=== PATIENT | male | born 1975 | race Caucasian/White ===

== ENCOUNTER 2021-07-28 02:06 | Day surgery (SDC) | payer OTHER, SELFPAY ==
[2021-07-24 13:22] VITALS: BMI 31.1
--- NOTE | 2021-07-28 08:22 | WPDANESEPPF ---
Anes - Initial Pre Proc Eval Procedure: Operation Date: 07/28/21 13:00 Proposed Procedures p Esophagogastroduodenoscopy & Colonoscopy - Zenon Nicolas MD <Adolfo Nunes MD - Last Filed: 07/29/21 07:13> Date/Time: 07/28/21 08:22 <Adolfo Nunes MD - Last Filed: 07/29/21 07:13> Surgeon: Zenon Nicolas MD <Adolfo Nunes MD - Last Filed: 07/29/21 07:13> Pre Op Diagnosis: occult GI bleed, Anemia <Adolfo Nunes MD - Last Filed: 07/29/21 07:13> Patient Data Age: 46 Gender: M Height: 1.85 m Weight: 107 kg <Adolfo Nunes MD - Last Filed: 07/29/21 07:13> Allergies Allergy/AdvReac Type Severity Reaction Status Date / Time lactose AdvReac Gastrointestinal Verified 07/28/21 12:31 Upset <Adolfo Nunes MD - Last Filed: 07/29/21 07:13> Home Medications Medication Instructions Recorded Confirmed Type ferrous sulfate 325 mg (65 mg 325 mg PO DAILY 07/17/21 07/28/21 History iron) tablet,delayed release omeprazole 20 mg capsule,delayed 20 mg PO BID 07/17/21 07/28/21 History release <Adolfo Nunes MD - Last Filed: 07/29/21 07:13> Patient hx anesthesia problems: none <Rony Tripp MD - Last Filed: 07/28/21 12:42> Family hx anesthesia problems: none <Rony Tripp MD - Last Filed: 07/28/21 12:42> Results Review: All pre-operative results and documents have been reviewed as part of the pre-operative evaluation. <Adolfo Nunes MD - Last Filed: 07/29/21 07:13> PMFSH Past Medical History Medical History: Medical History (Updated 07/28/21 @ 13:26 by Zenon Nicolas MD) Iron deficiency anemia Mass of colon Obesity <Adolfo Nunes MD - Last Filed: 07/29/21 07:13> Family History Family History: Family History Father Carcinoma of colon Hypertension <Adolfo Nunes MD - Last Filed: 07/29/21 07:13> Social History Social History: Social History Smoking status: Never smoker Alcohol intake: former Substance use: never Substance use type: does not use Spiritual care concerns: No <Adolfo Nunes MD - Last Filed: 07/29/21 07:13> Anes - Eval Final PreProcedure Day of Procedure 07/28/21 08:22 <Adolfo Nunes MD - Last Filed: 07/29/21 07:13> Patient weight: overweight <Adolfo Nunes MD - Last Filed: 07/29/21 07:13> obese <Rony Tripp MD - Last Filed: 07/28/21 12:42> Heart: regular rate and rhythm <Adolfo Nunes MD - Last Filed: 07/29/21 07:13> regular rate and rhythm <Rony Tripp MD - Last Filed: 07/28/21 12:42> Lungs: clear to auscultation and normal air movement <Adolfo Nunes MD - Last Filed: 07/29/21 07:13> clear to auscultation <Rony Tripp MD - Last Filed: 07/28/21 12:42> Airway: Mallampati scale class II <Adolfo Nunes MD - Last Filed: 07/29/21 07:13> Mallampati scale class II <Rony Tripp MD - Last Filed: 07/28/21 12:42> Neurological: alert and oriented <Adolfo Nunes MD - Last Filed: 07/29/21 07:13> alert and oriented <Rony Tripp MD - Last Filed: 07/28/21 12:42> Last oral intake: >/= 8 hours <Adolfo Nunes MD - Last Filed: 07/29/21 07:13> >/= 8 hours <Rony Tripp MD - Last Filed: 07/28/21 12:42> ASA classification: II <Adolfo Nunes MD - Last Filed: 07/29/21 07:13> II <Rony Tripp MD - Last Filed: 07/28/21 12:42> Emergent: no <Adolfo Nunes MD - Last Filed: 07/29/21 07:13> no <Rony Tripp MD - Last Filed: 07/28/21 12:42> Anesthetic plan: proceed <Adolfo Nunes MD - Last Filed: 07/29/21 07:13> proceed <Rony Tripp MD - Last Filed: 07/28/21 12:42> Anesthesia type and monitoring: general GIVS <Adolfo Nunes MD - [place]
--- NOTE | 2021-07-28 12:32 | WPDHPUPDATE1 ---
History and Physical Update Update Date/Time: 07/28/21 12:32 History and Physical has been reviewed, including an updated exam of the patient. There are NO changes in the patient's condition. Risks, benefits, and alternatives have been discussed and questions answered. Patient agrees to proceed with procedure.
[2021-07-28 12:34] VITALS: BP 144/83; PULSE 84; RESP 16; TEMP 36; O2SAT 100; BMI 30.7
[2021-07-28] MEDS: LACTATED RINGERS 1,000 ML 150 ML IV CONT (12:39)
--- NOTE | 2021-07-28 13:03 | SUR.OPER ---
EGD completed at 1257. Colonoscopy started at 1303.
[2021-07-28 13:28] VITALS: BP 95/53; PULSE 64; RESP 22; O2SAT 97
[2021-07-28 13:38] VITALS: BP 113/69; PULSE 64; RESP 22; O2SAT 97
[2021-07-28 13:48] VITALS: BP 121/75; PULSE 68; RESP 17; O2SAT 96
== END 2021-07-28 13:58 | disposition home or self-care (01) ==
PROVIDERS: PCP Internal Medicine; Visit Provider Internal Medicine Gastroenterology
PROC: 0DJ08ZZ Inspection of Upper Intestinal Tract, Via Natural or Artificial Opening Endoscopic (ICD-10-PCS; CPT 43235; principal; 2021-07-28 13:00)
DX: K63.3 Ulcer of intestine (principal); K64.8 Other hemorrhoids; E66.9 Obesity, unspecified; Z68.30 Body mass index [BMI] 30.0-30.9, adult
CPT/HCPCS: 43239; 45381; 45380; 88305; J2704; J7120

== ENCOUNTER 2021-07-29 14:28 | Outpatient (CLI) | payer OTHER, SELFPAY ==
[2021-07-29 14:48] LABS: Hematocrit 33.6 % (42.0-52.0); Hemoglobin 9.4 g/dL (14.0-18.0); Mean Corpuscular Hemoglobin 20.3 pg (26-34); Mean Corpuscular Volume 72.6 fl (80-100); Mean Platelet Volume 10.6 fl (7.4-10.4); Platelet Count Result 310 k/mm3 (150-375); Red Blood Count 4.63 M/mm3 (4.6-6.20); Red Cell Distribution Width 22.6 % (11.5-14.5); White Blood Count 3.8 K/mm3 (4.5-10.0)
[2021-07-29 15:00] LABS: Alanine Aminotransferase 15 U/L (4-50); Albumin Level 4.7 g/dL (3.5-5.1); Alkaline Phosphatase 74 U/L (38-126); Anion Gap 10 mmol/L (8-16); Aspartate Amino Transferase 21 U/L (17-59); Bilirubin,Total 0.3 mg/dL (0.2-1.3); Blood Urea Nitrogen 19 mg/dL (9-20); Calcium 9.4 mg/dL (8.4-10.2); Carbon Dioxide 27 mmol/L (22-30); Chloride 104 mmol/L (98-107); Estimated Glomerular Filt Rate 59; Glucose 106 mg/dL (65-110); Sodium 141 mmol/L (137-145)
[2021-07-29 15:30] LABS: Carcinoembryonic Antigen 1.4 ng/mL (0.0-3.0)
== END 2021-07-29 14:29 | disposition home or self-care (01) ==
PROVIDERS: PCP Internal Medicine; Visit Provider Internal Medicine Gastroenterology
DX: D50.9 Iron deficiency anemia, unspecified (principal); K63.89 Other specified diseases of intestine
CPT/HCPCS: 36415; 80053; 82378; 85027; 85055

== ENCOUNTER 2021-08-14 12:07 | Outpatient (CLI) | payer OTHER, SELFPAY ==
--- NOTE | ~2021-08-14 | CT_ITS ---
EXAMINATION: CT abdomen pelvis w con EXAM DATE: 08/14/2021 13:27 INDICATION: K63.89 - Other specified diseases of intestine . Colon cancer. Follow-up recent obstructi on. TECHNIQUE: Spiral CT of the abdomen and pelvis was performed following intravenous injection of 100 m L Omnipaque 350. Axial, coronal and sagittal images of the abdomen and pelvis were reviewed. The do se-length product (DLP) for this examination was 707.32 mGy-cm. The exposure was tailored according to patient size (auto mA exposure control), and iterative reconstruction (ASIR) was used as additiona l dose reduction technique. There is no prior study for comparison. FINDINGS: The liver, spleen, adrenal glands and pancreas are unremarkable. Gallbladder is unremarkab le. No biliary obstruction. Portal and splenic veins are patent. Kidneys enhance symmetrically. T here is no hydronephrosis. The prostate is unremarkable. The bladder is unremarkable. There is n o retroperitoneal or pelvic lymphadenopathy. There is mild scattered arteriosclerotic disease. There is focal region of sigmoid wall thickening and also an exophytic component of soft tissue measu ring about 2.6 cm consistent with colon cancer. There is a round lymph node just anterior to the anaya c bifurcation, could be within the posterior aspect of the mesentery, or the retroperitoneum measurin g 8 mm, within normal size limits but round morphology is suspicious for metastatic disease (indicate d on axial image 116, coronal image 50, sagittal image 83). Otherwise, no suspicious pelvic or abdomi nal lymph nodes identified. The appendix is normal. The stomach and small bowel are unremarkable. No free intraperitoneal gas. The heart is normal in size. There are no pericardial or pleural effusions. The lung bases are u nremarkable. There is 1 cm mildly sclerotic focus in the left iliac bone, could be bone island but e arthur osteoblastic disease not excludable. IMPRESSION: 1. Sigmoid mass with an exophytic component. 2. Lymph node described above, possibly metastatic given round shape. 3. Left iliac vaguely sclerotic focus, could be bone island but can't exclude osteoblastic disease. Reviewed, dictated and finalized at location A. [facility]
== END 2021-08-14 12:08 | disposition home or self-care (01) ==
LOC: ANHIMG 12:10
PROVIDERS: PCP Internal Medicine; Visit Provider Internal Medicine Gastroenterology
DX: K63.89 Other specified diseases of intestine (principal)
CPT/HCPCS: 74177; Q9967

== ENCOUNTER 2021-08-26 13:37 | Outpatient (CLI) | payer OTHER, SELFPAY ==
--- NOTE | 2021-08-26 14:27 | ECG_ITS ---
Measurements Intervals [place] Rate: 59 P: 48 NM: 176 QRS: 14 QRSD: 101 T: 12 QT: 411 QTc: 410 Interpretive Statements SINUS BRADYCARDIA WITH SINUS ARRHYTHMIA LOW QRS VOLTAGE IN PRECORDIAL LEADS BORDERLINE ECG Electronically Signed On 08-26-2021 15:04:03 [facility] [employer] by Charanjit Cooper D.O.
[2021-08-26 15:00] LABS: Hematocrit 37.8 % (42.0-52.0); Hemoglobin 10.8 g/dL (14.0-18.0)
== END 2021-08-26 13:38 | disposition home or self-care (01) ==
LOC: ANHSURGERY 13:40
PROVIDERS: Anesthesiology; PCP Internal Medicine; Visit Provider Surgery
DX: K63.89 Other specified diseases of intestine (principal); D64.9 Anemia, unspecified; Z01.818 Encounter for other preprocedural examination; R94.31 Abnormal electrocardiogram [ECG] [EKG]
CPT/HCPCS: 36415; 85014; 85018; 86850; 86900; 86901; 93005

== ENCOUNTER 2021-09-03 16:02 | Inpatient (IN) | payer OTHER, SELFPAY ==
--- NOTE | 2021-08-26 13:44 | PC.NURSE ---
Report to the Outpatient Waiting Room, entrance under the green pavilion located off [facility], at time _1000_ on date _09/03/21. OR Time: _1200___. - You and your visitor will be asked a series of questions to screen for COVID 19 for your protection. - A mask is required within the hospital. - Only one visitor is allowed at this time. Patient visitors will be guided where to wait when not with patient. Preoperative COVID Testing Requirements: No COVID Test needed if: (proof is required; if not received patient will have Rapid Test prior to entry) - Patient has received COVID Vaccine at least 14 days prior to procedure date or - Patient has positive COVID test result within last 90 days of surgery date. COVID Test needed if above criteria is not met If not COVID vaccinated a COVID test must be conducted within 72 hours of surgery and patient is asked to isolate self from time of testing until procedure. You will go to the [facility] for your COVID testing. The [facility] site is located at the corner of [address] [facility]. You will only be called if COVID results are positive and your surgeon may reschedule your elective surgery date. Patients may have clear liquids (water, carbonated beverages, clear teas, apple juice) until 3 hours prior to surgery (0900 AM) with a maximum of 20 ounces. - No food from midnight until time of surgery - Infants may have breast milk until 4 hours before surgery, formula 6 hours prior to surgery. - Children will be allowed to drink immediately following surgery. If applicable, please bring a bottle or sippy cup to assist with drinking. Juice, water, soda, and popsicles are readily available. For infants on formula, please bring formula the day of surgery. Pacifiers are allowed. Take the following medications with a SIP of water the morning of surgery: N/A Medications to discontinue per physician N/A Date to take last dose Please no make-up, nail bahamian, hairspray, perfume, deodorant, or body powder the day of surgery. No jewelry (including any body piercings) or valuables the day of surgery, leave them at home. Please take a shower or bath the night before, or the morning of, surgery with an antibacterial soap. Wear comfortable, loose fitting clothing. Children are encouraged to wear pajamas. - Jewelry must be removed prior to entering the operating room. Rings and piercings that are not removed may be cut off. - The hospital will not accept responsibility for valuables. - Please leave all valuables, including medications, at home the day of surgery. If you are going home after surgery, a licensed drive away driver must drive you home. - NO public transportation without another adult. - We recommend that an adult stay with you for 24 hours following discharge. - We also recommend that you do not drive, make important decision, drink alcoholic beverages, or take any drugs that were not prescribed by your health care provider for at least 24 hours after your discharge time. For Pediatric surgeries, we recommend two adults accompany the child home (only one inside the building at this time). Follow any additional instructions given to you from your surgeon. DIET, ENSURE BUNDLE, PRE-OP ANTIBIOTICS, BOWEL PREP, HIBICLENS SHOWER DAY BEFORE AND THE MORNING OF SURGERY Telephone instructions given to ___PT and asked if any additional questions and then verbalized understanding. Patient advised to call surgeon office or pre surgery nurse liaison [phone] if any additional questions.
[2021-08-26 13:54] VITALS: BP 148/86; PULSE 66; RESP 20; TEMP 37.1; O2SAT 100; BMI 31.8
[2021-09-03] VITALS (10 sets, daily range): BP systolic 116–147; BP diastolic 60–89; PULSE 48–82; RESP 12–16; TEMP 36.2–37.9; O2SAT 98–100
[2021-09-03] MEDS: ACETAMINOPHEN 500 MG TABLET 1000 MG PO (10:07)
[2021-09-03] MEDS: KETOROLAC 15 MG/ML VIAL (*BKC) IV PUSH (10:18)
--- NOTE | 2021-09-03 11:25 | P.PNAN_ITS ---
Anes - Initial Pre Proc Eval Procedure: Operation Date: 09/03/21 12:00 Proposed Procedures p Hand Assisted Laparoscopic Left Colectomy - Amna Bowling MD Date/Time: 09/03/21 11:25 Surgeon: Amna Bowling MD Pre Op Diagnosis: left colon mass Patient Data Age: 46 Gender: M Height: 1.85 m Weight: 104.6 kg Last Vital Signs Temp 37.9 C H 09/03/21 10:42 Pulse 82 09/03/21 10:42 Resp 16 09/03/21 10:42 BP 133/69 09/03/21 10:42 Pulse Ox 99 09/03/21 10:42 Allergies Allergy/AdvReac Type Severity Reaction Status Date / Time lactose AdvReac Mild Gastrointestinal Verified 09/03/21 09:56 Upset Home Medications Medication Instructions Recorded Confirmed Type ferrous sulfate 325 mg (65 mg 325 mg PO HS 07/17/21 09/03/21 History iron) tablet,delayed release omeprazole 20 mg capsule,delayed 20 mg PO BID 07/17/21 09/03/21 History release Patient hx anesthesia problems: none Family hx anesthesia problems: none Results Review: All pre-operative results and documents have been reviewed as part of the pre-operative evaluation. [facility] Past Medical History Medical History Iron deficiency anemia Mass of colon Obesity Family History Family History Father Carcinoma of colon Hypertension Mother COPD (chronic obstructive pulmonary disease) Social History Social History Smoking status: Never smoker Second hand tobacco smoke exposure: No Alcohol intake: never Alcohol use details: [place] [employer]INKER - QUIT 2015 Substance use: never Substance use type: does not use Living arrangements: other Additional living arrangements comments: LIVES WITH SIGNIFICANT OTHER Spiritual care concerns: No Anes - Eval Final PreProcedure Day of Procedure 09/03/21 11:25 Patient weight: obese Heart: regular rate and rhythm Lungs: clear to auscultation and normal air movement Airway: Mallampati scale class II Neurological: alert and oriented Last oral intake: >/= 8 hours ASA classification: III Emergent: no Anesthetic plan: proceed Anesthesia type and monitoring: general ETT Results Review: All pre-operative results and documents have been reviewed as part of the pre-operative evaluation. Informed Consent: The patient's anesthetic plan and its attendant risks and benefits were discussed with the patient/family/POA. Questions were solicited and answers provided to the satisfaction of the patient/family/POA.
--- NOTE | 2021-09-03 11:27 | WPDANESPNB ---
Anes - Peripheral Nerve Block Date/Time: 09/03/21 11:27 I have discussed with the patient/family/POA the placement of a peripheral nerve block for post-operative pain management, including associated risks, benefits, complications, and side effects. Alternative methods of post-operative analgesia were detailed. Questions were solicited and answers provided to the satisfaction of the patient/family/POA. Time-Out: A pre-procedural Time-Out was completed immediately before starting the procedure and confirmed: Patient Identification, Site, Procedure, Patient Position and the Availability of Requisite Equipment. Clinical Indications: Acute post-operative pain management requested by the operative surgeon. Nerve Block Insertion Note Anes-nerve block: other (bilateral t7 rolo block) Patient position: other (sitting) Skin prep: chlorhexidine Needle: 22 gauge, stimulating, insulated echogenic needle. Needle length: 80 mm Technique: ultrasound (in plane) Injectate: bupivacaine 0.5% with epi 5 mcg/ml (40cc) Observations: tolerated well Complications: none Procedure start time:: 1145 Procedure end time:: 1150
--- NOTE | 2021-09-03 11:42 | WPDHPUPDATE1 ---
History and Physical Update Update Date/Time: 09/03/21 11:42 History and Physical has been reviewed, including an updated exam of the patient. There are NO changes in the patient's condition. Risks, benefits, and alternatives have been discussed and questions answered. Patient agrees to proceed with procedure.
[2021-09-03] MEDS: LACTATED RINGERS 1,000 ML 30 ML IV CONT ×2 (11:59→14:54)
[2021-09-03] MEDS: metroNIDAZOLE 500 MG/ISO 100ML 500 MG/100 ML BAG 100 MG IVPB (12:26)
[2021-09-03] MEDS: ceFAZolin 2 GM/D5W 50 ML 2 GM/50 ML BAG IVPB ×2 (12:26→20:31)
[2021-09-03] MEDS: BUPIVACAINE/EPINEPHRINE 0.25% 10 ML VIAL 30 ML INFILTRATE (13:20)
--- NOTE | 2021-09-03 14:46 | W.PM.PROC2 ---
Procedure Note - Detailed Date of Procedure 09/03/21 Pre-op Diagnosis obstructing left colon mass Post-op Diagnosis same Procedure Performed hand assisted laparoscopic sigmoid colectomy with mobilization of the splenic flexure Surgeon Amna Bowling MD Anesthesia general Indications 46 y/o M c obstructing colon mass in L colon. Biopsy c high grade dysplasia. Findings obstructing colon mass mid sigmoid colon Description of Procedure The patient was taken to the operating room and placed in the modified lithotomy position. After adequate induction of general anesthesia, the patient was prepped and draped in the normal sterile fashion. A time-out was then done to verify the patient's identity, as well as the procedure being performed. I began by making a hand port incision around the umbilicus. This incision was carried down into the peritoneal cavity and no adhesions were noted. At this point, the hand port was placed and the abdomen was insufflated. I then placed a trocar through this site and under direct visualization placed a 5 mm and 12 mm ports in the right lower abdomen. There were some adhesions of the small bowel to the pelvis and these were taken down with the LigaSure device. I was then able to sweep the small bowel out of the operative field. I then identified the tattooed lesion in the sigmoid colon. This was noted to be in the midl sigmoid approximately 35 cm from the anal verge. I then mobilized the proximal colon to gain adequate length for our anastomosis. I took down the white line of Toldt laterally along the sigmoid and descending colon. In order to insure adequate length I went ahead and mobilized the splenic flexure as well. I then began dissection of the sigmoid colon itself. I used a medial to lateral approach 1st identifying the left colic vessels. The left colic vessels were identified at the base the mesentery. I was able to visualize the left ureter at this point as well and this was noted to be posterior and out of the way. I then took down the left colic vessels using the LigaSure device. I then carried this dissection plane inferiorly to the level of the distal sigmoid upper rectum. I then dissected laterally by taking down the white line of Toldt in this area. I also dissected around the area of the distal sigmoid and upper rectum. I was then able to get around circumferentially in the distal sigmoid upper rectal area. I then transected the distal sigmoid with upper rectum using a echelon stapler. Of note this did take 2 staple loads. At this point I was able to extracorporealyze the specimen. I then again was able to identify the tattooed area and noted adequate distal colon to this area. I then found an area proximal to this area approximately 10 cm to the tattooed area to transect the proximal sigmoid colon. This was done with an echelon stapler. I then prepared the proximal colon for our colorectal anastomosis. Using the EEA sizers, it was noted a 28 EEA stapler would be used for the anastomosis. I then used a auto pursestring device after transecting the proximal colon and placing the 28 anvil in the proximal colon. We then reinsufflated the abdomen and noted adequate length of the proximal colon for our anastomosis. The rectum was then dilated 1st digitally then with the EEA sizers. Once adequately done, the 28 EEA stapler was placed through the rectum and brought out through the middle of the previous staple line. I then completed a 28 EEA colorectal anastomosis. We then did an air leak test using the proctoscope and no leak was noted. The anastomosis was noted to be widely patent and tension-free. I then examined the rest of the abdomen and no other pathology was noted. Then copiously irrigated the area of our anastomosis and hemostasis was noted. I then closed the 12 mm port site under direct visualization with a Bipin cone and 0 Vicryl suture. The abdomen was then desufflated and all ports we
[2021-09-03] MEDS: LACTATED RINGERS 1,000 ML 100 ML IV CONT (16:15)
--- NOTE | 2021-09-03 16:32 | ADMGEN ---
This patient, Musa Santamaria, was admitted to [facility] Surgery-1. Patient/family oriented to hospital policies and general routines including ID bracelet, bed and alarms, visiting hours, pain management, procedures, bathroom and other care routines, personal items, smoking policy, room service/diet, and visiting hours. Information on how to activate the Rapid Response Team has been discussed. Patient/Family are encouraged to report perceived risks to care and to ask questions if they do not understand what they are told or what they should do.
[2021-09-04] MEDS: HYDROcodone/acetaminophen (*CRX) 5-325 MG TABLET 1 TAB PO ×3 (00:25→16:31)
[2021-09-04 00:29] VITALS: BP 114/86; PULSE 62; RESP 18; TEMP 37.1; O2SAT 98
[2021-09-04] MEDS: LACTATED RINGERS 1,000 ML 100 ML IV CONT ×3 (02:43→23:42)
[2021-09-04 04:00] VITALS: BP 133/96; PULSE 65; RESP 18; TEMP 36.9; O2SAT 97
[2021-09-04] MEDS: ceFAZolin 2 GM/D5W 50 ML 2 GM/50 ML BAG IVPB (04:00)
[2021-09-04] MEDS: MORPHINE SULFATE (*CRX) 2 MG/ML INJ IV PUSH (05:19)
[2021-09-04 06:29] LABS: Basophils Percent Auto 0.1 % (0.2-1.2); Hematocrit 38.8 % (42.0-52.0); Hemoglobin 11.6 g/dL (14.0-18.0); Immature Granulocyte Absolute 0.05 K/mm3 (0.00-0.031); Immature Granulocyte Percent A 0.5 % (0-0.5); Lymphocytes Absolute Auto 0.68 K/mm3 (0.9-3.2); Lymphocytes Percent Auto 6.6 % (18.3-44.2); Mean Corpuscular HGB Conc 29.9 g/dl (32-36); Mean Corpuscular Hemoglobin 22.3 pg (26-34); Mean Corpuscular Volume 74.5 fl (80-100); Monocytes Absolute Auto 0.7 K/mm3 (0.1-0.6); Monocytes Percent Auto 6.8 % (2.6-8.5); Neutrophils Absolute Auto 8.8 K/mm3 (1.3-6.7); Platelet Count Result 275 k/mm3 (150-375); Red Blood Count 5.21 M/mm3 (4.6-6.20); Red Cell Distribution Width 22.3 % (11.5-14.5); White Blood Count 10.3 K/mm3 (4.5-10.0)
[2021-09-04 06:44] LABS: Anion Gap 10 mmol/L (8-16); Blood Urea Nitrogen 14 mg/dL (9-20); Calcium 9.6 mg/dL (8.4-10.2); Carbon Dioxide 25 mmol/L (22-30); Chloride 104 mmol/L (98-107); Estimated CRCL calculation 95 ml/min; Estimated Glomerular Filt Rate > 60; Glucose 124 mg/dL (65-110); Potassium 4.1 mmol/L (3.4-5.0); Sodium 139 mmol/L (137-145)
[2021-09-04 07:43] LABS: Platelet Estimate Adequate (Adequate)
[2021-09-04 07:44] LABS: Anisocytosis 1+ (NORMAL); Ovalocytes 2+ (NORMAL)
[2021-09-04 07:55] VITALS: BP 136/81; PULSE 60; RESP 16; TEMP 36.9; O2SAT 98
--- NOTE | 2021-09-04 08:13 | P.PNAN_ITS ---
Anes - Prog Note Post-Op Date/Time: 09/04/21 08:13 Cardiovascular status: normal Respiratory status: normal Airway patency: baseline Mental status: baseline Post-Op hydration status: normal Vital Signs: Last Vital Signs Temp 98.4 F 09/04/21 04:00 Pulse 65 09/04/21 04:00 Resp 18 09/04/21 04:00 BP 133/96 H 09/04/21 04:00 Pulse Ox 97 09/04/21 04:00 Pain Score (VAS): 09/15 I/O: Intake & Output 09/03/21 09/04/21 09/04/21 23:59 07:59 15:59 Intake Total 530 1062 Output Total 350 2800 Balance 180 -1738 Laboratory Tests 09/04/21 06:00 09/04/21 06:00 09/04/21 09/04/21 06:00 06:00 WBC 10.3 H RBC 5.21 Hgb 11.6 L Hct 38.8 L MCV 74.5 L MCH 22.3 L MCHC 29.9 L RDW 22.3 H Plt Count 275 MPV 10.0 Immature Gran % (Auto) 0.5 Neut % (Auto) 86.0 H Lymph % (Auto) 6.6 L [place] % (Auto) 6.8 Eos % (Auto) 0.0 Baso % (Auto) 0.1 L Lymph # (Auto) 0.68 L [place] # (Auto) 0.7 H Eos # (Auto) 0.0 Baso # (Auto) 0.0 Abs Immat Gran (auto) 0.05 H Absolute Neuts (auto) 8.8 H Absolute Nucleated RBC 0.0 Nucleated RBC % 0.0 Platelet Estimate Adequate Anisocytosis 1+ Ovalocytes 2+ Sodium 139 Potassium 4.1 Chloride 104 Carbon Dioxide 25 Anion Gap 10 BUN 14 D Creatinine 1.10 Estim Creat Clear Calc 95 Estimated GFR > 60 Glucose 124 H Calcium 9.6 Patient Feedback: Patient satisfied with anesthetic care.
[2021-09-04] MEDS: PANTOPRAZOLE 40 MG TABLET PO (09:21)
[2021-09-04] MEDS: ENOXAPARIN 40 MG/0.4 ML SYRINGE SUB-Q (09:21)
[2021-09-04 14:08] VITALS: BP 132/75; PULSE 67; RESP 14; TEMP 36.7; O2SAT 100
--- NOTE | 2021-09-04 15:07 | PM.PNGS ---
Progress Note: A&P Assessment and Plan (1) Mass of colon: Code(s): K63.89 - Other specified diseases of intestine Status: Acute Assessment and Plan: doing well, cont clears, await ROBF, crain out, ambulate, OOB/IS, await path Subjective Subjective Date/Time Seen: 09/04/21 15:07 feels good, minimal incisional pain, lul clears Review of Systems Review of Systems: All systems reviewed & are unremarkable except as noted in HPI and below Exam Const: General: cooperative, comfortable and no acute distress Resp: Effort & Inspection: normal respiratory effort Auscultation: clear to auscultation bilaterally Cardio: Rate: regular rate Rhythm: regular rhythm GI: Inspection: normal to inspection, distended and incision GI Palp: Yes Tenderness to palpation present (GI) Objective Data Vital Signs Vital Signs: Vital Signs - 24 hr 09/03/21 15:10 09/03/21 15:20 09/03/21 15:35 Temperature 36.2 C L Pulse Rate 63 71 66 Respiratory Rate 13 13 16 Blood Pressure 124/76 145/85 H 143/84 H Pulse Oximetry 100 100 100 09/03/21 15:50 09/03/21 16:00 09/03/21 16:15 Temperature 36.6 C Pulse Rate 58 L 57 L 56 L Respiratory Rate 16 16 14 Blood Pressure 147/89 H 141/78 H 140/79 Pulse Oximetry 99 99 99 09/03/21 20:09 09/04/21 00:29 09/04/21 04:00 Temperature 36.5 C 37.1 C 36.9 C Pulse Rate 75 62 65 Respiratory Rate 16 18 18 Blood Pressure 129/62 114/86 133/96 H Pulse Oximetry 98 98 97 09/04/21 07:55 09/04/21 14:08 Temperature 36.9 C 36.7 C Pulse Rate 60 67 Respiratory Rate 16 14 Blood Pressure 136/81 132/75 Pulse Oximetry 98 100 Intake/Output Intake/Output: Intake & Output 09/01/21 09/02/21 09/03/21 09/04/21 23:59 23:59 23:59 23:59 Intake Total 980 2062 Output Total 460 2800 Balance 520 -738 Meds/Results Medications: Active Medications Generic Name Dose Route Start Last Admin Trade Name Freq PRN Reason Stop Dose Admin Hydrocodone Bitart/Acetaminophen 1 tab 09/03/21 16:02 09/04/21 09:30 Hydrocodone/Acetaminophen (*Crx) 5-325 Mg Tablet PO 1 tab Q4H PRN Administration Pain Rated 4-6 Alvimopan 12 mg 09/04/21 21:00 Alvimopan 12 Mg Capsule PO 09/11/21 20:59 Q12HR BRENDAN Enoxaparin Sodium 40 mg 09/04/21 09:00 09/04/21 09:21 Enoxaparin 40 Mg/0.4 Ml Syringe SUB-Q 40 mg DAILY BRENDAN Administration Lactated Ringer's 1,000 mls @ 100 mls/hr 09/03/21 16:02 09/04/21 13:23 Lr - Lactated Ringers Iv IV CONT 100 mls/hr .Q10H BRENDAN Administration Morphine Sulfate 2 mg 09/03/21 16:02 09/04/21 05:19 Morphine Sulfate (*Crx) 2 Mg/Ml Inj IV PUSH 2 mg Q2H PRN Administration Pain Rated 4-6 Morphine Sulfate 4 mg 09/03/21 16:02 Morphine Sulfate (*Crx) 4 Mg/Ml Inj IV PUSH Q2H PRN Pain Rated 7-10 Naloxone HCl 0.1 mg 09/03/21 16:02 Naloxone Hcl 0.4 Mg/Ml Vial IV PUSH Q2M PRN Opiate Reversal Ondansetron HCl 4 mg 09/03/21 16:02 Ondansetron Inj 4 Mg/2 Ml Vial IV PUSH Q4H PRN Nausea And Vomiting Pantoprazole Sodium 40 mg 09/04/21 09:00 09/04/21 09:21 Pantoprazole 40 Mg Tablet PO 40 mg QAM BRENDAN Administration Labs Labs: Laboratory Results - last 24 hr 09/04/21 09/04/21 06:00 06:00 WBC 10.3 H RBC 5.21 Hgb 11.6 L Hct 38.8 L MCV 74.5 L MCH 22.3 L MCHC 29.9 L RDW 22.3 H Plt Count 275 MPV 10.0 Immature Gran % (Auto) 0.5 Neut % (Auto) 86.0 H Lymph % (Auto) 6.6 L [place] % (Auto) 6.8 Eos % (Auto) 0.0 Baso % (Auto) 0.1 L Lymph # (Auto) 0.68 L [place] # (Auto) 0.7 H Eos # (Auto) 0.0 Baso # (Auto) 0.0 Abs Immat Gran (auto) 0.05 H Absolute Neuts (auto) 8.8 H Absolute Nucleated RBC 0.0 Nucleated RBC % 0.0 Platelet Estimate Adequate Anisocytosis 1+ Ovalocytes 2+ Sodium 139 Potassium 4.1 Chloride 104 Carbon Dioxide 25 Anion Gap 10 BUN 14 D Creatinine 1.10 Estim Creat Clear Calc 95 Estimated GFR > 60
--- NOTE | 2021-09-04 16:53 | PC.NURSE ---
PT TRANSFERRED TO ROOM 244. PT STABLE AND IN GOOD SPIRITS.
[2021-09-04 17:42] VITALS: BP 135/69; PULSE 60; RESP 16; TEMP 36.6; O2SAT 99
--- NOTE | 2021-09-04 17:46 | PC.NURSE ---
This patient, Musa Santamaria, was received from PACU holding on 09/04/21 at 1643. Patient oriented to unit policies and routines. Report received from ODESSA Valero.
[2021-09-04 20:59] VITALS: BP 124/67; PULSE 60; RESP 14; TEMP 36.6; O2SAT 99
[2021-09-04] MEDS: ALVIMOPAN 12 MG CAPSULE PO (21:53)
[2021-09-05 00:19] VITALS: BP 150/88; PULSE 74; RESP 18; TEMP 36.7; O2SAT 98
--- NOTE | 2021-09-05 03:51 | PM.PNGS ---
Progress Note: A&P Assessment and Plan (1) Mass of colon: Code(s): K63.89 - Other specified diseases of intestine Status: Acute Assessment and Plan: doing well, soft diet, home if lul diet and pain controlled c po analgesia Subjective Subjective Date/Time Seen: 09/05/21 03:51 feels good, lul clears, sm BM overnight, +flatus Review of Systems Review of Systems: All systems reviewed & are unremarkable except as noted in HPI and below Exam Const: General: cooperative, comfortable and no acute distress Resp: Effort & Inspection: normal respiratory effort Auscultation: clear to auscultation bilaterally Cardio: Rate: regular rate Rhythm: regular rhythm GI: Inspection: normal to inspection and incision GI Palp: Yes abdominal tenderness, Yes Soft to palpation and Yes Tenderness to palpation present (GI) Other: incisions - C/D/I Objective Data Vital Signs Vital Signs: Vital Signs - 24 hr 09/04/21 04:00 09/04/21 07:55 09/04/21 14:08 Temperature 36.9 C 36.9 C 36.7 C Pulse Rate 65 60 67 Respiratory Rate 18 16 14 Blood Pressure 133/96 H 136/81 132/75 Pulse Oximetry 97 98 100 09/04/21 17:42 09/04/21 20:59 09/05/21 00:19 Temperature 36.6 C 36.6 C 36.7 C Pulse Rate 60 60 74 Respiratory Rate 16 14 18 Blood Pressure 135/69 124/67 150/88 H Pulse Oximetry 99 99 98 Intake/Output Intake/Output: Intake & Output 09/02/21 09/03/21 09/04/21 09/05/21 23:59 23:59 23:59 23:59 Intake Total 980 3062 Output Total 460 4600 Balance 520 -1538 Meds/Results Medications: Active Medications Generic Name Dose Route Start Last Admin Trade Name Freq PRN Reason Stop Dose Admin Hydrocodone Bitart/Acetaminophen 1 tab 09/03/21 16:02 09/04/21 16:31 Hydrocodone/Acetaminophen (*Crx) 5-325 Mg Tablet PO 1 tab Q4H PRN Administration Pain Rated 4-6 Alvimopan 12 mg 09/04/21 21:00 09/04/21 21:53 Alvimopan 12 Mg Capsule PO 09/11/21 20:59 12 mg Q12HR BRENDAN Administration Enoxaparin Sodium 40 mg 09/04/21 09:00 09/04/21 09:21 Enoxaparin 40 Mg/0.4 Ml Syringe SUB-Q 40 mg DAILY BRENDAN Administration Lactated Ringer's 1,000 mls @ 100 mls/hr 09/03/21 16:02 09/04/21 23:42 Lr - Lactated Ringers Iv IV CONT 100 mls/hr .Q10H BRENDAN Administration Morphine Sulfate 2 mg 09/03/21 16:02 09/04/21 05:19 Morphine Sulfate (*Crx) 2 Mg/Ml Inj IV PUSH 2 mg Q2H PRN Administration Pain Rated 4-6 Morphine Sulfate 4 mg 09/03/21 16:02 Morphine Sulfate (*Crx) 4 Mg/Ml Inj IV PUSH Q2H PRN Pain Rated 7-10 Naloxone HCl 0.1 mg 09/03/21 16:02 Naloxone Hcl 0.4 Mg/Ml Vial IV PUSH Q2M PRN Opiate Reversal Ondansetron HCl 4 mg 09/03/21 16:02 Ondansetron Inj 4 Mg/2 Ml Vial IV PUSH Q4H PRN Nausea And Vomiting Pantoprazole Sodium 40 mg 09/04/21 09:00 09/04/21 09:21 Pantoprazole 40 Mg Tablet PO 40 mg QAM BRENDAN Administration Labs Labs: Laboratory Results - last 24 hr 09/04/21 09/04/21 06:00 06:00 WBC 10.3 H RBC 5.21 Hgb 11.6 L Hct 38.8 L MCV 74.5 L MCH 22.3 L MCHC 29.9 L RDW 22.3 H Plt Count 275 MPV 10.0 Immature Gran % (Auto) 0.5 Neut % (Auto) 86.0 H Lymph % (Auto) 6.6 L [place] % (Auto) 6.8 Eos % (Auto) 0.0 Baso % (Auto) 0.1 L Lymph # (Auto) 0.68 L [place] # (Auto) 0.7 H Eos # (Auto) 0.0 Baso # (Auto) 0.0 Abs Immat Gran (auto) 0.05 H Absolute Neuts (auto) 8.8 H Absolute Nucleated RBC 0.0 Nucleated RBC % 0.0 Platelet Estimate Adequate Anisocytosis 1+ Ovalocytes 2+ Sodium 139 Potassium 4.1 Chloride 104 Carbon Dioxide 25 Anion Gap 10 BUN 14 D Creatinine 1.10 Estim Creat Clear Calc 95 Estimated GFR > 60 Glucose 124 H Calcium 9.6
[2021-09-05 06:00] VITALS: BP 128/74; PULSE 64; RESP 18; TEMP 36.5; O2SAT 98
[2021-09-05] MEDS: ALVIMOPAN 12 MG CAPSULE PO (08:00)
[2021-09-05] MEDS: PANTOPRAZOLE 40 MG TABLET PO (08:00)
[2021-09-05] MEDS: ENOXAPARIN 40 MG/0.4 ML SYRINGE SUB-Q (08:00)
[2021-09-05 10:00] VITALS: BP 139/65; PULSE 63; RESP 16; TEMP 36.5; O2SAT 98
[2021-09-05] MEDS: LACTATED RINGERS 1,000 ML 100 ML IV CONT (10:31)
[2021-09-05 14:00] VITALS: BP 154/92; PULSE 60; RESP 16; TEMP 36.3; O2SAT 100
--- NOTE | 2021-09-05 20:22 | PM.DS ---
DS: Admitting Diagnosis Discharge Date 09/05/21 Admitting Diagnosis Mass of the left colon with dysplasia biopsy. DS: Discharge Diagnosis Discharge Diagnosis (1) Mass of colon: Onset Date: ~08/2021 Code(s): K63.89 - Other specified diseases of intestine Status: Acute Assessment and Plan: This was the main reason for the patient's admission. Had a bowel as an outpatient and underwent hand assisted left colon resection with reanastomosis and splenic flexure takedown. (Please see the operative note). Patient had uneventful postoperative course. It appears that he had an erector spinae block at the time the surgery. This left him without much pain following the surgery and he has done well in the 2 postop days. This morning he had a bowel movement and he is up walking feeling well. He is having no trouble with his incisions. (2) BMI 31.0-31.9,adult: Onset Date: Unknown Code(s): Z68.31 - Body mass index [BMI] 31.0-31.9, adult Status: Acute Assessment and Plan: Patient will gradually increase his diet to low-fat low-fiber diet until he sees Dr. Bowling in the office. (3) Iron deficiency anemia: Onset Date: Unknown Code(s): D50.9 - Iron deficiency anemia, unspecified Status: Acute Assessment and Plan: Patient will be in taking iron tablets at home and continue with follow-up labs as an outpatient next month. DS: Summary Hospital Course Reason for hospitalization: mass of the colon with anemia Hospital Course: The patient was brought into hospital electively for a left colon resection. This was completed. He has had an uneventful postoperative course. he had good pain relief with the erector spinae block give pre-op. He had a bowel prep as an outpatient and underwent hand assisted left colon resection with reanastomosis and splenic flexure takedown on 09/03. (Please see the operative note). Patient had uneventful postoperative course. It appears that he had an erector spinae block at the time the surgery. This left him without much pain following the surgery and he has done well in the 2 postop days. This morning (09/05) he had a bowel movement and he is up walking feeling well. He is having no trouble with his incisions. Status at Discharge Cognitive/behavioral status at discharge: normal Functional status at discharge: independent ambulation Overall status at discharge: patient is not back to baseline Time Spent with Patient Time attestation: Total time spent providing and/or coordinating discharge services:25 min Exam Const: General: cooperative, comfortable, alert and awake Orientation/consciousness: patient oriented x3 HENMT: Head: normal to inspection Mouth: Yes moist mucous membranes Eyes: Sclera: sclerae normal Pupils: Equal, round and reactive pupils present Neck: Neck: normal visual inspection and no JVD Chest: Chest palpation & inspection: normal inspection of the chest Resp: Effort & Inspection: normal respiratory effort Auscultation: clear to auscultation bilaterally Cardio: Jugular venous distension: no JVD Rate: regular rate GI: Inspection: incision ( Clean and dry with surgical glue in place.) GI Palp: Yes Soft to palpation Auscultation: normal bowel sounds Neuro: General: patient oriented x3 Cranial nerves: Yes Equal, round and reactive pupils present DS: Data Data Completed and Pending Pending studies at discharge: Pending at discharge 09/03/21 14:28 Surgical [PTH] Routine Discharge Plan Discharge Attending physician on discharge: Amna Bowling Discharging Clinician: Jhon Brunosn Anticipated Discharge Date/Time: 09/05/21 15:57 Patient Disposition: Home, Self-Care Activity: may shower and no straining Diet: as tolerated Wound Care Instructions: incision open to air Discharge Instructions: DISCHARGE INSTRUCTION SHEET FOR LAPAROSCOPIC SURGERIES DR. BRUNSON/NAZ
== END 2021-09-05 16:02 | disposition home or self-care (01) | DRG 231 ==
LOC: ANHLDR 16:04 → ANHSUROVER 16:17 → ANH2MED 09-04 16:54
PROVIDERS: Admitting Provider Surgery; PCP Internal Medicine; Visit Provider Surgery
PROC: 0D1E4Z4 Bypass Large Intestine to Cutaneous, Percutaneous Endoscopic Approach (ICD-10-PCS; principal; 2021-09-03 12:00)
DX: K63.89 Other specified diseases of intestine (principal); D50.9 Iron deficiency anemia, unspecified; E66.9 Obesity, unspecified; Z68.31 Body mass index [BMI] 31.0-31.9, adult; Z80.0 Family history of malignant neoplasm of digestive organs
CPT/HCPCS: 36415; 80048; 85025; 88309; A9270; C1729; J0690; J1100; J1170; J1650; J1885; J2250; J2270; J2405; J2704; J2710; J3010; J7030; J7120

== ENCOUNTER 2021-10-07 07:34 | Outpatient (CLI) | payer OTHER, SELFPAY ==
--- NOTE | ~2021-10-07 | PE_ITS ---
EXAMINATION: PET skull to mid thigh DATE: 10/07/2021 09:31 INDICATION: Malignant neoplasm of the sigmoid colon TECHNIQUE: Blood glucose level was 89 mg/dL. 9.395 mCi of 18-fluorodeoxyglucose (18-FDG) was administ ered i.v. Low dose computed tomography (CT) images were acquired from the base of the brain to the pr oximal thighs for attenuation correction and anatomic localization. Positron emission tomography (PET ) images were acquired in the same distribution beginning 54 minutes after injection. Images includin g fused PET/CT images were reconstructed in axial, coronal, and sagittal planes. Automated exposure c ontrol technique was employed. The dose-length product was 943.44 mGy-cm. COMPARISON: CT abdomen and pelvis dated 08/14/2021 FINDINGS: Head/neck: There is symmetric increased activity in the oral cavity, palatine tonsils, sublingual glands and ocu lar muscles without CT correlate, likely physiologic. Mild FDG uptake with maximal SUV of 3.3 associa jeannine with an approximately 1 cm partially rim calcified right thyroid nodule. No pathologically enlarg ed cervical lymphadenopathy or other suspicious foci of increased FDG uptake in the visualized head o r neck. Chest: Lungs are clear with no suspicious pulmonary nodules, pneumonia, pulmonary edema or pleural effusion. Heart size is normal. No pericardial effusion. Thoracic aorta is normal in caliber. No suspicious FD G avid lesions in the thorax or pathologically enlarged thoracic lymphadenopathy. Abdomen/pelvis/proximal thighs: Physiologic renal accumulation and excretion of FDG activity in the kidneys, bladder and along portio ns of ureters. Approximately 1 cm exophytic left renal cyst. Normal degree and heterogenous pattern o f increased uptake throughout the liver without radiologic correlate or dominant FDG avid lesion. The gallbladder, pancreas, spleen and bilateral adrenal glands are normal. Normal appendix. Postoperativ e change of prior partial sigmoidectomy with anastomotic suture line in the central pelvis. There is a small focus of increased FDG uptake with maximal SUV of 5.1 along the anastomosis. Additional incre ased non masslike FDG uptake with maximal SUV of 7.8 extending along a relatively thin band of soft t issue density and stranding extending inferiorly from the site of the anastomosis along the superfici al margin of the deep left pelvic retroperitoneum which is without correlate on the prior imaging sug gesting this represents postoperative response to the recent surgery. Mild uptake scattered throughou t the remainder of the bowels without radiologic correlate, also likely physiologic. A previously farhan picious prominent lymph node along the inferior mesenteric chain is no longer identified. No other ab normal foci of increased FDG uptake or pathologically enlarged or FDG avid lymphadenopathy in the abd omen, pelvis or proximal thighs. Small fat-containing umbilical hernia. Musculoskeletal: 1.2 cm sclerotic lesion at the left posterior iliac spine without evident associated FDG uptake. No o ther suspicious lytic, blastic or FDG avid bone lesions. IMPRESSION: 1. Postoperative change of interval partial sigmoidectomy and reanastomosis for reported colon cancer . Small amount of increased FDG uptake in the immediately adjacent soft tissues most likely response to the prior surgery as the soft tissue density appears new since the prior surgery although could no t exclude residual malignancy. No other lesions suspicious for more distal metastatic disease. 2. No abnormal FDG uptake associated with 1.2 cm sclerotic lesion at the left posterior iliac spine w hich along with the absence of additional suspicious bone lesions favors a benign etiology but would recommend continued attention on follow-up imaging. 3. Mild FDG uptake associated with a likely benign 1 cm partially rim calcified right thyroid nodule. Consider thyroid ultrasou
[2021-10-07 08:06] LABS: Glucose Point of Care 89 mg/dl (65-105)
== END 2021-10-07 07:35 | disposition home or self-care (01) ==
LOC: ANHIMG 07:39
PROVIDERS: PCP Internal Medicine; Visit Provider Internal Medicine Hematology & Oncology
DX: C18.7 Malignant neoplasm of sigmoid colon (principal)
CPT/HCPCS: 78815; A9552

== ENCOUNTER 2021-10-14 12:23 | Outpatient (CLI) | payer OTHER, SELFPAY ==
[2021-10-14 13:11] LABS: Prothrombin Time 13.5 Seconds (11.1-14.7)
[2021-10-14 13:12] LABS: Partial Thromboplastin Time 26.9 SECONDS (22.3-36.8)
== END 2021-10-14 12:24 | disposition home or self-care (01) ==
LOC: ANHSURGERY 12:26
PROVIDERS: PCP Internal Medicine; Visit Provider Surgery
DX: C18.9 Malignant neoplasm of colon, unspecified (principal); Z01.818 Encounter for other preprocedural examination
CPT/HCPCS: 36415; 85610; 85730

== ENCOUNTER 2021-10-15 01:33 | Day surgery (SDC) | payer OTHER, SELFPAY ==
[2021-10-08 12:18] VITALS: BMI 30.4
--- NOTE | 2021-10-08 12:24 | PC.NURSE ---
Report to the Outpatient Waiting Room, entrance under the green pavilion located off [facility], at time 1230 on date 10/15/21. OR Time: 1430. - You will be asked a series of questions to screen for COVID 19 for your protection. - A mask is required within the hospital. - No visitors are allowed at this time. Preoperative COVID Testing Requirements: No COVID Test needed if: (proof is required; if not received patient will have Rapid Test prior to entry) - Patient has received COVID Vaccine at least 14 days prior to procedure date or - Patient has positive COVID test result within last 90 days of surgery date. COVID Test needed if above criteria is not met Patients may have clear liquids (water, carbonated beverages, clear teas, apple juice) until 3 hours prior to surgery with a maximum of 20 ounces. - No food from midnight until time of surgery Take the following medications with a SIP of water the morning of surgery: NONE Medications to discontinue per physician: VITAMINS/SUPPLEMENTS Date to take last dose: 10/11/21 Please no make-up, nail puerto rican, hairspray, perfume, deodorant, or body powder the day of surgery. No jewelry (including any body piercings) or valuables the day of surgery, leave them at home. Please take a shower or bath the night before, or the morning of, surgery with an antibacterial soap. Wear comfortable, loose fitting clothing. - Jewelry must be removed prior to entering the operating room. Rings and piercings that are not removed may be cut off. - The hospital will not accept responsibility for valuables. - Please leave all valuables, including medications, at home the day of surgery. If you are going home after surgery, a licensed package delivery driver must drive you home. - NO public transportation without another adult. - We recommend that an adult stay with you for 24 hours following discharge. - We also recommend that you do not drive, make important decision, drink alcoholic beverages, or take any drugs that were not prescribed by your health care provider for at least 24 hours after your discharge time. Follow any additional instructions given to you from your surgeon. Telephone instructions given to YU CORTES and asked if any additional questions and then verbalized understanding. Patient advised to call surgeon office or pre surgery nurse liaison [phone] if any additional questions.
--- NOTE | ~2021-10-15 | XR_ITS ---
EXAMINATION: XR fl guide central line place DATE: 10/15/2021 14:26 INDICATION: Port placement. TECHNIQUE: 2 intraoperative fluoroscopic views of the chest were obtained. I was not present. Fluoros copy exposure time was 34 seconds. COMPARISON: Chest single view 10/15/2021 FINDINGS: There is a left subclavian port with tip overlying right atrium. There is deviation of the catheter between the clavicle and first rib. IMPRESSION: 1. Port tip overlying right atrium. Reviewed, dictated and finalized at location E. ATTACHER
--- NOTE | ~2021-10-15 | XR_ITS ---
EXAMINATION: XR chest port-a-cath/central DATE: 10/15/2021 14:41 INDICATION: Port catheter insertion TECHNIQUE: frontal view of the chest was obtained. COMPARISON: None FINDINGS: Left subclavian central venous port catheter with distal tip at the midsuperior vena cava. The cathet er makes relatively abrupt changes in the course where it passes between the left clavicle and anteri or left first rib. There is however no evident flattening of the catheter or discontinuity of the cat heter will to suggest fracture. Lungs are clear with no focal airspace opacities, pulmonary edema, pleural effusion or pneumothorax. The cardiomediastinal silhouette is within normal limits for AP technique. IMPRESSION: 1. Left subclavian central venous port catheter with distal tip in the midsuperior vena cava. There i s undulation to the course of the catheter but no evident flattening of the catheter where it passes between the left clavicle and anterior first rib which could predispose toward pinch off syndrome wit h elevated risk for catheter fracture and embolization. 2. No acute cardiopulmonary disease. Reviewed, dictated and finalized at location A. DULE ANALYST IMPRESSION: 1. Left subclavian central venous port catheter with distal tip in the midsuper ior vena cava. There is undulation to the course of the catheter but no evident flattening of the catheter where it passes between the left clavicle and anter ior first rib which could predispose toward pinch off syndrome with elevated ri sk for catheter fracture and embolization. 2. No acute cardiopulmonary disease.
--- NOTE | 2021-10-15 07:29 | P.PNAN_ITS ---
Anes - Initial Pre Proc Eval Procedure: Operation Date: 10/15/21 14:30 Proposed Procedures p Insertion Pascual Cath - Amna Bowling MD Date/Time: 10/15/21 07:29 Surgeon: Amna Bowling MD Pre Op Diagnosis: Malignant neoplasm of sigmoid colon Patient Data Age: 46 Gender: M Height: 1.85 m Weight: 104.6 kg Allergies Allergy/AdvReac Type Severity Reaction Status Date / Time No Known Allergies Allergy Verified 10/15/21 12:35 Home Medications Medication Instructions Recorded Confirmed Type omeprazole 20 mg PO BID 10/15/21 10/15/21 History Patient hx anesthesia problems: none Family hx anesthesia problems: none Results Review: All pre-operative results and documents have been reviewed as part of the pre-operative evaluation. [facility] Past Medical History Medical History (Updated 10/15/21 @ 07:30 by César Herrera DO) Colon cancer Iron deficiency anemia (Unknown) Mass of colon (~08/2021) Obesity Surgical History Surgical History History of colon resection 09/03/2021 - hand assisted laparoscopic sigmoid colectomy with mobilization of the splenic flexure Family History Family History Father Carcinoma of colon Hypertension Mother COPD (chronic obstructive pulmonary disease) Social History Social History Smoking status: Never smoker Second hand tobacco smoke exposure: No Alcohol intake: former Drinks per week: 1 Alcohol use details: SOCIAL DRINKER - QUIT 2014 Substance use: never Substance use type: does not use Living arrangements: with family Additional living arrangements comments: LIVES WITH SIGNIFICANT OTHER Spiritual care concerns: No Anes - Eval Final PreProcedure Day of Procedure 10/15/21 07:29 Patient weight: obese Heart: regular rate and rhythm Lungs: clear to auscultation and normal air movement Airway: Mallampati scale class II Neurological: alert and oriented Last oral intake: >/= 8 hours ASA classification: III Emergent: no Anesthetic plan: proceed Anesthesia type and monitoring: general GIVS and standard monitoring Results Review: All pre-operative results and documents have been reviewed as part of the pre-operative evaluation. Informed Consent: The patient's anesthetic plan and its attendant risks and benefits were discussed with the patient/family/POA. Questions were solicited and answers provided to the satisfaction of the patient/family/POA.
--- NOTE | 2021-10-15 12:26 | WPDHPUPDATE1 ---
History and Physical Update Update Date/Time: 10/15/21 12:26 History and Physical has been reviewed, including an updated exam of the patient. There are NO changes in the patient's condition. Risks, benefits, and alternatives have been discussed and questions answered. Patient agrees to proceed with procedure.
[2021-10-15] MEDS: LACTATED RINGERS 1,000 ML 30 ML IV CONT (13:01)
[2021-10-15] MEDS: KETOROLAC 15 MG/ML VIAL (*BKC) IV PUSH (13:03)
[2021-10-15 13:14] VITALS: BP 129/66; PULSE 59; RESP 16; TEMP 37; O2SAT 100
[2021-10-15] MEDS: ceFAZolin 2 GM/D5W 50 ML 2 GM/50 ML BAG IVPB (13:50)
[2021-10-15] MEDS: HEPARIN SODIUM 5,000 UNITS/ML VIAL 5000 UNITS IRRIGATION (14:12)
[2021-10-15] MEDS: BUPIVACAINE/EPINEPHRINE 0.5% 10 ML VIAL 30 ML INFILTRATE (14:12)
[2021-10-15] MEDS: HEPARIN SODIUM, PORCINE 10,000 UNITS/10 ML VIAL 4000 UNITS IV PUSH (14:13)
--- NOTE | 2021-10-15 14:25 | W.PM.PROC2 ---
Procedure Note - Detailed Date of Procedure 10/15/21 Pre-op Diagnosis Malignant neoplasm of sigmoid colon Post-op Diagnosis same Procedure Performed placement of L subclavian venous access device under fluroscopic guidance Surgeon Amna Bowling MD Anesthesia MAC and local Indications 46 y/o M c metastatic sigmoid colon cancer Findings first stick L SCV Description of Procedure Patient was brought into the operating room and placed in the supine position. After adequate induction of mac anesthesia, the patient was prepped and draped in normal sterile fashion. Time-out was then done to verify the patient's identity, as well as the procedure being performed. I began by making a small incision in the left chest, I then gained access into the left subclavian vein with an 18 gauge needle. I then placed the guidewire into the vein and confirmed placement via fluoroscopic guidance. I then locally anesthetized the area in the left chest. I then enlarged the incision around the guidewire including making a subcutaneous pocket inferiorly to allow placement of the port itself. I then placed a dilating sheath over the guidewire into the left subclavian vein via sterile Seldinger technique. This was once again done and confirmed via fluoroscopic guidance. I then removed the dilator and the guidewire, now just leaving the sheath in the vein. I then fed the previously flushed catheter into the left subclavian vein under fluoroscopic guidance. At approximately 23 cm, the catheter was noted to be near the atrial caval junction. I then peeled away the sheath, now just leaving the catheter in the vein. I then was able to easily draw and flush from the catheter. The catheter was cut to fit and attached to the port itself. The port was placed into the previously made subcutaneous pocket and sutured in with 0 Ethibond suture. Final fluoroscopic view showed the termination of the catheter at the atrial caval junction with a nice smooth curvature back to the port itself. I was able to gain access to the port with a Guan needle and was able to easily draw and flush from the port. I then flushed 4 cc of a final heparin flush into the port. The incision was closed with 3 0 Vicryl suture in the subcutaneous tissue and the skin was closed with 4 O Monocryl subcuticular suture. Dermabond was then placed on wound. The patient tolerated the procedure well and will be sent to the recovery room in stable condition. Implants L SCV VAD Estimated Blood Loss 5 Drains No Packing No Pathology none sent Complications No immediate complications Condition stable Disposition PACU
[2021-10-15 14:31] VITALS: BP 109/69; PULSE 53; RESP 16
[2021-10-15 15:01] VITALS: BP 114/58; PULSE 52; RESP 16
[2021-10-15 15:10] VITALS: BP 114/58; PULSE 53; RESP 16
== END 2021-10-15 15:20 | disposition home or self-care (01) ==
PROVIDERS: PCP Internal Medicine; Visit Provider Surgery
PROC: (CPT 36561; principal; 2021-10-15 14:30)
DX: C18.7 Malignant neoplasm of sigmoid colon (principal); E66.9 Obesity, unspecified; Z68.30 Body mass index [BMI] 30.0-30.9, adult
CPT/HCPCS: 36561; 77001; C1788; J0690; J1644; J1885; J2250; J2704; J3010; J7030; J7120

== ENCOUNTER 2021-12-27 18:53 | Emergency (ER) | payer OTHER, SELFPAY ==
[2021-12-27] VITALS (24 sets, daily range): BP systolic 103–147; BP diastolic 73–90; PULSE 72–96; RESP 18; TEMP 36.3; O2SAT 93–100
--- NOTE | 2021-12-27 19:13 | ED.NAVMDI ---
HPI - Nausea/Vomiting/Diarrhea General Chief complaint: Nausea/Vomiting/Diarrhea Stated complaint: oncologist sent - diarrhea since wednesday Time Seen by Provider: 12/27/21 19:07 Source: patient Mode of arrival: ambulatory Limitations: no limitations History of Present Illness HPI Narrative: Patient is a 46-year-old male complaining of diarrhea, described as loose watery, nonbloody, started 1 week ago. Patient states that his oncologist sent him here due to the ongoing diarrhea. Patient states that he is currently on chemotherapy and every time he gets chemo he will he has diarrhea but this time persisted longer than usual and that is why he is here. Patient denies any abdominal pain, nausea, vomiting, fever or chills. Related Data Home Medications Medication Instructions Recorded Confirmed multivitamin 1 tablet PO DAILY 11/05/21 12/19/21 ondansetron 8 mg PO Q8H PRN 11/05/21 12/19/21 diphenoxylate-atropine tablet 12/27/21 lidocaine-prilocaine 12/27/21 megestrol 12/27/21 ondansetron 12/27/21 Allergies Allergy/AdvReac Type Severity Reaction Status Date / Time No Known Allergies Allergy Verified 12/27/21 18:55 Review of Systems Review of Systems: All systems reviewed & are unremarkable except as noted in HPI and below Constitutional: Constitutional: Denies body ache(s), Denies chills, Denies excessive sweating, Denies fatigue, Denies fever(s), Denies headache(s), Denies lethargy, Denies malaise, Denies weakness and Denies weight loss Eyes: Eyes: Denies blurry vision, Denies change in vision and Denies loss of vision ENT: Denies dizziness, Denies ear discharge, Denies headache(s), Denies lip swelling, Denies epistaxis, Denies nasal congestion, Denies neck pain, Denies throat swelling and Denies tongue swelling Cardiovascular: Cardiovascular: Denies chest pain, Denies chest pain at rest, Denies chest pain with activity, Denies diaphoresis, Denies rapid heart rate, Denies edema, Denies irregular heart rhythm, Denies lightheadedness, Denies palpitations, Denies dyspnea and Denies dyspnea on exertion Respiratory: Respiratory: Denies chest congestion, Denies cough, Denies hemoptysis, Denies dyspnea and Denies dyspnea on exertion Gastrointestinal: Gastrointestinal: Denies abdominal pain, Denies melena, Denies hematochezia, Denies nausea, Denies vomiting and Denies hematemesis Musculoskeletal: Musculoskeletal: Denies abnormal gait, Denies deformity, Denies joint swelling, Denies limited range of motion, Denies neck pain and Denies numbness Neurologic: Denies Abnormal speech present, Denies abnormal gait, Denies confusion, Denies dizziness, Denies headache(s), Denies focal weakness, Denies loss of vision, Denies numbness, Denies Other visual disturbances, Denies Sensory deficit (Neuro) and Denies weakness Psychiatric: Psychiatric: Denies confusion, Denies depression, Denies auditory hallucinations, Denies homicidal ideation and Denies suicidal ideation Endocrine: Endocrine: Denies cold intolerance, Denies excessive sweating, Denies fatigue, Denies heat intolerance and Denies palpitations Hematologic/Lymphatic: Hematologic/Lymphatic: Denies easy bleeding and Denies easy bruising Allergic/Immunologic: Allergic/Immunologic: Denies lip swelling, Denies throat swelling and Denies tongue swelling PMFSH Past Medical History Medical History Colon cancer Iron deficiency anemia (Unknown) Mass of colon (~08/2021) Obesity Surgical History Surgical History History of colon resection 09/03/2021 - hand assisted laparoscopic sigmoid colectomy with mobilization of the splenic flexure Family History Family History Father Carcinoma of colon Hypertension Mother COPD (chronic obstructive pulmonary disease) Social History Social History (Reviewed 12/27/21 @
[2021-12-27 19:25] LABS: Basophils Percent Auto 0.5 % (0.2-1.2); Eosinophils Absolute Auto 0.1 K/mm3 (0-0.3); Eosinophils Percent Auto 1.7 % (0-4.4); Hematocrit 42.7 % (42.0-52.0); Hemoglobin 14.9 g/dL (14.0-18.0); Immature Granulocyte Absolute 0.01 K/mm3 (0.00-0.031); Immature Granulocyte Percent A 0.2 % (0-0.5); Immature Platelet Fraction Pct 5.2 % (0.9-11.2); Mean Corpuscular HGB Conc 34.9 g/dl (32-36); Mean Corpuscular Hemoglobin 28.9 pg (26-34); Mean Corpuscular Volume 82.8 fl (80-100); Mean Platelet Volume 10.8 fl (7.4-10.4); Monocytes Absolute Auto 0.8 K/mm3 (0.1-0.6); Monocytes Percent Auto 19.5 % (2.6-8.5); Neutrophils Absolute Auto 1.9 K/mm3 (1.3-6.7); Neutrophils Percent Auto 46.1 % (45.5-73.1); Platelet Count Result 116 k/mm3 (150-375); Red Blood Count 5.16 M/mm3 (4.6-6.20); Red Cell Distribution Width 17.9 % (11.5-14.5); White Blood Count 4.1 K/mm3 (4.5-10.0)
[2021-12-27 19:32] LABS: Alanine Aminotransferase 55 U/L (4-50); Albumin Level 3.9 g/dL (3.5-5.1); Alkaline Phosphatase 101 U/L (38-126); Anion Gap 9 mmol/L (8-16); Aspartate Amino Transferase 39 U/L (17-59); Bilirubin,Total 0.8 mg/dL (0.2-1.3); Blood Urea Nitrogen 12 mg/dL (9-20); Calcium 8.5 mg/dL (8.4-10.2); Carbon Dioxide 20 mmol/L (22-30); Chloride 105 mmol/L (98-107); Estimated CRCL calculation 75 ml/min; Estimated Glomerular Filt Rate > 60; Glucose 121 mg/dL (65-110); Lipase 110 U/L (23-300); Potassium 2.9 mmol/L (3.4-5.0); Sodium 134 mmol/L (137-145)
[2021-12-27 19:41] LABS: Add Urine Microscopic? YES; Appearance Urine Cloudy (Clear); Bilirubin Urine Negative (Negative); Blood Urine Negative (Negative); Color Urine Amber (Yellow); Glucose Urine UA Negative (Negative); Ketones Urine Negative (Negative); Leukocyte Esterase Ur Negative LEU/UL (Negative); Mucus Urine Moderate /lpf; Nitrate Urine Negative (Negative); Protein Urine 1+ mg/dL (Negative); RBC Urine 0-2 /hpf (0-2); Specific Grav Ur 1.019 (1.001-1.035); Urobilinogen Urine Negative mg/dL (<2.0); WBC Urine 0-3 /hpf
[2021-12-27] MEDS: SODIUM CHLORIDE 0.9% IV 1,000 ML 999 ML IV CONT (19:47)
[2021-12-27] MEDS: POTASSIUM CHLORIDE 20 MEQ PACKET (FOR LIQUID) 40 MEQ PO (20:28)
[2021-12-27] MEDS: LACTATED RINGERS 1,000 ML 999 ML IV CONT (20:34)
== END 2021-12-27 19:42 | disposition home or self-care (01) ==
PROVIDERS: Emergency Medicine; Emergency Provider Emergency Medicine; PCP Internal Medicine Hematology & Oncology
DX: R19.7 Diarrhea, unspecified (principal); E87.6 Hypokalemia; Z85.038 Personal history of other malignant neoplasm of large intestine; E66.9 Obesity, unspecified; Z68.26 Body mass index [BMI] 26.0-26.9, adult; D50.9 Iron deficiency anemia, unspecified
CPT/HCPCS: 36415; 80053; 81001; 83690; 85025; 85055; 96360; 96361; 99283; A9270; J7030; J7120

== ENCOUNTER 2022-05-25 08:33 | Outpatient (CLI) | payer OTHER, SELFPAY ==
--- NOTE | ~2022-05-25 | CT_ITS ---
EXAMINATION: CT abdomen pelvis w con DATE: 05/25/2022 09:08 INDICATION: Malignant neoplasm of sigmoid colon; restaging TECHNIQUE: Computed tomography (CT) of the abdomen and pelvis was performed with 100 CC Omnipaque 350 intravenous contrast. Automated exposure control and iterative reconstruction technique were employe d. Exam dose: 785.33 mGy-cm total exam DLP. COMPARISON: October 07, 2021 PET/CT scan August 14, 2021 CT abdomen pelvis FINDINGS: The lung bases are clear of infiltrate or consolidation. Normal heart size. No pericardial or pleural effusion. The liver, gallbladder, bile ducts, spleen, pancreas, pancreatic duct, and adrenal glands and kidneys are unremarkable other than several small left renal cyst. Normal caliber of the abdominal aorta. No intraperitoneal or retroperitoneal or pelvic mass lesion or adenopathy or ascites is noted. There is a suture line of the sigmoid colon. No bowel obstruction, bowel wall thickening, pneumatosis or intraperitoneal free air. Stable sclerotic lesion of left iliac bone, most likely a bone island. No suspicious osteolytic or os teoblastic lesions. IMPRESSION: Status post sigmoid colon resection for history of sigmoid colon cancer; no recurrence o r metastasis is noted Reviewed, dictated and finalized at [facility]. Reviewed, dictated and finalized at [facility]. IMPRESSION: Status post sigmoid colon resection for history of sigmoid colon c ancer; no recurrence or metastasis is noted
== END 2022-05-25 08:34 | disposition home or self-care (01) ==
PROVIDERS: PCP Internal Medicine; Visit Provider Internal Medicine Hematology & Oncology
DX: C18.7 Malignant neoplasm of sigmoid colon (principal)
CPT/HCPCS: 74177; Q9967

== ENCOUNTER 2022-09-14 01:47 | Day surgery (SDC) | payer OTHER, SELFPAY ==
[2022-08-28 13:37] VITALS: BMI 28.5
[2022-09-14 06:56] VITALS: BP 134/73; PULSE 57; RESP 18; TEMP 36.6; O2SAT 100; BMI 29.1
[2022-09-14] MEDS: LACTATED RINGERS 1,000 ML 150 ML IV CONT (07:06)
--- NOTE | 2022-09-14 07:33 | WPDANESEPPF ---
Anes - Initial Pre Proc Eval Procedure: Operation Date: 09/14/22 08:00 Proposed Procedures p Screening Colonoscopy - Zenon Nicolas MD Date/Time: 09/14/22 07:33 Surgeon: Zenon Nicolas MD Pre Op Diagnosis: neoplasm screening, Hx of colon cancer Patient Data Age: 47 Gender: M Height: 1.83 m Weight: 97.4 kg Last Vital Signs Temp 97.8 F 09/14/22 06:56 Pulse 57 L 09/14/22 06:56 Resp 18 09/14/22 06:56 BP 134/73 09/14/22 06:56 Pulse Ox 100 09/14/22 06:56 O2 Del Method Room Air 09/14/22 06:56 Allergies Allergy/AdvReac Type Severity Reaction Status Date / Time No Known Allergies Allergy Verified 09/14/22 06:55 Home Medications Medication Instructions Recorded Confirmed Type No Home Medications 08/28/22 09/14/22 History Patient hx anesthesia problems: none Family hx anesthesia problems: none Results Review: All pre-operative results and documents have been reviewed as part of the pre-operative evaluation. [facility] Past Medical History Medical History Colon cancer Iron deficiency anemia (Unknown) Mass of colon (~08/2021) Obesity Surgical History Surgical History History of colon resection 09/03/2021 - hand assisted laparoscopic sigmoid colectomy with mobilization of the splenic flexure Family History Family History Father Carcinoma of colon Hypertension Mother COPD (chronic obstructive pulmonary disease) Social History Social History Smoking status: Never smoker Second hand tobacco smoke exposure: No Alcohol intake: never Drinks per week: 1 Alcohol use details: SOCIAL DRINKER - QUIT 2014 Substance use: never Substance use type: does not use Living arrangements: with family Additional living arrangements comments: LIVES WITH SIGNIFICANT OTHER Spiritual care concerns: No Anes - Eval Final PreProcedure Day of Procedure 09/14/22 07:33 Patient weight: normal Heart: regular rate and rhythm Lungs: clear to auscultation Airway: Mallampati scale class II Neurological: alert and oriented Last oral intake: >/= 8 hours ASA classification: III Emergent: no Anesthetic plan: proceed Anesthesia type and monitoring: general GIVS and standard monitoring Results Review: All pre-operative results and documents have been reviewed as part of the pre-operative evaluation. Informed Consent: The patient's anesthetic plan and its attendant risks and benefits were discussed with the patient/family/POA. Questions were solicited and answers provided to the satisfaction of the patient/family/POA.
--- NOTE | 2022-09-14 07:55 | PM.HPGS ---
History of Present Illness History of Present Illness Consent: Risks, benefits, and alternatives have been discussed and questions answered. Patient agrees to proceed with procedure. Chief complaint: neoplasm screening, Hx of colon cancer Narrative: Musa Santamaria is a 47 year old male with left sided colon cancer s/p Lt hemicolectomy 2020 and chemotherapy, here for follow-up colonoscopy Review of Systems Constitutional: Constitutional: Denies headache(s) and Denies weakness Eyes: Eyes: Denies blurry vision ENT: Reports Normal hearing present, Denies headache(s) and Denies neck pain Cardiovascular: Cardiovascular: Denies chest pain and Denies dyspnea Respiratory: Respiratory: Denies dyspnea Gastrointestinal: Gastrointestinal: Reports no additional gastrointestinal complaints Genitourinary: Genitourinary: Denies dysuria Musculoskeletal: Musculoskeletal: Denies neck pain Integumentary/Breasts: Skin/Breast: Denies dry skin Neurologic: Reports Normal hearing present, Denies headache(s) and Denies weakness Psychiatric: Psychiatric: Denies anxiety Endocrine: Endocrine: Denies change in body appearance Hematologic/Lymphatic: Hematologic/Lymphatic: Denies easy bleeding Allergic/Immunologic: Allergic/Immunologic: Denies urticaria PMFSH Past Medical History Medical History Colon cancer Iron deficiency anemia (Unknown) Mass of colon (~08/2021) Obesity Surgical History Surgical History History of colon resection 09/03/2021 - hand assisted laparoscopic sigmoid colectomy with mobilization of the splenic flexure Family History Family History Father Carcinoma of colon Hypertension Mother COPD (chronic obstructive pulmonary disease) Social History Social History Smoking status: Never smoker Second hand tobacco smoke exposure: No Alcohol intake: never Drinks per week: 1 Alcohol use details: SOCIAL DRINKER - QUIT 2014 Substance use: never Substance use type: does not use Living arrangements: with family Additional living arrangements comments: LIVES WITH SIGNIFICANT OTHER Spiritual care concerns: No Meds Home Medications and Allergies Home Medications Medication Instructions Recorded Confirmed Type No Home Medications 08/28/22 09/14/22 History Allergies Allergy/AdvReac Type Severity Reaction Status Date / Time No Known Allergies Allergy Verified 09/14/22 06:55 Vital Signs Vital Signs - 24 hr 09/14/22 06:56 Temperature 97.8 F Pulse Rate 57 L Respiratory Rate 18 Blood Pressure 134/73 Pulse Oximetry 100 Oxygen Delivery Room Air Exam Const: General: comfortable and no acute distress HENMT: Face/Nose/Sinus: Normal nares present Eyes: General: appearance normal, both eyes and all related structures Neck: Neck: no JVD Resp: Auscultation: clear to auscultation bilaterally Cardio: Rate: regular rate Rhythm: regular rhythm GI: Inspection: non-distended GI Palp: Yes Soft to palpation Skin: General skin exam: normal color Neuro: General: gait normal Speech: normal speech Extrem: General: normal to inspection Psych: Mental Status: mental status grossly normal Assessment and Plan Assessment and plan (1) Colon cancer metastasized to intra-abdominal lymph node: Code(s): C18.9 - Malignant neoplasm of colon, unspecified; C77.2 - Secondary and unspecified malignant neoplasm of intra-abdominal lymph nodes Status: Acute Assessment and Plan: colonoscopy
[2022-09-14 08:13] VITALS: BP 99/57; PULSE 50; RESP 18; O2SAT 100
[2022-09-14 08:23] VITALS: BP 107/62; PULSE 53; RESP 21; O2SAT 100
[2022-09-14 08:33] VITALS: BP 120/76; PULSE 51; RESP 22; O2SAT 100
== END 2022-09-14 08:42 | disposition home or self-care (01) ==
PROVIDERS: PCP Internal Medicine; Visit Provider Internal Medicine Gastroenterology
PROC: 0DJD8ZZ Inspection of Lower Intestinal Tract, Via Natural or Artificial Opening Endoscopic (ICD-10-PCS; CPT 45378; principal; 2022-09-14 08:00)
DX: Z08 Encounter for follow-up examination after completed treatment for malignant neoplasm (principal); Z85.038 Personal history of other malignant neoplasm of large intestine; Z85.89 Personal history of malignant neoplasm of other organs and systems; Z90.49 Acquired absence of other specified parts of digestive tract; Z98.0 Intestinal bypass and anastomosis status; Z92.21 Personal history of antineoplastic chemotherapy
CPT/HCPCS: 45378; J2704; J7120

== ENCOUNTER 2023-01-04 07:59 | Outpatient (CLI) | payer OTHER, SELFPAY ==
--- NOTE | ~2023-01-04 | CT_ITS ---
CT of the Abdomen and Pelvis: Indication: Colon cancer Technique: 2.5 mm axial scans were obtained through the abdomen and pelvis following intravenous adm inistration of 100 cc of Omnipaque 350. Dose reduction technique was used on this scan by utilizing a utomated exposure control and iterative reconstruction technique. The dose-length product (DLP) was 9 91.91 mGy-cm. Comparison: 05/25/2022 Findings: Scans through the lung bases are unremarkable. The liver, spleen, pancreas, gallbladder, adrenals and kidneys are within normal limits. No evidence of aortic aneurysm. No lymphadenopathy. No bowel obstruction or bowel wall thickening. Sigmoid colonic anastomosis noted. Images through the pelvis were performed. Urinary bladder unremarkable. No pelvic mass seen. No asci sherri. Impression: No evidence for active malignancy or metastatic disease. Evidence of prior sigmoid colonic resection. Reviewed, dictated and finalized at [facility]. Impression: No evidence for active malignancy or metastatic disease. Evidence of prior sigmoid colonic resection.
== END 2023-01-04 08:00 | disposition home or self-care (01) ==
LOC: ANHIMG 08:03
PROVIDERS: PCP Internal Medicine; Visit Provider Internal Medicine Hematology & Oncology
DX: C18.7 Malignant neoplasm of sigmoid colon (principal)
CPT/HCPCS: 74177; Q9967

== ENCOUNTER 2023-09-02 14:10 | Outpatient (CLI) | payer OTHER, SELFPAY ==
--- NOTE | ~2023-09-02 | CT_ITS ---
EXAMINATION: CT abdomen pelvis w con INDICATION: Malignant neoplasm of the sigmoid colon TECHNIQUE: Computed tomographic images of the abdomen and pelvis were obtained after the administrati on of 100 cc of Omnipaque 350 intravenous contrast. The dose-length product (DLP) was 613.04 mGy-cm. Automated exposure control and iterative reconstruction technique were employed. COMPARISON: 01/04/2023 FINDINGS: The lung bases are clear. The heart size is normal. The liver, spleen, pancreas, gallbladde r, and adrenal glands are normal. Cysts of the left kidney measure up to 6 mm. The right kidney is un remarkable. No pathologically enlarged abdominal or pelvic lymph nodes are identified. No free intrap eritoneal gas or evidence of bowel obstruction. A surgical staple line is noted in the sigmoid colon. The appendix is normal. There is a small umbilical hernia containing fat. Mild lumbar spondylosis is noted. IMPRESSION: 1. No evidence of metastatic disease. Reviewed, dictated and finalized at [facility]. [facility]
== END 2023-09-02 14:11 | disposition home or self-care (01) ==
PROVIDERS: PCP Internal Medicine; Visit Provider Internal Medicine Hematology & Oncology
DX: C18.7 Malignant neoplasm of sigmoid colon (principal)
CPT/HCPCS: 36415; 74177; 80053; 82378; 85025; Q9967

== ENCOUNTER 2023-09-22 02:58 | Day surgery (SDC) | payer OTHER, SELFPAY ==
[2023-09-17 14:19] VITALS: BMI 26.7
--- NOTE | 2023-09-17 14:25 | PC.NURSE ---
Report to the Outpatient Waiting Room, entrance under the green pavilion located off [facility], at time 0830_ on date 09/22/23_. Planned Procedure Time: _1030_. Time changes happen often and if your time is changed the preop area will call you the afternoon before. - You and your visitor will be asked to self-screen and do not enter if you have any COVID symptoms. - A mask is optional within the hospital at this time. Patients may have clear liquids (water, carbonated beverages, clear teas, apple juice) until 3 hours prior to surgery with a maximum of 20 ounces. - No food from midnight until time of surgery - Infants may have breast milk until 4 hours before surgery, formula 6 hours prior to surgery. - Children will be allowed to drink immediately following surgery. If applicable, please bring a bottle or sippy cup to assist with drinking. Juice, water, soda, and popsicles are readily available. For infants on formula, please bring formula the day of surgery. Pacifiers are allowed. Take the following medications with a SIP of water the morning of surgery: LEVOTHYROXINE DO NOT STOP ANY OF YOUR OTHER PRESCRIPTION MEDICATIONS PRIOR TO SURGERY ?EXCEPT THE FOLLOWING Medications to discontinue per physician VITAMINS/ SUPPLIMENTS Date to take last dose 09/18/23 Please no make-up, nail puerto rican, hairspray, perfume, deodorant, or body powder the day of surgery. No jewelry (including any body piercings) or valuables the day of surgery, leave them at home. Please take a shower or bath the night before, or the morning of, surgery with HIBICLENS antibacterial soap. Wear comfortable, loose fitting clothing. Children are encouraged to wear pajamas. - Jewelry must be removed prior to entering the operating room. Rings and piercings that are not removed may be cut off. - The hospital will not accept responsibility for valuables. - Please leave all valuables, including medications, at home the day of surgery. If you are going home after surgery, a licensed truck driver rubbish collector must drive you home. - NO public transportation without another adult if you receive anesthesia. - We recommend that an adult stay with you for 24 hours following discharge. - We also recommend that you do not drive, make important decision, drink alcoholic beverages, or take any drugs that were not prescribed by your health care provider for at least 24 hours after your discharge time. For Pediatric surgeries, we recommend two adults accompany the child home. Follow any additional instructions given to you from your surgeon. If you or anyone in your household have experienced Covid symptoms in the past week, please notify your surgeon or the nurse liaison at the phone number below for possible testing. Telephone instructions given to __PATIENT__and asked if any additional questions and then verbalized understanding. Patient advised to call surgeon office or pre surgery nurse liaison [phone] if any additional questions.
--- NOTE | 2023-09-21 12:39 | PM.SD2 ---
Same Day Admit/Disch: HPI History of Present Illness Chief complaint: Port-A-Cath no longer needed Narrative: Musa Santamaria is a 48 year old male who had hand access laparoscopic sigmoidectomy for colon cancer in late August of 2021. He was found to be stage IIIB. He had a Port-A-Cath placed and was given FOLFOX chemotherapy. He has been disease free for some time. He was referred from Oncology to have his Port-A-Cath removed. He is taken to surgery at this time for that purpose. [facility] Past Medical History Medical History (Updated 09/21/23 @ 12:46 by Dom Song MD) Colon cancer Iron deficiency anemia (Unknown) Mass of colon (~08/2021) Obesity Surgical History Surgical History (Updated 09/21/23 @ 14:55 by César Herrera DO) History of colon resection 09/03/2021 - hand assisted laparoscopic sigmoid colectomy with mobilization of the splenic flexure History of partial thyroidectomy Family History Family History Father Carcinoma of colon Hypertension Mother COPD (chronic obstructive pulmonary disease) Social History Social History Smoking status: Never smoker Second hand tobacco smoke exposure: No Alcohol intake: former Drinks per week: 1 Alcohol use details: LAST DRINK 2014 Substance use: never Substance use type: does not use Living arrangements: with family Additional living arrangements comments: LIVES WITH SIGNIFICANT OTHER Spiritual care concerns: No Same Day Admit/Disch: Med Pre-admit Medications Home Medications Medication Instructions Recorded Confirmed Type cholecalciferol (vitamin D3) 25 25 mcg PO DAILY 09/17/23 09/17/23 History mcg (1,000 unit) tablet (Vitamin D3) levothyroxine 100 mcg tablet 100 mcg PO DAILY 09/17/23 09/17/23 History multivitamin with minerals-folic 1 tablet PO DAILY 09/17/23 09/17/23 History acid 200 mcg chewable tablet (Adult Multivitamin Gummies) tramadol 50 mg tablet 50 mg PO Q6H PRN pain #7 tabs 09/22/23 Rx Review of Systems Review of Systems All systems reviewed & are unremarkable except as noted in HPI and below (HPI and those items noted below) Constitutional Constitutional: Denies chills and Denies fever(s) Cardiovascular Cardiovascular: Denies chest pain, Denies diaphoresis, Denies dyspnea and Denies paroxysmal nocturnal dyspnea Respiratory Respiratory: Denies chest congestion, Denies cough and Denies dyspnea Integumentary/Breasts Skin/Breast: Denies lesions and Denies rash Exam Const: General: comfortable, no acute distress, alert and awake HENMT: Head: normocephalic and atraumatic Mouth: Yes Normal oral and palatal mucosa present Eyes: Conjunctivae: conjunctivae normal Pupils: Equal, round and reactive pupils present EOM: EOMs intact bilaterally Neck: Neck: normal visual inspection, no lymphadenopathy and nontender Chest: Chest palpation & inspection: abnormal inspection of the chest (Left subclavian Port-A-Cath) Resp: Effort & Inspection: normal respiratory effort Auscultation: clear to auscultation bilaterally Cardio: Rate: regular rate Rhythm: regular rhythm Heart sounds: no gallops, no murmurs and no rubs GI: Inspection: non-distended GI Palp: Yes Soft to palpation, No Tenderness to palpation present (GI), No Hepatomegaly present and No Splenomegaly present Skin: Lesions: no lesions Rashes: no rashes Neuro: General: no focal motor deficits and CN's II-XI intact bilaterally Cranial nerves: Yes Equal, round and reactive pupils present, Yes Bilaterally intact EOM present, Yes facial symmetry and Yes Midline tongue present Speech: normal speech Motor exam (neuro): 5/5 motor strength present throughout and Motor abnormalities not present Extrem: General: no clubbing, cyanosis or edema and edema Psych: Affect: normal affect Thought process: Normal thought proc
--- NOTE | 2023-09-21 14:55 | WPDANESEPPF ---
Anes - Initial Pre Proc Eval Procedure: Operation Date: 09/22/23 12:30 Proposed Procedures p Removal Pascual Cath - Dom Song MD Date/Time: 09/21/23 14:55 Surgeon: Dom Song MD Pre Op Diagnosis: Port-A-Cath no longer needed Patient Data Age: 48 Gender: M Height: 1.85 m Weight: 92 kg Allergies Allergy/AdvReac Type Severity Reaction Status Date / Time No Known Allergies Allergy Verified 09/17/23 14:16 Home Medications Medication Instructions Recorded Confirmed Type cholecalciferol (vitamin D3) 25 25 mcg PO DAILY 09/17/23 09/17/23 History mcg (1,000 unit) tablet (Vitamin D3) levothyroxine 100 mcg tablet 100 mcg PO DAILY 09/17/23 09/17/23 History multivitamin with minerals-folic 1 tablet PO DAILY 09/17/23 09/17/23 History acid 200 mcg chewable tablet (Adult Multivitamin Gummies) Patient hx anesthesia problems: none Family hx anesthesia problems: none Results Review: All pre-operative results and documents have been reviewed as part of the pre-operative evaluation. [facility] Past Medical History Medical History (Updated 09/21/23 @ 12:46 by Dom Song MD) Colon cancer Iron deficiency anemia (Unknown) Mass of colon (~08/2021) Obesity Surgical History Surgical History (Updated 09/21/23 @ 14:55 by César Herrera DO) History of colon resection 09/03/2021 - hand assisted laparoscopic sigmoid colectomy with mobilization of the splenic flexure History of partial thyroidectomy Family History Family History Father Carcinoma of colon Hypertension Mother COPD (chronic obstructive pulmonary disease) Social History Social History Smoking status: Never smoker Second hand tobacco smoke exposure: No Alcohol intake: former Drinks per week: 1 Alcohol use details: LAST DRINK 2014 Substance use: never Substance use type: does not use Living arrangements: with family Additional living arrangements comments: LIVES WITH SIGNIFICANT OTHER Spiritual care concerns: No Anes - Eval Final PreProcedure Day of Procedure 09/21/23 14:55 Patient weight: overweight Heart: regular rate and rhythm Lungs: clear to auscultation Airway: Mallampati scale class II Neurological: alert and oriented Last oral intake: >/= 8 hours ASA classification: II Emergent: no Anesthetic plan: proceed Anesthesia type and monitoring: general GIVS and standard monitoring Results Review: All pre-operative results and documents have been reviewed as part of the pre-operative evaluation. Informed Consent: The patient's anesthetic plan and its attendant risks and benefits were discussed with the patient/family/POA. Questions were solicited and answers provided to the satisfaction of the patient/family/POA.
[2023-09-22 10:34] VITALS: BP 131/67; PULSE 62; RESP 16; TEMP 36.6; O2SAT 100
[2023-09-22] MEDS: LACTATED RINGERS 1,000 ML 30 ML IV CONT (10:55)
--- NOTE | 2023-09-22 11:56 | WPDHPUPDATE1 ---
History and Physical Update Update Date/Time: 09/22/23 11:56 History and Physical has been reviewed, including an updated exam of the patient. There are NO changes in the patient's condition. Risks, benefits, and alternatives have been discussed and questions answered. Patient agrees to proceed with procedure.
[2023-09-22] MEDS: ceFAZolin 2 GM/D5W 50 ML 2 GM/50 ML BAG IVPB (12:01)
[2023-09-22] MEDS: BUPIVACAINE/EPINEPHRINE 0.5% 30 ML VIAL INFILTRATE (12:12)
[2023-09-22 12:33] VITALS: BP 110/58; PULSE 54; RESP 16; O2SAT 99
--- NOTE | 2023-09-22 12:38 | W.PM.PROC2 ---
Procedure Note - Detailed Date of Procedure 09/22/23 Pre-op Diagnosis Port-A-Cath no longer needed Post-op Diagnosis Same Procedure Performed Removal left subclavian Port-A-Cath Surgeon Dom Song MD [employer] Cindy Ru[facility] Anesthesia MAC and Local (0.5% Marcaine with epinephrine) Indications Patient had a Port-A-Cath placed for chemotherapy over year ago. The Port-A-Cath is felt to no longer be needed by his oncologist. He is taken to surgery today for removal. Findings Intact Port-A-Cath Description of Procedure Patient was taken to surgery and placed in a supine position. Anesthesia was introduced and the left subclavian and left neck areas were prepped and draped. An ellipse was drawn around the previous scar just at the upper margin of the Port-A-Cath. Local was infiltrated into the area of the ellipse as well as the subcutaneous tissue around the Port-A-Cath itself. The previous scar was then excised and discarded. Cautery was used for hemostasis. We dissected down onto the reservoir of the Port-A-Cath and dissected the attachment of the intravenous limb. I then freed the Port-A-Cath from the pocket. The Port-A-Cath was extracted without difficulty. There was no back bleeding from the Port-A-Cath tract. We achieved good hemostasis. Additional local was infiltrated into the wound. The subcutaneous was closed with interrupted 4-0 Vicryl. Subcuticular interrupted 4-0 Vicryl skin stitches were placed. Finally the wound was closed with a running 4-0 Monocryl skin stitch. Wound was dressed with Exofin surgical adhesive. Patient was awakened and taken to outpatient surgery in good condition. Sponge needle counts were correct x2. Estimated Blood Loss -2 Drains No Packing No Pathology None sent Complications No immediate complications Condition Stable Disposition Same day [facility] Billing Surgery - Charge Forward: Surgery Billing (Removal left subclavian Port-A-Cath)
[2023-09-22 13:00] VITALS: BP 127/69; PULSE 59; RESP 16
[2023-09-22 13:15] VITALS: BP 116/57; PULSE 55; RESP 16
== END 2023-09-22 13:32 | disposition home or self-care (01) ==
PROVIDERS: PCP Internal Medicine; Visit Provider Surgery
PROC: (CPT 36589; principal; 2023-09-22 12:30)
DX: Z45.2 Encounter for adjustment and management of vascular access device (principal); C18.9 Malignant neoplasm of colon, unspecified; C77.2 Secondary and unspecified malignant neoplasm of intra-abdominal lymph nodes; E03.9 Hypothyroidism, unspecified
CPT/HCPCS: 36590; J0690; J2250; J2405; J2704; J3010; J7120

== ENCOUNTER 2024-01-11 19:59 | Inpatient (IN) | payer OTHER, SELFPAY ==
--- NOTE | ~2024-01-11 | XR_ITS ---
EXAMINATION: XR sm bowel follow through DATE: 01/12/2024 13:37 INDICATION: Small bowel obstruction. TECHNIQUE: Oral contrast was administered, and a time course of radiographs of the abdomen was obtain ed. Fluoroscopy of the small bowel was not performed. Fluoroscopy exposure time was 0 minutes. The to adam number of images was 5. COMPARISON: CT abdomen and pelvis 01/11/24 FINDINGS: The nasogastric tube tip is in the stomach. There are no dilated loops of bowel. Transit time from th e stomach to proximal colon was approximately 15 minutes. There is an anastomosis in the sigmoid colo n. IMPRESSION: 1. Normal small bowel series. Reviewed, dictated and finalized at location A.
--- NOTE | ~2024-01-11 | XR_ITS ---
Supine and upright views of the abdomen Clinical history: NG tube placement Findings: NG tube in satisfactory addition. Side-port is below the diaphragm. Bowel gas pattern is no nspecific. No evidence for obstruction or free air. No abnormal mass lesion or calcification is seen. Osseous structures are intact. Impression: NG tube in satisfactory position. Reviewed, dictated and finalized at location . Impression: NG tube in satisfactory position.
[2024-01-11 20:12] VITALS: BP 143/76; PULSE 72; PULSE 76; RESP 17; RESP 19; TEMP 37.1; O2SAT 100
--- NOTE | 2024-01-11 21:03 | ED.ABDPAIN ---
HPI - Abdominal Pain General Chief Complaint: Abdominal Pain Stated Complaint: bowel obstruction; CT scan earlier today Time Seen by Provider: 01/11/24 20:19 Source: patient and old records reviewed Mode of arrival: ambulatory Limitations: no limitations History of Present Illness HPI narrative: Patient is a 48-year-old male who presents the ED with report of bowel obstruction. Patient has history of partial colectomy in 2019 for colon cancer, performed by Dr. Bowling. He has since underwent chemotherapy under Dr. Johnson. He states a history of chronic constipation, but states over the last 1 month, he has had increased difficulty with constipation. He has required taking laxatives frequently to have a bowel movement. He does note his stools have been dark in color over the last few weeks. He had blood work done recently and was noted to be newly anemic. Following with Dr. Johnson for this. He is not on any blood thinners. Denies BRBPR. Has been having intermittent abdominal pain, mostly throughout his upper abdomen over the last 1 week, with intermittent nausea and vomiting. He underwent outpatient CT scan today at [facility] in [place] which showed a partial small-bowel obstruction. He was then sent to the ED for further evaluation. Patient denies fevers. Related Data Home Medications Medication Instructions Recorded Confirmed cholecalciferol (vitamin D3) 25 25 mcg PO DAILY 09/17/23 09/17/23 mcg (1,000 unit) tablet (Vitamin D3) levothyroxine 100 mcg tablet 100 mcg PO DAILY 09/17/23 09/17/23 multivitamin with minerals-folic 1 tablet PO DAILY 09/17/23 09/17/23 acid 200 mcg chewable tablet (Adult Multivitamin Gummies) Allergies Allergy/AdvReac Type Severity Reaction Status Date / Time No Known Allergies Allergy Verified 01/11/24 20:16 Review of Systems Review of Systems: CONSTITUTIONAL: Denies fever, chills, or sweats. GASTROINTESTINAL: See HPI. GENITOURINARY: Denies dysuria or hematuria. MUSCULOSKELETAL: Denies back pain, extremity pain, myalgia. NEUROLOGIC: Denies headache, dizziness, numbness, or weakness. All systems reviewed & are unremarkable except as noted in HPI and below PMFSH Past Medical History Medical History Colon cancer Iron deficiency anemia (Unknown) Mass of colon (~08/2021) Obesity Surgical History Surgical History History of colon resection 09/03/2021 - hand assisted laparoscopic sigmoid colectomy with mobilization of the splenic flexure History of partial thyroidectomy Family History Family History Father Carcinoma of colon Hypertension Mother COPD (chronic obstructive pulmonary disease) Social History Social History Smoking status: Never smoker Second hand tobacco smoke exposure: No Alcohol intake: former Drinks per week: 1 Alcohol use details: LAST DRINK 2014 Substance use: never Substance use type: does not use Living arrangements: with family Additional living arrangements comments: LIVES WITH SIGNIFICANT OTHER Spiritual care concerns: No Exam Narrative: GENERAL: Well appearing, well-nourished, non-toxic, in no acute distress. HEAD: Normocephalic, atraumatic. RESPIRATORY: Airway patent, respirations nonlabored. Clear to auscultation bilaterally, no rales, rhonchi, wheezing. CARDIOVASCULAR: Regular rate and rhythm without murmurs, rubs, or gallops. ABDOMINAL: Soft, diffuse tenderness throughout upper abdomen, worst throughout epigastric region, nondistended. Normoactive BS. MUSCULOSKELETAL: Moves all extremities. No gross deformities. SKIN: Warm, dry, normal color. NEURO: A&O X3. Speech clear. Cranial nerves II-XII grossly intact. Steady gait. No ataxic movements. PSYC
[2024-01-11 21:13] LABS: Basophils Percent Auto 0.4 % (0.2-1.2); Eosinophils Absolute Auto 0.1 K/mm3 (0-0.3); Eosinophils Percent Auto 2.2 % (0-4.4); Hematocrit 35.5 % (42.0-52.0); Hemoglobin 11.5 g/dL (14.0-18.0); Immature Granulocyte Absolute 0.02 K/mm3 (0.00-0.031); Immature Granulocyte Percent A 0.4 % (0-0.5); Lymphocytes Absolute Auto 1.08 K/mm3 (0.9-3.2); Mean Corpuscular HGB Conc 32.4 g/dl (32-36); Mean Corpuscular Hemoglobin 26.3 pg (26-34); Mean Corpuscular Volume 81.1 fl (80-100); Mean Platelet Volume 10.8 fl (7.4-10.4); Monocytes Absolute Auto 0.4 K/mm3 (0.1-0.6); Monocytes Percent Auto 8.4 % (2.6-8.5); Neutrophils Absolute Auto 3.3 K/mm3 (1.3-6.7); Neutrophils Percent Auto 66.6 % (45.5-73.1); Platelet Count Result 240 k/mm3 (150-375); Red Blood Count 4.38 M/mm3 (4.6-6.20); Red Cell Distribution Width 12.6 % (11.5-14.5); White Blood Count 4.9 K/mm3 (4.5-10.0)
[2024-01-11 21:15] LABS: Appearance Urine Clear (Clear); Bilirubin Urine Negative (Negative); Blood Urine Negative (Negative); Color Urine Yellow (Yellow); Glucose Urine UA Negative (Negative); Ketones Urine 1+ mg/dL (Negative); Leukocyte Esterase Ur Negative LEU/UL (Negative); Nitrate Urine Negative (Negative); Protein Urine Negative (Negative); Urobilinogen Urine 0.2 mg/dL (<2.0)
[2024-01-11 21:20] LABS: Specific Grav Ur 1.092 (1.001-1.035)
[2024-01-11 21:21] LABS: Add Urine Microscopic? NO
[2024-01-11 21:23] LABS: Alanine Aminotransferase 15 U/L (6-50); Albumin Level 4.7 g/dL (3.5-5.1); Alkaline Phosphatase 85 U/L (38-126); Anion Gap 12 mmol/L (4-12); Aspartate Amino Transferase 24 U/L (17-59); Bilirubin,Total 0.5 mg/dL (0.2-1.3); Blood Urea Nitrogen 25 mg/dL (9-20); Calcium 9.2 mg/dL (8.4-10.2); Carbon Dioxide 20 mmol/L (22-30); Chloride 107 mmol/L (98-107); Estimated CRCL calculation 70 ml/min; Estimated Glomerular Filt Rate 59; Glucose 93 mg/dL (65-110); Lipase 71 U/L (23-300); Potassium 3.6 mmol/L (3.4-5.0); Sodium 139 mmol/L (137-145)
[2024-01-11 21:24] LABS: Lactic Acid Reflex 0.7 mmol/L (0.7-2.0)
[2024-01-11] MEDS: SODIUM CHLORIDE 0.9% IV 1,000 ML 999 ML IV CONT (22:00)
[2024-01-11 22:58] VITALS: BP 123/68; PULSE 61; RESP 18; O2SAT 98
[2024-01-12 01:00] VITALS: BP 137/76; PULSE 66; RESP 18; O2SAT 100
--- NOTE | 2024-01-12 01:02 | PC.NURSE ---
This RN just notified of pt room assignment.
--- NOTE | 2024-01-12 01:27 | PC.NURSE ---
Called report to ODESSA Wade on med/surg. RN stated they need approval from ER dr to use NG tube. awaiting ER dr to finish procedure before pt is taken to floor.
[2024-01-12 02:26] VITALS: BP 149/80; PULSE 62; RESP 16; TEMP 36.4; O2SAT 98
--- NOTE | 2024-01-12 02:30 | ADMGEN ---
This patient, Musa Santamaria, was admitted to [facility] Surg Room 327-01. Patient/family oriented to hospital policies and general routines including ID bracelet, bed and alarms, visiting hours, pain management, procedures, bathroom and other care routines, personal items, smoking policy, room service/diet, and visiting hours. Information on how to activate the Rapid Response Team has been discussed. Patient/Family are encouraged to report perceived risks to care and to ask questions if they do not understand what they are told or what they should do.
[2024-01-12] MEDS: SODIUM CHLORIDE 0.9% IV 1,000 ML 100 ML IV CONT ×3 (02:45→23:33)
[2024-01-12 06:00] VITALS: BP 132/72; PULSE 70; RESP 16; TEMP 36.4; O2SAT 100
[2024-01-12] MEDS: ACETAMINOPHEN 650 MG SUPPOSITORY RECTAL (08:32)
--- NOTE | 2024-01-12 12:10 | PM.CNGS ---
History of Present Illness Consult details Consult date: 01/12/24 Reason for consult: abdominal pain PMFSH Past Medical History Medical History Colon cancer Iron deficiency anemia (Unknown) Mass of colon (~08/2021) Obesity Surgical History Surgical History History of colon resection 09/03/2021 - hand assisted laparoscopic sigmoid colectomy with mobilization of the splenic flexure History of partial thyroidectomy Family History Family History (Updated 01/12/24 @ 02:31 by Jigna Murillo RN) Father Hypertension Malignant neoplasm of prostate Mother COPD (chronic obstructive pulmonary disease) Social History Social History Smoking status: Never smoker Second hand tobacco smoke exposure: No Alcohol intake: never Drinks per week: 1 Alcohol use details: LAST DRINK 2014 Substance use: never Substance use type: does not use Do You Feel Safe in your Home?: Yes Lack of Transportation: No Lack of Food: Never True Current Housing: I Have Housing Concerned About Future Housing: No Difficulty Paying Gas/Electric Bills: No Difficulty Paying for Meds: No Currently Unemployed: No Education: Master's Degree or Higher Difficulty w/ Childcare or Family Care: No Living arrangements: with family Additional living arrangements comments: LIVES WITH SIGNIFICANT OTHER Spiritual care concerns: No Meds Home Medications and Allergies Home Medications Medication Instructions Recorded Confirmed Type cholecalciferol (vitamin D3) 25 25 mcg PO DAILY 09/17/23 01/12/24 History mcg (1,000 unit) tablet (Vitamin D3) levothyroxine 100 mcg tablet 100 mcg PO DAILY 09/17/23 01/12/24 History multivitamin with minerals-folic 1 tablet PO DAILY 09/17/23 01/12/24 History acid 200 mcg chewable tablet (Adult Multivitamin Gummies) Allergies Allergy/AdvReac Type Severity Reaction Status Date / Time No Known Allergies Allergy Verified 01/12/24 02:36 Vital Signs Vital Signs - 24 hr 01/11/24 20:12 01/11/24 20:12 01/11/24 22:58 Temperature 37.1 C 37.1 C Pulse Rate 72 76 61 Respiratory Rate 17 19 18 Blood Pressure 143/76 H 143/76 H 123/68 Pulse Oximetry 100 100 98 Oxygen Delivery Room Air 01/12/24 01:00 01/12/24 02:26 01/12/24 06:00 Temperature 36.4 C 36.4 C Pulse Rate 66 62 70 Respiratory Rate 18 16 16 Blood Pressure 137/76 149/80 H 132/72 Pulse Oximetry 100 98 100 Oxygen Delivery 01/12/24 08:25 Temperature Pulse Rate Respiratory Rate Blood Pressure Pulse Oximetry Oxygen Delivery Room Air Results Labs 01/11/24 21:05 01/11/24 21:05 Labs: Abnormal lab results 01/11/24 Range/Units 21:05 RBC 4.38 L (4.6-6.20) M/mm3 Hgb 11.5 L (14.0-18.0) g/dL Hct 35.5 L (42.0-52.0) % MPV 10.8 H (7.4-10.4) fl Carbon Dioxide 20 L (22-30) mmol/L BUN 25 H (9-20) mg/dL Ur Specific [place] 1.092 H (1.001-1.035) Urine Ketones 1+ H (Negative) mg/dL Diabetes panel 01/11/24 Range/Units 21:05 Sodium 139 (137-145) mmol/L Potassium 3.6 (3.4-5.0) mmol/L Chloride 107 (98-107) mmol/L Carbon Dioxide 20 L (22-30) mmol/L BUN 25 H (9-20) mg/dL Creatinine 1.30 (0.7-1.3) mg/dL Glucose 93 (65-110) mg/dL Calcium 9.2 (8.4-10.2) mg/dL AST 24 (17-59) U/L ALT 15 (6-50) U/L Alkaline Phosphatase 85 (38-126) U/L Total Protein 8.0 (6.3-8.2) g/dL Albumin 4.7 (3.5-5.1) g/dL Calcium panel 01/11/24 Range/Units 21:05 Calcium 9.2 (8.4-10.2) mg/dL Albumin 4.7 (3.5-5.1) g/dL Pituitary panel 01/11/24 Range/Units 21:05 Sodium 139 (137-145) mmol/L Potassium 3.6 (3.4-5.0) mmol/L Chloride 107 (98-107) mmol/L Carbon Dioxide 20 L (22-30) mmol/L BUN 25 H (9-20)
--- NOTE | 2024-01-12 12:12 | PM.IMHP ---
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 The patient presents complaining of crampy abdominal pain, nausea, constipation over the last month. The patient reports the symptoms have been progressively worsening. Workup, including imaging, is significant for small bowel obstruction. The patient has been admitted to my service and made NPO, NG tube decompression has been initiated. The patient reports he did have some diarrhea yesterday after taking some laxatives. Review of Systems Review of Systems: All systems reviewed & are unremarkable except as noted in HPI and below PMFSH Past Medical History Medical History Colon cancer Iron deficiency anemia (Unknown) Mass of colon (~08/2021) Obesity Surgical History Surgical History History of colon resection 09/03/2021 - hand assisted laparoscopic sigmoid colectomy with mobilization of the splenic flexure History of partial thyroidectomy Family History Family History Father Hypertension Malignant neoplasm of prostate Mother COPD (chronic obstructive pulmonary disease) Social History Social History Smoking status: Never smoker Second hand tobacco smoke exposure: No Alcohol intake: never Drinks per week: 1 Alcohol use details: LAST DRINK 2014 Substance use: never Substance use type: does not use Do You Feel Safe in your Home?: Yes Lack of Transportation: No Lack of Food: Never True Current Housing: I Have Housing Concerned About Future Housing: No Difficulty Paying Gas/Electric Bills: No Difficulty Paying for Meds: No Currently Unemployed: No Education: Master's Degree or Higher Difficulty w/ Childcare or Family Care: No Living arrangements: with family Additional living arrangements comments: LIVES WITH SIGNIFICANT OTHER Spiritual care concerns: No Meds Home Medications and Allergies Home Medications Medication Instructions Recorded Confirmed Type cholecalciferol (vitamin D3) 25 25 mcg PO DAILY 09/17/23 01/12/24 History mcg (1,000 unit) tablet (Vitamin D3) levothyroxine 100 mcg tablet 100 mcg PO DAILY 09/17/23 01/12/24 History multivitamin with minerals-folic 1 tablet PO DAILY 09/17/23 01/12/24 History acid 200 mcg chewable tablet (Adult Multivitamin Gummies) Allergies Allergy/AdvReac Type Severity Reaction Status Date / Time No Known Allergies Allergy Verified 01/12/24 02:36 Vital Signs Vital Signs - 24 hr 01/11/24 20:12 01/11/24 20:12 01/11/24 22:58 Temperature 37.1 C 37.1 C Pulse Rate 72 76 61 Respiratory Rate 17 19 18 Blood Pressure 143/76 H 143/76 H 123/68 Pulse Oximetry 100 100 98 Oxygen Delivery Room Air 01/12/24 01:00 01/12/24 02:26 01/12/24 06:00 Temperature 36.4 C 36.4 C Pulse Rate 66 62 70 Respiratory Rate 18 16 16 Blood Pressure 137/76 149/80 H 132/72 Pulse Oximetry 100 98 100 Oxygen Delivery 01/12/24 08:25 Temperature Pulse Rate Respiratory Rate Blood Pressure Pulse Oximetry Oxygen Delivery Room Air Exam Const: General: cooperative, comfortable and no acute distress HENMT: Head: normal to inspection, normocephalic and atraumatic Eyes: General: appearance normal, both eyes and all related structures Neck: Neck: normal visual inspection, full ROM and no lymphadenopathy Resp: Auscultation: clear to auscultation bilaterally Cardio: Rate: regular rate Rhythm: regular rhythm GI: Inspection: normal to inspection, distended and incision GI Palp: No abdominal tenderness, Yes Soft to palpation, No Tenderness
[2024-01-12 21:47] VITALS: BP 142/64; PULSE 69; RESP 16; TEMP 36.7; O2SAT 99
[2024-01-13] MEDS: SODIUM CHLORIDE 0.9% IV 1,000 ML 100 ML IV CONT (05:50)
[2024-01-13 06:00] VITALS: BP 137/60; PULSE 61; RESP 16; TEMP 36.3; O2SAT 100
--- NOTE | 2024-01-13 09:51 | PM.DS ---
DS: Admitting Diagnosis Discharge Date 01/13/2024 Admitting Diagnosis Small-bowel obstruction DS: Discharge Diagnosis Discharge Diagnosis (1) Small bowel obstruction: Code(s): K56.609 - Unspecified intestinal obstruction, unspecified as to partial versus complete obstruction Status: Acute Assessment and Plan: resolved, small-bowel series normal, tolerating diet, exam benign, follow-up 2 weeks post discharge (2) History of colon cancer: Code(s): Z85.038 - Personal history of other malignant neoplasm of large intestine Status: Acute Assessment and Plan: status post sigmoid colectomy and adjuvant chemotherapy, doing well, follow-up with Oncology DS: Summary Hospital Course Reason for hospitalization: small-bowel obstruction Hospital Course: The patient is a 48-year-old male presenting from an outside hospital with a small-bowel obstruction. CT from outside hospital was significant for small bowel obstruction with transition point in the right lower quadrant. The patient was transferred to [facility] and admitted to the surgical service. Upon evaluation, conservative management with bowel rest and NG decompression was initiated. On hospital day 1., a small bowel series was ordered with water-soluble contrast through the NG tube. The small bowel series was noted to be unremarkable with noted passage within 15 minutes to the colon. Given these findings, the NG tube was clamped and subsequently removed. The patient was started on a clear liquid diet. On hospital day 2. , the patient was tolerating a clear liquid diet and his abdominal exam was benign. The patient reported multiple bowel movements after the small-bowel series. His diet was then advanced to a regular diet. He was able to tolerate a regular diet without issue and will now be discharged home. He will follow up with me in 2 weeks. Status at Discharge Functional status at discharge: independent ambulation Overall status at discharge: patient is back to baseline Time Spent with Patient Time attestation: Total time spent providing and/or coordinating discharge services: Time spent: Less than 30 minutes Exam Const: General: cooperative, comfortable and no acute distress Resp: Auscultation: clear to auscultation bilaterally Cardio: Rate: regular rate Rhythm: regular rhythm GI: Inspection: normal to inspection and non-distended GI Palp: No abdominal tenderness, Yes Soft to palpation and No Tenderness to palpation present (GI) Discharge Plan Discharge Attending physician on discharge: Amna Bowling Consulting providers: Crys Moreira Discharging Clinician: Amna Bowling Anticipated Discharge Date/Time: 01/13/24 14:00 Patient Disposition: Home, Self-Care Activity: as tolerated Diet: as tolerated Patient Instructions: Antibiotic Form Stand Alone Forms: General Discharge Information Follow-up/Referrals: Amna Bowling MD [Physician] - 2 Weeks Discharge Medications: Continued levothyroxine 100 mcg tablet 100 mcg PO DAILY multivit with min-folic acid [Adult Multivitamin Gummies] 200 mcg Tablet,Chewable 1 tablet PO DAILY cholecalciferol (vitamin D3) [Vitamin D3] 25 mcg (1,000 unit) Tablet 25 mcg PO DAILY Date of admission: 01/12/24 09:11 Primary Care Provider: CindyJesus Admitting Provider: Amna Bowling Attending physician on admission: Amna Bowling Condition: Stable
[2024-01-13 09:55] VITALS: O2SAT 99
[2024-01-13 13:59] VITALS: BP 111/50; PULSE 60; RESP 17; TEMP 36.1; O2SAT 100
== END 2024-01-13 14:35 | disposition home or self-care (01) | DRG 247 ==
LOC: ANHED 23:30 → ANH3MEDSUR 01-12 00:47
PROVIDERS: Admitting Provider Surgery; Emergency Provider Physician Assistant; PCP Internal Medicine; Visit Provider Surgery
DX: K56.609 Unspecified intestinal obstruction, unspecified as to partial versus complete obstruction (principal); D50.9 Iron deficiency anemia, unspecified; Z85.038 Personal history of other malignant neoplasm of large intestine; Z90.49 Acquired absence of other specified parts of digestive tract; Z92.21 Personal history of antineoplastic chemotherapy; Z90.89 Acquired absence of other organs
CPT/HCPCS: 36415; 74250; 80053; 81003; 83605; 83690; 85025; 96360; 99285; A9270; G0378; G0379; J7030

== ENCOUNTER 2024-01-26 09:06 | Outpatient (CLI) | payer OTHER, SELFPAY ==
--- NOTE | ~2024-01-26 | NM_ITS ---
EXAMINATION: NM bone scan whole body DATE: 01/26/2024 12:29 INDICATION: Colon cancer TECHNIQUE: 23.6 mCi Tc-99m HDP was administered intravenously. Delayed whole-body scintigrams were o btained. COMPARISON: Outside institution CT of the abdomen and pelvis dated 01/11/2024 FINDINGS: Mild likely degenerative joint centered uptake at the bilateral mid feet. Otherwise physiologic distr ibution of bone and soft tissue uptake. No lesion suspicious for metastatic disease. IMPRESSION: 1. No evident osseous metastatic disease. Reviewed, dictated and finalized at location A.
== END 2024-01-26 09:07 | disposition home or self-care (01) ==
PROVIDERS: PCP Internal Medicine; Visit Provider Internal Medicine Hematology & Oncology
DX: C18.9 Malignant neoplasm of colon, unspecified (principal)
CPT/HCPCS: 78306; A9503

== ENCOUNTER 2024-02-02 01:24 | Day surgery (SDC) | payer OTHER, SELFPAY ==
[2024-01-28 10:51] VITALS: BMI 25.7
[2024-02-02 10:57] VITALS: BP 132/78; PULSE 61; RESP 16; TEMP 36.3; O2SAT 99
[2024-02-02] MEDS: LACTATED RINGERS 1,000 ML 150 ML IV CONT (11:03)
--- NOTE | 2024-02-02 11:23 | PM.HPGS ---
History of Present Illness History of Present Illness Consent: Risks, benefits, and alternatives have been discussed and questions answered. Patient agrees to proceed with procedure. Chief complaint: Abnormal Imaging of abdomen, Pers.Hx. Col CA Narrative: Musa Santamaria is a 48 year old male with sigmoid cancer s/p Lt hemicolectomy 2020 and chemotherapy, repeat colonoscopy 2022 ok. Recent hospitalization for SBO managed medically, CT scan no new findings but also noted mild anemia. Review of Systems Review of Systems: All systems reviewed & are unremarkable except as noted in HPI and below PMFSH Past Medical History Medical History Colon cancer Iron deficiency anemia (Unknown) Mass of colon (~08/2021) Obesity Surgical History Surgical History History of colon resection 09/03/2021 - hand assisted laparoscopic sigmoid colectomy with mobilization of the splenic flexure History of partial thyroidectomy Family History Family History Father Hypertension Malignant neoplasm of prostate Mother COPD (chronic obstructive pulmonary disease) Social History Social History Smoking status: Never smoker Second hand tobacco smoke exposure: No Alcohol intake: never Drinks per week: 1 Alcohol use details: LAST DRINK 2014 Substance use: never Substance use type: does not use Do You Feel Safe in your Home?: Yes Lack of Transportation: No Lack of Food: Never True Current Housing: I Have Housing Concerned About Future Housing: No Difficulty Paying Gas/Electric Bills: No Difficulty Paying for Meds: No Currently Unemployed: No Education: Master's Degree or Higher Difficulty w/ Childcare or Family Care: No Living arrangements: other Additional living arrangements comments: with sp Spiritual care concerns: No Meds Home Medications and Allergies Home Medications Medication Instructions Recorded Confirmed Type cholecalciferol (vitamin D3) 25 25 mcg PO DAILY 09/17/23 02/01/24 History mcg (1,000 unit) tablet (Vitamin D3) levothyroxine 100 mcg tablet 100 mcg PO DAILY 09/17/23 02/01/24 History multivitamin with minerals-folic 1 tablet PO DAILY 09/17/23 02/01/24 History acid 200 mcg chewable tablet (Adult Multivitamin Gummies) Allergies Allergy/AdvReac Type Severity Reaction Status Date / Time No Known Allergies Allergy Verified 02/02/24 10:55 Vital Signs Vital Signs - 24 hr 02/02/24 10:57 Temperature 97.4 F L Pulse Rate 61 Respiratory Rate 16 Blood Pressure 132/78 Pulse Oximetry 99 Oxygen Delivery Room Air Exam Const: General: comfortable and no acute distress HENMT: Face/Nose/Sinus: Normal nares present Eyes: General: appearance normal, both eyes and all related structures Neck: Neck: no JVD Resp: Auscultation: clear to auscultation bilaterally Cardio: Rate: regular rate Rhythm: regular rhythm GI: Inspection: non-distended GI Palp: Yes Soft to palpation Skin: General skin exam: normal color Neuro: General: gait normal Speech: normal speech Extrem: General: normal to inspection Psych: Mental Status: mental status grossly normal Assessment and Plan Assessment and plan (1) History of colon cancer: Code(s): Z85.038 - Personal history of other malignant neoplasm of large intestine Status: Acute Assessment and Plan: colonoscopy (2) Status post partial resection of colon: Code(s): Z90.49 - Acquired absence of other specified parts of digestive tract Status: Acute (3) Iron deficiency anemia: Onset Date: Unknown Code(s): D50.9 - Iron deficiency anemia, unspecified Status: Acute
--- NOTE | 2024-02-02 11:24 | WPDANESEPPF ---
Anes - Initial Pre Proc Eval Procedure: Operation Date: 02/02/24 15:00 Proposed Procedures p Colonoscopy - Zenon Nicolas MD Date/Time: 02/02/24 11:24 Surgeon: Zenon Nicolas MD Pre Op Diagnosis: Abnormal Imaging of abdomen, Pers.Hx. Col CA Patient Data Age: 48 Gender: M Height: 1.85 m Weight: 86.5 kg Last Vital Signs Temp 97.4 F L 02/02/24 10:57 Pulse 61 02/02/24 10:57 Resp 16 02/02/24 10:57 BP 132/78 02/02/24 10:57 Pulse Ox 99 02/02/24 10:57 O2 Del Method Room Air 02/02/24 10:57 Allergies Allergy/AdvReac Type Severity Reaction Status Date / Time No Known Allergies Allergy Verified 02/02/24 10:55 Home Medications Medication Instructions Recorded Confirmed Type cholecalciferol (vitamin D3) 25 25 mcg PO DAILY 09/17/23 02/01/24 History mcg (1,000 unit) tablet (Vitamin D3) levothyroxine 100 mcg tablet 100 mcg PO DAILY 09/17/23 02/01/24 History multivitamin with minerals-folic 1 tablet PO DAILY 09/17/23 02/01/24 History acid 200 mcg chewable tablet (Adult Multivitamin Gummies) Patient hx anesthesia problems: none Family hx anesthesia problems: none Results Review: All pre-operative results and documents have been reviewed as part of the pre-operative evaluation. [facility] Past Medical History Medical History Colon cancer Iron deficiency anemia (Unknown) Mass of colon (~08/2021) Obesity Surgical History Surgical History History of colon resection 09/03/2021 - hand assisted laparoscopic sigmoid colectomy with mobilization of the splenic flexure History of partial thyroidectomy Family History Family History Father Hypertension Malignant neoplasm of prostate Mother COPD (chronic obstructive pulmonary disease) Social History Social History Smoking status: Never smoker Second hand tobacco smoke exposure: No Alcohol intake: never Drinks per week: 1 Alcohol use details: LAST DRINK 2014 Substance use: never Substance use type: does not use Do You Feel Safe in your Home?: Yes Lack of Transportation: No Lack of Food: Never True Current Housing: I Have Housing Concerned About Future Housing: No Difficulty Paying Gas/Electric Bills: No Difficulty Paying for Meds: No Currently Unemployed: No Education: Master's Degree or Higher Difficulty w/ Childcare or Family Care: No Living arrangements: other Additional living arrangements comments: with sp Spiritual care concerns: No Anes - Eval Final PreProcedure Day of Procedure 02/02/24 11:24 Patient weight: normal Heart: regular rate and rhythm Lungs: clear to auscultation Airway: Mallampati scale class II Neurological: alert and oriented Last oral intake: >/= 8 hours ASA classification: III Emergent: no Anesthetic plan: proceed Anesthesia type and monitoring: general GIVS and standard monitoring Results Review: All pre-operative results and documents have been reviewed as part of the pre-operative evaluation. Informed Consent: The patient's anesthetic plan and its attendant risks and benefits were discussed with the patient/family/POA. Questions were solicited and answers provided to the satisfaction of the patient/family/POA.
[2024-02-02 11:51] VITALS: BP 110/70; PULSE 61; RESP 30; O2SAT 99
[2024-02-02 12:01] VITALS: BP 108/73; PULSE 60; RESP 19; O2SAT 100
[2024-02-02 12:11] VITALS: BP 115/72; PULSE 54; RESP 23; O2SAT 100
== END 2024-02-02 12:25 | disposition home or self-care (01) ==
PROVIDERS: PCP Internal Medicine; Visit Provider Internal Medicine Gastroenterology
PROC: 0DJD8ZZ Inspection of Lower Intestinal Tract, Via Natural or Artificial Opening Endoscopic (ICD-10-PCS; CPT 45378; principal; 2024-02-02 15:00)
DX: Z08 Encounter for follow-up examination after completed treatment for malignant neoplasm (principal); C17.2 Malignant neoplasm of ileum; K63.3 Ulcer of intestine; K64.8 Other hemorrhoids; Z90.49 Acquired absence of other specified parts of digestive tract; Z98.0 Intestinal bypass and anastomosis status; Z85.038 Personal history of other malignant neoplasm of large intestine; Z92.21 Personal history of antineoplastic chemotherapy; D50.9 Iron deficiency anemia, unspecified; E89.0 Postprocedural hypothyroidism
CPT/HCPCS: 45380; 88305; 88342; J2704; J7120

== ENCOUNTER 2024-03-01 09:45 | Outpatient (CLI) | payer OTHER, SELFPAY ==
--- NOTE | 2024-03-01 10:34 | ECG_ITS ---
Test Date: 2024-03-01 10:51:29 Measurements Intervals [place] Rate: 51 P: 51 VA: 200 QRS: 21 QRSD: 100 T: 21 QT: 459 QTc: 426 Interpretive Statements SINUS BRADYCARDIA INCOMPLETE RIGHT BUNDLE BRANCH BLOCK No previous ECG available for comparison Electronically Signed On 03-01-2024 11:56:29 CDT by Gurpreet Muhammad M.D.
== END 2024-03-01 09:46 | disposition home or self-care (01) ==
LOC: ANHSURGERY 09:50
PROVIDERS: PCP Internal Medicine; Visit Provider Surgery
DX: C17.9 Malignant neoplasm of small intestine, unspecified (principal)
CPT/HCPCS: 36415; 86850; 86900; 86901; 93005

== ENCOUNTER 2024-03-06 15:35 | Inpatient (IN) | payer OTHER, SELFPAY ==
--- NOTE | 2024-03-01 10:10 | PC.NURSE ---
Report to the Outpatient Waiting Room, entrance under the green pavilion located off [facility], at time __1000 AM on date _03/06/24 . Planned Procedure Time: __1200 NOON . Time changes happen often and if your time is changed the preop area will call you the afternoon before. - You and your visitor will be asked to self-screen and do not enter if you have any COVID symptoms. - A mask is optional within the hospital at this time. Patients may have clear liquids (water, carbonated beverages, clear teas, apple juice) until 3 hours prior to surgery ( 9:00 AM) with a maximum of 20 ounces. - No food from midnight until time of surgery - Infants may have breast milk until 4 hours before surgery, formula 6 hours prior to surgery. - Children will be allowed to drink immediately following surgery. If applicable, please bring a bottle or sippy cup to assist with drinking. Juice, water, soda, and popsicles are readily available. For infants on formula, please bring formula the day of surgery. Pacifiers are allowed. HIBICLENS SHOWER DAY BEFORE SURGERY AND MORNING OF SURGERY Take the following medications with a SIP of water the morning of surgery: ___LEVOTHYROXINE, DO NOT STOP ANY OF YOUR OTHER PRESCRIPTION MEDICATIONS PRIOR TO SURGERY ?EXCEPT THE FOLLOWING Medications to discontinue per physician _HOLD ALL VTIAMINS AND SUPPLEMENTS 3 DAYS PRE OP.LAST DOSE 03/02/[address]UNDLE PACK PER [address] CHILDS Please no make-up, nail nepalese, hairspray, perfume, deodorant, or body powder the day of surgery. No jewelry (including any body piercings) or valuables the day of surgery, leave them at home. Please take a shower or bath the night before, or the morning of, surgery with an antibacterial soap. Wear comfortable, loose fitting clothing. Children are encouraged to wear pajamas. - Jewelry must be removed prior to entering the operating room. Rings and piercings that are not removed may be cut off. - The hospital will not accept responsibility for valuables. - Please leave all valuables, including medications, at home the day of surgery. If you are going home after surgery, a licensed home delivery driver must drive you home. - NO public transportation without another adult if you receive anesthesia. - We recommend that an adult stay with you for 24 hours following discharge. - We also recommend that you do not drive, make important decision, drink alcoholic beverages, or take any drugs that were not prescribed by your health care provider for at least 24 hours after your discharge time. Follow any additional instructions given to you from your surgeon. If you or anyone in your household have experienced Covid symptoms in the past week, please notify your surgeon or the nurse liaison at the phone number below for possible testing. VERBAL AND WRITTEN instructions given to __PATIENT and asked if any additional questions and then verbalized understanding. Patient advised to call surgeon office or pre surgery nurse liaison [phone] if any additional questions.
[2024-03-01 10:25] VITALS: BP 132/81; PULSE 60; RESP 18; TEMP 36.7; O2SAT 100; BMI 26.6
[2024-03-06] VITALS (13 sets, daily range): BP systolic 113–150; BP diastolic 55–74; PULSE 55–77; RESP 14–20; TEMP 36–37.1; O2SAT 96–100
--- NOTE | ~2024-03-06 | XR_ITS ---
EXAM: XR fluoroscopy no charge DATE: 03/06/2024 15:28 HISTORY: Lost instrument. COMPARISON: None available. FINDINGS: The distal tip of a NG tube projects over the stomach. Suture material projects over the r ight lower quadrant. Borderline dilation of several small bowel loops, presumably secondary to ileus. Otherwise normal bowel gas pattern. Mild degenerative change in the lumbar spine. No unexpected radi opaque foreign body. IMPRESSION: No foreign body detected. Reviewed, dictated and finalized at location K. IMPRESSION: No foreign body detected.
--- NOTE | 2024-03-06 11:16 | WPDANESEPPF ---
Anes - Initial Pre Proc Eval Procedure: Operation Date: 03/06/24 12:00 Proposed Procedures p Hand Assisted Laparoscopic Right Colectomy - Amna Bowling MD Date/Time: 03/06/24 11:16 Surgeon: Amna Bowling MD Pre Op Diagnosis: small bowel ca Patient Data Age: 48 Gender: M Height: 1.85 m Weight: 91.4 kg Last Vital Signs Temp 36.7 C 03/01/24 10:25 Pulse 60 03/01/24 10:25 Resp 18 03/01/24 10:25 BP 132/81 03/01/24 10:25 Pulse Ox 100 03/01/24 10:25 O2 Del Method Room Air 03/01/24 10:25 Allergies Allergy/AdvReac Type Severity Reaction Status Date / Time No Known Allergies Allergy Verified 03/01/24 09:54 Home Medications Medication Instructions Recorded Confirmed Type cholecalciferol (vitamin D3) 25 25 mcg PO DAILY 09/17/23 03/06/24 History mcg (1,000 unit) tablet (Vitamin D3) levothyroxine 100 mcg tablet 100 mcg PO DAILY 09/17/23 03/06/24 History multivitamin with minerals-folic 1 tablet PO DAILY 09/17/23 03/06/24 History acid 200 mcg chewable tablet (Adult Multivitamin Gummies) ciprofloxacin HCl 500 mg tablet 500 mg PO .COMPLEX #1 tablet 02/16/24 03/06/24 Rx metronidazole 500 mg tablet 500 mg PO .COMPLEX #3 tabs 02/16/24 03/06/24 Rx ferrous sulfate 325 mg (65 mg 650 mg PO DAILY 03/01/24 03/06/24 History iron) tablet omega-3 fatty acids 1,000 mg PO DAILY 03/01/24 03/06/24 History Patient hx anesthesia problems: none Family hx anesthesia problems: none Results Review: All pre-operative results and documents have been reviewed as part of the pre-operative evaluation. [facility] Past Medical History Medical History (Updated 03/06/24 @ 11:16 by Rony Tripp MD) Colon cancer Iron deficiency anemia (Unknown) Mass of colon (~08/2021) Surgical History Surgical History History of colon resection 09/03/2021 - hand assisted laparoscopic sigmoid colectomy with mobilization of the splenic flexure History of partial thyroidectomy Family History Family History Father Hypertension Malignant neoplasm of prostate Mother COPD (chronic obstructive pulmonary disease) Social History Social History Smoking status: Never smoker Second hand tobacco smoke exposure: No Alcohol intake: never Drinks per week: 1 Alcohol use details: LAST DRINK 2014 Substance use: never Substance use type: does not use Do You Feel Safe in your Home?: Yes Lack of Transportation: No Lack of Food: Never True Current Housing: I Have Housing Concerned About Future Housing: No Difficulty Paying Gas/Electric Bills: No Difficulty Paying for Meds: No Currently Unemployed: No Education: Master's Degree or Higher Difficulty w/ Childcare or Family Care: No Living arrangements: with family Additional living arrangements comments: with sp Spiritual care concerns: No Anes - Eval Final PreProcedure Day of Procedure 03/06/24 11:16 Patient weight: overweight Heart: regular rate and rhythm Lungs: clear to auscultation Airway: Mallampati scale class II Neurological: alert and oriented Last oral intake: >/= 8 hours ASA classification: III Emergent: no Anesthetic plan: proceed Anesthesia type and monitoring: general ETT and standard monitoring Results Review: All pre-operative results and documents have been reviewed as part of the pre-operative evaluation. Informed Consent: The patient's anesthetic plan and its attendant risks and benefits were discussed with the patient/family/POA. Questions were solicited and answers provided to the satisfaction of the patient/family/POA.
--- NOTE | 2024-03-06 11:33 | WPDHPUPDATE1 ---
History and Physical Update Update Date/Time: 03/06/24 11:33 History and Physical has been reviewed, including an updated exam of the patient. There are NO changes in the patient's condition. Risks, benefits, and alternatives have been discussed and questions answered. Patient agrees to proceed with procedure.
[2024-03-06] MEDS: LACTATED RINGERS 1,000 ML 30 ML IV CONT ×2 (11:45→15:49)
[2024-03-06] MEDS: KETOROLAC 15 MG/ML VIAL (*BKC) IV PUSH (13:24)
[2024-03-06] MEDS: ACETAMINOPHEN 500 MG TABLET 1000 MG PO (13:25)
[2024-03-06] MEDS: metroNIDAZOLE 500 MG/ISO 100ML 500 MG/100 ML BAG 100 MG IVPB (13:35)
[2024-03-06] MEDS: ceFAZolin 2 GM/D5W 50 ML 2 GM/50 ML BAG IVPB ×2 (13:53→21:01)
[2024-03-06] MEDS: BUPIVACAINE/EPINEPHRINE 0.5% 50 ML VIAL 30 ML INFILTRATE (14:03)
--- NOTE | 2024-03-06 15:39 | W.PM.PROC2 ---
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 The patient has previous sigmoid colon cancer status post resection and adjuvant therapy. Findings palpable mass in terminal ileum with noted masses in the mesentery consistent with lymph node spread Description of Procedure The patient was taken to the operating room and placed in the supine position. After adequate induction of general anesthesia, the patient was prepped and draped normal sterile fashion. A time-out was then done to verify the patient's identity as well as the procedure being performed. I began by making a hand port incision around the umbilicus. Of note, this was done through his previous hand port incision. This was carried down into the peritoneal cavity and there was noted adhesions to the lower anterior abdominal wall. These adhesions were taken down under visualization with the bovie cautery. Once the abdominal wall was cleared, the hand port was then placed. I then insufflated the abdomen through the hand port. I then placed the camera through the hand port and under direct visualization, I placed 2 5 mm ports in right lower and right mid abdomen. Once this was done, I examined the right abdomen. It was noted that the patient had adhesions of the cecum and distal ileum to the pelvis. These adhesions were taken down both bluntly and with the ligasure under direct visualization. This adhesiolysis took approximately 30 minutes. There was a noted large mass in the terminal ileum approximately 5-10 cm from the ileocecal valve. There was also noted to be at least 2 large masses in the mesentery around this area consistent with lymph node spread. I then began my medial to lateral approach. I was able to identify the right colic vessels. I subsequently transected the right colic vessels with the LigaSure device. This was taken down near the base of the mesentery with the LigaSure. Once this was done, I carried this plane towards the hepatic flexure until I encountered the duodenum which was mobilized posteriorly. I then began taking down the lateral attachments of the terminal ileum and right colon including taking down the white line of Toldt and the hepatic flexure. Once this was done my medial and lateral dissection planes met. I was able to easily manipulate the right colon. at this point I extracorporealyzed the right colon and terminal ileum. I then transected the terminal ileum approximately 10 cm proximal to the mass with a 55 LANA stapler. I then transected the colon at the ascending colon making sure there was plenty of distal intestine to the mass. I then performed a [id number] functional end-to-end anastomosis between the ileum and ascending colon with a 55 LANA stapler followed by a TL 60 stapler. The anastomosis was noted to be tension-free and widely patent. I closed the messenteric defect with a 2.0 silk suture. I then copiously irrigated the abdomen, no other pathology was noted. I then closed the hand port incision with a 0 PDS suture at the fascial level. The skin was closed with 4 O Monocryl subcuticular sutures including the 5 mm ports sites. Dermabond was then placed on all wounds. The patient tolerated the procedure well. He was extubated in the operating room postoperatively and will be transferred to the recovery room in stable condition. Estimated Blood Loss 25 Drains No Packing No Pathology Yes Complications No immediate complications Condition Stable Disposition PACU [facility] Billing Surgery - Charge Forward: Surgery Billing
--- NOTE | 2024-03-06 17:24 | ADMGEN ---
This patient, Kimberly Santamaria, was admitted to [facility] Surg Room 303-01. Patient/family oriented to hospital policies and general routines including ID bracelet, bed and alarms, visiting hours, pain management, procedures, bathroom and other care routines, personal items, smoking policy, room service/diet, and visiting hours. Information on how to activate the Rapid Response Team has been discussed. Patient/Family are encouraged to report perceived risks to care and to ask questions if they do not understand what they are told or what they should do.
[2024-03-06] MEDS: HYDROcodone/acetaminophen (*CRX) 5-325 MG TABLET 1 TAB PO (20:57)
[2024-03-06] MEDS: FAMOTIDINE 20 MG/2 ML VIAL IV PUSH (21:01)
[2024-03-06] MEDS: LACTATED RINGERS 1,000 ML 100 ML IV CONT (21:01)
[2024-03-07 04:00] VITALS: BP 123/63; PULSE 72; RESP 16; TEMP 36.6; O2SAT 99
[2024-03-07] MEDS: LEVOTHYROXINE SODIUM 100 MCG TABLET PO (05:17)
[2024-03-07] MEDS: ceFAZolin 2 GM/D5W 50 ML 2 GM/50 ML BAG IVPB (05:17)
[2024-03-07] MEDS: HYDROcodone/acetaminophen (*CRX) 5-325 MG TABLET 1 TAB PO ×2 (06:21→16:59)
[2024-03-07 06:47] LABS: Hematocrit 38.7 % (42.0-52.0); Hemoglobin 12.3 g/dL (14.0-18.0); Mean Corpuscular HGB Conc 31.8 g/dl (32-36); Mean Corpuscular Hemoglobin 28.1 pg (26-34); Mean Corpuscular Volume 88.6 fl (80-100); Platelet Count Result 216 k/mm3 (150-375); Red Blood Count 4.37 M/mm3 (4.6-6.20); Red Cell Distribution Width 17.1 % (11.5-14.5); White Blood Count 10.5 K/mm3 (4.5-10.0)
[2024-03-07 07:01] LABS: Anion Gap 11 mmol/L (4-12); Blood Urea Nitrogen 11 mg/dL (9-20); Calcium 9.2 mg/dL (8.4-10.2); Carbon Dioxide 23 mmol/L (22-30); Chloride 105 mmol/L (98-107); Estimated CRCL calculation 90 ml/min; Estimated Glomerular Filt Rate > 60; Glucose 113 mg/dL (65-110); Potassium 3.9 mmol/L (3.4-5.0); Sodium 139 mmol/L (137-145)
--- NOTE | 2024-03-07 07:57 | WPDANESPN ---
Anes - Prog Note Post-Op Date/Time: 03/07/24 07:57 Cardiovascular status: normal Respiratory status: normal Airway patency: baseline Mental status: baseline Post-Op hydration status: normal Vital Signs: Last Vital Signs Temp 36.6 C 03/07/24 04:00 Pulse 72 03/07/24 04:00 Resp 16 03/07/24 04:00 BP 123/63 03/07/24 04:00 Pulse Ox 99 03/07/24 04:00 O2 Del Method Room Air 03/06/24 20:00 O2 Flow Rate 8 03/06/24 16:00 Pain Score (VAS): 12/14 I/O: Intake & Output 03/06/24 03/06/24 03/07/24 15:59 23:59 07:59 Intake Total 150 150 50 Output Total 550 Balance 150 150 -500 Laboratory Tests 03/07/24 06:04 03/07/24 06:04 03/06/24 03/07/24 11:46 06:04 WBC 10.5 H RBC 4.37 L Hgb 12.3 L Hct 38.7 L MCV 88.6 MCH 28.1 MCHC 31.8 L RDW 17.1 H Plt Count 216 MPV 11.0 H Sodium 139 Potassium 3.9 Chloride 105 Carbon Dioxide 23 Anion Gap 11 BUN 11 D Creatinine 1.00 Estim Creat Clear Calc 90 Estimated GFR > 60 Glucose 113 H Calcium 9.2 Carcinoembryonic Ag 3.0 Post-procedural complaints: none Patient Feedback: Patient satisfied with anesthetic care.
[2024-03-07 08:00] VITALS: BP 125/65; PULSE 50; RESP 16; TEMP 36; O2SAT 100
[2024-03-07] MEDS: ENOXAPARIN 40 MG/0.4 ML SYRINGE SUB-Q (08:05)
[2024-03-07] MEDS: FAMOTIDINE 20 MG/2 ML VIAL IV PUSH ×2 (08:05→20:14)
[2024-03-07] MEDS: LACTATED RINGERS 1,000 ML 100 ML IV CONT ×2 (10:18→20:13)
[2024-03-07 11:48] VITALS: BP 127/70; PULSE 58; RESP 16; TEMP 36.1; O2SAT 99
[2024-03-07 13:08] VITALS: BMI 26.2
--- NOTE | 2024-03-07 14:46 | PM.PNGS ---
Progress Note: A&P Assessment and Plan (1) Adenocarcinoma of small bowel: Code(s): C17.9 - Malignant neoplasm of small intestine, unspecified Status: Acute Assessment and Plan: doing well, await path, ADAT, cont encourage OOB/IS Subjective Subjective Date/Time Seen: 03/07/24 14:46 Interval history: feels pretty good, up and ambulating s issue, no bowel fxn, lul clears Review of Systems Review of Systems: All systems reviewed & are unremarkable except as noted in HPI and below Exam Const: General: cooperative, comfortable and no acute distress GI: Inspection: normal to inspection, non-distended and incision GI Palp: Yes abdominal tenderness, Yes Soft to palpation, Yes Tenderness to palpation present (GI), No Guarding due to palpation present (GI) and No Rigid due to palpation Objective Data Vital Signs Vital Signs: Vital Signs - 24 hr 03/06/24 15:49 03/06/24 16:00 03/06/24 16:15 Temperature 36.5 C Pulse Rate 55 L 61 56 L Respiratory Rate 14 18 16 Blood Pressure 117/62 113/58 L 126/66 Pulse Oximetry 100 100 98 Oxygen Delivery Simple Face Mask Simple Face Mask Room Air Oxygen Flow Rate 8 8 03/06/24 16:30 03/06/24 16:45 03/06/24 17:00 Temperature Pulse Rate 66 70 77 Respiratory Rate 18 16 18 Blood Pressure 119/60 123/74 123/70 Pulse Oximetry 96 100 100 Oxygen Delivery Room Air Room Air Room Air Oxygen Flow Rate 03/06/24 17:20 03/06/24 17:35 03/06/24 18:05 Temperature 36.0 C L 36.0 C L 36.0 C L Pulse Rate 71 74 60 Respiratory Rate 18 16 18 Blood Pressure 139/56 L 150/58 H 141/58 H Pulse Oximetry 97 99 98 Oxygen Delivery Oxygen Flow Rate 03/06/24 19:07 03/06/24 20:00 03/06/24 20:00 Temperature 36.3 C L 36.3 C L Pulse Rate 57 L 68 Respiratory Rate 18 17 Blood Pressure 132/55 L 122/64 Pulse Oximetry 98 100 100 Oxygen Delivery Room Air Oxygen Flow Rate 03/06/24 23:57 03/07/24 04:00 03/07/24 08:00 Temperature 36.9 C 36.6 C 36.0 C L Pulse Rate 63 72 50 L Respiratory Rate 18 16 16 Blood Pressure 113/62 123/63 125/65 Pulse Oximetry 99 99 100 Oxygen Delivery Oxygen Flow Rate 03/07/24 08:00 03/07/24 11:48 Temperature 36.1 C L Pulse Rate 58 L Respiratory Rate 16 Blood Pressure 127/70 Pulse Oximetry 99 Oxygen Delivery Room Air Oxygen Flow Rate Intake/Output Intake/Output: Intake & Output 03/04/24 03/05/24 03/06/24 03/07/24 23:59 23:59 23:59 23:59 Intake Total 300 1050 Output Total 550 Balance 300 500 Meds/Results Medications: Active Medications Generic Name Dose Route Start Last Admin Trade Name Freq PRN Reason Stop Dose Admin Hydrocodone Bitart/Acetaminophen 1 tab 03/06/24 15:35 03/07/24 06:21 Hydrocodone/Acetaminophen (*Crx) 5-325 Mg Tablet PO 1 tab Q4H PRN Administration Pain Rated 4-6 Enoxaparin Sodium 40 mg 03/07/24 09:00 03/07/24 08:05 Enoxaparin 40 Mg/0.4 Ml Syringe SUB-Q 40 mg DAILY BRENDAN Administration Famotidine 20 mg 03/06/24 21:00 03/07/24 08:05 Famotidine 20 Mg/2 Ml Vial IV PUSH 20 mg Q12HR BRENDAN Administration Fentanyl Citrate 25 mcg 03/06/24 16:00 Fentanyl Citrate Inj (*Crx) 100 Mcg/2 Ml Vial IV PUSH Q2M PRN Pain Hydromorphone HCl 1 mg 03/06/24 17:16 Hydromorphone Hcl Inj (*Crx) 1 Mg/Ml Syr IV PUSH Q2H PRN Breakthrough Pain Rated 7-10 or NPO Hydromorphone HCl 0.5 mg 03/06/24 15:35 Hydromorphone Hcl Inj (*Crx) 1 Mg/Ml Syr IV PUSH Q2H PRN Breakthrough Pain Rated 4-6 or NPO Lactated Ringer's 1,000 mls @ 100 mls/hr 03/06/24 15:35 03/07/24 10:18 Lr - Lactated Ringers Iv IV CONT 100 mls/hr .Q10H BRENDAN Administration Ibuprofen 800 mg in 200 mls @ 400 mls/hr 03/06/24 15:35 Caldolor 800 Mg/200 Ml IVPB Q6H PRN Breakthrough Pain Rated 1-3 or NPO Levothyroxine Sodium 100 mcg 03/07/24 06:30 03/07/24 05:17 Levothyroxine Sodium 100 Mcg Tablet PO 100 mcg DAILY@0630 [facility] Ad
[2024-03-07 16:00] VITALS: BP 134/67; PULSE 66; RESP 18; TEMP 36.7; O2SAT 97
[2024-03-07 20:00] VITALS: BP 127/70; PULSE 51; RESP 13; TEMP 36.6; O2SAT 100
[2024-03-08] VITALS: BP 131/76; PULSE 71; RESP 13; TEMP 37; O2SAT 100
[2024-03-08] MEDS: HYDROcodone/acetaminophen (*CRX) 5-325 MG TABLET 1 TAB PO ×3 (01:12→12:24)
[2024-03-08 04:00] VITALS: BP 125/62; PULSE 61; RESP 13; TEMP 36.7; O2SAT 98
[2024-03-08] MEDS: LEVOTHYROXINE SODIUM 100 MCG TABLET PO (05:45)
[2024-03-08] MEDS: FAMOTIDINE 20 MG/2 ML VIAL IV PUSH (08:47)
[2024-03-08] MEDS: ENOXAPARIN 40 MG/0.4 ML SYRINGE SUB-Q (08:47)
[2024-03-08 14:00] VITALS: BP 128/57; PULSE 68; RESP 18; TEMP 35.7; O2SAT 100
--- NOTE | 2024-03-08 16:19 | PM.DS ---
DS: Admitting Diagnosis Discharge Date 03/08/2024 Admitting Diagnosis Ileal mass, adenocarcinoma Status post partial colectomy Anemia History of colon cancer DS: Discharge Diagnosis Discharge Diagnosis (1) Colon cancer: Code(s): C18.9 - Malignant neoplasm of colon, unspecified Status: Acute (2) Status post partial resection of colon: Code(s): Z90.49 - Acquired absence of other specified parts of digestive tract Status: Acute (3) History of colon cancer: Code(s): Z85.038 - Personal history of other malignant neoplasm of large intestine Status: Acute (4) Anemia: Qualifiers: Anemia type: unspecified type Qualified Code(s): D64.9 - Anemia, unspecified Code(s): D64.9 - Anemia, unspecified Status: Acute DS: Summary Hospital Course Reason for hospitalization: This is a 48-year-old man who has a history of colon cancer status post hand assisted laparoscopic sigmoid colectomy in 2020. He underwent chemotherapy following surgery. Recently, in January of 2024, he was found to have a small-bowel obstruction on a CT scan. He then had a colonoscopy on 02/02/2024 with pathology coming back as moderately differentiated adenocarcinoma from a possible ileal mass. He was seen as an outpatient by Dr. Bowling and decision was made to proceed with a hand assisted laparoscopic right colectomy. He presented for surgery on 03/06/2024. Hospital Course: He underwent hand assisted laparoscopic right colectomy with mobilization of hepatic flexure by Dr. Bowling the on 03/06/2024. During surgery he was found to have a palpable mass in the terminal ileum with noted masses in the mesentery consistent with lymph node spread. He was admitted for monitoring and management postoperatively. His diet has slowly been advanced. He is tolerating a solid diet today. No nausea or vomiting. He is tolerating activity. Postoperative pain has been well controlled. Labs monitored postop day 1 and appeared stable. He was voiding independently without any issues. After discussing with Dr. Bowling, the patient is stable for discharge postop day 2. Status at Discharge Functional status at discharge: independent ambulation Overall status at discharge: patient is progressing back to baseline Time Spent with Patient Time attestation: Total time spent providing and/or coordinating discharge services: Time spent: Less than 30 minutes Exam Const: General: comfortable and no acute distress Resp: Effort & Inspection: normal respiratory effort Auscultation: clear to auscultation bilaterally Cardio: Rate: regular rate Rhythm: regular rhythm GI: Inspection: non-distended and incision (incisions dry and intact) GI Palp: Yes Soft to palpation, Yes Tenderness to palpation present (GI) (incisional) and No Guarding due to palpation present (GI) Auscultation: normal bowel sounds Neuro: General: moves all extremities and no focal motor deficits Extrem: General: no calf tenderness and no edema Psych: Mental Status: mental status grossly normal Insight: Good insight present (Psych) DS: Data Data Completed and Pending Completed studies during hospitalization: Pending at discharge 03/06/24 14:38 Surgical [PTH] Routine Procedures/Treatments: Procedures Operation Date: 03/06/24 12:00 Actual Procedure Side Surgeon p Hand Assisted Laparoscopic Right Colectomy Right Amna Bowling MD Imaging Radiologist's impression: ITS Impressions Abdomen X-Ray 03/06/24 15:32 IMPRESSION: No foreign body detected. Discharge Plan Discharge Attending physician on discharge: Amna Bowling Discharging Clinician: Abimbola Talley Anticipated Discharge Date/Time: 03/08/24 16:33 Patient Disposition: Home, Self-Care Activity: may shower and other - see discharge instructions Diet: as tolerated and regular Wound Care Instructions: incision open to air Discharge Instructions: DISCHARGE I
== END 2024-03-08 17:20 | disposition home or self-care (01) | DRG 231 ==
LOC: ANH3MEDSUR 17:12
PROVIDERS: Admitting Provider Surgery; PCP Internal Medicine; Visit Provider Nurse Practitioner Family
PROC: 0DTF4ZZ Resection of Right Large Intestine, Percutaneous Endoscopic Approach (ICD-10-PCS; CPT 44204; principal; 2024-03-06 12:00)
DX: C18.9 Malignant neoplasm of colon, unspecified (principal); D64.9 Anemia, unspecified; C77.2 Secondary and unspecified malignant neoplasm of intra-abdominal lymph nodes; Z85.038 Personal history of other malignant neoplasm of large intestine; Z90.49 Acquired absence of other specified parts of digestive tract
CPT/HCPCS: 36415; 74018; 80048; 82378; 85027; 88309; 99199; A9270; J0690; J1100; J1650; J1836; J1885; J2250; J2405; J2704; J3010; J7030; J7120

== ENCOUNTER 2024-03-23 13:02 | Outpatient (CLI) | payer OTHER, SELFPAY ==
[2024-03-23 15:20] LABS: Prothrombin Time 13.2 Seconds (11.1-14.7)
[2024-03-23 15:21] LABS: Partial Thromboplastin Time 26.4 Seconds (22.3-36.8)
== END 2024-03-23 13:03 | disposition home or self-care (01) ==
PROVIDERS: PCP Internal Medicine; Visit Provider Surgery
DX: C17.9 Malignant neoplasm of small intestine, unspecified (principal)
CPT/HCPCS: 36415; 85610; 85730

== ENCOUNTER 2024-03-27 01:48 | Day surgery (SDC) | payer OTHER, SELFPAY ==
[2024-03-23 12:30] VITALS: BMI 25.7
--- NOTE | 2024-03-23 12:36 | PC.NURSE ---
Report to the Outpatient Waiting Room, entrance under the green pavilion located off [facility], at time _1200_ on date _[id number]_. Planned Procedure Time: _2pm_. Time changes happen often and if your time is changed the preop area will call you the afternoon before. - You and your visitor will be asked to self-screen and do not enter if you have any COVID symptoms. - A mask is optional within the hospital at this time. Patients may have clear liquids (water, carbonated beverages, clear teas, apple juice) until 3 hours prior to surgery with a maximum of 20 ounces. - No food from midnight until time of surgery Take the following medications with a SIP of water the morning of surgery: ___Levothyroxine DO NOT STOP ANY OF YOUR OTHER PRESCRIPTION MEDICATIONS PRIOR TO SURGERY ?EXCEPT THE FOLLOWING Medications to discontinue per physician Vitamins and supplements. Date to take last rukt___[id number] Please no make-up, nail icelandic, hairspray, perfume, deodorant, or body powder the day of surgery. No jewelry (including any body piercings) or valuables the day of surgery, leave them at home. Please take a shower or bath the night before, or the morning of, surgery with an antibacterial soap. Wear comfortable, loose fitting clothing. - Jewelry must be removed prior to entering the operating room. Rings and piercings that are not removed may be cut off. - The hospital will not accept responsibility for valuables. - Please leave all valuables, including medications, at home the day of surgery. If you are going home after surgery, a licensed straight truck driver must drive you home. - NO public transportation without another adult if you receive anesthesia. - We recommend that an adult stay with you for 24 hours following discharge. - We also recommend that you do not drive, make important decision, drink alcoholic beverages, or take any drugs that were not prescribed by your health care provider for at least 24 hours after your discharge time. Follow any additional instructions given to you from your surgeon. If you or anyone in your household have experienced Covid symptoms in the past week, please notify your surgeon or the nurse liaison at the phone number below for possible testing. Telephone instructions given to _Alex__and asked if any additional questions and then verbalized understanding. Patient advised to call surgeon office or pre surgery nurse liaison [phone] if any additional questions.
--- NOTE | ~2024-03-27 | XR_ITS ---
EXAMINATION: XR fl guide central line place DATE: 03/27/2024 15:20 CDT INDICATION: INSERTION TRICIA CATH . TECHNIQUE: 2 fluoroscopic images of the chest were obtained during Port-A-Cath insertion, performed Paco Bowling MD. I was not present during the procedure. Fluoroscopy exposure time was 17.1 sec onds. Air Kerma 2.68 mGy. DAP 0.32568 mGym2. COMPARISON: 10/15/2021 FINDINGS/IMPRESSION: Fluoroscopic documentation of Port-A-Cath insertion. Please refer to the operative note for complete procedural details . Reviewed, dictated and finalized at location K.
--- NOTE | ~2024-03-27 | XR_ITS ---
EXAMINATION: XR chest port-a-cath/central Exam Date/Time: 03/27/2024 15:20 CDT HISTORY: POST INSERTION TRICIA CATH Comparison: None. RESULT: Lines, tubes, and devices: Left chest implanted port, tip terminating at the cavoatrial junction. Logan rgical clips over the lower neck. Lungs and pleura: Clear. Cardiomediastinal silhouette: Stable. Other: No acute osseous or upper abdominal finding. IMPRESSION: Left implanted port, in good position. No acute cardiopulmonary process. Reviewed, dictated and finalized at location K.
--- NOTE | 2024-03-27 12:19 | PM.IMHP ---
H&P: HPI History of Present Illness Date/Time: 03/27/24 12:19 Chief Complaint: Small-bowel adenocarcinoma Narrative: The patient is a 48-year-old male well known to my service from previous right hemicolectomy for ileo adenocarcinoma. The patient was found to have lymph node invasion and has been sent to Oncology. The patient will need adjuvant chemotherapy at this point. I have been asked to place a venous access device for chemo access. The patient has had previous venous access device for previous sigmoid colon cancer. He had a left subclavian port at that time. He reports no issues with the previous port. Review of Systems Review of Systems: All systems reviewed & are unremarkable except as noted in HPI and below PMFSH Past Medical History Medical History Colon cancer Iron deficiency anemia (Unknown) Mass of colon (~08/2021) Surgical History Surgical History History of colon resection 09/03/2021 - hand assisted laparoscopic sigmoid colectomy with mobilization of the splenic flexure History of partial thyroidectomy Family History Family History Father Hypertension Malignant neoplasm of prostate Mother COPD (chronic obstructive pulmonary disease) Social History Social History Smoking status: Never smoker Second hand tobacco smoke exposure: No Alcohol intake: never Drinks per week: 1 Alcohol use details: LAST DRINK 2014 Substance use: never Substance use type: does not use Do You Feel Safe in your Home?: Yes Lack of Transportation: No Lack of Food: Never True Current Housing: I Have Housing Concerned About Future Housing: No Difficulty Paying Gas/Electric Bills: No Difficulty Paying for Meds: No Currently Unemployed: No Education: Master's Degree or Higher Difficulty w/ Childcare or Family Care: No Living arrangements: with family Additional living arrangements comments: with sp Spiritual care concerns: No Meds Home Medications and Allergies Home Medications Medication Instructions Recorded Confirmed Type cholecalciferol (vitamin D3) 25 25 mcg PO DAILY 09/17/23 03/23/24 History mcg (1,000 unit) tablet (Vitamin D3) levothyroxine 100 mcg tablet 100 mcg PO DAILY 09/17/23 03/23/24 History multivitamin with minerals-folic 1 tablet PO DAILY 09/17/23 03/23/24 History acid 200 mcg chewable tablet (Adult Multivitamin Gummies) ferrous sulfate 325 mg (65 mg 650 mg PO DAILY 03/01/24 03/23/24 History iron) tablet omega-3 fatty acids 1,000 mg PO DAILY 03/01/24 03/23/24 History Allergies Allergy/AdvReac Type Severity Reaction Status Date / Time No Known Allergies Allergy Verified 03/23/24 12:29 Exam Const: General: cooperative, comfortable and no acute distress HENMT: Head: normal to inspection Neck: Neck: normal visual inspection, full ROM and no lymphadenopathy Chest: Chest palpation & inspection: normal inspection of the chest Resp: Auscultation: clear to auscultation bilaterally Cardio: Rate: regular rate Rhythm: regular rhythm GI: Inspection: normal to inspection Assessment and Plan Assessment and plan (1) Adenocarcinoma of small bowel: Code(s): C17.9 - Malignant neoplasm of small intestine, unspecified Status: Acute Assessment and Plan: will set up for venous access device placement in the operating room for chemotherapy
--- NOTE | 2024-03-27 12:21 | WPDHPUPDATE1 ---
History and Physical Update Update Date/Time: 03/27/24 12:21 History and Physical has been reviewed, including an updated exam of the patient. There are NO changes in the patient's condition. Risks, benefits, and alternatives have been discussed and questions answered. Patient agrees to proceed with procedure.
[2024-03-27] MEDS: LACTATED RINGERS 1,000 ML 30 ML IV CONT (12:40)
[2024-03-27 12:42] VITALS: BP 121/73; PULSE 57; RESP 16; TEMP 36.6; O2SAT 100
[2024-03-27] MEDS: KETOROLAC 15 MG/ML VIAL (*BKC) IV PUSH (12:45)
--- NOTE | 2024-03-27 13:23 | WPDANESEPPF ---
Anes - Initial Pre Proc Eval Procedure: Operation Date: 03/27/24 14:00 Proposed Procedures p Insertion Pascual Cath - Amna Bowling MD Date/Time: 03/27/24 13:23 Surgeon: Amna Bowling MD Pre Op Diagnosis: malig neoplasm of colon Patient Data Age: 48 Gender: M Height: 1.85 m Weight: 90.5 kg Last Vital Signs Temp 36.6 C 03/27/24 12:42 Pulse 57 L 03/27/24 12:42 Resp 16 03/27/24 12:42 BP 121/73 03/27/24 12:42 Pulse Ox 100 03/27/24 12:42 O2 Del Method Room Air 03/27/24 12:42 Allergies Allergy/AdvReac Type Severity Reaction Status Date / Time No Known Allergies Allergy Verified 03/27/24 12:21 Home Medications Medication Instructions Recorded Confirmed Type cholecalciferol (vitamin D3) 25 25 mcg PO DAILY 09/17/23 03/27/24 History mcg (1,000 unit) tablet (Vitamin D3) levothyroxine 100 mcg tablet 100 mcg PO DAILY 09/17/23 03/27/24 History multivitamin with minerals-folic 1 tablet PO DAILY 09/17/23 03/27/24 History acid 200 mcg chewable tablet (Adult Multivitamin Gummies) ferrous sulfate 325 mg (65 mg 650 mg PO DAILY 03/01/24 03/27/24 History iron) tablet omega-3 fatty acids 1,000 mg PO DAILY 03/01/24 03/27/24 History Patient hx anesthesia problems: none Family hx anesthesia problems: none Results Review: All pre-operative results and documents have been reviewed as part of the pre-operative evaluation. [facility] Past Medical History Medical History Colon cancer Iron deficiency anemia (Unknown) Mass of colon (~08/2021) Surgical History Surgical History History of colon resection 09/03/2021 - hand assisted laparoscopic sigmoid colectomy with mobilization of the splenic flexure History of partial thyroidectomy Family History Family History Father Hypertension Malignant neoplasm of prostate Mother COPD (chronic obstructive pulmonary disease) Social History Social History Smoking status: Never smoker Second hand tobacco smoke exposure: No Alcohol intake: never Drinks per week: 1 Alcohol use details: LAST DRINK 2014 Substance use: never Substance use type: does not use Do You Feel Safe in your Home?: Yes Lack of Transportation: No Lack of Food: Never True Current Housing: I Have Housing Concerned About Future Housing: No Difficulty Paying Gas/Electric Bills: No Difficulty Paying for Meds: No Currently Unemployed: No Education: Master's Degree or Higher Difficulty w/ Childcare or Family Care: No Living arrangements: with family Additional living arrangements comments: with sp Spiritual care concerns: No Anes - Eval Final PreProcedure Day of Procedure 03/27/24 13:23 Patient weight: overweight Heart: regular rate and rhythm Lungs: clear to auscultation Airway: Mallampati scale class II Neurological: alert and oriented Last oral intake: >/= 8 hours ASA classification: III Emergent: no Anesthetic plan: proceed Anesthesia type and monitoring: general GIVS and standard monitoring Results Review: All pre-operative results and documents have been reviewed as part of the pre-operative evaluation. Informed Consent: The patient's anesthetic plan and its attendant risks and benefits were discussed with the patient/family/POA. Questions were solicited and answers provided to the satisfaction of the patient/family/POA.
[2024-03-27] MEDS: ceFAZolin 2 GM/D5W 50 ML 2 GM/50 ML BAG IVPB (15:15)
[2024-03-27] MEDS: HEPARIN SODIUM, PORCINE 10,000 UNITS/10 ML VIAL 3000 UNITS IV PUSH (15:37)
[2024-03-27] MEDS: HEPARIN SODIUM 5,000 UNITS/ML VIAL 5000 UNITS IRRIGATION (15:38)
[2024-03-27] MEDS: BUPIVACAINE/EPINEPHRINE 0.5% 50 ML VIAL 10 ML INFILTRATE (15:39)
[2024-03-27 15:55] VITALS: BP 110/54; PULSE 68; RESP 12; O2SAT 99
--- NOTE | 2024-03-27 15:56 | W.PM.PROC2 ---
Procedure Note - Detailed Date of Procedure 03/27/24 Pre-op Diagnosis small-bowel adenocarcinoma Post-op Diagnosis Same Procedure Performed placement of left subclavian venous access device under fluoroscopic guidance Surgeon Amna Bowling MD Anesthesia MAC and Local Indications 48-year-old male with small bowel adenocarcinoma status post right hemicolectomy now needing adjuvant chemotherapy Findings 1st stick left subclavian Description of Procedure Patient was brought into the operating room and placed in the supine position. After adequate induction of mac anesthesia, the patient was prepped and draped in normal sterile fashion. Time-out was then done to verify the patient's identity, as well as the procedure being performed. I began by making a small incision in the left chest, I then gained access into the left subclavian vein with an 18 gauge needle. I then placed the guidewire into the vein and confirmed placement via fluoroscopic guidance. I then locally anesthetized the area in the left chest. I then enlarged the incision around the guidewire including making a subcutaneous pocket inferiorly to allow placement of the port itself. I then placed a dilating sheath over the guidewire into the left subclavian vein via sterile Seldinger technique. This was once again done and confirmed via fluoroscopic guidance. I then removed the dilator and the guidewire, now just leaving the sheath in the vein. I then fed the previously flushed catheter into the left subclavian vein under fluoroscopic guidance. At approximately 23 cm, the catheter was noted to be near the atrial caval junction. I then peeled away the sheath, now just leaving the catheter in the vein. I then was able to easily draw and flush from the catheter. The catheter was cut to fit and attached to the port itself. The port was placed into the previously made subcutaneous pocket and sutured in with 0 Ethibond suture. Final fluoroscopic view showed the termination of the catheter at the atrial caval junction with a nice smooth curvature back to the port itself. I was able to gain access to the port with a Guan needle and was able to easily draw and flush from the port. I then flushed 4 cc of a final heparin flush into the port. The incision was closed with 3 0 Vicryl suture in the subcutaneous tissue and the skin was closed with 4 O Monocryl subcuticular suture. Dermabond was then placed on wound. The patient tolerated the procedure well and will be sent to the recovery room in stable condition. Implants L SCV VAD Estimated Blood Loss 5 Drains No Packing No Pathology None sent Complications No immediate complications Condition Stable Disposition PACU [facility] Billing Surgery - Charge Forward: Surgery Billing
[2024-03-27 16:20] VITALS: BP 110/54; PULSE 68; RESP 16; O2SAT 99
[2024-03-27 16:50] VITALS: BP 110/65; PULSE 54; RESP 16; O2SAT 99
[2024-03-27 16:58] VITALS: BP 118/69; PULSE 50; RESP 16; O2SAT 99
== END 2024-03-27 17:04 | disposition home or self-care (01) ==
PROVIDERS: PCP Internal Medicine; Visit Provider Surgery
PROC: (CPT 36561; principal; 2024-03-27 14:00)
DX: C17.2 Malignant neoplasm of ileum (principal); C77.9 Secondary and unspecified malignant neoplasm of lymph node, unspecified; Z90.49 Acquired absence of other specified parts of digestive tract
CPT/HCPCS: 36561; 77001; C1788; J0690; J1644; J1885; J2250; J2405; J3010; J7030; J7120

== ENCOUNTER 2024-03-30 13:41 | Outpatient (CLI) | payer OTHER, SELFPAY ==
--- NOTE | ~2024-03-30 | PE_ITS ---
EXAMINATION: PET skull to mid thigh DATE: 03/30/2024 15:32 INDICATION: Malignant neoplasm of colon. TECHNIQUE: Blood glucose level was 75 mg/dL. 9.442 mCi of 18-fluorodeoxyglucose (18-FDG) was administ ered i.v. Low dose computed tomography (CT) images were acquired from the base of the brain to the pr oximal thighs for attenuation correction and anatomic localization. Automated exposure control was em ployed. Dose-length product (DLP) was 1132 mGy-cm. Positron emission tomography (PET) images were acq uired in the same distribution. COMPARISON: PET/CT 10/07/2021 FINDINGS: Head/neck: There are no pathologically enlarged lymph nodes. There are changes of right hemithyroidec catracho. Chest: There is no pneumonia or pleural effusion. The heart size is normal. No pericardial effusion. There is a left subclavian port with tip in right atrium. There is a normal-sized right hilar lymph n ode with maximum SUV of 6.3. Abdomen/pelvis/proximal thighs: There are 2 hypodense masses in the left hepatic lobe measuring up to 2.0 cm with maximum SUV of 9.5. There is a focus of increased activity in right hepatic lobe with ma ximum SUV of 5.[address] correlate. The gallbladder, spleen, pancreas, adrenal glands, an d kidneys are normal. There is no urolithiasis. The prostate is mildly enlarged. There is an anastomo sis in the sigmoid colon. There is an ileocolic anastomosis. There is a normal-sized right inguinal l ymph node with maximum SUV of 3.4. There is no free intraperitoneal fluid. There is no osseous malign lauro. There is a benign bone island in left ilium. IMPRESSION: 1. 3 liver masses with increased activity, consistent with metastatic disease. 2. Normal sized right hilar and right inguinal lymph nodes with increased activity, probably reactive . Reviewed, dictated and finalized at location A. IMPRESSION: 1. 3 liver masses with increased activity, consistent with metastatic disease. 2. Normal sized right hilar and right inguinal lymph nodes with increased activ ity, probably reactive.
[2024-03-30 14:07] LABS: Glucose Point of Care 75 mg/dl (65-105)
== END 2024-03-30 13:42 | disposition home or self-care (01) ==
PROVIDERS: PCP Internal Medicine; Visit Provider Internal Medicine Hematology & Oncology
DX: C18.9 Malignant neoplasm of colon, unspecified (principal)
CPT/HCPCS: 78815; A9552

== ENCOUNTER 2024-06-20 14:14 | Outpatient (CLI) | payer OTHER, SELFPAY ==
--- NOTE | ~2024-06-20 | CT_ITS ---
EXAMINATION: CT chest abdomen pelvis w con DATE: 06/20/2024 14:43 INDICATION: Malignant neoplasm of sigmoid colon. TECHNIQUE: Computed tomography (CT) of the chest, abdomen, and pelvis was performed with 100 mL Omnip aque 350 intravenous contrast. Automated exposure control and iterative reconstruction technique were employed. The dose-length product was 988.60 mGy-cm. COMPARISON: CT abdomen pelvis 09/02/23, PET/CT 10/07/21, 03/30/24 FINDINGS: CHEST CT: There is an 8 mm nodule in right lower lobe. No pleural effusion. The heart size is normal. No perica rdial effusion. There is a left subclavian port with tip in right atrium. There is moderate thoracic spondylosis. There is mild chronic height loss of multiple vertebral bodies. ABDOMEN/PELVIS CT: There are 11 mm and 6 mm hypodense masses in left hepatic lobe. The gallbladder, spleen, pancreas, ad renal glands, and right kidney are normal. There is an 8 mm cyst in left kidney. There are surgical c hanges of the bowel. There are no dilated loops of bowel. There are no pathologically enlarged lymph nodes. There is no free intraperitoneal fluid. There is moderate lower lumbar spondylosis. IMPRESSION: 1. Two liver masses with improvement from 03/30/2024, consistent with metastatic disease. 2. 8 mm pulmonary nodule, new from 10/07/21, which may be granulomatous disease or metastatic disease. Reviewed, dictated and finalized at location A. IMPRESSION: 1. Two liver masses with improvement from 03/30/2024, consistent with metastatic disease. 2. 8 mm pulmonary nodule, new from 10/07/21, which may be granulomatous disease o r metastatic disease.
== END 2024-06-20 14:15 | disposition home or self-care (01) ==
LOC: ANHIMG 14:18
PROVIDERS: PCP Internal Medicine; Visit Provider Internal Medicine Hematology & Oncology
DX: C18.7 Malignant neoplasm of sigmoid colon (principal); R91.1 Solitary pulmonary nodule; K76.9 Liver disease, unspecified
CPT/HCPCS: 71260; 74177; Q9967

== ENCOUNTER 2024-11-16 16:04 | Outpatient (CLI) | payer OTHER, SELFPAY ==
--- NOTE | ~2024-11-16 | CT_ITS ---
CT chest abdomen pelvis w con Ordering provider: Behzad Johnson MD History: 49 years Male with . Mal jose of signoid colon . Comparison: June 20, 2024 Technique: CT chest with IV contrast. CT abdomen and pelvis CT abdomen and pelvis with IV and with or al contrast. Radiation reduction technique utilized. The dose-length product was 851.24 mGy-cm. 100 mL Omnipaque 350 was given IV. FINDINGS: CHEST: Left central Port-A-Cath is noted with the tip overlying superior vena cava. --VISUALIZED THORACIC INLET: Normal. --MEDIASTINUM: Aorta/coronary arteries: The thoracic aorta is normal. Heart/other: The heart is not enlarged. Lymph nodes: No mediastinal adenopathy. Right hilar lymph node is seen measuring 1.3 cm. --LUNGS: Nodule is seen in the right lower lobe medially measuring 7.4 mm. No pulmonary masses. No in filtrates or effusions. No pneumothorax. --MUSCULOSKELETAL: Soft tissues: The superficial soft tissues are normal. Bones: Normal spine. No suspicious bony lytic or sclerotic lesions. ABDOMEN/PELVIS: --MUSCULOSKELETAL: Bones: Age appropriate degenerative changes of the spine. Small sclerotic area in the right pubic bon e. Follow-up advised. Superficial soft tissues: The superficial soft tissues are normal. --UPPER ABDOMINAL ORGANS: Liver: Previously seen masses are not well demonstrated on this study. Follow-up advised. Gallbladder: Normal. Spleen: Normal. Stomach/duodenum: Normal. Pancreas: Normal. Adrenals: 1 cm nodule is seen in the left adrenal gland. MRI is advised if clinically warranted. Kidneys: Tiny cysts in the left kidney upper and lower poles. Possible small hypodensity measuring 6 mm in the right kidney lower pole which may be a cyst. Follow-up advised. --PELVIC ORGANS: The bladder is normal. No bladder stones. --BOWEL AND MESENTERY: Colon: Postoperative changes in the sigmoid colon with no definite masses. The colon is loaded with f ecal material. Postoperative changes are also seen in the area of the cecum. Appendix is not demonstr ated. Small Bowel: Normal. No obstruction. Peritoneum/mesentery: No free air or free fluid. No mesenteric lymphadenopathy. --RETROPERITONEUM: Mild atheromatous disease of the abdominal aorta. No retroperitoneal lymphadenop athy. IMPRESSION: CHEST: 1. Nodule in the right lower lobe measuring 7.4 mm unchanged from previous examination. 2. Right hilar lymph node measuring 1.3 cm not seen in the previous study. 3. No acute cardiopulmonary pathology. ABDOMEN/PELVIS: 1. Previously seen masses in the left lobe of the liver are multiple demonstrated on this study. Fol low-up advised. 2. 1 cm left adrenal adenoma MRI is advised if clinically warranted. 3. Constipation. 4. Small hypodensity in the right kidney lower pole. Follow-up advised. Reviewed, dictated and finalized at location A. IMPRESSION: CHEST: 1. Nodule in the right lower lobe measuring 7.4 mm unchanged from previous exa mination. 2. Right hilar lymph node measuring 1.3 cm not seen in the previous study. 3. No acute cardiopulmonary pathology. ABDOMEN/PELVIS: 1. Previously seen masses in the left lobe of the liver are multiple demonstra jeannine on this study. Follow-up advised. 2. 1 cm left adrenal adenoma MRI is advised if clinically warranted. 3. Constipation. 4. Small hypodensity in the right kidney lower pole. Follow-up advised.
--- OUTSIDE RECORDS SUMMARY | 2024-11-16 17:31 | XMS_ITS | Data Portability ---
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 Plan of Treatment Reminders Order Date Submit Date Provider Last Modified By Organization Details Last Modified Time Details Appointments ANY 30 2024 10:00A Lennie RICKETTS, ASSEMBLER PRODUCT-BC Not available Not available Not available Lab influenza virus A + B + SARS-CoV- 2 (COVID19) Ag panel, rapid IA, upper respirato ry specimen 2024 025 FAROOQ In-Office Order, Internal Use Only DO Not Attach Compendium DO Not Attach Compendium, Do Not Delete/merge, [id number] 10/16/2024 16:13:43 albumin/c reatinine , mass ratio, urine 2022 023 [facility], [address] [facility], [facility] [address], [place], [address], 08/18/2023 07:15:15 CBC w/ auto diff 2022 023 [facility], [address] [facility], [place], [address], 08/18/2023 03:08:28 lipid panel, serum 2022 023 [facility], [address] [facility], [address], [place], [address], 08/18/2023 03:08:26 CMP, serum or plasma 2022 023 [facility], [address] [facility], [address], [place], [address], 08/18/2023 03:08:27 CMP, serum or plasma 2022 023 [facility], [address], [place], [address], 09/24/2022 03:14:14 CBC w/ auto diff 2022 023 [facility], [address], [address], [place], [address], 09/24/2022 03:14:15 lipid panel, serum 2022 023 [facility], [address], [place], [address], 09/24/2022 03:14:14 HbA1c (hemoglob in A1c), blood 2022 023 [facility], [address] [facility], [facility], [place], [address], 09/24/2022 04:08:05 Referral sleep medicine referral 2022 023 FAROOQ Segovia MD, [address], [place], [address], 05/17/2023 15:40:44 Procedures None recorded. Surgeries None recorded. Imaging CT, abdomen + pelvis, w/wo contrast 2023 024 [facility] ([facility]) Scheduling, [address] [place], [address], 01/11/2024 20:16:47 XR, wrist - tendernes s on ulnar side of carpal bones 2022 023 [facility] ([facility]) Scheduling, [address] [place], [address], 04/02/2023 12:11:54 Medication Orders None recorded. Patient TargetsNo targets recorded. Patient Instructions Encounter Date Encounter Id Patient Instructions Last Modified By Organization Details Last Modified Time 09/23/2022 [id number] ganglions: care instructions nsuthan Not available 09/23/2022 14:59:47 constipation: ca re instructions nsuthan Not available 09/23/2022 15:54:00 A healthy lifestyle: care instructions nsuthan Not available 09/23/2022 14:41:49 labs/f/u in 6 month nsuthan Not available 09/23/2022 15:00:10 03/30/2023 [id number] A healthy lifestyle: care instructions nsuthan Not available 03/30/2023 09:32:16 eating healthy foods: care instructions nsuthan Not available 03/30/2023 09:32:16 ear irrigation/tdap/di et /f/u in 4 month nsuthan Not available 03/30/2023 09:39:58 08/05/2023 [id number] eating healthy foods: care instructions nsuthan Not available 08/05/2023 09:42:49 f/u in 6month nsuthan Not available 09:41:54 01/06/2024 [id number] keep f/u nsuthan Not available 01/05 11:16:04 10/16/2024 [id number] upper respirator y infection (cold): care instructions [email or web address] Not available 10/16/2024 13:09:37 Plan of care has been discussed with patient including expected therapeutic benefits and potential side effects of prescribed medication and treatments. Patient verbalizes understanding and is in agreement with the plan of care. Patient was instructed to keep all scheduled appointments and contact the clinic for any additional problems. [email or web address] Not available 11/11/2024 23:57:22 Reason for Referral Sleep Medicine Referral for Sleep apnea Referring Physician: Jeremías White, Internal Medicine, Encounter Date: 03/30/2023 Results Created Date Observation Date Name Description Value Unit Range Abnormal Flag Note LastModifiedBy Organization Detail LastModifiedTime 09/23/19 23 09/23/2022 LIPID PANEL cholesterol, total 220.2 mg/dL 140.0- 200.0 above high normal Not Available [facility] Department [address] [place], [address], 09/24/2022 03:14:14 09/23/1909/23/2022 LIPID PANEL triglyceride s 71 mg/dL <=150 Not Available [facility] Department [address] [place], [address], 09/24/2022 03:14:14 09/23/19 23 09/23/2022 LIPID PANEL HDL cholesterol 60.4 mg/dL 40.0-1 00.0 Not Available [facility] Department [address] [place], [address], 09/24/2022 03:14:14 09/23/1909/23/2022 LIPID PANEL VLDL cholesterol carlos 14.20 mg/dL 5.00-4 0.00 Not Available [facility] Department [address] [place], [address], 09/24/2022 03:14:14 09/23/19 23 09/23/2022 LIPID PANEL LDL chol calc ([facility]) 147.4 Not Available [facility] Department [address] [place], [address], 09/24/2022 03:14:14 09/23/19 23 09/23/2022 COMP. METAB OLIC PANEL (14) glucose 88 mg/dL 65-99 ANION GP 18.0 mmol/ L N OSMOL 291.0 mOsM/ L N REFER ENCE RANGE : 275.0 -301. 0 Not Available [facility] Department [address] [place], [address], 09/24/2022 03:14:14 09/23/1909/23/2022 COMP. METAB OLIC PANEL (14) BUN 26 mg/dL 8-26 Not Available [facility] Department [address] [place], [address], 09/24/2022 03:14:14 09/23/19 23 09/23/2022 COMP. METAB OLIC PANEL (14) creatinine 1.54 mg/dL 0.50-1 .40 above high normal Not Available [facility] Department [address] [place], [address], 09/24/2022 03:14:14 09/23/19 23 09/23/2022 COMP. METAB OLIC PANEL (14) eGFR 56 mL/mi n/1.7 3 >=60 below low normal Not Available [facility] Department [address] [place], [address], 09/24/2022 03:14:14 09/23/19 23 09/23/2022 COMP. METAB OLIC PANEL (14) BUN/creatini ne ratio 16.7 Not Available [facility] Department [address] [place], [address], 09/24/2022 03:14:14 09/23/19 23 09/23/2022 COMP. METAB OLIC PANEL (14) sodium 144.0 mmol/ L 136.0- 144.0 Not Available [facility] Department [address] [place], [address], 09/24/2022 03:14:14 09/23/19 23 09/23/2022 COMP. METAB OLIC PANEL (14) potassium 5.2 mmol/ L 3.5-5. 3 Not Available [facility] Department [address] [place], [address], 09/24/2022 03:14:14 09/23/19 23 09/23/2022 COMP. METAB OLIC PANEL (14) chloride 106 mmol/ l 101-11 1 Not Available [facility] Department [address] [place] [address], [address], 09/24/2022 03:14:14 09/23/19 23 09/23/2022 COMP. METAB OLIC PANEL (14) carbon dioxide, total 25.7 mmol/ L 21.0-3 2.0 Not Available [facility] Department [address] [place], [address], 09/24/2022 03:14:14 09/23/19 23 09/23/2022 COMP. METAB OLIC PANEL (14) calcium 10.0 mg/dL 8.2-10 .0 Not Available [facility] Department [address] [place], [address], 09/24/2022 03:14:14 09/23/19 23 09/23/2022 COMP. METAB OLIC PANEL (14) protein, total 7.7 g/dL 6.7-8. 2 Not Available [facility] Department [address] [place], [address], 09/24/2022 03:14:14 09/23/19 23 09/23/2022 COMP. METAB OLIC PANEL (14) albumin 5.1 g/dL 3.5-5. 5 Not Available [facility] Department [address] [place], [address], 09/24/2022 03:14:14 09/23/19 23 09/23/2022 COMP. METAB OLIC PANEL (14) globulin, total 2.6 g/dL 1.5-4. 5 Not Available [facility] Department [address] [place], [address], 09/24/2022 03:14:14 09/23/19 23 09/23/2022 COMP. METAB OLIC PANEL (14) A/G ratio 2.0 Not Available [facility] Department [address] [place], [address], 09/24/2022 03:14:14 09/23/19 23 09/23/2022 COMP. METAB OLIC PANEL (14) bilirubin, total 1.1 mg/dL 0.0-1. 2 Not Available [facility] Department [address] [place] [address], [address], 09/24/2022 03:14:14 09/23/19 23 09/23/2022 COMP. METAB OLIC PANEL (14) alkaline phosphatase 156.7 IU/L 42.0-1 21.0 above high normal Not Available [facility] Department [address] [place], [address], 09/24/2022 03:14:14 09/23/19 23 09/23/2022 COMP. METAB OLIC PANEL (14) AST (SGOT) 48.3 U/L 10.0-4 2.0 above high normal Not Available [facility] Department [address] [place], [address], 09/24/2022 03:14:14 09/23/19 23 09/23/2022 COMP. METAB OLIC PANEL (14) ALT (SGPT) 41.3 U/L 10.0-6 0.0 Not Available [facility] Department [address] [place], [address], 09/24/2022 03:14:14 09/23/19 23 09/23/2022 CBC WITH DIFFE RENTI AL/PL ATELE T WBC 4.9 K/uL 3.4-10 .8 Not Available [facility] Department [address] [place], [address], 09/24/2022 03:14:15 09/23/19 23 09/23/2022 CBC WITH DIFFE RENTI AL/PL ATELE T RBC 5.2 M/uL 4.5-6. 3 Not Available [facility] Department [address] [place], [address], 09/24/2022 03:14:15 09/23/19 23 09/23/2022 CBC WITH DIFFE RENTI AL/PL ATELE T hemoglobin 15.8 g/dL 13.5-1 7.5 Not Available [facility] Department [address] [place], [address], 09/24/2022 03:14:15 09/23/19 23 09/23/2022 CBC WITH DIFFE RENTI AL/PL ATELE T hematocrit 46.6 % 40.0-5 2.0 Not Available [facility] Department [address] [place], [address], 09/24/2022 03:14:15 09/23/19 23 09/23/2022 CBC WITH DIFFE RENTI AL/PL ATELE T MCV 90 fL 80-95 Not Available [facility] Department [address] [place], [address], 09/24/2022 03:14:15 09/23/19 23 09/23/2022 CBC WITH DIFFE RENTI AL/PL ATELE T MCH 31 pg 27-32 Not Available [facility] Department [address] [place], [address], 09/24/2022 03:14:15 09/23/19 23 09/23/2022 CBC WITH DIFFE RENTI AL/PL ATELE T MCHC 34 g/dL 32-36 Not Available [facility] Department [address] [place], [address], 09/24/2022 03:14:15 09/23/1909/23/2022 CBC WITH DIFFE RENTI AL/PL ATELE T RDW 12.8 % 11.5-1 4.5 Not Available [facility] Department [address] [place], [address], 09/24/2022 03:14:15 09/23/1909/23/2022 CBC WITH DIFFE RENTI AL/PL ATELE T platelets 145 K/uL 155-37 9 below low normal MPV 10.4 FL 8.9-1 2.7 N Not Available [facility] Department [address] [place], [address], 09/24/2022 03:14:15 09/23/19 23 09/23/2022 CBC WITH DIFFE RENTI AL/PL ATELE T neutrophils 63.4 % 40.0-7 4.0 Not Available [facility] Department [address] [place], [address], 09/24/2022 03:14:15 09/23/19 23 09/23/2022 CBC WITH DIFFE RENTI AL/PL ATELE T lymphs 25.7 % 14.0-4 6.0 Not Available [facility] Department [address] [place], [address], 09/24/2022 03:14:15 09/23/19 23 09/23/2022 CBC WITH DIFFE RENTI AL/PL ATELE T monocytes 6.7 % 4.0-12 .0 Not Available [facility] Department [address] [place], [address], 09/24/2022 03:14:15 09/23/19 23 09/23/2022 CBC WITH DIFFE RENTI AL/PL ATELE T eos 2 % 0-5 Not Available [facility] Department [address] [place], [address], 09/24/2022 03:14:15 09/23/19 23 09/23/2022 CBC WITH DIFFE RENTI AL/PL ATELE T basos 0.6 % 0.0-1. 0 Not Available [facility] Department [address] [place], [address], 09/24/2022 03:14:15 09/23/19 23 09/23/2022 CBC WITH DIFFE RENTI AL/PL ATELE T neutrophils (absolute) 3.1 K/uL 1.4-7. 0 Not Available [facility] Department [address] [place], [address], 09/24/2022 03:14:15 09/23/1909/23/2022 CBC WITH DIFFE RENTI AL/PL ATELE T lymphs (absolute) 1.3 K/uL 0.7-3. 1 Not Available [facility] Department [address] [place], [address], 09/24/2022 03:14:15 09/23/19 23 09/23/2022 CBC WITH DIFFE RENTI AL/PL ATELE T monocytes(ab solute) 0.3 K/uL 0.1-0. 9 Not Available [facility] Department [address] [place], [address], 09/24/2022 03:14:15 09/23/19 23 09/23/2022 CBC WITH DIFFE RENTI AL/PL ATELE T eos (absolute) 0.1 K/uL 0.0-0. 4 Not Available [facility] Department [address] [place], [address], 09/24/2022 03:14:15 09/23/19 23 09/23/2022 CBC WITH DIFFE RENTI AL/PL ATELE T baso (absolute) 0.0 K/uL 0.0-0. 3 Not Available [facility] Department [address] [place], [address], 09/24/2022 03:14:15 09/23/19 23 09/23/2022 CBC WITH DIFFE RENTI AL/PL ATELE T immature granulocytes 1.8 % Not Available [facility] Department [address] [place], [address], 09/24/2022 03:14:15 09/23/19 23 09/23/2022 CBC WITH DIFFE RENTI AL/PL ATELE T immature grans (abs) 0.1 K/uL Not Available [facility] Department [address] [place], [address], 09/24/2022 03:14:15 09/23/19 23 09/23/2022 CBC WITH DIFFE RENTI AL/PL ATELE T NRBC 0 % Not Available [facility] Department [address] [place], [address], 09/24/2022 03:14:15 09/23/1909/24/2022 HEMOG LOBIN A1C hemoglobin A1C 5.4 % 4.8-5. 6 Predi abete s: 5.7 - 6.4 Diabe sherri: >6.4 Glyce krystian contr ol for adult s with diabe sherri: <7.0 Not Available [facility] [address] [facility], [place], [address], 09/24/2022 04:08:05 08/17/20 23 08/17/2023 LIPID PANEL cholesterol, total 205 mg/dL 100-19 9 above high normal Not Available [facility] Department [address] [place] [address], [address], 08/18/2023 03:08:26 08/17/20 23 08/17/2023 LIPID PANEL triglyceride s 82 mg/dL 0-149 Not Available [facility] Department [address] [place] [address], [address], 08/18/2023 03:08:26 08/17/20 23 08/17/2023 LIPID PANEL HDL cholesterol 55 mg/dL 40-999 Not Available [facility] Department [address] [place], [address], 08/18/2023 03:08:26 08/17/20 23 08/17/2023 LIPID PANEL VLDL cholesterol carlos 16 mg/dL 5-40 Not Available [facility] Department [address] [place], [address], 08/18/2023 03:08:26 08/17/20 23 08/17/2023 LIPID PANEL LDL chol calc ([facility]) 146 mg/dL 0-99 above high normal Not Available [facility] Department [address] [place], [address], 08/18/2023 03:08:26 08/17/20 23 08/17/2023 COMP. METAB OLIC PANEL (14) glucose 98 mg/dL 70-99 Not Available [facility] Department [address] [place], [address], 08/18/2023 03:08:27 08/17/20 23 08/17/2023 COMP. METAB OLIC PANEL (14) BUN 19 mg/dL 6-24 Not Available [facility] Department [address] [place], [address], 08/18/2023 03:08:27 08/17/20 23 08/17/2023 COMP. METAB OLIC PANEL (14) creatinine 1.21 mg/dL 0.76-1 .27 Not Available [facility] Department [address] [place] [address], [address], 08/18/2023 03:08:27 08/17/20 23 08/17/2023 COMP. METAB OLIC PANEL (14) eGFR 74 >=60 Units for eGFR value s are mL/mi n/1.7 3 The eGFR Calcu latio n has not been valid ated for patie nts under the age of 18. If test resul ts are displ ayed for a patie nt under the age of 18, disre flory that value . Not Available [facility] Department [address] [place] [address], [address], 08/18/2023 03:08:27 08/17/20 23 08/17/2023 COMP. METAB OLIC PANEL (14) BUN/creatini ne ratio 15 9-20 Not Available [facility] Department [address] [place], [address], 08/18/2023 03:08:27 08/17/20 23 08/17/2023 COMP. METAB OLIC PANEL (14) sodium 144 mmol/ L 134-14 4 Not Available [facility] Department [address] [place] [address], [address], 08/18/2023 03:08:27 08/17/20 23 08/17/2023 COMP. METAB OLIC PANEL (14) potassium 4.4 mmol/ L 3.5-5. 2 Not Available [facility] Department [address] [place] [address], [address], 08/18/2023 03:08:27 08/17/20 23 08/17/2023 COMP. METAB OLIC PANEL (14) chloride 106 mmol/ L 96-106 Not Available [facility] Department [address] [place], [address], 08/18/2023 03:08:27 08/17/20 23 08/17/2023 COMP. METAB OLIC PANEL (14) carbon dioxide, total 28 mmol/ L 20-29 Not Available [facility] Department [address] [place], [address], 08/18/2023 03:08:27 08/17/20 23 08/17/2023 COMP. METAB OLIC PANEL (14) calcium 9.4 mg/dL 8.7-10 .2 Not Available [facility] Department [address] [place], [address], 08/18/2023 03:08:27 08/17/20 23 08/17/2023 COMP. METAB OLIC PANEL (14) protein, total 6.9 g/dL 6.0-8. 5 Not Available [facility] Department [address] [place], [address], 08/18/2023 03:08:27 08/17/20 23 08/17/2023 COMP. METAB OLIC PANEL (14) albumin 4.7 g/dL 4.1-5. 1 Not Available [facility] Department [address] [place], [address], 08/18/2023 03:08:27 08/17/20 23 08/17/2023 COMP. METAB OLIC PANEL (14) globulin, total 2.2 g/dL 1.5-4. 5 Not Available [facility] Department [address] [place], [address], 08/18/2023 03:08:27 08/17/20 23 08/17/2023 COMP. METAB OLIC PANEL (14) A/G ratio 2.0 1.2-2. 2 Not Available [facility] Department [address] [place] [address], [address], 08/18/2023 03:08:27 08/17/20 23 08/17/2023 COMP. METAB OLIC PANEL (14) bilirubin, total 0.5 mg/dL 0.0-1. 2 Not Available [facility] Department [address] [place] [address], [address], 08/18/2023 03:08:27 08/17/20 23 08/17/2023 COMP. METAB OLIC PANEL (14) alkaline phosphatase 92 IU/L 44-121 Not Available [facility] Department [address] [place] [address], [address], 08/18/2023 03:08:27 08/17/20 23 08/17/2023 COMP. METAB OLIC PANEL (14) AST (SGOT) 24 IU/L 0-40 Not Available [facility] Department [address] [place] [address], [address], 08/18/2023 03:08:27 08/17/20 23 08/17/2023 COMP. METAB OLIC PANEL (14) ALT (SGPT) 24 IU/L 0-44 Not Available [facility] Department [address] [place] [address], [address], 08/18/2023 03:08:27 08/17/20 23 08/17/2023 CBC WITH DIFFE RENTI AL/PL ATELE T WBC 4.7 x10e3 /uL 3.4-10 .8 Not Available [facility] Department [address] [place] [address], [address], 08/18/2023 03:08:27 08/17/20 23 08/17/2023 CBC WITH DIFFE RENTI AL/PL ATELE T RBC 4.82 x10e6 /uL 4.14-5 .80 Not Available [facility] Department [address] [place] [address], [place], [address], 08/18/2023 03:08:27 08/17/20 23 08/17/2023 CBC WITH DIFFE RENTI AL/PL ATELE T hemoglobin 14.8 g/dL 13.0-1 7.7 Not Available [facility] Department [address] [place], [address], 08/18/2023 03:08:27 08/17/20 23 08/17/2023 CBC WITH DIFFE RENTI AL/PL ATELE T hematocrit 44.8 % 37.5-5 1.0 Not Available [facility] Department [address] [place], [address], 08/18/2023 03:08:27 08/17/20 23 08/17/2023 CBC WITH DIFFE RENTI AL/PL ATELE T MCV 93 fL 79-97 Not Available [facility] Department [address] [place], [address], 08/18/2023 03:08:27 08/17/20 23 08/17/2023 CBC WITH DIFFE RENTI AL/PL ATELE T MCH 30.7 pg 26.6-3 3.0 Not Available [facility] Department [address] [place], [address], 08/18/2023 03:08:27 08/17/20 23 08/17/2023 CBC WITH DIFFE RENTI AL/PL ATELE T MCHC 33.0 g/dL 31.5-3 5.7 Not Available [facility] Department [address] [place], [address], 08/18/2023 03:08:27 08/17/20 23 08/17/2023 CBC WITH DIFFE RENTI AL/PL ATELE T RDW 12.5 % 11.5-1 4.5 Not Available [facility] Department [address] [place], [address], 08/18/2023 03:08:27 12/12/20 23 08/17/2023 CBC WITH DIFFE RENTI AL/PL ATELE T platelets 171 x10e3 /uL 150-45 0 Not Available [facility] Department [address] [place], [address], 08/18/2023 03:08:27 08/17/20 23 08/17/2023 CBC WITH DIFFE RENTI AL/PL ATELE T neutrophils 60 % notest b. Not Available [facility] Department [address] [place], [address], 08/18/2023 03:08:27 08/17/20 23 08/17/2023 CBC WITH DIFFE RENTI AL/PL ATELE T lymphs 29 % notest b. Not Available [facility] Department [address] [place] [address], [address], 08/18/2023 03:08:27 08/17/20 23 08/17/2023 CBC WITH DIFFE RENTI AL/PL ATELE T monocytes 8 % notest b. Not Available [facility] Department [address] [place], [address], 08/18/2023 03:08:27 08/17/20 23 08/17/2023 CBC WITH DIFFE RENTI AL/PL ATELE T eos 3 % notest b. Not Available [facility] Department [address] [place], [address], 08/18/2023 03:08:27 08/17/20 23 08/17/2023 CBC WITH DIFFE RENTI AL/PL ATELE T basos 1 % notest b. Not Available [facility] Department [address] [place], [address], 08/18/2023 03:08:27 08/17/20 23 08/17/2023 CBC WITH DIFFE RENTI AL/PL ATELE T neutrophils (absolute) 2.8 x10e3 /uL 1.4-7. 0 Not Available [facility] Department [address] [place], [address], 08/18/2023 03:08:27 08/17/20 23 08/17/2023 CBC WITH DIFFE RENTI AL/PL ATELE T lymphs (absolute) 1.4 x10e3 /uL 0.7-3. 1 Not Available [facility] Department [address] [place], [address], 08/18/2023 03:08:27 08/17/20 23 08/17/2023 CBC WITH DIFFE RENTI AL/PL ATELE T monocytes(ab solute) 0.4 x10e3 /uL 0.1-0. 9 Not Available [facility] Department [address] [place], [address], 08/18/2023 03:08:27 08/17/20 23 08/17/2023 CBC WITH DIFFE RENTI AL/PL ATELE T eos (absolute) 0.1 x10e3 /uL 0.0-0. 4 Not Available [facility] Department [address] [place], [address], 08/18/2023 03:08:27 08/17/20 23 08/17/2023 CBC WITH DIFFE RENTI AL/PL ATELE T baso (absolute) 0.0 x10e3 /uL 0.0-0. 2 Not Available [facility] Department [address] [place] [address], [address], 08/18/2023 03:08:27 08/17/20 23 08/17/2023 CBC WITH DIFFE RENTI AL/PL ATELE T immature granulocytes 0.2 % notest b. Not Available [facility] Department [address] [place], [address], 08/18/2023 03:08:27 08/17/20 23 08/17/2023 CBC WITH DIFFE RENTI AL/PL ATELE T immature grans (abs) 0.0 x10e3 /uL 0.0-0. 1 Not Available [facility] Department [address] [place], [address], 08/18/2023 03:08:27 08/17/20 23 08/17/2023 CBC WITH DIFFE RENTI AL/PL ATELE T NRBC 0 % 0-0 Not Available [facility] Department [address] [facility], [place], [address], 08/18/2023 03:08:27 08/17/20 23 08/18/2023 ALBUM IN/CR EATIN INE RATIO ,URIN E creatinine, urine 204.6 mg/dL notest ab. Not Available [facility] [address] [facility], [place], [address], 08/18/2023 07:15:15 08/17/20 23 08/18/2023 ALBUM IN/CR EATIN INE RATIO ,URIN E albumin, urine 4.5 ug/mL notest ab. Not Available [facility] [address] [facility], [place], [address], 08/18/2023 07:15:15 08/17/20 23 08/18/2023 ALBUM IN/CR EATIN INE RATIO ,URIN E alb/creat ratio 2 mg/g_ creat 0-29 Lurdes l: 0 - 29 Moder ately incre ased: 30 - 300 Sever kamilla incre ased: >300 Not Available [facility] [address] [facility], [place], [address], 08/18/2023 07:15:15 10/16/19 25 10/16/2024 influ dewayne virus A + B + SARS- CoV-2 (COVI D19) Ag panel , rapid IA, upper respi rator y speci men Flu A negati ve Not Available In-Office Order Internal Use Only DO Not Attach Compendium DO Not Attach Compendium, Do Not Delete/merge, [id number] 10/16/2024 13:10:27 10/16/19 25 10/16/2024 influ dewayne virus A + B + SARS- CoV-2 (COVI D19) Ag panel , rapid IA, upper respi rator y speci men Flu B negati ve Not Available In-Office Order Internal Use Only DO Not Attach Compendium DO Not Attach Compendium, Do Not Delete/merge, [id number] 10/16/2024 13:10:27 10/16/19 25 10/16/2024 influ dewayne virus A + B + SARS- CoV-2 (COVI D19) Ag panel , rapid IA, upper respi rator y speci men Rapid SARS CoV 2 Ag, QL IA, respiratory specimen negati ve Not Available In-Office Order Internal Use Only DO Not Attach Compendium DO Not Attach Compendium, Do Not Delete/merge, [id number] 10/16/2024 13:10:27 01/05/20 23 01/04/2023 CT, abdom en + pelvi s, w/o contr ast No observ ation record ed. [address], [address], 01/05/2023 11:53:32 04/02/20 23 03/31/2023 XR, wrist No observ ation record ed. [address], [address], 04/14/2023 16:39:56 09/03/20 23 09/02/2023 CT, abdom en, w/ contr ast No observ ation record ed. [address] [place] [address], [id number], 09/09/2023 10:54:50 09/03/20 23 09/02/2023 CT, abdom en + pelvi s, w/ contr ast No observ ation record ed. [address], [id number], 09/09/2023 10:55:36 01/11/20 24 01/11/2024 CT, abdom en + pelvi s, w/wo contr ast No observ ation record ed. [address] [place], [address], 01/13/2024 13:52:40 01/12/20 24 01/11/2024 XR, abdom en + pelvi s No observ ation record ed. [address], [place], [address], 01/13/2024 14:21:04 01/13/20 24 01/12/2024 XR, abdom en + pelvi s No observ ation record ed. [address], [place], [address], 01/17/2024 08:59:20 01/27/20 24 01/26/2024 NM, bone scan, whole body No observ ation record ed. [address] [facility], [place], [address], 01/27/2024 15:49:40 03/06/20 24 03/06/2024 RF, stepan nce No observ ation record ed. [address] [facility], [place], [address], 03/07/2024 12:16:14 03/27/20 24 03/27/2024 XR, sergo catho gram No observ ation record ed. [address] [facility], [place], [address], 03/28/2024 10:07:53 04/03/20 24 03/30/2024 PET, limit ed No observ ation record ed. [address], [place], [address], 04/04/2024 10:42:09 06/21/20 24 06/20/2024 CT, abdom en + pelvi s, w/ contr ast No observ ation record ed. [address], [place], [address], 06/22/2024 10:15:20 11/17/19 11/16/2024 CT, abdom en + pelvi s, w/wo contr ast No observ ation record ed. [facility] [address], [place], [address], 11/16/2024 18:21:47 Result Notes None recorded. Problems Name Problem SNOMED Code Status Onset Date Resolution Date Notes Provider Name and Address Organization Details Recorded Time Sleep apnea 66426866 Active [address]Ahmad Jesus White MD Attn: Accountkasey g,[address] [facility], [place], [address], [place] - [facility] 3 09:42:53 Anemia 333526118 Active 2020 with positive fecal occult blood-re ferred to GI/weakl y positive celiac disease- EGD 07/2021- ok-refer red to hematolo gist for iron transfus ion Jesus White MD Attn: Karin rosanna,[address] [facility], [place], [address], [place] [facility] 1 13:19:53 Thyroid stimulat ing hormone level above referenc e range 291107732 Active 2020 -TPO antibody -positiv e Jesus White MD Attn: Karin g,[address] [facility], [place], [address], [place] [facility] 2 11:12:30 Occult blood detected in feces 52711297 Completed 202011/04/2021 seeing GI/malig nant looking, obstruct ing colonic mass on colonosc opy ( incomple te) -going for CT Jesus White MD Attn: Jonathonkasey g,[address] [facility], [place], [address], [place] [facility] 2 09:43:13 Renal impairme nt 260669861 Active 2020 Jesus White MD Attn: Jonathonkasey g,[address] [facility], [place], [address], [place] [facility] 1 11:31:31 Primary adenocar cinoma of descendi ng colon 85147551687 9102 Active 2020 lap hemicole ctomy 08/2021 and chemo-la st colonosc opy 09/2022- rpeat colonosc opy in 3 yrs Jesus White MD Attn: Karin marte,[address] [facility], [place], [address], [place] [facility] 3 14:38:28 Thyroid nodule 835237863 Active 2021 Us 11/2021-s ees endo -s/p FNA which is indeterm ine -s/p partial thyroide ctomy of R/lobe 05/28 Jesus White MD Attn: Karin marte,[address] [facility], [place], [address], [place] - [facility] 2 08:27:59 Lipoma of skin 421866731 Active 2021 on chest -us showed lipoma Jesus White MD Attn: Karin marte,[address] [facility], [place], [address], [place] [facility] 2 11:12:30 Hypothyr oidism 10208709 Active 2022 with h/o partial thyroide ctomy 05/28-see s endo Jesus White MD Attn: Karin marte,[address] [facility], [place], [address], [place] [facility] 3 09:14:46 Thromboc ytopenic disorder 698119053 Active 2022 due to chemo - pt sees heme Jesus White MD Attn: Karin marte,[address] [facility], [place], [address], [place] [facility] 3 08:55:39 Pain of right wrist 40827765282 9100 Active 2022 xray -positiv e ulnar variance -sees ortho Jesus White MD Attn: Karin marte,[address] [facility], [place], [address], [place] 3 09:50:32 Ileal ulcer 11993917 Active 2023 -s/p colonosc opy 01/2024 -bx results pending Jesus White MD Attn: Karin marte,[address] , [place], [address], [facility] - [facility] 4 09:14:55 Problem Notes None recorded. Procedures Surgical History Date Name Laterality Status Provider Name and Address Organization Details Recorded Time 4 colonoscopy completed La Nenanancy Fox [facility] - [facility] 02/02/2024 13:14:09 3 Cerumen Removal completed Jesus White MD Attn: Accounting,[address], [place], [address], [facility] - [facility] 03/30/2023 14:02:23 2 lobectomy of thyroid gland completed Haydee Benedict MA [facility] 09/23/2022 14:30:53 2 Other completed Haydee Benedict MA [facility] 11/04/2021 09:40:56 1 Other completed Haydee Benedict MA [facility] 11/04/2021 09:40:03 1 Colonoscopy with biopsy completed Haydee Benedict MA [facility] 11/04/2021 09:41:24 1 endoscopy completed Haydee Benedict [facility] 11/04/2021 09:41:39 Imaging Results Imaging Date Name Status LastModified by Organization Details LastModified Time 01/04/2023 CT, abdomen + pelvis, w/o contrast completed [facility] [address], [place], [address], 01/05/2023 11:53:32 03/31/2023 XR, wrist completed [facility] [address], [place], [address], 04/14/2023 16:39:56 09/02/2023 CT, abdomen, w/ contrast completed [address] [address], [place], [address], 09/09/2023 10:54:50 09/02/2023 CT, abdomen + pelvis, w/ contrast completed [address] [address], [place], [address], 09/09/2023 10:55:36 01/11/2024 CT, abdomen + pelvis, w/wo contrast completed [address], [address], 01/13/2024 13:52:40 01/11/2024 XR, abdomen + pelvis completed [address] [address], [place], [address], 01/13/2024 14:21:04 01/12/2024 XR, abdomen + pelvis completed [address] [address], [place], [address], 01/17/2024 08:59:20 01/26/2024 NM, bone scan, whole body completed [address] [address], [place], [address], 01/27/2024 15:49:40 03/06/2024 RF, guidance completed [address] [address], [place], [address], 03/07/2024 12:16:14 03/27/2024 XR, portacathogram completed [address], [address], 03/28/2024 10:07:53 03/30/2024 PET, limited completed [address], [address], 04/04/2024 10:42:09 06/20/2024 CT, abdomen + pelvis, w/ contrast completed [address], [address], 06/22/2024 10:15:20 11/16/2024 CT, abdomen + pelvis, w/wo contrast active [facility] [address] [facility] [address], [place], [address], 11/16/2024 18:21:47 Procedure Notes None recorded. Medical Equipment None Reported. Allergies No known drug allergies Medications Name Sig Start Date Stop Date Status Note LastModified by Organization Details LastModified Time first-celina thw blm farhan SWISH AND SWALLOW/ SPIT 1 TO 2 TEASPOON FULS EVERY 6 TO 8 HOURS NEEDED 09/23 completed Not Available Not Available Not Available megestrol 400 mg/10 mL (40 mg/mL) oral suspensio n TAKE 10 ML (400 MG) BY MOUTH DAILY. 09/23 completed PRN- not taking Not Available Not Available Not Available potassium chloride ER 10 mEq capsule,e xtended release TAKE 2 CAPSULES BY MOUTH ONCE DAILY 03/17 completed not taking Not Available Not Available Not Available erythromy manuelito 500 mg tablet TAKE 1 G (2 TABLETS) BY MOUTH AT 1:00 PM, 2:00 PM, AND 11:00 PM 11/04 completed not taking Not Available Not Available Not Available hydrocodo ne 5 mg-acetam inophen 325 mg tablet TAKE 1 TABLET BY MOUTH EVERY 4 TO 6 HOURS NEEDED FOR PAIN 10/16 completed Not Available Not Available Not Available sumatript an 50 mg tablet TAKE 1 TABLET BY MOUTH NEEDED FOR MIGRAINE S. IF NO RELIEF AFTER 2 HOURS MAY TAKE ADDITION AL TABLET. DO NOT EXCEED 200 MG IN 24 HOUR PERIOD active Not Available Not Available No t Available diphenoxy late-atro pine 2.5 mg-0.025 mg tablet TAKE 1 TABLET BY MOUTH 4 TIMES DAILY NEEDED FOR DIARRHEA /LOOSE STOOLS. 09/23 completed PRN - not using Not Available Not Available Not Available metronida zole 500 mg tablet TAKE 1 TABLET BY MOUTH AT 1PM, 2PM, AND 11PM THE DAY BEFORE SURGERY active Not Available Not Available No t Available ciproflox acin 500 mg tablet TAKE 1 TABLET BY MOUTH AT 2PM THE DAY BEFORE YOUR SURGERY 10/16 completed Not Available Not Available Not Available tramadol 50 mg tablet TAKE 1 TABLET BY MOUTH EVERY 6 HOURS NEEDED FOR PAIN 01/05 completed Not Available Not Available Not Available ondansetr on 8 mg disintegr ating tablet DISSOLVE 1 TABLET ON TOP OF THE TONGUE THEN SWALLOW WITH SALIVA EVERY 8 HOURS NEEDED FOR NAUSEA OR VOMITING active Not Available Not Available No t Available lidocaine -prilocai ne 2.5 %-2.5 % topical cream APPLY TO PORT SITE 30 MINUTES PRIOR TO ACCESS 09/23 completed Not Available Not Available Not Available levothyro xine 75 mcg tablet TAKE 1 TABLET BY MOUTH ONCE DAILY 03/30 completed Not Available Not Available Not Available levothyro xine 100 mcg tablet TAKE 1 TABLET BY MOUTH ONCE DAILY 10/16 completed Not Available Not Available Not Available levothyro xine 88 mcg tablet TAKE 1 TABLET BY MOUTH ONCE DAILY 03/30 completed Not Available Not Available Not Available alprazola m 0.5 mg tablet 08/05 completed not taking Not Available Not Available Not Available lorazepam 0.5 mg tablet TAKE 1 TABLET BY MOUTH EVERY 8 HOURS NEEDED. DO NOT EXCEED 3 PER 24 HOURS active Not Available Not Available No t Available levothyro xine 50 mcg tablet TAKE 1 TABLET BY MOUTH ONCE DAILY 03/30 completed Not Available Not Available Not Available ferrous sulfate 325 mg (65 mg iron) tablet Take 1 tablet every day by oral route 11/04 completed [facility] Refill Not Available Not Available Not Available docusate sodium 100 mg capsule TAKE 1 CAPSULE BY MOUTH TWICE DAILY 09/23 completed PRN Not Available Not Available Not Available lidocaine HCl 2 % mucosal solution active PRN Not Available Not Available Not Available omeprazol e 20 mg capsule,d elayed release TAKE 1 CAPSULE BY MOUTH ONCE DAILY BEFORE A MEAL 09/23 completed not taking Not Available Not Available Not Available zolpidem 5 mg tablet TAKE 1 TABLET BY MOUTH NIGHTLY NEEDED FOR INSOMNIA active Not Available Not Available No t Available neomycin 500 mg tablet TAKE 1 G (2 TABLETS) AT 1:00 PM, AT 2:00 PM, AND 11:00 PM. 11/04 completed not taking Not Available Not Available Not Available levothyro xine 112 mcg tablet TAKE 1 TABLET BY MOUTH ONCE DAILY active Not Available Not Available No t Available Neulasta 6 mg/0.6 mL subcutane ous syringe INJECT 0.6 ML SUBCUTAN EOUSLY 24 HOURS AFTER EVERY CHEMOTHE RAPY TREATMEN T active Not Available Not Available No t Available Vitals Date Recorded Body height Body mass index (BMI) Body weight Respiratory rate Body temperature Oxygen saturation Oxygen saturation in Arterial blood by Pulse oximetry Heart rate Systolic blood pressure Diastolic blood pressure Provider Name and Address Organization Details Last Updated DateTime 3 185.42 cm 28.6 kg/m2 18859.3 9 g 12 /min 97.5 [degF] 99 % 99 % 64 /min 122 mm[Hg] 72 mm[Hg] Haydee Benedict MA [facility] 3 14:32:55 Date Recorded Body height Body mass index (BMI) Body weight Heart rate Respiratory rate Body temperature Oxygen saturation Oxygen saturation in Arterial blood by Pulse oximetry Systolic blood pressure Diastolic blood pressure Provider Name and Address Organization Details Last Updated DateTime 3 185.42 cm 30.3 kg/m2 386521. 25 g 59 /min 12 /min 97.5 [degF] 96 % 96 % 126 mm[Hg] 76 mm[Hg] Haydee Benedict MA [facility] 3 09:10:32 Date Recorded Body height Body mass index (BMI) Body weight Heart rate Respiratory rate Body temperature Oxygen saturation Oxygen saturation in Arterial blood by Pulse oximetry Systolic blood pressure Diastolic blood pressure Provider Name and Address Organization Details Last Updated DateTime 3 185.42 cm 28.3 kg/m2 77206.5 6 g 50 /min 12 /min 97.2 [degF] 98 % 98 % 128 mm[Hg] 82 mm[Hg] Haydee Benedict MA [facility] 3 09:16:10 Date Recorded Body height Body mass index (BMI) Body weight Heart rate Respiratory rate Body temperature Oxygen saturation Oxygen saturation in Arterial blood by Pulse oximetry Systolic blood pressure Diastolic blood pressure Provider Name and Address Organization Details Last Updated DateTime 4 185.42 cm 28.1 kg/m2 87085.1 g 61 /min 12 /min 98.7 [degF] 97 % 97 % 125 mm[Hg] 77 mm[Hg] Haydee Benedict MA [facility] 4 10:49:33 Date Recorded Body height Body mass index (BMI) Body weight Oxygen saturation Oxygen saturation in Arterial blood by Pulse oximetry Heart rate Respiratory rate Body temperature Systolic blood pressure Diastolic blood pressure Provider Name and Address Organization Details Last Updated DateTime 5 185.42 cm 28.1 kg/m2 23215.8 2 g 98 % 98 % 85 /min 16 /min 97.3 [degF] 151 mm[Hg] 87 mm[Hg] Haydee Benedict MA [facility] 5 12:23:13 Social History Question Answer Notes LastModified by Organizat ion Details LastModified Time Tobacco Smoking Status Never Smoker Haydee Benedict MA null, [place] - [facility] 06/02/2021 10:15:39 What Is Your Level Of Alcohol Consumption? None Information not available 06/02/2021 Are You Blind Or Do You Have Difficulty Seeing? No Glasses Information not available 03/17/2022 What Is Your Level Of Caffeine Consumption? Heavy Coffee, Tea Information not available 06/02/2021 In The 14 Days Before Symptom Onset, Have You Had Close Contact With A Laboratory-confi rmed COVID-19 While That Case Was Ill? No Information not available 06/02/2021 In The 14 Days Before Symptom Onset, Have You Had Close Contact With A Person Who Is Under Investigation For COVID-19 While That Person Was Ill? No Information not available 06/02/2021 Have You Been To An Area Known To Be High Risk For COVID-19? No Information not available 06/02/2021 Are You Currently Employed? Yes Information not available 10/16/2024 Are You Deaf Or Do You Have Serious Difficulty Hearing? No Information not available 06/02/2021 What Type Of Diet Are You Following? REGULAR Avoiding Processed Foods Information not available 01/06/2024 What Is The Highest Grade Or Level Of School You Have Completed Or The Highest Degree You Have Received? [id number] Information not available 06/02/2021 What Is Your Occupation? [employer] Information not available 10/16/2024 Are There Any Guns Present In Your Home? No Information not available 06/02/2021 What Was The Date Of Your Most Recent Tobacco Screening? 10/16/2024 Information not available 10/16/2024 What Is Your Relationship Status? Domestic Partner Same Partner For 16 Years Information not available 09/23/2022 Do You Use Your Seat Belt Or Car Seat Routinely? Yes Information not available 06/02/2021 Do You Have Smoke And Carbon Monoxide Detectors In Your Home? Yes Information not available 06/02/2021 Do You Feel Stressed (tense, Restless, Nervous, Or Anxious, Or Unable To Sleep At Night)? [id number] Information not available 06/02/2021 Do You Use Any Illicit Or Recreational Drugs? No Information not available 06/02/2021 Do You Use Sunscreen Routinely? No If Needed Information not available 06/02/2021 Has Tobacco Cessation Counseling Been Provided? No Information not available 03/17/2022 Do You Or Have You Ever Used Any Other Forms Of Tobacco Or Nicotine? No Information not available 06/02/2021 Sex: Male Functional Status Question Answer Note LastModified by Organization D etails LastModified Time Are you able to care for yourself? Yes Information n ot available 06/02/2021 What is your exercise level? None Information not available 10/16/2024 Mental Status None recorded. Family History Relationship Description Onset Age of this Age Resolved Age Notes LastModified by Organization Details LastModified Time Father Hypertensive disorder Not available 2020 10:14:22 Mother Chronic obstructive pulmonary disease Not available 2020 10:14:33 Sister Depressive disorder Not available 2020 10:14:49 Medical History Condition Response Coronary Artery Disease N Other N Atrial Fibrillation N High Blood Pressure Y Depression N COPD N Blood Clots N Anxiety Disorder Y Muscle, Joint, or Bone Problems N Acid Reflux (GERD) Y Cancer N Stroke N High Cholesterol N Liver Disease N Headaches N Kidney or Bladder Problems N Thyroid Problems N GI Problems Y Skin Problems N Anemia N Heart Attack (MS) N Diabetes N Seizures/Epilepsy N Asthma Y Allergies N Hepatitis N Heart Failure N Osteoporosis N Immunizations Vaccine Type Date Status Note Provider Nam e and Address Organization Details Recorded Time COVID-19, mRNA, LNP-S, PF, 30 mcg/0.3 mL dose 1 completed Haydee Benedict [place], [place] [facility] 06/02/2021 10:12:32 COVID-19, mRNA, LNP-S, PF, 30 mcg/0.3 mL dose 1 completed Haydee Benedict [place] [facility] 06/02/2021 10:13:07 COVID-19, mRNA, LNP-S, PF, 30 mcg/0.3 mL dose 1 completed Haydee [place] [facility] 08/11/2021 11:11:32 COVID-19, mRNA, LNP-S, PF, 30 mcg/0.3 mL dose 2 completed Haydee [place] [facility] 02/10/2022 08:18:22 influenza, unspecified formulation 2 completed Haydee Benedict [place] [facility] 09/23/2022 14:28:43 influenza, unspecified formulation 3 completed Haydee [place] [facility] 05/18/2023 09:21:09 COVID-19, mRNA, LNP-S, PF, 100 mcg/0.5mL dose or 50 mcg/0.25mL dose 3 completed La Nena Fox [place], [place] [facility] 07/02/2023 08:25:34 Influenza, split virus, quadrivalent, preservative 1 completed Haydee Benedict [place] [facility] 06/02/2021 16:31:48 Tdap 3 completed Jeuss White MD Attn: Accounting,[address] [place], [address], [place] [facility] 03/30/2023 14:00:04 Past Encounters Encounter ID Performer Location Encounter Start Date Encounter Closed Date Diagnosis/Indication Diagnosis SNOMED-CT Code Diagnosis ICD10 Code Diagnosis Note [id number] Jesus White MD [facility] (Adult Med) [address] [place] [address] 06/02/2021 09:54:02 06/03/2021 09:16:42 Adult health examination 372106428 Z00.00 healthy diet and exercise discussed with pt Obesity 532696116 E66.9 Multiple lumps 312968786 R22.9 on R/lower chest -looks like lipoma-katherine ck us Lightheadedness 46766690 8 R42 on and off Sleep apnea 92401018 G47 .30 Administra tion of influenza vaccine 57476024 Z23 [id number] MD [facility] (Adult Med) [address] [place] [address] 06/17/2021 10:26:02 06/18/2021 08:54:55 Anemia 153455690 D50.9 severe anemia due to iron deficiency - pt to stop all nsaid -counselle d- pt to go to ER if chest pain or sob Thyroid st imulating hormone level above reference range 612731379 R79.89 -monitor TSH Gastric ulcer 840074668 K25.9 due to nsaid -pt to stop nsaid - will give ppi -refer to GI Occult blo od detected in feces 31562775 R19.5 with severe iron deficiency and f/h colon cancer- pt to see GI Renal impairment 8642449 03 N28.9 poaibly due to otc nsaid - pt is extensivel y counselled to stop nsaid Lipoma of skin 879807195 D17.30 on chest -us showed lipoma-pt is reassured -may consider biopsy in future if any change in size [id number] MD [facility] (Adult Med) [address] [place] [address] 07/18/2021 10:15:46 07/21/2021 04:04:26 Anemia 712139637 D50.9 severe anemia due to iron deficiency - pt to stop all nsaid -counselle d- pt to go to ER if chest pain or sobweakly positive celiac ab-may consider hematologi st in future if needed Occult blo od detected in feces 10037589 R19.5 with severe iron deficiency and f/h colon cancer- pt is seeing GI -endoscopy is pending Thyroid st imulating hormone level above reference range 556155286 R79.89 -monitor TSHwill wait to start thyroid pill due to his severe anemia [id number] MD Rosario Cathalto (Adult Med) [address] [place] [address] 11/04/2021 09:17:55 11/05/2021 09:28:45 Primary adenocarcinoma of descending colon 2075449680 19102 C18.6 -s/p colectomy 08/2021 - seeing onco -pt just started on chemo Anemia 486305920 D50.9 severe anemia due to iron deficiency secondary to colon ca - pt to avoid nsaid -counselle d- improvedwe akly positive celiac ab-pt to d/c iron tab for now Thyroid nodule 366191873 E04.1 -check us Thyroid st imulating hormone level above reference range 638989217 R79.89 -monitor TSHwill wait to start thyroid pill due to his severe anemia [id number] MD Angy Cat (Adult Med) [address] [place] [address] 03/17/2022 10:46:18 03/19/2022 10:19:51 Anemia 296798730 D50.9 severe anemia due to iron deficiency secondary to colon ca -- improvedwe akly positive celiac ab Primary adenocarcinoma of descending colon 2673071636 19102 C18.6 -s/p colectomy 08/2021 - seeing onco -pt started on chemo Thyroid st imulating hormone level above reference range 830539619 R79.89 -monitor TSH Thyroid nodule 829978195 E04.1 -seeing endo -s/p FNA -need repeat fna Overweight 704123100 E66 .3 [id number] MD [facility] Cat (Adult Med) [address] [place] [address] 09/23/2022 14:16:33 09/24/2022 16:39:59 Primary adenocarcinoma of descending colon [id number] 19102 C18.6 -s/p colectomy 08/2021 - seeing onco -pt started on chemo Hypothyroidism 15437932 E03.9 with h/o partial thyroidect rose mary for thyroid nodule - on thyroid pill as per endo Overweight 745895118 E66 .3 Ganglion c yst of right foot 0354242734 724471 M67.471 on R /lateral foot -reassured Adult heal th examination 803926138 Z00.00 healthy diet and exercise discussed with pt Constipation 89392679 K5 9.00 -more fruits and vegetables /good hydration [id number] MD Angy Cat (Adult Med) [address] [place] [address] 03/30/2023 08:55:45 03/31/2023 11:49:40 Hypothyroidism 86314898 E03.9 with h/o partial thyroidect rose mary for thyroid nodule - on thyroid pill as per endo Primary adenocarcinoma of descending colon 6767501964 19102 C18.6 -s/p colectomy 08/2021 - seeing onco -pt started on chemo Sleep apnea 51466924 G47 .30 -pt to go for sleep study Hyperlipidemia 50076992 E78.5 healthy diet and exercise discussed with pt Overweight 864578851 E66 .3 Administra tion of diphtheria, pertussis, and tetanus vaccine 248907715 Z23 Pain of right wrist 3169 201322 52904 M25.531 -check xray with history of injury or sprain Impacted c erumen of bilateral ears 5291043902 347725 H61.23 with hearing loss- s/p ear irrigation and tolerated the procedure well [id number] MD Rosario Cathalto (Adult Med) [address] [place] [address] 08/05/2023 08:59:50 08/06/2023 15:54:07 Hypothyroidism 47252818 E03.9 with h/o partial thyroidect rose mary for thyroid nodule - on thyroid pill as per endo Primary adenocarcinoma of descending colon 4527644531 19102 C18.6 -s/p colectomy 08/2021 - seeing onco -s/p chemo Renal impairment 8391610 03 N28.9 possibly due to otc nsaid - pt is extensivel y counselled to stop nsaid Hyperlipidemia 82097214 E78.5 healthy diet and exercise discussed with pt [id number] MD Angy Cat (Adult Med) [address] [place] [address] 01/06/2024 10:36:31 01/10/2024 08:33:30 Anemia 955710957 D50.9 severe anemia due to iron deficiency secondary to colon ca -- improvedwe akly positive celiac ab Primary adenocarcinoma of descending colon 1018283848 04131 C18.6 -s/p colectomy 08/2021 - seeing onco and has apt on 01/10/24 -s/p chemo Abdominal mass 995378952 R19.03 with dark color stool /anemia- pt had normal ct in 08/28 -check ct with recent change in bowel habit with h/o colon ca [id number] [employer]ANNA[employer], [employer]- [facility] (Adult Med) [address] [place] [address] 10/16/2024 11:57:39 11/14/2024 09:05:25 Upper respiratory infection 74188171 J06.9 -Patient presentati on consistent with viral URI-Negati ve for influenza and covid-Brigida ent to follow up with oncologist with current symptoms-P atient to contact clinic if symptoms worsen or do not improve-ER precaution s advised. Health Concerns Section Related Observation LastModified by Organization Detai ls LastModified Time None Recorded Concern Status LastModified by Organization Details LastModified Time None Recorded Advance Directives Directive None Recorded Payers Encounter Date Sequence Insurance Name Policy Number Policy [employer] Covered Member ID Serrato Member ID Guarantor Name 09/23/2022 1 [facility] (MEDICAID HMO) [id number] Musa SimulScribe [id number] Musa SimulScribe 03/30/2023 1 [facility] [place] [id number] 0003 Musa Cobiscorpell [id number] Musa Cobisc[employer]ell 08/05/2023 1 [facility] [place] [id number] 0003 Musa Cobiscorpell [id number] Musa Cobiscorpell 01/06/2024 1 [facility] [place] [id number] 0003 Musa Cobiscorpell [id number] Musa [employer]isc[employer]ell 10/16/2024 1 [facility] [place] [id number] Cubby [id number] Cubby Notes Date Note Type Note Provider Name and Address Organization Details Recorded Time 09/23/2022 text/html ThyroidReported bypatient.Duration:st arted: (partial thyroidectomy 05/2022) Onset/Timing:better Context:history of hypothyroidism Modifying Factors:medication (thyroid pill- taking med as prescribed.) Associated Symptoms:no weight loss; no palpitations; no depression; no fatigue;constipation pt is here for f/upt has noticed cyst on L/foot , 2 months ago , not painfulpt was recently diagnosed with colon cancer -s/p lap colectomy 08/2021 -seeing oncjuanito White MD Attn: [address]ing[address] [place], [address], [facility] 09/23/2022 15:54:30 03/30/2023 text/html ThyroidReported bypatient.Duration:st arted: (partial thyroidectomy 05/2022) Onset/Timing:better Context:history of hypothyroidism Modifying Factors:medication (thyroid pill- taking med as prescribed.) Associated Symptoms:no weight loss; no palpitations; no depression; no fatigue;constipationW rist/HandReported bypatient.Hand Dominance:right Location:right; ulnar Severity:mild Duration:6 months Associated Symptoms:no weakness; no swelling pt is here for f/u pt was diagnosed with colon cancer -s/p lap colectomy 08/2021 -seeing onco pt is complaining of less hearing for a while , denied ear pain Jesus White MD Attn: Accounting[address] [place], [address], [facility] 03/30/2023 14:03:55 08/05/2023 text/html ThyroidReported bypatient.Duration:st arted: (partial thyroidectomy 05/2022) Onset/Timing:better Context:history of hypothyroidism Modifying Factors:medication (thyroid pill- taking med as prescribed.) Associated Symptoms:no weight loss; no palpitations; no depression; no fatigue;constipation pt is here for f/u pt was diagnosed with colon cancer -s/p lap colectomy 08/2021 -seeing michelle White MD Attn: Accounting[address] [place], [address], [facility] 08/05/2023 09:50:11 01/06/2024 text/html pt is here for c hange in bowel habit with constipation /feeling tired and also recent lab showed anemia as well /denied abdominal pain -but has noticed dark color stool pt was diagnosed with colon cancer -s/p lap colectomy 08/2021 -seeing onco Jesus White MD Attn: Accounting[address] , [place], [address], [facility] 01/06/2024 11:35:13 10/16/2024 text/html Patient presents to the clinic with acute complaint of a cough. Patient was established with Dr. Biswas for primary care. Patient's past medical history includes: hypothyroidism, adenocarcinoma of descending colon, DILAN, thyroid nodule, ileal ulcer, anemia, GERD, asthma, and lobectomy of thyroid gland.Other providers:Oncologist: Dr. Johnson at [facility]-Patient reports he started feeling unwell last Wednesday-Patient reports experiencing symptoms of fever, headache, chills, diarrhea, body aches, sinus congestion, productive cough-green/bloody sputum, and increased fatigue-Denies experiencing symptoms of nausea/vomiting-Patie nt reports he was around his father and nephew who were also sick.-Patient reports taking sudafed, aspirin, tylenol and vitamins for symptom management. SHA SKINNER-TORRES Attn: Accounting[address] [facility], [place], [address], [facility] 11/11/2024 23:57:59
--- OUTSIDE RECORDS SUMMARY | 2024-11-16 17:31 | XMS_ITS | Encounter Summary ---
Author Organization [facility] Address [address] [place] [address] Phone Care Team Providers Care Lining Machine Tender Name Role Phone Jesus White MD Primary Care Provider [phone] Brien Dean MD Unavailable [phone] Nunu Mejía MD Unavailable Alcides Segovia MD Unavailable Reason for Visit * Reason Comments Medication Refill Encounter Details Date Type Department Care Team (Late st Contact Info) Description 02/14/2024 Refill [facility] - Endocr[facility]ology - [place] [address] [place] [address] Nunu Mejía MD [address] [address] Medication Refill Social History Tobacco Use Types Packs/Day Years Used Date Smoking Tobacco: Never Smokeless Tobacco: Never Alcohol Use Standard Drinks/Week Comments Never 0 (1 standard drink = 0.6 oz pur e alcohol) Sex and Gender Information Value Date Recorded Sex Assigned at Not on file Legal Sex Male 4:12 PM CDT Gender Identity Not on file Sexual Orientation Not on file documented as of this encounter Miscellaneous Notes * Telephone Encounter - Trina Phoenix RN - 02/15/2024 8:41 AM CDT Medication(s) refilled and signed per [facility] Chronic Medication Refill Standing Order for Pediatric and Adult Patients. documented in this encounter Plan of Treatment Upcoming Encounters Date Type Department Care Team (Late st Contact Info) Description 12/07/2024 10:00 AM CDT Office Visit [facility] - [facility]ocr[facility]ology - [place] [address] [place] [address] Nunu Mejía MD [address] [phone] documented as of this encounter Visit Diagnoses Not on filedocumented in this encounter Care Teams Lining Machine Tender Relationship Specialty Start Date End Date Jesus White MD [address] [place], [place] [id number] PCP - General Internal Medicine 06/04/21 Brien Dean MD [address] [phone] Consulting Physician General Surgery 05/15/22 Nunu Mejía MD [address] [address] Consulting Physician Endocrinology 06/26/22 Alcides Segovia MD [address] [place] [phone] Consulting Physician Pulmonary Disease 05/17/23 documented as of this encounter
--- OUTSIDE RECORDS SUMMARY | 2024-11-16 17:31 | XMS_ITS | Clinical Summary ---
Author Organization [facility] Address [address] [place] [address] Phone Care Team Providers Care Equipment Validation Engineer Name Role Phone Jesus White MD Primary Care Provider [phone] Brien Dean MD Unavailable Nunu Mejía MD Unavailable Alcides Segovia MD Unavailable Allergies No known active allergies Medications Horse Shoe-3 Fatty Acids (FISH OIL PO) Take by mouth. Active Pyridoxine HCl (VITAMIN B-6 PO) Take by mouth. Active Multiple Vitamin (MULTIVITAMIN PO) Take by mouth. Active Probiotic Product (PROBIOTIC DAILY PO) Take by mouth. Active docusate sodium (COLACE) 100 MG Capsule Take 100 mg by mouth daily. Active levothyroxine (SYNTHROID) 112 MCG Tablet Take 1 Tablet by mouth daily. 90 Tablet 1 06/09/2024 Active Active Problems Problem Noted Date Diagnosed Date DILAN (obstructive sleep apnea) 05/17/2023 Acquired hypothyroidism 05/17/2023 Malignant neoplasm of descending colon [place] deficiency anemia 08/26/2021 Immunizations Immunization Administration Dates Next Due Influenza Vaccine, Quadrivalent, PF 05/17/2023,1 09/27/2021 Influenza Vaccine,unspecified Formulation 2022,08/10/2022 Influenza, Injectable, Quadrivalent 06/02/2021 TDAP Vaccine 03/30/2023 Family History Medical History Relation Name Comments Cancer Father Hypertension Father Prostate Cancer Father No Known Problems Maternal Grandfather No Known Problems Maternal Grandmother Chronic Obstructive Pulmonary Disease Mother No Known Problems Paternal Grandfather No Known Problems Paternal Grandmother No Known Problems Sister 1 No Known Problems Sister 2 Relation Name Status Comments Father Alive Maternal Grandfather Maternal Grandmother Mother Paternal Grandfather Paternal Grandmother Sister 1 Alive Sister 2 Social History Tobacco Use Types Packs/Day Years Used Date Smoking Tobacco: Never Smokeless Tobacco: Never Tobacco Cessation:Counseling Given: Not Answered Alcohol Use Standard Drinks/Week Comments Never 0 (1 standard drink = 0.6 oz pur e alcohol) Sex and Gender Information Value Date Recorded Sex Assigned at Not on file Legal Sex Male 4:12 PM CDT Gender Identity Not on file Sexual Orientation Not on file Last Filed Vital Signs Vital Sign Reading Time Taken Comments Blood Pressure 110/67 06/08/2024 8:57 AM CDT Pulse 66 06/08/2024 8:57 AM CDT Temperature 36.6 C (97.8 F) 06/08/2024 8:57 AM CDT Respiratory Rate 22 06/08/2024 8:57 AM CDT Oxygen Saturation 99% 06/08/2024 8:57 AM CDT Inhaled Oxygen Concentration - - Weight 89.4 kg (197 lb) 06/08/2024 8:57 AM CDT Height 185.4 cm (6' 1 ) 08/17/2023 1:15 PM DANCE DIRECTOR Body Mass Index 25.99 08/17/2023 1:15 PM DANCE DIRECTOR Plan of Treatment Upcoming Encounters Date Type Department Care Team (Late st Contact Info) Description 12/07/2024 10:00 AM CDT Office Visit [facility] - Endocrinology - [place] [address] [place] [phone] Nunu Mejía MD [address] [address] Health Maintenance Due Date Last Done Comments Hepatitis C Virus (HCV) Screening 1975 Hepatitis B Immunization (1 of 3 - 19+ 3-dose series) 1994 Pneumococcal Immunization Combined (1 of 2 - PCV) 1994 Influenza Immunization (#1) 05/07/202405/07, 05/17/2023, 08/10/2022, Additional history exists SARS-COV-2 Immunization ( season) 2024 06/30/2023, 06/30/2023, 07/28/2022, Additional history exists Immunochemical Fecal Occult Blood 2025 07/11/2021 Td Immunization Every 10 Years (Adults With 1 Tdap) 03/30/2033 03/30/2023 Colonoscopy 02/01/2034 02/02/2024, 08/16/2021 Colorectal Cancer Screening 02/01/2034 Respiratory Syncytial Virus (RSV) Immunization (Adult) (1 - 1-dose 75+ series) 2050 02/02/2024, 08/16/2021 DTaP/Tdap/Td Immunization Discontinued 03/30/2023 Meningococcal Immunization (ACWY) Aged Out No longer eligible based on patient's age to complete this topic Rotavirus Immunization Aged Out No lo nger eligible based on patient's age to complete this topic Procedures Procedure Name Priority Date/Time Associated Diagnosis Comments STOOL, OCCULT BLOOD, SCREEN 07/11/2021 12:00 AM CDT from Last 3 Months or Most Recently Relevant to Health Maintenance Results * STOOL, OCCULT BLOOD, SCREEN FOR CA (07/11/2021 12:00 AM CDT) 07/11/2021 us Not On File Provider URINE ORDERABLES Final Resu lt SCAN from Last 3 Months or Most Recently Relevant to Health Maintenance Insurance MEDICAID [place] Care Teams Equipment Validation Engineer Relationship Specialty Start Date End Date Jesus White MD [address] [place] [address] PCP - General Internal Medicine 06/04/21 Brien Dean MD [address] [address] Consulting Physician General Surgery 05/15/22 Nunu Mejía MD [address] [address] Consulting Physician Endocrinology 06/26/22 Alcides Segovia MD [address] [place] [address] Consulting Physician Pulmonary Disease 05/17/23
--- OUTSIDE RECORDS SUMMARY | 2024-11-16 17:31 | XMS_ITS | Referral Summary ---
Author Organization [facility] Address [address] [place] [address] Care Team Providers Care Executive Secretary Name Role Phone Jesus White MD Primary Care Provider Behzad Johnson MD Unavailable [phone] Russell Goins MD Unavailable Russell Goins MD Unavailable Venkatesh Liu MD Unavailable [phone] Alexa Alaniz MD, William C. Unavailable Encounters Date Type Department Care Team Description 09/11/2024 Telephone [facility] Surgery [facility] Floor [address] [place] [phone] Cyndie Rock 09/04/2024 Telephone [facility] Surgery [address] [facility] 12th [place] [address] [place] [address] Candida Carmona NP 09/04/2024 Telephone [facility] Surgery [address] [facility] 12th [place] [address] [place] [address] Venkatesh Liu MD 09/04/2024 Orders Only [facility] Surgery [address] [facility] 12th [place] [address] [place] [address] Venkatesh Liu MD Adenocarcinoma of ileum (HCC); Malignant 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) from Last 3 Months Allergies No known active allergies Medications levothyroxine (SYNTHROID) 100 mcg tablet Take 112 mcg by mouth daily 11/26/2022 Active omega-3 fatty acids-fish oil 300-1,000 mg capsule Take 2 capsules (2 g total) by mouth daily Active cyanocobalamin (Vitamin B-12) 100 mcg tabletIndicatio ns:Prevention of Vitamin B12 Deficiency Take 1 tablet (100 mcg total) by mouth daily Active iron bisgly,ps-FA-B- C#12-succ 65 mg-65 mg -1,000 mcg (24) tablet Take by mouth 2 (two) times a day Active multivitamin with minerals tablet Take 1 tablet by mouth daily Active Active Problems Problem Noted Date Diagnosed Date 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 Malignant neoplasm metastatic to liver 4 Immunizations Immunization Administration Dates Next Due Influenza, Quadrivalent, Split, Intramuscular Influenza, Quadrivalent, Spl it, Preservative Free, Intramuscular 05/17/2023,07/28/2022 Influenza, Unspecified 05/17/2023,08/10/2022 Moderna SARS-CoV-2 Monovalent Vaccination (12+ Y RS) 06/30/2023 Pfizer SARS-CoV-2 Monovalent Vaccination (12+ Yrs) PURPLE 02/09/2022 Tdap 03/30/2023 Social History Tobacco Use Types Packs/Day Years Used Date Smoking Tobacco: Never Smokeless Tobacco: Never Tobacco Cessation:Counseling Given: Not Answered Sex and Gender Information Value Date Recorded Sex Assigned at Not on file Legal Sex Male 5:36 PM INSTRUMENT FITTER Gender Identity Not on file Sexual Orientation Not on file Last Filed Vital Signs Vital Sign Reading Time Taken Comments Blood Pressure 129/90 07/20/2024 1:11 PM INSTRUMENT FITTER Pulse 85 07/20/2024 1:11 PM INSTRUMENT FITTER Temperature 36.2 C (97.1 F) 07/20/2024 1:11 PM INSTRUMENT FITTER Respiratory Rate 16 07/20/2024 1:11 PM INSTRUMENT FITTER Oxygen Saturation 97% 07/20/2024 1:11 PM INSTRUMENT FITTER Inhaled Oxygen Concentration - - Weight 86.2 kg (190 lb) 08/04/2024 6:03 PM INSTRUMENT FITTER Height 185.4 cm (6' 1 ) 08/04/2024 6:03 PM INSTRUMENT FITTER Body Mass Index 25.07 08/04/2024 6:03 PM INSTRUMENT FITTER Plan of Treatment Not on file Insurance [facility] Care Teams Executive Secretary Relationship Specialty Start Date End Date Jesus White MD [address] [place] [address] PCP - General 11/13/21 Behzad Johnson MD [address] [place] [address] Referring Physician Hematology 04/06/24 Russell Goins MD [address] [facility] [address] [place] [address] Medical Oncologist/Marketing Operations Specialist Medical Oncology 05/23/24 Russell Goins MD [address] [facility] [address] [place] [address] Medical Oncologist/Marketing Operations Specialist Medical Oncology 07/20/24 Venkatesh Liu MD [address] [facility] [address] [place] [address] Consulting Physician Transplant Surgery 07/20/24 Venkatesh Liu Jr., MD [address] [place] [phone] [place] [address] Consulting Physician Colon and Rectal Surgery 07/23/24
--- OUTSIDE RECORDS SUMMARY | 2024-11-16 17:31 | XMS_ITS | Clinical Summary ---
Author Organization [facility] Building [facility] Address [address] [place] [address] Care Team Providers Care Cut Off Tender Glass Name Role Phone Jesus White MD Primary Care Provider [phone] Behzad Johnson MD Unavailable [phone] Russell Goins MD Unavailable [phone] Russell Goins MD Unavailable [phone] Venkatesh Liu MD Unavailable [phone] Alexa Alaniz MD, William C. Unavailable [phone] Allergies No known active allergies Medications levothyroxine [...] 04/28/2024 Malignant neoplasm metastatic to liver 4 Encounters Date Type Department Care Team Description 09/11/2024 Telephone [facility] Surgery [address] [facility] Floor [address] [place] [phone] Cyndie Rock clarification 09/04/2024 Telephone [facility] Surgery [address] [facility] 12th [place] [address] [place] [address] Candida Carmona NP 09/04/2024 Telephone [facility] Surgery [facility] 12th [place] [address] [place] [phone] Venkatesh Liu MD 09/04/2024 Orders Only [facility] Surgery [address] [facility] 12th [place] [address] [place] [phone] Venkatesh Liu MD Adenocarcinoma of ileum (HCC); Malignant 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) from Last 3 Months Immunizations Immunization Administration Dates Next Due Influenza, Quadrivalent, Split, Intramuscular Influenza, Quadrivalent, Spl it, Preservative Free, Intramuscular 05/17/2023,07/28/2022 Influenza, Unspecified 05/17/2023,08/10/2022 Moderna SARS-CoV-2 Monovalent Vaccination (12+ Y RS) 06/30/2023 Pfizer SARS-CoV-2 Monovalent Vaccination (12+ Yrs) PURPLE 02/09/2022 Tdap 03/30/2023 Surgical History Surgery Date Site/Laterality Comments COLON SURGERY 09/04/2021 SMALL BOWEL RESECTION 03/06/2024 Medical History Medical History Date Comments Cancer (HCC) Peripheral neuropathy Anemia Thyroid disease Family History Medical History Relation Name Comments Prostate cancer Father Relation Name Status Comments Father Social History Tobacco Use Types Packs/Day Years Used Date Smoking Tobacco: Never Smokeless Tobacco: Never Tobacco Cessation:Counseling Given: Not Answered Sex and Gender Information Value Date Recorded Sex Assigned at Not on file Legal Sex Male 5:36 PM GRAIN LOADER Gender Identity Not on file Sexual Orientation Not on file Obstetrics History Last Filed Vital Signs Vital Sign Reading Time Taken Comments Blood Pressure 129/90 07/20/2024 1:11 PM GRAIN LOADER Pulse 85 07/20/2024 1:11 PM GRAIN LOADER Temperature 36.2 C (97.1 F) 07/20/2024 1:11 PM GRAIN LOADER Respiratory Rate 16 07/20/2024 1:11 PM GRAIN LOADER Oxygen Saturation 97% 07/20/2024 1:11 PM GRAIN LOADER Inhaled Oxygen Concentration - - Weight 86.2 kg (190 lb) 08/04/2024 6:03 PM GRAIN LOADER Height 185.4 cm (6' 1 ) 08/04/2024 6:03 PM GRAIN LOADER Body Mass Index 25.07 08/04/2024 6:03 PM GRAIN LOADER Plan of Treatment Health Maintenance Due Date Last Done Comments Colon Cancer Screening-Colonoscopy 1975 Depression Screening 1975 Hepatitis C Screening 1975 Prostate Cancer Screening-PSA 1975 Hepatitis B Screening 1993 Regular Well Visit/Exam 18-64 1993 Pneumococcal vaccine <65 (1 of 2 - PCV) 1994 Zoster Vaccine (1 of 2) 1994 Covid-19 Vaccine (6 - 2023-2 5 season) 2024 06/30/2023, 02/09/2022, 08/05/2021, Additional history exists Influenza Vaccine (#1) 2024 , 05/17/2023, 08/10/2022, Additional history exists DTaP/Tdap/Td Vaccine (2 - Td or Tdap) 03/30/2033 03/30/2023 Insurance [facility] Care Teams Cut Off Tender Glass Relationship Specialty Start Date End Date Jesus White MD [address] [place] [address] PCP - General 11/13/21 Behzad Johnson MD [address] [place] [address] Referring Physician Hematology 04/06/24 Russell Goins MD [address] [facility] [address] [place] [address] Medical Oncologist/Mail Processing Associate Medical Oncology 05/23/24 Russell Goins MD [address] [facility] [address] [place] [address] Medical Oncologist/Mail Processing Associate Medical Oncology 07/20/24 Venkatesh Liu MD [address] [facility] [place] [address] Consulting Physician Transplant Surgery 07/20/24 Venkatesh Liu Jr., MD [address] [facility] [phone] [place] [address] Consulting Physician Colon and Rectal Surgery 07/23/24
--- OUTSIDE RECORDS SUMMARY | 2024-11-16 17:32 | XMS_ITS | Encounter Summary ---
Author Organization [facility] [employer] [facility] Address [address] [place] [address] Care Team Providers Care Marine Gear Keeper Name Role Phone Jesus White MD Primary Care Provider Encounter Details Date Type Department Care Team (Late Contact Info) Description 11/13/2024 Orders Only [facility] Oncology and Hematology - [place] [address] [place] [address] Behzad Johnson MD [address] [place] [address] [place] [address] [place] [address] Malignant neoplasm of sigmoid colon (CMS/HCC) Social History Tobacco Use Types Packs/Day Years Used Date Smoking Tobacco: Never Sex and Gender Information Value Date Recorded Sex Assigned at Not on file Legal Sex Male 2:24 PM CUSTOMER SUCCESS MANAGER Gender Identity Not on file Sexual Orientation Not on file documented as of this encounter Plan of Treatment Upcoming Encounters Date Type Department Care Team (Late st Contact Info) Description 11/23/2024 4:15 PM CDT Telephone Check Up [facility] Oncology and Hematology [facility] [address] [place] [address] Behzad Johnson MD [facility] [employer] [address] [place] [address] documented as of this encounter Visit Diagnoses Diagnosis Malignant neoplasm of sigmoid colon (CMS/HCC) Malignant neoplasm of sigmoid colon documented in this encounter Care Teams Marine Gear Keeper Relationship Specialty Start Date End Date Jesus White MD [address] [place] [address] PCP - General Internal Medicine 08/15/21 documented as of this encounter
--- OUTSIDE RECORDS SUMMARY | 2024-11-16 17:32 | XMS_ITS | Encounter Summary ---
Author Organization [facility] Address [address] [place] [address] Phone Care Team Providers Care Hands Hanger Name Role Phone Jesus White MD Primary Care Provider [phone] Behzad Johnson MD Unavailable [phone] Russell Goins MD Unavailable [phone] Russell Goins MD Unavailable [phone] Alexa Alaniz MD, William C. Unavailable Venkatesh Liu MD Unavailable [phone] Alexa Alaniz MD, William C. Unavailable Encounter Details Date Type Department Care Team (Latest Contact Info) Description 04/28/2024 Orders Only [facility] Scanning, Provider Social History Tobacco Use Types Packs/Day Years Used Date Smoking Tobacco: Never Sex and Gender Information Value Date Recorded Sex Assigned at Not on file Legal Sex Male 5:36 PM AUTO DESIGN DETAILER Gender Identity Not on file Sexual Orientation Not on file documented as of this encounter Plan of Treatment Not on file documented as of this encounter Procedures Procedure Name Priority Date/Time Associated Diagnosis Comments SCAN - PATHOLOGY 04/28/2024 12:00 PM CDT documented in this encounter Results * SCAN - PATHOLOGY (04/28/2024 12:00 PM CDT) us Provider Scanning Edited Result - Final documented in this encounter Visit Diagnoses Not on filedocumented in this encounter Care Teams Hands Hanger Relationship Specialty Start Date End Date Jesus White MD [address] [place] [address] PCP - General 11/13/21 Behzad Johnson MD [address] [place] [address] Referring Physician Hematology 04/06/24 Russell Goins MD [address] [place] [address] Medical Oncologist/Forming Acid Dumper Medical Oncology 05/23/24 Russell Goins MD [address] [facility] [address] [place] [address] Medical Oncologist/Forming Acid Dumper Medical Oncology 07/20/24 Venkatesh Liu Jr., MD [address] [facility] [phone] [place] [address] Consulting Physician Colon and Rectal Surgery 07/20/24 07/22/24 Venkatesh Liu MD 1 [facility] [address] [facility] [place] [address] Consulting Physician Transplant Surgery 07/20/24 Venkatesh Liu Jr., MD [address] [facility] [phone] [place] [address] Consulting Physician Colon and Rectal Surgery 07/23/24 documented as of this encounter
--- OUTSIDE RECORDS SUMMARY | 2024-11-16 17:32 | XMS_ITS | Encounter Summary ---
Author Organization [facility] [employer] Address [address] [place] [address] Care Team Providers Care Supervisor International Reservations Name Role Phone Jesus White MD Primary Care Provider [phone] Reason for Referral * CT Scan (Urgent) - Closed Specialty Diagnoses / Procedures Referred By Contac t Referred To Contact Diagnoses Malignant neoplasm of sigmoid colon (CMS/HCC) Procedures CT CHEST ABDOMEN PELVIS W CONT Behzad Johnson MD [address] [place] [address] Phone: tel: fax: [place] [address] Referral ID Status Reason Start Date Expiration Date V isits Requested Visits Authorized [id number] Closed [facility] CTS 11/15/2024 12/16/2025 1 1 Reason for Visit * Reason Comments Chemotherapy Follow Up Encounter Details Date Type Department Care Team (Late st Contact Info) Description 11/15/2024 8:30 AM CDT Office Visit [facility] Oncology and Hematology [address] [address] Behzad Johnson MD [address] [place] [address] Malignant neoplasm of sigmoid colon (CMS/HCC) (Primary Dx) Social History Tobacco Use Types Packs/Day Years Used Date Smoking Tobacco: Never Tobacco Cessation:Counseling Given: Not Answered Sex and Gender Information Value Date Recorded Sex Assigned at Not on file 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 Gender Identity Not on file Sexual Orientation Not on file documented as of this encounter Last Filed Vital Signs Vital Sign Reading Time Taken Comments Blood Pressure 133/86 11/15/2024 8:25 AM CDT Pulse 76 11/15/2024 8:25 AM CDT Temperature 36.4 C (97.6 F) 11/15/2024 8:25 AM CDT Respiratory Rate 15 11/15/2024 8:25 AM CDT Oxygen Saturation 96% 11/15/2024 8:25 AM CDT Inhaled Oxygen Concentration - - Weight 90.8 kg (200 lb 3.2 oz) 11/15/2024 8:25 A M CDT Height - - Body Mass Index 26.41 06/03/2022 10:41 AM CDT documented in this encounter Progress Notes * Behzad Johnson MD - 11/15/2024 8:56 AM CDT HEMATOLOGY / ONCOLOGY PROGRESS NOTE Patient Identification: Name: Musa Santamaria Age: 49 y.o. Sex: male : 1975 DIAGNOSIS Metastatic colon cancer with liver involvement status post right sided hemicolectomy done on March 06, 2024. Perineural invasion present. No lymphovascular invasion. 4 out of 14 lymph nodes were positive for malignancy. K-benjamin negative. Microsatellite stable tumor Previously he was diagnosed with T4 N1 M0 stage IIIB moderately differentiated adenocarcinoma sigmoid colon is status post laparoscopic sigmoid colectomy done on September 03, 2021. Negative for K-rasmutation. Microsatellite stable tumor. 1 out of 23 lymph node positive for malignancy. CURRENT TREATMENT Maintenance chemotherapy with 5-FU leucovorin and Avastin started on October 18, 2024. TREATMENT HISTORY FOLFOX cycle 1 on October 22, 2021. Completed cycle 08/17 on May 04, 2022 Colonoscopy done on February 02, 2024 showed large ulcerated lesion with bleeding in the terminal ileum and biopsies were taken. There was few small internal hemorrhoids. Patient received iron infusion on February 01, 2024. FOLFIRI Avastin cycle 1 started March 30, 2024. Patient received first cycle without Avastin. Patient received chemotherapy cycle #12 of FOLFIRI on September 05, 2024. SUBJECTIVE Patient came to the office for follow-up visit. He is complaining of some constipation and mild abdominal discomfort. He denies any bleeding including melena hematochezia. He had no bowel movement for last 3 days. No other new complaints. Review of system Constitutional: denies fevers, sweats, denies any tiredness and fatigue, 5 pound weight gain HEENT:denies sinus congestion, hearing or vision problems Respiratory: denies cough, dyspnea, wheeze Cardiovascular: denies chest pain, exertional chest pressure/discomfort, nausea, syncope, shortnessof breath GI: denies dsyphagia, reflux symptoms, vomiting, melena, complain of constipation : denies dysuria, frequency, incontinence, urgency Integumentary system: no lymphadenopathy, sweats, flushing Musculoskeletal: denies: myalgia, arthralgia Neurological: denies blurry or disturbed vision, stable peripheral neuropathy, headaches under control kin: No lumps, bumps or rashes. 12 point review of system was reviewed Objective: Vital signs in last 24 hours: As per nursing note Exam: General appearance: alert, cooperative, no distress, appears stated age Head: normocephalic, without obvious abnormality, atraumatic Eyes: conjunctivae/corneas clear, EOM's intact Ears: normal external ear canals AU Nose: Nares normal. Septum midline. Mucosa normal. No drainage or sinus tenderness Throat: Lips, mucosa, and tongue normal. Teeth and gums normal Neck: supple, symmetrical, trachea midline. Lungs: clear to auscultation bilaterally Heart: regular rate and rhythm, S1, S2 normal, no murmur, click, rub or gallop Abdomen: soft, non-tender. Diminished bowel sounds. No masses, No organomegaly Extremities: extremities normal, atraumatic, no cyanosis or edema Skin: Skin color, texture, turgor normal. Lymph nodes: No lymphadenopathy Exam as above PATH LABS Labs from October 22 showed WBC 4.9 hemoglobin 13.2 platelet 212,000 creatinine 1.2 Labs from November 05 showed WBC 4.7 hemoglobin 13.4 platelet 179,000 creatinine 1.8 Labs from November 19 showed WBC 4.1 hemoglobin 14.4 platelet 155,000 creatinine 1.3 Labs from December 31 showed WBC 3.4 hemoglobin 14.3 platelet 201,000 ANC 900 Labs from January 19 showed WBC 3.3 hemoglobin 12.8 platelet 98,000 ANC 1200 Labs from February 03 showed WBC 2.9 hemoglobin 13.4 platelet 86,000 creatinine 1.0 Labs from February 16 showed WBC 2.7 hemoglobin 12.9 platelet 83,000 creatinine 1.0 Labs from March 03 showed WBC 3.0 ANC 800 hemoglobin 13.4 platelet 161,000 Labs from March 10 showed WBC 3.1 hemoglobin 13.6 platelet 83,000 creatinine 1.1 Lab from OSH showed WBC 5.5 hemoglobin 14.6 platelet 131,000 Labs from May 04 showed WBC 9.1 hemoglobin 14.9 platelet 100,000 creatinine 1.2 Labs from June 03 showed WC 3.4 hemoglobin 14.6 platelet 121,000 creatinine 1.3 Labs from January 12 showed WBC 4.9 hemoglobin 15.6 platelet 147,000 creatinine 1.6 CEA is pending Labs from May 26 showed creatinine 1.2 CEA 2.2 WBC 5.3 hemoglobin 15.8 platelet 220,000 Labs from September 02 showed CEA 1.9 WBC 4.3 hemoglobin 14.9 platelet 173,000 Labs from December 30 showed creatinine 1.3 CEA 1.9 total bilirubin 0.4 hemoglobin 10.9 Labs from January 10 showed hemoglobin 11.5 CEA was 1.9 iron 35 saturation 8% and ferritin 5.0 Labs from March 13 showed WBC 4.8 hemoglobin 12.5 platelet 233,000 creatinine 1.1 total bilirubin 0.4iron 39 saturation 11 ferritin 27 Labs from April 03 showed WBC 4.2 hemoglobin 13.7 platelet 160,000 creatinine 1.1 Labs from April 17 showed WBC 3.0 hemoglobin 14 platelet 1 50,000 ANC 1100 creatinine 1.4 GFR 54 Labs from May 01 showed WBC 4.7 hemoglobin 13.8 platelet 1 25,000 creatinine 1.3 Labs from May 16 showed WBC 3.8 hemoglobin 14.3 platelet 144,000 creatinine 1.1 Labs from May 29 showed hemoglobin 13.3 platelet 126,000 WBC 5.1 potassium 3.4 Lab from June 12 showed WBC 3.0 hemoglobin 13.8 platelet 148,000 creatinine 1.0 Labs from June 27 showed WBC 9.6 hemoglobin 13.7 platelet 130,000 creatinine 1.2 Labs from July 24 showed WBC 6.6 hemoglobin 13.6 platelet 178,000 creatinine 1.1 Labs from August 07 showed creatinine 1.1 WBC 8.9 hemoglobin 14.1 platelet 1 77,000 Labs from August 21 showed creatinine 1.0 WBC 7.3 hemoglobin 13.2 platelet 179,000 Labs from September 19 showed WBC 7.3 hemoglobin 14.4 platelet 187,000 Labs from November 15 showed WBC 4.5 hemoglobin 15.5 platelet 174,000 creatinine 1.3 Assessment: Plan: Patient Active Problem List Diagnosis Date Noted Malignant neoplasm of sigmoid colon (CMS/HCC) 09/26/2021 Metastatic colon cancer with liver involvement status post right sided hemicolectomy done on March 06, 2024. Perineural invasion present. No lymphovascular invasion. 4 out of 14 lymph nodes were positive for malignancy. K-benjamin negative with microsatellite stable tumor. Previously he was diagnosed T4 N1 M0 stage IIIB moderately differentiated adenocarcinoma sigmoid colon is status post laparoscopic sigmoid colectomy done on September 03, 2021. Negative for K-benjamin mutation. Microsatellite stable tumor. 1 out of 23 lymph node positive for malignancy. Patient started adjuvant chemotherapy with FOLFOX regimen on October 22, 2021. Completed cycle 12/ with 20% dose reduction on May 04, 2022. Patient is now status post right-sided hemicolectomy done on March 06, 2024. Pathology report reviewed with the patient. Patient started second line chemotherapy with FOLFIRI Avastin regimen on March 30, 2024. Patient received cycle #12 of chemotherapy on September 05, 2024. Dr. Liu decided not to do any resection. Patient started maintenance chemotherapy with 5-FU leucovorin and Avastin on October 18, 2024. He has been complaining of abdominal discomfort and constipation for 3 days. I will order CT chest abdomen and pelvis and add CEA level today. Phone visit in 1 week. He will continue maintenance treatment in the meantime. Chemotherapy-induced diarrhea. Resolved. Chemotherapy-induced neuropathy. Stable. Phone visit in [address] scan today. 11/15/2024 Behzad Johnson MD documented in this encounter Plan of Treatment Upcoming Encounters Date Type Department Care Team (Late st Contact Info) Description 11/23/2024 4:15 PM CDT Telephone Check Up [facility] Oncology and Hematology [place] [id number] [place] [phone] Behzad Johnson MD [address] [facility] [address] [place] [address] Scheduled Orders Name Type Priority Associated Diagnoses Orde r Schedule CT CHEST ABDOMEN PELVIS W CONT Imaging Stat Malignant neoplasm of sigmoid colon (CMS/HCC) Expected: 11/15/2024, Expires: 11/15/2025 CEA Lab Routine Malignant neoplasm of sigmoid colon (CMS/HCC) Expected: 11/15/2024, Expires: 11/15/2025 documented as of this encounter Visit Diagnoses Diagnosis Malignant neoplasm of sigmoid colon (CMS/HCC)- Primary Malignant neoplasm of sigmoid colon documented in this encounter Care Teams Supervisor International Reservations Relationship Specialty Start Date End Date Jesus White MD [address] [facility] [address] [place] [address] PCP - General Internal Medicine 08/15/21 documented as of this encounter
--- OUTSIDE RECORDS SUMMARY | 2024-11-16 17:32 | XMS_ITS | Encounter Summary ---
Author Organization [facility] [employer] [facility] Address [address] [place] [address] Care Team Providers Care Gluer Machine Setup Operator Name Role Phone Jesus White MD Primary Care Provider Encounter Details Date Type Department Care Team (Late st Contact Info) Description 12/30/2021 E-Visit [facility] Oncology and Hematology [place] [address] [place] [address] Jesus White MD [address] [place] [address] Social History Tobacco Use Types Packs/Day Years Used Date Smoking Tobacco: Never Sex and Gender Information Value Date Recorded Sex Assigned at Not on file 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 No / Unsure 12/31/2021 8:30 AM CDT documented as of this encounter Plan of Treatment Upcoming Encounters Date Type Department Care Team (Late Contact Info) Description 11/23/2024 4:15 PM CDT Telephone Check Up [facility] Oncology and Hematology [place] [address] [place] [address] Behzad Johnson MD [address] [place] [address] documented as of this encounter Visit Diagnoses Not on filedocumented in this encounter Care Teams Gluer Machine Setup Operator Relationship Specialty Start Date End Date Jesus White MD [address] [facility] [address] [place] [address] PCP - General Internal Medicine 08/15/21 documented as of this encounter
--- OUTSIDE RECORDS SUMMARY | 2024-11-16 17:32 | XMS_ITS | Encounter Summary ---
Author Organization [facility] Address [address] [place] [address] Care Team Providers Care Livestock Yard Supervisor Name Role Phone Jesus White MD Primary Care Provider [phone] Reason for Visit * Reason Onset Date Comments insurance authorization for STAT procedure 11/16 Encounter Details Date Type Department Care Team (Late Contact Info) Description 11/16/2024 Telephone [facility] Oncology and Hematology 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 documented in this encounter Plan of Treatment Upcoming Encounters Date Type Department Care Team (Late Contact Info) Description 11/23/2024 4:15 PM CDT Telephone Check Up [facility] Oncology and Hematology - [place] [address] [facility] [address] [place] [address] Behzad Johnson MD [address] [facility] [address] [place] [address] documented as of this encounter Visit Diagnoses Not on filedocumented in this encounter Care Teams Livestock Yard Supervisor Relationship Specialty Start Date End Date Jesus White MD [address] [place] [phone] PCP - General Internal Medicine 08/15/21 documented as of this encounter
--- OUTSIDE RECORDS SUMMARY | 2024-11-16 17:32 | XMS_ITS | Encounter Summary ---
Author Organization [facility] Address [address] [place] [address] Care Team Providers Care Dowel Inserting Machine Operator Name Role Phone Jesus White MD Primary Care Provider [phone] Encounter Details Date Type Department Care Team (Late st Contact Info) Description 11/15/[address] 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 Oncology and Hematology - [place] [address] [place] [address] Behzad Johnson MD [facility] [address] [place] [address] documented as of this encounter Procedures Procedure Name Priority Date/Time Associated Diagnosis Comments BASIC METABOLIC PANEL Routine 11/15/2024 11:25 AM CDT documented in this encounter Results * BASIC METABOLIC PANEL (11/15/2024 11:25 AM CDT) Blood us Behzad Johnson MD CHEMISTRY ORDERABLES Final Resu lt documented in this encounter Visit Diagnoses Not on filedocumented in this encounter Care Teams Dowel Inserting Machine Operator Relationship Specialty Start Date End Date Jesus White MD [address] [facility] [address] [place] [phone] PCP - General Internal Medicine 08/15/21 documented as of this encounter
--- OUTSIDE RECORDS SUMMARY | 2024-11-16 17:32 | XMS_ITS | Encounter Summary ---
Author Organization [facility] [employer] [facility] Address [address] [place] [address] Care Team Providers Care Cupola Charger Name Role Phone Jesus White MD Primary Care Provider Encounter Details Date Type Department Care Team (Late Contact Info) Description 12/31/2021 [facility] Oncology and Hematology - [place] [address] [place] [address] Jesus White MD [address] [place] [address] Social History Tobacco Use Types Packs/Day Years Used Date Smoking Tobacco: Never Sex and Gender Information Value Date Recorded Sex Assigned at Not on file 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 Gender Identity Not on file Sexual [...] 11/23/2024 4:15 PM CDT Telephone Check Up [facility] Oncology and Hematology [facility] [address] [place] [address] Behzad Johnson MD [address] [facility] [address] [place] [address] documented as of this encounter Visit Diagnoses Not on filedocumented in this encounter Care Teams Cupola Charger Relationship Specialty Start Date End Date Jesus White MD [address] [address] PCP - General Internal Medicine 08/15/21 documented as of this encounter
--- OUTSIDE RECORDS SUMMARY | 2024-11-16 17:32 | XMS_ITS | Clinical Summary ---
Author Organization [facility] Henok efrem [facility] Address [address] [address] Care Team Providers Care Telecommunications Consultant Name Role Phone Jesus White MD Primary Care Provider [phone] Allergies No known active allergies Medications megestroL (MEGACE) 400 mg/10 mL (40 mg/mL) suspension Take 10 mL (400 mg) by mouth daily. 240 mL 1 12/26/19 22 Active lidocaine-diph enhydramin-Al- magnesium-almita thicone (FIRST-MOUTHWA SH) 28-197-233-40 mg/30mL Mouthwash SWISH AND SWALLOW/SPIT 1 TO 2 TEASPOONFULS EVERY 6 TO 8 HOURS NEEDED 12/09/19 22 Active loperamide (IMODIUM) 2 mg Tablet 12/26/19 22 Active potassium chloride (MICRO-K EXTENCAPS) 10 mEq Extended Release capsule TAKE 2 CAPSULES BY MOUTH ONCE DAILY 12/29/19 22 Active DIPHENOXYLATE- ATROPINE 2.5-0.025 mg tablet TAKE 1 TABLET BY MOUTH 4 TIMES DAILY NEEDED FOR DIARRHEA/LOOSE STOOLS. 30 Tablet 01/21/20 22 Active levothyroxine 88 mcg tablet Take 118 mcg by mouth daily. 11/27/19 23 Active lidocaine-pril ocaine (EMLA) 2.5-2.5 % CreamIndicatio ns:Malignant neoplasm of sigmoid colon (CMS/HCC),Stephanie gnant neoplasm of colon, unspecified part of colon (CMS/HCC) Apply quarter size amount to port site 30 minutes prior to access 30 Gram 1 03/28/20 24 Active Imitrex 50 mg tablet Take 1 tablet by mouth as needed for migraines. If no relief after 2 hours may take additional tablet. Do not exceed 200mg in 24 hour period. 05/11/20 24 Active ondansetron (ZOFRAN ODT) 8 mg Tablet, Rapid Dissolve DISSOLVE 1 TABLET ON TOP OF THE TONGUE THEN SWALLOW WITH SALIVA EVERY 8 HOURS NEEDED FOR NAUSEA OR VOMITING 30 Tablet 08/22/20 24 Active LORazepam (ATIVAN) 0.5 mg tabletIndicati ons:Malignant neoplasm of colon, unspecified part of colon (CMS/HCC) TAKE 1 TABLET BY MOUTH EVERY 8 HOURS NEEDED. DO NOT EXCEED 3 PER 24 HOURS 30 Tablet 10/19/19 25 Active zolpidem (AMBIEN) 5 mg tabletIndicati ons:Insomnia, unspecified type TAKE 1 TABLET BY MOUTH NIGHTLY NEEDED FOR INSOMNIA 30 Tablet 10/19/19 25 Active pegfilgrastim (Neulasta) 6 mg/0.6mL Syringe Inject 0.6 mL (6 mg) by subcutaneous injection 24 hours after every chemotherapy treatment. 0.6 mL 6 10/20/19 25 Active pegfilgrastim (Neulasta) 6 mg/0.6mL Syringe Inject 0.6 mL (6 mg) by subcutaneous injection 24 hours after every chemotherapy treatment. 0.6 mL 6 06/12/20 24 2024 Discontinued(R eorder) LORazepam (ATIVAN) 0.5 mg tabletIndicati ons:Malignant neoplasm of colon, unspecified part of colon (CMS/HCC) TAKE 1 TABLET BY MOUTH EVERY 8 HOURS NEEDED . DO NOT EXCEED 3 PER 24 HOURS 30 Tablet 09/05/20 24 2024 Discontinued zolpidem (AMBIEN) 5 mg tabletIndicati ons:Insomnia, unspecified type TAKE 1 TABLET BY MOUTH NIGHTLY NEEDED FOR INSOMNIA 30 Tablet 09/12/19 25 2024 Discontinued Active Problems Problem Noted Date Diagnosed Date Malignant neoplasm of sigmoid colon 09/26/2021 Resolved Problems Problem Noted Date Diagnosed Date Resolved Date Colonic mass 08/15/2021 09/26/2021 Encounters Date Type Department Care Team Description 11/16/2024 Telephone [facility] Oncology and Hematology - [place] [address] [place] [phone] Behzad Johnson MD insurance authorization for STAT procedure 11/15/2024 8:30 AM CDT Office Visit [facility] Oncology and Hematology [facility] [address] [place] [address] Behzad Johnson MD Malignant neoplasm of sigmoid colon (CMS/HCC) (Primary Dx) 11/15/2024 Orders Only [facility] Oncology and Hematology [facility] [address] [place] [address] Behzad Johnson MD 11/13/2024 Orders Only [facility] Oncology and Hematology [facility] [address] [place] [address] Behzad Johnson MD Malignant neoplasm of sigmoid colon (CMS/HCC) 11/11/2024 External Device Data STL ABSTRACTION Provider, Abstract 11/10/2024 External Device Data STL ABSTRACTION Provider, Abstract 11/10/2024 Telephone [facility] Oncology and Hematology [facility] [address] [place] [address] Behzad Johnosn MD Neupogen Injection 11/07/2024 External Device Data STL ABSTRACTION Provider, Abstract 11/07/2024 Orders Only [facility] Oncology and Hematology [place] [address] [place] [address] Behzad Johnson MD 11/06/2024 Orders Only [facility] Oncology and Hematology [place] [address] [place] [address] Behzad Johnson MD Malignant neoplasm of sigmoid colon (CMS/HCC) 10/30/2024 Orders Only [facility] Oncology and Hematology [facility] [address] [place] [address] Behzad Johnson MD Malignant neoplasm of sigmoid colon (CMS/HCC) 10/25/2024 External Device Data STL ABSTRACTION Provider, Abstract 10/24/2024 External Device Data STL ABSTRACTION Provider, Abstract 10/23/2024 Orders Only [facility] Oncology and Hematology - [place] [address] Behzad Johnson MD Malignant neoplasm of sigmoid colon (CMS/HCC) 10/20/2024 Refill [facility] Oncology and Hematology - [place] [address] [place] [address] Behzad Johnson MD 10/20/2024 Abstract [facility] Oncology and Hematology - [place] [address] [place] [phone] Behzad Johnson MD 10/18/2024 Refill [facility] Oncology and Hematology - [place] [address] [place] [phone] Jaymie Ibarra MD Malignant neoplasm of colon, unspecified part of colon (CMS/HCC); Insomnia, unspecified type 10/16/2024 Telephone [facility] Oncology and Hematology - [place] [address] [place] [address] Behzad Johnson MD Urgent Care Visit follow up 10/16/2024 Orders Only [facility] Oncology and Hematology - [place] [address] [place] [address] Behzad Johnson MD Malignant neoplasm of sigmoid colon (CMS/HCC) 10/13/2024 Telephone [facility] Oncology and Hematology - [place] [address] [place] [address] Behzad Johnson MD Advice Only 10/09/2024 Orders Only [facility] Oncology and Hematology - [place] [address] [place] [address] Behzad Johnson MD Malignant neoplasm of sigmoid colon (CMS/HCC) 10/02/2024 Orders Only [facility] Oncology and Hematology - [place] [address] [place] [address] Behzad Johnson MD Malignant neoplasm of sigmoid colon (CMS/HCC) 09/27/2024 External Device Data STL ABSTRACTION Provider, Abstract 09/26/2024 External Device Data STL ABSTRACTION Provider, Abstract 09/25/2024 Orders Only [facility] Oncology and Hematology - [place] [address] [place] [phone] Behzad Johnson MD Malignant neoplasm of sigmoid colon (CMS/HCC) 09/20/2024 Orders Only [facility] Oncology and Hematology - [place] [address] Behzad Johnson MD 09/19/2024 4:45 PM CLEARANCE DIVER Telephone Check Up [facility] Oncology and Hematology - [place] [address] [place] [address] Behzad Johnson MD 09/19/2024 Orders Only [facility] Oncology and Hematology - [place] [address] [place] [address] Behzad Johnson MD 09/18/2024 Orders Only [facility] Oncology and Hematology - [place] [address] [place] [address] Behzad Johnson MD Malignant neoplasm of sigmoid colon (CMS/HCC) 09/13/2024 Orders Only [facility] Oncology and Hematology - [place] [address] [place] [address] Behzad Johnson MD 09/11/2024 Orders Only [facility] Oncology and Hematology - [place] [address] [place] [address] Behzad Johnson MD Malignant neoplasm of sigmoid colon (CMS/HCC) 09/09/2024 Refill [facility] Oncology and Hematology - [place] [address] [place] [address] Behzad Johnson MD Insomnia, unspecified type 09/05/2024 Refill [facility] Oncology and Hematology - [place] [address] [place] [phone] Behzad Johnson MD Malignant neoplasm of colon, unspecified part of colon (CMS/HCC) 09/05/2024 Refill [facility] Oncology and Hematology - [place] [address] [place] [address] Behzad Johnson MD Malignant neoplasm of colon, unspecified part of colon (CMS/HCC) 09/04/2024 Orders Only [facility] Oncology and Hematology - [place] [address] [place] [address] Behzad Johnson MD Malignant neoplasm of sigmoid colon (CMS/HCC) 08/30/2024 Refill [facility] Oncology and Hematology [facility] [address] [place] [address] Behzad Johnson MD Malignant neoplasm of colon, unspecified part of colon (CMS/HCC) 08/28/2024 Orders Only [facility] Oncology and Hematology [facility] [address] [place] [address] Behzad Johnson MD Malignant neoplasm of sigmoid colon (CMS/HCC) 08/22/2024 Orders Only [facility] Oncology and Hematology [facility] [address] [place] [address] Behzad Johnson MD 08/22/2024 Refill [facility] Oncology and Hematology [facility] [address] [place] [address] Behzad Johnson MD 08/21/2024 10:15 AM CLEARANCE DIVER Office Visit [facility] Oncology and Hematology [facility] [address] [place] [address] Behzad Johnson MD Malignant neoplasm of sigmoid colon (CMS/HCC) from Last 3 Months Social History Tobacco Use Types Packs/Day Years Used Date Smoking Tobacco: Never Tobacco Cessation:Counseling Given: Not Answered Sex and Gender Information Value Date Recorded Sex Assigned at Not on file Legal Sex Male 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 Gender Identity Not on file Sexual Orientation [...] oz) 11/15/2024 8:25 A M CDT Height 185.4 cm (6' 1 ) 06/03/2022 10:41 AM CDT Body Mass Index 26.41 06/03/2022 10:41 AM CDT Plan of Treatment Upcoming Encounters Date Type Department Care Team (Late st Contact Info) Description 11/23/2024 4:15 PM CDT Telephone Check Up [facility] Oncology and Hematology - [place] [address] [facility] [address] [place] [address] Behzad Johnson MD [address] [facility] [address] [place] [address] Health Maintenance Due Date Last Done Comments Pre-Diabetes and Diabetes Screening 1975 HEPATITIS B VACCINES (1 of 3 - 19+ 3-dose series) 1994 Preventative Visit-Managed Medicaid 06/03/2022 06/02/2021 INFLUENZA VACCINE (#1) 2024 , 07/28/2022, 06/02/2021, Additional history exists COVID-19 Vaccine (2023-2 5 season) 2024 06/30/2023, 02/09/2022, 08/05/2021, Additional history exists DTAP/TDAP/TD VACCINES (2 - T d or Tdap) 03/30/2033 03/30/2023 Procedures Procedure Name Priority Date/Time Associated Diagnosis Comments BASIC METABOLIC PANEL Routine 11/15/2024 11:25 AM CDT COMPREHENSIVE METABOLIC PANEL Routine 11/07/2024 4:14 PM CLEARANCE DIVER CBC WITH DIFFERENTIAL Routine 09/19/2024 3:04 PM CLEARANCE DIVER BASIC METABOLIC PANEL Routine 09/19/2024 2:38 PM CLEARANCE DIVER CEA Routine 09/19/2024 11:09 AM CLEARANCE DIVER COMPREHENSIVE METABOLIC PANEL Routine 09/04/2024 2:33 PM CLEARANCE DIVER COMPREHENSIVE METABOLIC PANEL Routine 08/21/2024 11:57 AM CLEARANCE DIVER CBC WITH DIFFERENTIAL Routine 08/21/2024 11:31 AM CLEARANCE DIVER BASIC METABOLIC PANEL Routine 08/21/2024 11:28 AM CLEARANCE DIVER from Last 3 Months Results * BASIC METABOLIC PANEL (11/15/2024 11:25 AM CDT) Only the most recent of3 resultswithin the time period is included. Blood us Behzad Johnson MD CHEMISTRY ORDERABLES Final Resu lt * COMPREHENSIVE METABOLIC PANEL (11/07/2024 4:14 PM CLEARANCE DIVER) Only the most recent of3 resultswithin the time period is included. Blood us Behzad Johnson MD CHEMISTRY ORDERABLES Final Resu lt * CBC WITH DIFFERENTIAL (09/19/2024 3:04 PM CLEARANCE DIVER) Only the most recent of2 resultswithin the time period is included. Blood us Behzad Johnson MD HEMATOLOGY ORDERABLES Final Res ult * CEA (09/19/2024 11:09 AM CLEARANCE DIVER) Blood us Behzad Johnson MD CHEMISTRY ORDERABLES Final Resu lt from Last 3 Months Insurance [employer] [place] Care Teams Telecommunications Consultant Relationship Specialty Start Date End Date Jesus White MD [address] [facility] [address] [place] [phone] PCP - General Internal Medicine 08/15/21
== END 2024-11-16 16:05 | disposition home or self-care (01) ==
PROVIDERS: PCP Internal Medicine; Visit Provider Internal Medicine Hematology & Oncology
DX: C18.7 Malignant neoplasm of sigmoid colon (principal); K59.00 Constipation, unspecified
CPT/HCPCS: 71260; 74177; Q9967

== ENCOUNTER 2025-01-30 09:53 | Outpatient (CLI) | payer OTHER, SELFPAY ==
--- NOTE | ~2025-01-30 | MR_ITS ---
MRI of the brain Clinical History: Chronic migraine Technique: Axial and sagittal T1-weighted images were acquired. These were followed by axial T2-weigh jeannine, diffusion weighted, gradient, and FLAIR images. Following intravenous administration of 19 cc Pr oHance gadolinium, T1-weighted fat-sat imaging was performed in the axial and coronal planes. Findings: No significant signal abnormality seen in the brain parenchyma. No acute infarct, intracran ial hemorrhage, or mass lesion. Ventricles and subarachnoid spaces are unremarkable. Orbits are unremarkable. Paranasal sinuses and m astoid air cells are clear. Major intracranial flow voids are intact. Sagittal midline structures are intact. No abnormal postcontrast enhancement identified. IMPRESSION: Unremarkable exam. Reviewed, dictated and finalized at location M. IMPRESSION: Unremarkable exam.
--- OUTSIDE RECORDS SUMMARY | 2025-01-30 09:58 | XMS_ITS | Encounter Summary ---
Author Organization [facility] Address [address] [place] [address] Phone Care Team Providers Care Garment Worker Name Role Phone Jesus White MD Primary Care Provider [phone] Brien Dean MD Unavailable [phone] Nunu Mejía MD Unavailable Alcides Segovia MD Unavailable Reason for Visit * Reason Comments Medication Refill Encounter Details Date Type Department Care Team (Late st Contact Info) Description 02/14/2024 Refill [facility] - Endocrinology - [place] [address] [place] [address] Nunu Mejía MD [address] [address] Medication Refill Social History Tobacco [...] AM CDT Medication(s) refilled and signed per [facility] Chronic Medication Refill Standing Order for Pediatric and Adult Patients. documented in this encounter Plan of Treatment Upcoming Encounters Date Type Department Care Team (Late st Contact Info) Description 06/08/2025 1:15 PM CDT Office Visit [facility] - Endocrinology - [place] [address] [place] [address] Nunu Mejía MD [address] [phone] documented as of this encounter Visit Diagnoses Not on filedocumented in this encounter Care Teams Garment Worker Relationship Specialty Start Date End Date Jesus White MD [address] [place], [place] [phone] PCP - General Internal Medicine 06/04/21 Brien Dean MD [address] [phone] Consulting Physician General Surgery 05/15/22 Nunu Mejía MD [address] [address] Consulting Physician Endocrinology 06/26/22 Alcides Segovia MD [address] [place] [address] Consulting Physician Pulmonary Disease 05/17/23 documented as of this encounter
--- OUTSIDE RECORDS SUMMARY | 2025-01-30 09:59 | XMS_ITS | Encounter Summary ---
Author Organization [facility] Address [address] [place] [address] Phone Care Team Providers Care Peoplesoft Business Analyst Name Role Phone Jesus White MD Primary Care Provider [phone] Behzad Johnson MD Unavailable [phone] Russell Goins MD Unavailable [phone] Russell Goins MD Unavailable [phone] Alexa Alaniz MD, William C. Unavailable Venkatesh Liu MD Unavailable [phone] Alexa Alaniz MD, William C. 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 Gender Identity Not on file Sexual [...] on filedocumented in this encounter Care Teams Peoplesoft Business Analyst Relationship Specialty Start Date End Date Jesus White MD [address] [place], [place] [phone] PCP - General 11/13/21 01/17/25 Charo Reaves, АЛЕКСАНДР [address] [facility] [address] [facility] [address] [place] [address] PCP - General Nurse Practitioner 01/18/25 Behzad Johnson MD [address] [facility] [address] [place] [address] Referring Physician Hematology 04/06/24 Russell Goins MD [address] [facility] [address] [place] [address] Medical Oncologist/Hematologis t Medical Oncology 05/23/24 Russell Goins MD [address] [facility] [address] [place] [address] Medical Oncologist/Hematologis t Medical Oncology 07/20/24 Venkatesh Liu Jr., MD [address] [phone] [place] [address] Consulting Physician Colon and Rectal Surgery 07/20/24 07/22/24 Venkatesh Liu MD [address] [facility] [address] [place] [address] Consulting Physician Transplant Surgery 07/20/24 Venkatesh Liu Jr., MD [address] [phone] [place] [address] Consulting Physician Colon and Rectal Surgery 07/23/24 documented as of this encounter
--- OUTSIDE RECORDS SUMMARY | 2025-01-30 09:59 | XMS_ITS | Data Portability ---
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 Plan of Treatment Reminders Order Date Submit Date Provider Last Modified By Organization Details Last Modified Time Details Appointments ANY 15 2024 01:30P M KARI SKINNERP-BC Not available Not available Not available Lab CBC w/ auto diff 2024 025 [facility], [address], [address], 01/05/2025 09:14:39 CMP, serum or plasma 2024 025 [facility], [address], [address], 01/05/2025 09:14:36 lipid panel, serum 2024 025 [facility], [address] [place] [address], [facility], [place], [address], 01/05/2025 09:14:34 HbA1c (hemoglob in A1c), blood 2024 025 [facility], [address] [facility], [facility], [place], [address], 01/05/2025 09:14:37 TSH + free T4, serum 2024 025 [email or web address] [facility], [address] [facility], [facility], [place], [address], 12/26/2024 17:07:37 influenza virus A + B + SARS-CoV- 2 (COVID19) Ag panel, rapid IA, upper respirato ry specimen 2024 025 FAROOQ In-Office Order, Internal Use Only DO Not Attach Compendium DO Not Attach Compendium, Do Not Delete/merge, [id number] 10/16/2024 16:13:43 albumin/c reatinine , mass ratio, urine 2022 023 [facility], 102 [facility], [facility], [place], [address], 08/18/2023 07:15:15 CBC w/ auto diff 2022 023 [facility], [address] [facility], [facility], [place], [address], 08/18/2023 03:08:28 lipid panel, serum 2022 023 [facility], [address] [facility], [facility], [place], [address], 08/18/2023 03:08:26 CMP, serum or plasma 2022 023 [facility], [address] [facility], [facility], [place], [address], 08/18/2023 03:08:27 Referral sleep medicine referral 2022 023 FAROOQ Segovia MD, [address] [facility], [place], [address], 05/17/2023 15:40:44 Procedures None recorded. Surgeries None recorded. Imaging CT, abdomen + pelvis, w/wo contrast 2023 024 [facility] ([facility]) Scheduling, 2 [facility], [place], [address], 01/11/2024 20:16:47 XR, wrist - tendernes s on ulnar side of carpal bones 2022 023 [facility] ([facility]) Scheduling, [address] [place], [address], 04/02/2023 12:11:54 Medication Orders None recorded. Patient TargetsNo targets recorded. Patient Instructions Encounter Date Encounter Id Patient Instructions Last Modified By Organization Details Last Modified Time 03/30/2023 [id number] A healthy lifestyle: care instructions nsuthan Not available 03/30/2023 09:32:16 eating healthy foods: care instructions nsuthan Not available 03/30/2023 09:32:16 ear irrigation/tdap/di et /f/u in 4 month nsuthan Not available 03/30/2023 09:39:58 08/05/2023 [id number] eating healthy foods: care instructions nsuthan Not available 08/05/2023 09:42:49 f/u in 6month nsuthan Not available 09:41:54 01/06/2024 [id number] keep f/u nsuthan Not available 01/05 11:16:04 10/16/2024 [id number] upper respirator y infection (cold): care instructions [email or web address] Not available 10/16/2024 13:09:37 Plan of care has been discussed with patient including expected therapeutic benefits and potential side effects of prescribed medication and treatments. Patient verbalizes understanding and is in agreement with the plan of care. Patient was instructed to keep all scheduled appointments and contact the clinic for any additional problems. [email or web address] Not available 11/11/2024 23:57:22 12/05/2024 [id number] A healthy lifestyle: care instructions Not available 12/05/2024 11:24:31 Plan of care has been discussed with patient including expected therapeutic benefits and potential side effects of prescribed medication and treatments. Patient verbalizes understanding and is in agreement with the plan of care. Patient was instructed to keep all scheduled appointments and contact the clinic for any additional problems. Health Maintenance: - CRC screening (45-75): colonoscopy 2023 - Osteoporosis screening: Due at 65. - Lipid screening (>45 unless additional risk factors): ordered - HIV : declined - HepC: declined -Eye exam: 2023 -Dental Exam: unknown, scheduled - Immunizations: - Influenza: Due. Patient obtained - Prevnar 20: Due at 65. - Tdap/Td ([id number]): 03/30/23 - Zoster (>60):Due at 60. - COVID-19: 06/30/23, 02/09/22, 08/05/21, 01/18/21, 12/25/20 - AAA screening (65-75): Due at 65. - Prostate ca screening (>50 or >45 if AA, +FH; d/w patient): Due at 50. -Labs ordered this visit: annual labs ordered Not available 12/24/2024 12:58:54 Reason for Referral Sleep Medicine Referral for Sleep apnea Referring Physician: Jeremías White, Internal Medicine, Encounter Date: 03/30/2023 Results Created Date Observation Date Name Description Value Unit Range Abnormal Flag Note LastModifiedBy Organization Detail LastModifiedTime 08/17/2008/17/2023 LIPID PANEL cholesterol, total 205 mg/dL 100-19 9 above high normal Not Available [facility] [address] [place], [address], 08/18/2023 03:08:26 08/17/20 23 08/17/2023 LIPID PANEL triglyceride s 82 mg/dL 0-149 Not Available [facility] Department [address] [place], [address], 08/18/2023 03:08:26 08/17/2008/17/2023 LIPID PANEL HDL cholesterol 55 mg/dL 40-999 Not Available [facility] Department [address] [place], [address], 08/18/2023 03:08:26 08/17/20 23 08/17/2023 LIPID PANEL VLDL cholesterol carlos 16 mg/dL 5-40 Not Available [facility] Department [address] [place], [address], 08/18/2023 03:08:26 08/17/20 23 08/17/2023 LIPID PANEL LDL chol calc (nih) 146 mg/dL 0-99 above high normal Not Available [facility] [address] [place], [address], 08/18/2023 03:08:26 08/17/20 23 08/17/2023 COMP. METAB OLIC PANEL (14) glucose 98 mg/dL 70-[address] [facility] [address] [place], [address], 08/18/2023 03:08:27 08/17/20 23 08/17/2023 COMP. METAB OLIC PANEL (14) BUN 19 mg/dL 6-[address] [facility] Department [address] [place] [address], [address], 08/18/2023 03:08:27 08/17/20 23 08/17/2023 COMP. METAB OLIC PANEL (14) creatinine 1.21 mg/dL 0.76-[address] [facility] [address] [place], [address], 08/18/2023 03:08:27 08/17/20 23 08/17/2023 COMP. METAB OLIC PANEL (14) eGFR 74 >=60 Units for eGFR value s are mL/mi n/1.7 3 The eGFR Calcu latio n has not been valid ated for patie nts under the age of 18. If test resul ts are displ ayed for a patie nt under the age of 18, disre flory that value . Not Available [facility] [address] [place], [address], 08/18/2023 03:08:27 08/17/20 23 08/17/2023 COMP. METAB OLIC PANEL (14) BUN/creatini ne ratio 15 9-20 Not Available [facility] Department [address] [place], [address], 08/18/2023 03:08:27 08/17/20 23 08/17/2023 COMP. METAB OLIC PANEL (14) sodium 144 mmol/ L 134-[address] [facility] [address] [place] [address], [address], 08/18/2023 03:08:27 08/17/20 23 08/17/2023 COMP. METAB OLIC PANEL (14) potassium 4.4 mmol/ L 3.5-5. [address] [facility] [address] [place] [address], [address], 08/18/2023 03:08:27 08/17/20 23 08/17/2023 COMP. METAB OLIC PANEL (14) chloride 106 mmol/ L 96-[address] [facility] [address] [place] [address], [address], 08/18/2023 03:08:27 08/17/20 23 08/17/2023 COMP. METAB OLIC PANEL (14) carbon dioxide, total 28 mmol/ L 20-[address] [facility] [address] [place] [address], [address], 08/18/2023 03:08:27 08/17/20 23 08/17/2023 COMP. METAB OLIC PANEL (14) calcium 9.4 mg/dL 8.7-[address] [facility] [address] [place] [address], [address], 08/18/2023 03:08:27 08/17/20 23 08/17/2023 COMP. METAB OLIC PANEL (14) protein, total 6.9 g/dL 6.0-8. [address] [facility] Department [address] [place] [address], [address], 08/18/2023 03:08:27 08/17/20 23 08/17/2023 COMP. METAB OLIC PANEL (14) albumin 4.7 g/dL 4.1-5. [address] [facility] [address] [place] [address], [address], 08/18/2023 03:08:27 08/17/20 23 08/17/2023 COMP. METAB OLIC PANEL (14) globulin, total 2.2 g/dL 1.5-4. [address] [facility] [address] [place], [address], 08/18/2023 03:08:27 08/17/20 23 08/17/2023 COMP. METAB OLIC PANEL (14) A/G ratio 2.0 1.2-2. [address] [facility] [address] [place], [address], 08/18/2023 03:08:27 08/17/20 23 08/17/2023 COMP. METAB OLIC PANEL (14) bilirubin, total 0.5 mg/dL 0.0-1. [address] [facility] [address] [place], [address], 08/18/2023 03:08:27 08/17/20 23 08/17/2023 COMP. METAB OLIC PANEL (14) alkaline phosphatase 92 IU/L 44-121 Not Available [facility] Department [address] [place], [address], 08/18/2023 03:08:27 08/17/20 23 08/17/2023 COMP. METAB OLIC PANEL (14) AST (SGOT) 24 IU/L 0-[address] [facility] Department [address] [place], [address], 08/18/2023 03:08:27 08/17/20 23 08/17/2023 COMP. METAB OLIC PANEL (14) ALT (SGPT) 24 IU/L 0-[address] [facility] [address] [place], [address], 08/18/2023 03:08:27 08/17/20 23 08/17/2023 CBC WITH DIFFE RENTI AL/PL ATELE T WBC 4.7 x10e3 /uL 3.4-[address] [facility] [address] [place], [address], 08/18/2023 03:08:27 08/17/20 23 08/17/2023 CBC WITH DIFFE RENTI AL/PL ATELE T RBC 4.82 x10e6 /uL 4.14-[address] [facility] [address] [place], [address], 08/18/2023 03:08:27 08/17/2008/17/2023 CBC WITH DIFFE RENTI AL/PL ATELE T hemoglobin 14.8 g/dL 13.0-[address] [facility] [address] [place], [address], 08/18/2023 03:08:27 08/17/20 23 08/17/2023 CBC WITH DIFFE RENTI AL/PL ATELE T hematocrit 44.8 % 37.5-[address] [facility] [address] [place], [address], 08/18/2023 03:08:27 08/17/20 23 08/17/2023 CBC WITH DIFFE RENTI AL/PL ATELE T MCV 93 fL 79-[address] [facility] [address] [place], [address], 08/18/2023 03:08:27 08/17/20 23 08/17/2023 CBC WITH DIFFE RENTI AL/PL ATELE T MCH 30.7 pg 26.6-[address] [facility] [address] [place], [address], 08/18/2023 03:08:27 08/17/20 23 08/17/2023 CBC WITH DIFFE RENTI AL/PL ATELE T MCHC 33.0 g/dL 31.5-[address] [facility] [address] [place], [address], 08/18/2023 03:08:27 08/17/20 23 08/17/2023 CBC WITH DIFFE RENTI AL/PL ATELE T RDW 12.5 % 11.5-[address] [facility] [address] [place], [address], 08/18/2023 03:08:27 08/17/20 23 08/17/2023 CBC WITH DIFFE RENTI AL/PL ATELE T platelets 171 x10e3 /uL 150-[address] [facility] [address] [place], [address], 08/18/2023 03:08:27 08/17/20 23 08/17/2023 CBC WITH DIFFE RENTI AL/PL ATELE T neutrophils 60 % notest b. Not Available [facility] [address] [place], [address], 08/18/2023 03:08:27 08/17/20 23 08/17/2023 CBC WITH DIFFE RENTI AL/PL ATELE T lymphs 29 % notest b. Not Available [facility] [address] [place], [address], 08/18/2023 03:08:27 08/17/20 23 08/17/2023 CBC WITH DIFFE RENTI AL/PL ATELE T monocytes 8 % notest b. Not Available [facility] [address] [place], [address], 08/18/2023 03:08:27 08/17/20 23 08/17/2023 CBC WITH DIFFE RENTI AL/PL ATELE T eos 3 % notest b. Not Available [facility] [address] [place], [address], 08/18/2023 03:08:27 08/17/20 23 08/17/2023 CBC WITH DIFFE RENTI AL/PL ATELE T basos 1 % notest b. Not Available [facility] [address] [place], [address], 08/18/2023 03:08:27 08/17/20 23 08/17/2023 CBC WITH DIFFE RENTI AL/PL ATELE T neutrophils (absolute) 2.8 x10e3 /uL 1.4-7. [address] [facility] [address] [place], [address], 08/18/2023 03:08:27 08/17/20 23 08/17/2023 CBC WITH DIFFE RENTI AL/PL ATELE T lymphs (absolute) 1.4 x10e3 /uL 0.7-3. [address] [facility] [address] [place] [address], [address], 08/18/2023 03:08:27 08/17/20 23 08/17/2023 CBC WITH DIFFE RENTI AL/PL ATELE T monocytes(ab solute) 0.4 x10e3 /uL 0.1-0. [address] [facility] [address] [place], [address], 08/18/2023 03:08:27 08/17/20 23 08/17/2023 CBC WITH DIFFE RENTI AL/PL ATELE T eos (absolute) 0.1 x10e3 /uL 0.0-0. [address] [facility] [address] [place], [address], 08/18/2023 03:08:27 08/17/20 23 08/17/2023 CBC WITH DIFFE RENTI AL/PL ATELE T baso (absolute) 0.0 x10e3 /uL 0.0-0. [address] [facility] [address] [place], [address], 08/18/2023 03:08:27 08/17/20 23 08/17/2023 CBC WITH DIFFE RENTI AL/PL ATELE T immature granulocytes 0.2 % notest b. Not Available [facility] [address] [place], [address], 08/18/2023 03:08:27 08/17/20 23 08/17/2023 CBC WITH DIFFE RENTI AL/PL ATELE T immature grans (abs) 0.0 x10e3 /uL 0.0-0. [address] [facility] [address] [place], [address], 08/18/2023 03:08:27 08/17/20 23 08/17/2023 CBC WITH DIFFE RENTI AL/PL ATELE T NRBC 0 % 0-[address] [facility] [address] [place], [address], 08/18/2023 03:08:27 08/17/20 23 08/18/2023 ALBUM IN/CR EATIN INE RATIO ,URIN E creatinine, urine 204.6 mg/dL notest ab. Not Available [facility] [place] [facility] [address] [place], [address], 08/18/2023 07:15:15 08/17/20 23 08/18/2023 ALBUM IN/CR EATIN INE RATIO ,URIN E albumin, urine 4.5 ug/mL notest ab. Not Available [facility] ([facility] [place] [facility] [address] [place], [address], 08/18/2023 07:15:15 08/17/20 23 08/18/2023 ALBUM IN/CR EATIN INE RATIO ,URIN E alb/creat ratio 2 mg/g_ creat 0-29 Lurdes l: 0 - 29 Moder ately incre ased: 30 - 300 Sever kamilla incre ased: >300 Not Available [facility] ([facility] [place] [facility] [address] [facility], [place], [address], 08/18/2023 07:15:15 10/16/19 25 10/16/2024 influ dewayne virus A + B + SARS- CoV-2 (COVI D19) Ag panel , rapid IA, upper respi rator y speci men Flu A negati ve Not Available In-Office Order Internal Use Only DO Not Attach Compendium DO Not Attach Compendium, Do Not Delete/merge, 10/16/2024 13:10:27 10/16/19 25 10/16/2024 influ dewayne virus A + B + SARS- CoV-2 (COVI D19) Ag panel , rapid IA, upper respi rator y speci men Flu B negati ve Not Available In-Office Order Internal Use Only DO Not Attach Compendium DO Not Attach Compendium, Do Not Delete/merge, [id number] 10/16/2024 13:10:27 10/16/19 25 10/16/2024 influ dewayne virus A + B + SARS- CoV-2 (COVI D19) Ag panel , rapid IA, upper respi rator y speci men Rapid SARS CoV 2 Ag, QL IA, respiratory specimen negati ve Not Available In-Office Order Internal Use Only DO Not Attach Compendium DO Not Attach Compendium, Do Not Delete/merge, 10/16/2024 13:10:27 12/06/19 25 01/05/2025 TSH+F REE T4 TSH 6.650 uIU/m L 0.450- 4.500 above high normal Not Available [facility] ([facility] [place] [facility] [address] [place], [address], 01/05/2025 09:14:33 12/06/19 25 01/05/2025 TSH+F REE T4 T4,free(dire ct) 1.62 NG/dL 0.82-1 .77 Not Available [facility] ([facility] [place] [facility] [address] [facility], [place], [address], 01/05/2025 09:14:33 12/06/19 25 01/05/2025 LIPID PANEL cholesterol, total 198 mg/dL 100-19 9 Not Available [facility] ([facility] [place] [facility] [address] [place], [address], 01/05/2025 09:14:34 12/06/19 25 01/05/2025 LIPID PANEL triglyceride s 168 mg/dL 0-149 above high normal Not Available [facility] ([facility] [place] [facility] [address] [place], [address], 01/05/2025 09:14:34 12/06/19 25 01/05/2025 LIPID PANEL HDL cholesterol 50 mg/dL >39 Not Available [facility] [place] [facility] [address] [place], [address], 01/05/2025 09:14:34 12/06/19 25 01/05/2025 LIPID PANEL VLDL cholesterol carlos 30 mg/dL 5-40 Not Available [facility] ([facility] [place] [facility] [address] [place], [address], 01/05/2025 09:14:34 12/06/19 25 01/05/2025 LIPID PANEL LDL chol calc ([facility]) 118 mg/dL 0-99 above high normal Not Available [facility] ([facility] [place] [facility] [address] [place], [address], 01/05/2025 09:14:34 12/06/19 25 01/05/2025 COMP. METAB OLIC PANEL (14) glucose 88 mg/dL 70-99 Not Available [facility] ([facility] [place] [facility] [address] [place], [address], 01/05/2025 09:14:36 12/06/19 25 01/05/2025 COMP. METAB OLIC PANEL (14) BUN 19 mg/dL 6-24 Not Available [facility] ([facility] [place] [facility] [address] [place], [address], 01/05/2025 09:14:36 12/06/19 25 01/05/2025 COMP. METAB OLIC PANEL (14) creatinine 1.04 mg/dL 0.76-1 .27 Not Available [facility] ([facility] [place] [facility] [address] [facility] [place], [address], 01/05/2025 09:14:36 12/06/19 25 01/05/2025 COMP. METAB OLIC PANEL (14) eGFR 88 mL/mi n/1.7 3 >59 Not Available [facility] ([facility] [place] [facility] [address] [facility] [place], [address], 01/05/2025 09:14:36 12/06/19 25 01/05/2025 COMP. METAB OLIC PANEL (14) BUN/creatini ne ratio 18 9-20 Not Available [facility] ([facility] [place] [facility] [address] [facility] [place], [address], 01/05/2025 09:14:36 12/06/19 25 01/05/2025 COMP. METAB OLIC PANEL (14) sodium 141 mmol/ L 134-14 4 Not Available [facility] ([facility] [place] [facility] [address] [facility] [place], [address], 01/05/2025 09:14:36 12/06/19 25 01/05/2025 COMP. METAB OLIC PANEL (14) potassium 4.5 mmol/ L 3.5-5. 2 Not Available [facility] ([facility] [place] [facility] [address] [facility] [place], [address], 01/05/2025 09:14:36 12/06/19 25 01/05/2025 COMP. METAB OLIC PANEL (14) chloride 101 mmol/ L 96-106 Not Available [facility] ([facility] [place] [facility] [address] [facility] [place], [address], 01/05/2025 09:14:36 12/06/19 25 01/05/2025 COMP. METAB OLIC PANEL (14) carbon dioxide, total 24 mmol/ L 20-29 Not Available [facility] ([facility] [place] [facility] [address] [facility], [place], [address], 01/05/2025 09:14:36 12/06/19 25 01/05/2025 COMP. METAB OLIC PANEL (14) calcium 9.7 mg/dL 8.7-10 .2 Not Available [facility] ([facility] [place] [facility] [address] [place], [address], 01/05/2025 09:14:36 12/06/19 25 01/05/2025 COMP. METAB OLIC PANEL (14) protein, total 6.9 g/dL 6.0-8. 5 Not Available [facility] ([facility] [place] [facility] [address] [place], [address], 01/05/2025 09:14:36 12/06/19 25 01/05/2025 COMP. METAB OLIC PANEL (14) albumin 4.5 g/dL 4.1-5. 1 Not Available [facility] ([facility] [place] [facility] [address] [place], [address], 01/05/2025 09:14:36 12/06/19 25 01/05/2025 COMP. METAB OLIC PANEL (14) globulin, total 2.4 g/dL 1.5-4. 5 Not Available [facility] ([facility] [place] [facility] [address] [facility] [place], [address], 01/05/2025 09:14:36 12/06/19 25 01/05/2025 COMP. METAB OLIC PANEL (14) bilirubin, total 0.5 mg/dL 0.0-1. 2 Not Available [facility] ([facility] [place] [facility] [address] [facility] [place], [address], 01/05/2025 09:14:36 12/06/19 25 01/05/2025 COMP. METAB OLIC PANEL (14) alkaline phosphatase 63 IU/L 44-121 Not Available [facility] [place] [place] [facility] [address] [facility] [place], [address], 01/05/2025 09:14:36 12/06/19 25 01/05/2025 COMP. METAB OLIC PANEL (14) AST (SGOT) 24 IU/L 0-40 Not Available [facility] ([facility] [place] [facility] [address] [facility], [place], [address], 01/05/2025 09:14:36 12/06/19 25 01/05/2025 COMP. METAB OLIC PANEL (14) ALT (SGPT) 29 IU/L 0-44 Not Available [facility] ([facility] [place] [place] [facility] [address] [facility], [place], [address], 01/05/2025 09:14:36 12/06/1901/05/2025 HEMOG LOBIN A1C hemoglobin A1C 5.2 % 4.8-5. 6 Predi abete s: 5.7 - 6.4 Diabe sherri: >6.4 Glyce krystian contr ol for adult s with diabe sherri: <7.0 Not Available [facility] ([facility] [place] [place] [facility] [address] [facility], [place], [address], 01/05/2025 09:14:37 12/06/1901/05/2025 CBC WITH DIFFE RENTI AL/PL ATELE T WBC 3.9 x10e3 /uL 3.4-10 .8 Not Available [facility] ([facility] [place] [place] [facility] [address] [place], [address], 01/05/2025 09:14:39 12/06/1901/05/2025 CBC WITH DIFFE RENTI AL/PL ATELE T RBC 4.85 x10e6 /uL 4.14-5 .80 Not Available [facility] ([facility] [place] [place] [facility] [address] [place], [address], 01/05/2025 09:14:39 12/06/19 25 01/05/2025 CBC WITH DIFFE RENTI AL/PL ATELE T hemoglobin 15.2 g/dL 13.0-1 7.7 Not Available [facility] ([facility] [place] [place] [facility] [address] [facility], [place], [address], 01/05/2025 09:14:39 12/06/1901/05/2025 CBC WITH DIFFE RENTI AL/PL ATELE T hematocrit 46.2 % 37.5-5 1.0 Not Available [facility] ([facility] [place] [place] [facility] [address] [facility], [place], [address], 01/05/2025 09:14:39 12/06/1901/05/2025 CBC WITH DIFFE RENTI AL/PL ATELE T MCV 95 fL 79-97 Not Available [facility] ([facility] [place] [place] [facility] [address] [facility], [place], [address], 01/05/2025 09:14:39 12/06/19 25 01/05/2025 CBC WITH DIFFE RENTI AL/PL ATELE T MCH 31.3 pg 26.6-3 3.0 Not Available [facility] ([facility] [place] [place] [facility] [address] [facility], [place], [address], 01/05/2025 09:14:39 12/06/1901/05/2025 CBC WITH DIFFE RENTI AL/PL ATELE T MCHC 32.9 g/dL 31.5-3 5.7 Not Available [facility] ([facility] [place] [facility] [address] [facility], [place], [address], 01/05/2025 09:14:39 12/06/1901/05/2025 CBC WITH DIFFE RENTI AL/PL ATELE T RDW 14.3 % 11.6-1 5.4 Not Available [facility] ([facility] [place] [facility] [address] [place], [address], 01/05/2025 09:14:39 12/06/19 25 01/05/2025 CBC WITH DIFFE RENTI AL/PL ATELE T platelets 149 x10e3 /uL 150-45 0 below low normal Not Available [facility] ([facility] [place] [place] [facility] [address] [facility], [place], [address], 01/05/2025 09:14:39 12/06/1901/05/2025 CBC WITH DIFFE RENTI AL/PL ATELE T neutrophils 41 % notest ab. Not Available [facility] [place] [facility] [address] [facility], [place], [address], 01/05/2025 09:14:39 12/06/19 25 01/05/2025 CBC WITH DIFFE RENTI AL/PL ATELE T lymphs 44 % notest ab. Not Available [facility] [place] [facility] [address] [facility], [place], [address], 01/05/2025 09:14:39 12/06/19 25 01/05/2025 CBC WITH DIFFE RENTI AL/PL ATELE T monocytes 10 % notest ab. Not Available [facility] [place] [place] [place] [facility] [address] [facility], [place], [address], 01/05/2025 09:14:39 12/06/19 25 01/05/2025 CBC WITH DIFFE RENTI AL/PL ATELE T eos 4 % notest ab. Not Available [facility] ([facility] [place] [place] [facility] [address] [facility], [place], [address], 01/05/2025 09:14:39 12/06/1901/05/2025 CBC WITH DIFFE RENTI AL/PL ATELE T basos 1 % notest ab. Not Available [facility] ([facility] [place] [place] [facility] [address] [facility], [place], [address], 01/05/2025 09:14:39 12/06/19 25 01/05/2025 CBC WITH DIFFE RENTI AL/PL ATELE T neutrophils (absolute) 1.6 x10e3 /uL 1.4-7. 0 Not Available [facility] [place] [place] [place] [facility] [address] [facility], [place], [address], 01/05/2025 09:14:39 12/06/19 25 01/05/2025 CBC WITH DIFFE RENTI AL/PL ATELE T lymphs (absolute) 1.7 x10e3 /uL 0.7-3. 1 Not Available [facility] [place] [place] [place] [facility] [address] [facility], [place], [address], 01/05/2025 09:14:39 12/06/1901/05/2025 CBC WITH DIFFE RENTI AL/PL ATELE T monocytes(ab solute) 0.4 x10e3 /uL 0.1-0. 9 Not Available [facility] ([facility] [place] [place] [facility] [address] [facility], [place], [address], 01/05/2025 09:14:39 12/06/1901/05/2025 CBC WITH DIFFE RENTI AL/PL ATELE T eos (absolute) 0.1 x10e3 /uL 0.0-0. 4 Not Available [facility] ([facility] [place] [place] [facility] [address] [facility], [place], [address], 01/05/2025 09:14:39 12/06/1901/05/2025 CBC WITH DIFFE RENTI AL/PL ATELE T baso (absolute) 0.0 x10e3 /uL 0.0-0. 2 Not Available [facility] ([facility] [place] [place] [facility] [address] [facility], [place], [address], 01/05/2025 09:14:39 12/06/1901/05/2025 CBC WITH DIFFE RENTI AL/PL ATELE T immature granulocytes 0 % notest ab. Not Available [facility] ([facility] [place] [place] [facility] [address] [facility], [place], [address], 01/05/2025 09:14:39 12/06/19 25 01/05/2025 CBC WITH DIFFE RENTI AL/PL ATELE T immature grans (abs) 0.0 x10e3 /uL 0.0-0. 1 Not Available [facility] ([facility] [place] [place] [facility] [address], [place], [address], 01/05/2025 09:14:39 12/08/19 25 12/07/2024 Thyro xine (T4) free [Mass /volu me] in Serum or Plasm a thyroxine (T4) free [mass/volume ] in serum or plasma 1.2 NG/dL low: 0.7NG/ dLhigh : 1.9NG/ dL T4 FREE 1.2 0.7 - 1.9 ng/dL 12/07 11:48 AM CDT [facility] Not Available Not Available 01/04/2025 10:34:02 12/08/19 25 12/07/2024 Thyro xine (T4) free [Mass /volu me] in Serum or Plasm a interpretati on and review of laboratory results Normal Not Available Not Available 09/2024 10:34:02 12/08/19 25 12/07/2024 Thyro tropi n [Unit s/vol ume] in Serum or Plasm a thyrotropin [units/volum e] in serum or plasma 3.376 text: 0.300 - 5.000 mIU/L TSH 3.376 0.300 - 5.000 mIU/L 12/07 11:48 AM CDT [facility] Not Available Not Available 01/04/2025 10:34:02 12/08/19 25 12/07/2024 Thyro tropi n [Unit s/vol ume] in Serum or Plasm a interpretati on and review of laboratory results Normal Not Available Not Available 09/2024 10:34:02 04/02/20 23 03/31/2023 XR, wrist No observ ation record ed. [facility] [address] [place], [address], 04/14/2023 16:39:56 09/03/20 23 09/02/2023 CT, abdom en, w/ contr ast No observ ation record ed. [facility] [address], [place], [address], 09/09/2023 10:54:50 09/03/20 23 09/02/2023 CT, abdom en + pelvi s, w/ contr ast No observ ation record ed. [address], [place], [address], 09/09/2023 10:55:36 01/11/20 24 01/11/2024 CT, abdom en + pelvi s, w/wo contr ast No observ ation record ed. [address], [address], 01/13/2024 13:52:40 01/12/20 24 01/11/2024 XR, abdom en + pelvi s No observ ation record ed. [address], [place], [address], 01/13/2024 14:21:04 01/13/20 24 01/12/2024 XR, abdom en + pelvi s No observ ation record ed. [address], [place], [address], 01/17/2024 08:59:20 01/27/20 24 01/26/2024 NM, bone scan, whole body No observ ation record ed. [address], [place], [address], 01/27/2024 15:49:40 03/06/20 24 03/06/2024 RF, stepan nce No observ ation record ed. [address], [place], [address], 03/07/2024 12:16:14 03/27/20 24 03/27/2024 XR, sergo catho gram No observ ation record ed. [address], [place], [address], 03/28/2024 10:07:53 04/03/20 24 03/30/2024 PET, limit ed No observ ation record ed. [place] [id number] [facility] [address], [place], [address], 04/04/2024 10:42:09 06/21/20 24 06/20/2024 CT, abdom en + pelvi s, w/ contr ast No observ ation record ed. [place] [id number] [facility] [address], [place], [address], 06/22/2024 10:15:20 11/17/19 25 11/16/2024 CT, abdom en + pelvi s, w/wo contr ast No observ ation record ed. [place] [id number] [facility] [address], [place], [address], 11/17/2024 09:08:48 Result Notes None recorded. Problems Name Problem SNOMED Code Status Onset Date Resolution Date Notes Provider Name and Address Organization Details Recorded Time Sleep apnea 71746389 Active [address]Ahmad Jesus White MD Attn: Karin marte,[address] [facility], [place], [address], [place] - [facility] 3 09:42:53 Anemia 913374408 Active 2020 with positive fecal occult blood-re ferred to GI/weakl y positive celiac disease- EGD 07/2021- ok-refer red to hematolo gist for iron transfus ion Jesus White MD Attn: Karin marte,[address] [facility], [place], [address], [place] [facility] 1 13:19:53 Thyroid stimulat ing hormone level above referenc e range 745361509 Active 2020 -TPO antibody -positiv e Jesus White MD Attn: Karin marte,[address] [facility], [place], [address], [place] [facility] 2 11:12:30 Occult blood detected in feces 23407796 Completed 202011/04/2021 seeing GI/malig nant looking, obstruct ing colonic mass on colonosc opy ( incomple te) -going for CT Jesus White MD Attn: Karin marte,[address] [facility], [place], [address], [place] [facility] 2 09:43:13 Renal impairme nt 137359183 Active 2020 Jesus White MD Attn: Karin g,[address], [place], [address], [place] [facility] 1 11:31:31 Primary adenocar cinoma of descendi ng colon 60439851801 9102 Active 2020 lap hemicole ctomy 08/2021 and chemo-la [address] colonosc opy 09/2022- rpeat colonosc opy in 3 yrs Jesus White MD Attn: Karin marte,[address] [facility], [place], [address], [place] [facility] 3 14:38:28 Thyroid nodule 251758793 Active 2021 Us 11/2021-s ees endo -s/p FNA which is indeterm ine -s/p partial thyroide ctomy of R/lobe 05/28 Jesus White MD Attn: Karin marte,[address] [facility], [place], [address], [place] [facility] 2 08:27:59 Lipoma of skin 735758210 Active 2021 on chest -us showed lipoma Jesus White MD Attn: Karin g,[address] [facility], [place], [address], [place] [facility] 2 11:12:30 Hypothyr oidism 85643387 Active 2022 with h/o partial thyroide ctomy 05/28-see s endo Jesus White MD Attn: Karin marte,[address] [facility], [place], [address], [place] [facility] 3 09:14:46 Thromboc ytopenic disorder 411003192 Active 2022 due to chemo - pt sees heme Jesus White MD Attn: Karin marte,[address] [facility], [place], [address], [place] [facility] 3 08:55:39 Pain of right wrist 68729489452 9100 Active 2022 xray -positiv e ulnar variance -sees ortho Jesus White MD Attn: Karin marte,[address] [facility], [place], [address] [facility] 3 09:50:32 Ileal ulcer 60672590 Active 2023 -s/p colonosc opy 01/2024 -bx results pending Jesus White MD Attn: Karin marte,[address] [facility], [place], [address], [place] [facility] 4 09:14:55 Problem Notes None recorded. Procedures Surgical History Date Name Laterality Status Provider Name and Address Organization Details Recorded Time 4 colonoscopy completed ROCKY Godoy [place] - [place] 02/02/2024 13:14:09 3 Cerumen Removal completed Jesus White MD Attn: Accounting,[address] [facility], [place], [address], [place] [facility] 03/30/2023 14:02:23 2 lobectomy of thyroid gland completed Haydee Benedict [place] - [facility] 09/23/2022 14:30:53 2 Other completed WAYLON Snyder [facility] 11/04/2021 09:40:56 1 Other completed WAYLON Snyder [facility] 11/04/2021 09:40:03 1 Colonoscopy with biopsy completed WAYLON Snyder [facility] 11/04/2021 09:41:24 1 endoscopy completed WAYLON Snyder [facility] 11/04/2021 09:41:39 Imaging Results None recorded. Procedure Notes None recorded. Medical Equipment None [...] 2PM, AND 11PM THE DAY BEFORE SURGERY 12/05 completed Not Available Not Available Not Available ciproflox acin 500 mg tablet TAKE [...] Heart rate Respiratory rate Body temperature Systolic And Diastolic Provider Name and Address Organization Details Last Updated DateTime 5 185.42 cm 28.1 kg/m2 66727.8 2 g 98 % 98 % 85 /min 16 /min 97.3 [degF] 151/87 mm[Hg] Haydee Benedict MA [facility] 5 12:23:13 Date Recorded Body height Body mass index (BMI) Body weight Oxygen saturation Oxygen saturation in Arterial blood by Pulse oximetry Heart rate Respiratory rate Body temperature Systolic And Diastolic Provider Name and Address Organization Details Last Updated DateTime 5 185.42 cm 27.8 kg/m2 33941.5 5 g 98 % 98 % 82 /min 16 /min 97.3 [degF] 126/85 mm[Hg] Haydee Benedict MA [facility] 5 11:13:08 Date Recorded Body height Body mass index (BMI) Body weight Heart rate Respiratory rate Body temperature Oxygen saturation Oxygen saturation in Arterial blood by Pulse oximetry Systolic And Diastolic Provider Name and Address Organization Details Last Updated DateTime 4 185.42 cm 28.1 kg/m2 23616.1 g 61 /min 12 /min 98.7 [degF] 97 % 97 % 125/77 mm[Hg] Haydee Benedict MA [facility] 4 10:49:33 Date Recorded Body height Body mass index (BMI) Body weight Heart rate Respiratory rate Body temperature Oxygen saturation Oxygen saturation in Arterial blood by Pulse oximetry Systolic And Diastolic Provider Name and Address Organization Details Last Updated DateTime 3 185.42 cm 30.3 kg/m2 577678. 25 g 59 /min 12 /min 97.5 [degF] 96 % 96 % 126/76 mm[Hg] Haydee Benedict [place] - [facility] 3 09:10:32 Date Recorded Body height Body mass index (BMI) Body weight Heart rate Respiratory rate Body temperature Oxygen saturation Oxygen saturation in Arterial blood by Pulse oximetry Systolic And Diastolic Provider Name and Address Organization Details Last Updated DateTime 3 185.42 cm 28.3 kg/m2 36767.5 6 g 50 /min 12 /min 97.2 [degF] 98 % 98 % 128/82 mm[Hg] Haydee Benedict MA [facility] 09:16:10 Social History Question Answer Notes LastModified by [employer] ion Details LastModified Time Tobacco Smoking Status Never Smoker Haydee WAYLON Benedict, [place] - [facility] 06/02/2021 10:15:39 Are You Blind Or Do You Have Difficulty Seeing? No Glasses Information not available 03/17/2022 What Is Your Level Of Caffeine Consumption? Heavy Coffee, Tea Information not available 06/02/2021 In The 14 Days Before Symptom Onset, Have You Had Close Contact With A Laboratory-confir med COVID-19 While That Case Was Ill? No Information not available 06/02/2021 In The 14 Days Before Symptom Onset, Have You Had Close Contact With A Person Who Is Under Investigation For COVID-19 While That Person Was Ill? No Information not available 06/02/2021 Have You Been To An Area Known To Be High Risk For COVID-19? No Information not available 06/02/2021 Are You Deaf Or Do You Have Serious Difficulty Hearing? No Information not available 06/02/2021 What Type Of Diet Are You Following? REGULAR Information not available 12/05/2024 What Is The Highest Grade Or Level Of School You Have Completed Or The Highest Degree You Have Received? [id number] Information not available 06/02/2021 Are There Any Guns Present In Your Home? No Information not available 06/02/2021 What Was The Date Of Your Most Recent Tobacco Screening? 12/19/2024 Information not available 12/05/2024 What Is Your Relationship Status? Domestic Partner Same Partner For 16 Years Information not available 09/23/2022 Do You Use Your Seat Belt Or Car Seat Routinely? Yes Information not available 06/02/2021 Do You Have Smoke And Carbon Monoxide Detectors In Your Home? Yes Information not available 06/02/2021 Do You Use Sunscreen Routinely? No If Needed Information not available 06/02/2021 Has Tobacco Cessation Counseling Been Provided? No Information not available 03/17/2022 Sex: Male Functional Status Question Answer Note LastModified by Organizat ion Details LastModified Time Do you use any illicit or recreational drugs? No Information not available 06/02/2021 Do you or have you ever used any other forms of tobacco or nicotine? No Information not available 06/02/2021 What is your level of alcohol consumption? None Information not available 06/02/2021 Are you currently employed? Yes Information not available 10/16/2024 Are you able to care for yourself? 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 None Information not available 10/16/2024 Mental Status Question Answer Note LastModified by Organization D etails LastModified Time Do you feel stressed (tense, restless, nervous, or anxious, or unable to sleep at night)? [id number] Information not available 06/02/2021 Family History Relationship Description Onset Age of this Age Resolved Age Notes LastModified by Organization Details LastModified Time Father Hypertensive disorder Not available 2020 10:14:22 Mother Chronic obstructive pulmonary disease Not available 2020 10:14:33 Sister Depressive disorder Not available 2020 10:14:49 Medical History Condition Response Coronary Artery Disease N Other N High Blood Pressure Y Atrial Fibrillation N Kidney or Bladder Problems N Thyroid Problems N GI Problems Y Depression N COPD N Blood Clots N Skin Problems N Anemia N Heart Attack (IA) N Anxiety Disorder Y Diabetes N Muscle, Joint, or Bone Problems N Seizures/Epilepsy N Acid Reflux (GERD) Y Cancer N Stroke N Asthma Y Allergies N High Cholesterol N Hepatitis N Liver Disease N Headaches N Heart Failure N Osteoporosis N Immunizations Vaccine Type Date Status Note Provider Nam e and Address Organization Details Recorded Time COVID-19, mRNA, LNP-S, PF, 30 mcg/0.3 mL dose 1 completed WAYLON [place], [place] [facility] 06/02/2021 10:12:32 COVID-19, mRNA, LNP-S, PF, 30 mcg/0.3 mL dose 1 completed Haydee WAYLON Benedict [place], [place] [facility] 06/02/2021 10:13:07 COVID-19, mRNA, LNP-S, PF, 30 mcg/0.3 mL dose 1 completed Haydee Benedict [place], [place] [facility] 08/11/2021 11:11:32 COVID-19, mRNA, LNP-S, PF, 30 mcg/0.3 mL dose 2 completed Haydee Benedict [place] [facility] 02/10/2022 08:18:22 influenza, unspecified formulation 2 completed Haydee Marichuy WAYLON [place] [facility] 09/23/2022 14:28:43 influenza, unspecified formulation 3 completed Haydeemissy Benedict WAYLON [place] [facility] 05/18/2023 09:21:09 COVID-19, mRNA, LNP-S, PF, 100 mcg/0.5mL dose or 50 mcg/0.25mL dose 3 completed La Nena Fox [place] [facility] 07/02/2023 08:25:34 Influenza, split virus, quadrivalent, preservative 1 completed Haydee Benedict [place] [facility] 06/02/2021 16:31:48 Tdap 3 completed Jesus White MD Attn: Accounting,[address] [place], [address], [place] [facility] 03/30/2023 14:00:04 Past Encounters Encounter ID Performer Location Encounter Start Date Encounter Closed Date Diagnosis/Indication Diagnosis SNOMED-CT Code Diagnosis ICD10 Code Diagnosis Note [id number] Jesus White MD [facility] (Adult Med) [address] [place] [address] 06/02/2021 09:54:02 06/03/2021 09:16:42 Adult health examination 147895386 Z00.00 healthy diet and exercise discussed with pt Obesity 249563318 E66.9 Multiple lumps 764048556 R22.9 on R/lower chest -looks like lipoma-katherine ck us Lightheadedness 10945607 8 R42 on and off Sleep apnea 97494748 G47 .30 Administra tion of influenza vaccine 71987143 Z23 [id number] [facility] [address] [place] [address] 06/17/2021 10:26:02 06/18/2021 08:54:55 Anemia 242809463 D50.9 severe anemia due to iron deficiency - pt to stop all nsaid -counselle d- pt to go to ER if chest pain or sob Thyroid st imulating hormone level above reference range 137343792 R79.89 -monitor TSH Gastric ulcer 336809174 K25.9 due to nsaid -pt to stop nsaid - will give ppi -refer to GI Occult blo od detected in feces 65113922 R19.5 with severe iron deficiency and f/h colon cancer- pt to see GI Renal impairment 5606895 03 N28.9 poaibly due to otc nsaid - pt is extensivel y counselled to stop nsaid Lipoma of skin 833243192 D17.30 on chest -us showed lipoma-pt is reassured -may consider biopsy in future if any change in size [id number] [facility] [address] [place] [address] 07/18/2021 10:15:46 07/21/2021 04:04:26 Anemia 574222715 D50.9 severe anemia due to iron deficiency - pt to stop all nsaid -counselle d- pt to go to ER if chest pain or sobweakly positive celiac ab-may consider hematologi st in future if needed Occult blo od detected in feces 11791062 R19.5 with severe iron deficiency and f/h colon cancer- pt is seeing GI -endoscopy is pending Thyroid st imulating hormone level above reference range 040754292 R79.89 -monitor TSHwill wait to start thyroid pill due to his severe anemia [id number] [facility] [address] [place] [address] 11/04/2021 09:17:55 11/05/2021 09:28:45 Primary adenocarcinoma of descending colon 8075562964 C18.6 -s/p colectomy 08/2021 - seeing onco -pt just started on chemo Anemia 289500312 D50.9 severe anemia due to iron deficiency secondary to colon ca - pt to avoid nsaid -counselle d- improvedwe akly positive celiac ab-pt to d/c iron tab for now Thyroid nodule 101000212 E04.1 -check us Thyroid st imulating hormone level above reference range 841307366 R79.89 -monitor TSHwill wait to start thyroid pill due to his severe anemia [id number] MD Rosario Cathalto (Adult Med) [address] [place] [address] 03/17/2022 10:46:18 03/19/2022 10:19:51 Anemia 900374770 D50.9 severe anemia due to iron deficiency secondary to colon ca -- improvedwe akly positive celiac ab Primary adenocarcinoma of descending colon 3628511212 C18.6 -s/p colectomy 08/2021 - seeing onco -pt started on chemo Thyroid st imulating hormone level above reference range 518590468 R79.89 -monitor TSH Thyroid nodule 159184092 E04.1 -seeing endo -s/p FNA -need repeat fna Overweight 084945284 E66 .3 [id number] MD Rosario Cathalto (Adult Med) [address] [place] [address] 09/23/2022 14:16:33 09/24/2022 16:39:59 Primary adenocarcinoma of descending colon 1636392011 C18.6 -s/p colectomy 08/2021 - seeing onco -pt started on chemo Hypothyroidism 43490043 E03.9 with h/o partial thyroidect rose mary for thyroid nodule - on thyroid pill as per endo Overweight 981443803 E66 .3 Ganglion c yst of right foot 7337176481 998208 M67.471 on R /lateral foot -reassured Adult heal th examination 680525395 Z00.00 healthy diet and exercise discussed with pt Constipation 12658884 K5 9.00 -more fruits and vegetables /good hydration [id number] MD Angy Cat (Adult Med) [address] [place] [address] 03/30/2023 08:55:45 03/31/2023 11:49:40 Hypothyroidism 03628518 E03.9 with h/o partial thyroidect rose mary for thyroid nodule - on thyroid pill as per endo Primary adenocarcinoma of descending colon 6675199271 19102 C18.6 -s/p colectomy 08/2021 - seeing onco -pt started on chemo Sleep apnea 86201272 G47 .30 -pt to go for sleep study Hyperlipidemia 93065925 E78.5 healthy diet and exercise discussed with pt Overweight 266246020 E66 .3 Administra tion of diphtheria, pertussis, and tetanus vaccine 680927346 Z23 Pain of right wrist 3169 853233 43014 M25.531 -check xray with history of injury or sprain Impacted c erumen of bilateral ears 9230321141 623324 H61.23 with hearing loss- s/p ear irrigation and tolerated the procedure well [id number] MD Angy Cat (Adult Med) [address] [place] [address] 08/05/2023 08:59:50 08/06/2023 15:54:07 Hypothyroidism 91426294 E03.9 with h/o partial thyroidect rose mary for thyroid nodule - on thyroid pill as per endo Primary adenocarcinoma of descending colon 4972732916 19102 C18.6 -s/p colectomy 08/2021 - seeing onco -s/p chemo Renal impairment 0518808 03 N28.9 possibly due to otc nsaid - pt is extensivel y counselled to stop nsaid Hyperlipidemia 74385322 E78.5 healthy diet and exercise discussed with pt [id number] MD Angy Cat (Adult Med) [address] [place] [address] 01/06/2024 10:36:31 01/10/2024 08:33:30 Anemia 760656984 D50.9 severe anemia due to iron deficiency secondary to colon ca -- improvedwe akly positive celiac ab Primary adenocarcinoma of descending colon 4702878945 19102 C18.6 -s/p colectomy 08/2021 - seeing onco and has apt on 01/10/24 -s/p chemo Abdominal mass 335398530 R19.03 with dark color stool /anemia- pt had normal ct in 08/28 -check ct with recent change in bowel habit with h/o colon ca [id number] MD Angy Snider (Adult Med) [address] [place] [address] 10/16/2024 11:57:39 11/14/2024 09:05:25 Upper respiratory infection 13294839 J06.9 -Patient presentati on consistent with viral URI-Negati ve for influenza and covid-Brigida ent to follow up with oncologist with current symptoms-P atient to contact clinic if symptoms worsen or do not improve-ER precaution s advised. [id number] MD Angy Snider (Adult Med) [address] [place] [address] 12/05/2024 10:46:28 12/26/2024 14:59:53 Positive screening for depression on PHQ-9 (Patient Health Questionnaire 9) 8907231037 08779 Z13.31 -Managemen t per oncology-P atient reports he has stage 4 cancer and this brings him down.-Brigida ent reports his mood is stable and declined any assistance at this time. Overweight 146250012 E66 .3 TRAVEL RN advised patient to follow a well balanced diet and obtain regular exercise. Informatio nal handout provided. HIV screen ing declined 9753815212 78853 Z53.20 Hypothyroidism 69434903 E03.9 -Managemen t per Endocrinol ogy-Last TSH: 7.023 (06/08/24)- Continue current therapy: levothyrox ine 112mcg daily-Madelyn tor thyroid panel Long-term drug therapy 374435981 Z79.891 Malignant tumor of colon 711492514 C18.9 -Managemen t per oncology-P atient is stable undergoing treatment. Diabetes m ellitus screening 711959327 Z13.1 Hyperlipidemia 91470096 E78.5 -Elevated- No medication therapy-Re check lipid panel-Yasemin bhardwaj LFTs-Kaley nt educated on the importance of diet, exercise and medication in the management of this condition. Recurrent bleeding of nose 6099494428 102 R04.0 -Patient reports he is on Avastin therapy with chemo-Repo rts having intermitte nt nosebleeds as side effect-Rec ommending nasal saline rinse, using humidifier , steam showers-De clined ENT referral Nail changes 766988627 L 60.9 -Patient reports his nail changes are a side effect of chemo-decl ined cardiologi st or dermatolog y referral Health Concerns Section Related Observation LastModified by Organization Detai ls LastModified Time None Recorded Concern Status LastModified by Organization Details LastModified Time None Recorded Advance Directives Directive None Recorded Payers Encounter Date Sequence Insurance Name Policy Number Policy Serrato Covered Member ID Serrato Member ID Guarantor Name 03/30/2023 1 [facility] (MEDICAID HMO) [id number] Musa Towell [id number] Musa Towell 08/05/2023 1 [facility] (MEDICAID HMO) [id number] Musa Towell [id number] Musa Towell 01/06/2024 1 [facility] (MEDICAID HMO) [id number] Musa Towell [id number] Musa Towell 10/16/2024 1 [facility] (MEDICAID HMO) [id number] Musa Towell [id number] Musa Towell 12/05/2024 1 [facility] (MEDICAID HMO) [id number] Musa Towell [id number] Musa Towell Notes Date Note Type Note Provider Name and Address Organization Details Recorded Time 03/30/2023 text/html ThyroidReported bypatient.Duration:sta rted: (partial thyroidectomy 05/2022) Onset/Timing:better Context:history of hypothyroidism Modifying Factors:medication (thyroid pill- taking med as prescribed.) Associated Symptoms:no weight loss; no palpitations; no depression; no fatigue;constipationWr ist/HandReported bypatient.Hand Dominance:right Location:right; ulnar Severity:mild Duration:6 months Associated Symptoms:no weakness; no swelling pt is here for f/u pt was diagnosed with colon cancer -s/p lap colectomy 08/2021 -seeing onco pt is complaining of less hearing for a while , denied ear pain Jesus White MD Attn: Accounting,[address] [place], [address], [facility] 03/30/2023 14:03:55 08/05/2023 text/html ThyroidReported bypatient.Duration:sta rted: (partial thyroidectomy 05/2022) Onset/Timing:better Context:history of hypothyroidism Modifying Factors:medication (thyroid pill- taking med as prescribed.) Associated Symptoms:no weight loss; no palpitations; no depression; no fatigue;constipation pt is here for f/u pt was diagnosed with colon cancer -s/p lap colectomy 08/2021 -seeing oncjuanito White MD Attn: Accounting,[address] [facility], [place], [address], [facility] 08/05/2023 09:50:11 01/06/2024 text/html pt is here for c hange in bowel habit with constipation /feeling tired and also recent lab showed anemia as well /denied abdominal pain -but has noticed dark color stool pt was diagnosed with colon cancer -s/p lap colectomy 08/2021 -seeing oncjuanito White MD Attn: Accounting,[address] [facility], [place], [address], [facility] 01/06/2024 11:35:13 10/16/2024 text/html Patient presents to the clinic with acute complaint of a cough. Patient was established with Dr. Biswas for primary care. Patient's past medical history includes: hypothyroidism, adenocarcinoma of descending colon, DILAN, thyroid nodule, ileal ulcer, anemia, GERD, asthma, and lobectomy of thyroid gland.Other providers:Oncologist: Dr. Johnson at [facility] Cough-Patient reports he started feeling unwell last Wednesday-Patient reports experiencing symptoms of fever, headache, chills, diarrhea, body aches, sinus congestion, productive cough-green/bloody sputum, and increased fatigue-Denies experiencing symptoms of nausea/vomiting-Patien t reports he was around his father and nephew who were also sick.-Patient reports taking sudafed, aspirin, tylenol and vitamins for symptom management. URMILA SKINNER Attn: Accounting,[address] [facility], [place], [address], [facility] 11/11/2024 23:57:59 12/05/2024 text/html Patient presents to the clinic to establish care. Patient was previously established with Dr. Biswas for primary care.Other providers:Dr. Elizabeth-oncologyDr. Tae-endocrinology -Medical Hx/Surgical Hx: Hypothyroidism, adenocarcinoma of descending colon, sleep apnea, thyroid nodule, LDL ulcer, anemia, CKD, thrombocytopenic disorder, anxiety, GERD, asthma, lobectomy of thyroid gland, and small bowel resection. -Family hx:Mother:-chr onic obstructive pulmonary diseaseFather: living-hypertensive disorderMaternal Grandmother: -old age, DMIIMaternal Grandfather: -unknownPatern al Grandmother: -unknownPatern al Grandfather: -unknown -Tobacco/Drug/Alcohol Use:Patient denies history of tobacco or drug use.Reports history of alcohol use socially, but quit using alcohol in 2015. Chicken pox: unsure Marital status: in a correction relationship 16+ yrs Sexually active: yes Occupation: [employer] Highest level of education: Masters Other habits:Exercise- occasionallyDiet- Reg Allergies: SHA ESTEVES-BC Attn: Accounting,[address] [place], [address], [facility] 12/24/2024 13:00:49
--- OUTSIDE RECORDS SUMMARY | 2025-01-30 09:59 | XMS_ITS | Referral Summary ---
Author Organization [facility] Building [address] Address [address] [place] [address] Care Team Providers Care Senior Teradata Developer Name Role Phone Behzad Johnson MD Unavailable [phone] Russell Goins MD Unavailable [phone] Russell Goins MD Unavailable [phone] Venkatesh Liu MD Unavailable [phone] Alexa Alaniz MD, William C. Unavailable Charo Reaves NP Primary Care Provider Encounters Date Type Department Care Team Description 01/17/2025 9:47 AM CDT - 01/18/2025 9:18 AM CDT Hospital Encounter [facility] [address] [place] [address] Venkatesh Liu MD Metastatic colon cancer to liver (HCC) Discharge Disposition: Discharge to home or self care 01/17/2025 12:25 PM CDT - 01/17/2025 4:45 PM CDT Surgery [facility] Operating Room [address] [place] [address] Venkatesh Liu MD XI LIVER RESECTION - LAPAROSCOPIC ROBOTIC ASSISTED, TAP Block 01/17/2025 12:21 PM CDT Anesthesia Event [facility] Operating Room [address] [place] [address] Ivan Castro MD Lewis, Bradley Mitchell, DO 01/04/2025 7:30 AM CDT Pre-Admission Testing [facility] [address] [place] [address] Preoperative testing (Primary Dx) 01/03/2025 9:30 AM CDT Office Visit [facility] Surgery [address] [place] [address] Advanced Medicine 12th [place] [address] [place] [address] Venkatesh Liu MD Malignant 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) (Primary Dx) 01/03/2025 8:04 AM CDT - 01/03/2025 11:59 PM CDT Hospital Encounter [facility] Radiology [facility] ([facility]) [address] [place] [address] Venkatesh Liu MD Adenocarcinoma of ileum (HCC); Malignant 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) Discharge Disposition: Discharge to home or self care from Last 3 Months Allergies No known active allergies Medications omega-3 fatty acids-fish oil 300-1,000 mg capsuleIndica tions:supplem ent Take 2 capsules (2 g total) by mouth daily with dinner Active cyanocobalami n (Vitamin B-12) 100 mcg tabletIndicat ions:Preventi on of Vitamin B12 Deficiency Take 1 tablet (100 mcg total) by mouth certified anesthesiologist assistant before breakfast Active iron suha,feliciano-FA- B-C#12-succ 65 mg-65 mg -1,000 mcg (24) tabletIndicat ions:Iron Deficiency Anemia Take 1 tablet by mouth 3 (three) times a week Active multivitamin with minerals tabletIndicat ions:Mineral Deficiency Prevention,Vi tamin Deficiency Prevention Take 1 tablet by mouth daily with dinner Active LORazepam (ATIVAN) 0.5 mg tabletIndicat ions:anxiety Take 1 tablet (0.5 mg total) by mouth every 8 (eight) hours as needed for anxiety 025 Active SUMAtriptan (IMITREX) 50 mg tabletIndicat ions:Migraine Take 1 tablet (50 mg total) by mouth once as needed for migraine 024 Active zolpidem (AMBIEN) 5 mg tabletIndicat ions:Sleep-On set Insomnia Take 1 tablet (5 mg total) by mouth nightly as needed for sleep 025 Active levothyroxine (SYNTHROID) 112 mcg tabletIndicat ions:hypothyr oidism Take 1 tablet (112 mcg total) by mouth certified anesthesiologist assistant before breakfast 025 Active fluticasone propionate (FLONASE) 50 mcg/actuation nasal sprayIndicati ons:Allergic Rhinitis Administer 1 spray into each nostril daily as needed for rhinitis Active loperamide (IMODIUM A-D) 2 mg tabletIndicat ions:Chemothe rapy-Induced Diarrhea Take 1 tablet (2 mg total) by mouth 4 (four) times a day as needed for diarrhea Active docusate sodium (COLACE) 100 mg capsuleIndica tions:constip ation Take 1 capsule (100 mg total) by mouth 2 (two) times a day as needed for constipation Active aspirin 325 mgIndications :Pain Take 1 tablet (325 mg total) by mouth every 6 (six) hours as needed for pain or headaches Active acetaminophen 500 mg capsuleIndica tions:Pain Take 2 capsules (1,000 mg total) by mouth every 6 (six) hours as needed for pain 025 Active methocarbamoL (ROBAXIN) 500 mg tablet Take 1 tablet (500 mg total) by mouth 3 (three) times a day as needed for muscle spasms 21 tablet 025 Active oxyCODONE (ROXICODONE) 5 mg immediate release tabletIndicat ions:Pain Take 1 tablet (5 mg total) by mouth every 4 (four) hours as needed for pain (breakthrough pain) 20 tablet 025 Active levothyroxine (SYNTHROID) 100 mcg tablet Take 112 mcg by mouth daily 023 2024 Discontinued(A lternate therapy) Neulasta 6 mg/0.6 mL injection Inject 0.6 mL (6 mg total) under the skin as directed INJECT 0.6 ML SUBCUTANEOUSLY 24 HOURS AFTER EVERY CHEMOTHERAPY TREATMENT 025 2024 Discontinued(T herapy completed) oxyCODONE (ROXICODONE) 5 mg immediate release tabletIndicat ions:Pain Take 1 tablet (5 mg total) by mouth every 4 (four) hours as needed for pain (breakthrough pain) 20 tablet 025 2024 Discontinued Active Problems Problem Noted Date Diagnosed Date Metastasis to liver 01/17/2025 Metastatic colon cancer to liver 01/03/2025 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 Malignant neoplasm metastatic [...] Tobacco: Never Tobacco Cessation:Counseling Given: Not Answered AUDIT-C Answer Date Recorded Q1: How often do you have a drink containing alcohol? Never 01/17/2025 Q2: How many drinks containi ng alcohol do you have on a typical day when you are drinking? Patient does not drink Q3: How often do you have si x or more drinks on one occasion? Never 01/17/2025 Personal Safety Answer Date Recorded Have you ever been in or are you currently in a harmful physical or emotional relationship or is someone making you feel afraid or unsafe? 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 Gender Identity Not on file Sexual Orientation Not on file Last Filed Vital Signs Vital Sign Reading Time Taken Comments Blood Pressure 121/80 01/18/2025 8:15 AM CDT Pulse 60 01/18/2025 8:15 AM CDT Temperature 36.5 C (97.7 F) 01/18/2025 8:15 AM CDT Respiratory Rate 17 01/18/2025 8:15 AM CDT Oxygen Saturation 100% 01/18/2025 8:15 AM CDT Inhaled Oxygen Concentration - - Weight 97.9 kg (215 lb 14.4 oz) 01/18/2025 3:28 AM CDT Height 185.4 cm (6' 1 ) 01/17/2025 3:30 PM CDT Body Mass Index 28.48 01/17/2025 3:30 PM CDT Plan of Treatment Not on file Medical Devices Implanted Type Area Multimedia Specialist Device Identifier Shelf Expiration Date Model / Serial / Lot Port Implanted:Qty: 1 Left: Chest Wall Procedures Procedure Name Priority Date/Time Associated Diagnosis Comments EGFR Routine 01/18/2025 5:38 AM CDT PHOSPHORUS Routine 01/18/2025 5:38 AM CDT MAGNESIUM Routine 01/18/2025 5:38 AM CDT PROTIME-INR Routine 01/18/2025 5:38 AM CDT COMPREHENSIVE METABOLIC PANEL Routine 01/18/2025 5:38 AM CDT CBC WITHOUT DIFFERENTIAL Routine 01/18/2025 5:38 AM CDT EGFR STAT 01/17/2025 2:38 PM CDT PROTIME-INR STAT 01/17/2025 2:38 PM CDT PHOSPHORUS STAT 01/17/2025 2:38 PM CDT MAGNESIUM STAT 01/17/2025 2:38 PM CDT COMPREHENSIVE METABOLIC PANEL STAT 01/17/2025 2:38 PM CDT CBC WITHOUT DIFFERENTIAL STAT 01/17/2025 2:38 PM CDT SURGICAL PATHOLOGY Routine 01/17/2025 2: 01 PM CDT Metastatic colon cancer to liver (HCC) PERIPHERAL LINE Routine 01/17/2025 12:54 PM CDT ANESTHESIA ARTERIAL LINE PLACEMENT Routine 01/17/2025 12:54 PM CDT ANESTHESIA INTUBATION Routine 01/17/2025 12:48 PM CDT XI LIVER RESECTION - LAPAROSCOPIC ROBOTIC ASSISTED 01/17/2025 12:20 PM CDT Metastatic colon cancer to liver (HCC) Case Notes 01/16@0947- Per Dr. Lindquist via email approved to start late- DMF 01/16@0943- Email sent to Dr. Lindquist requesting permission for a late start Dr. Liu in clinic in am- DMF 01/09@1434- Per Kayleigh via phone call shorten [address] Liu- DMF 01/09@1403- Per Kayleigh via phone call shorten to 150 mins ctc - DMF 01/05@1335- Case msg sent to Jackie re: case already scheduled for dos and time requested- [facility] B CHECK SAMPLE STAT 01/17/2025 10:20 AM CDT EGFR Routine 01/04/2025 8:41 AM CDT Preoperative testing DIFFERENTIAL AUTO Routine 01/04/2025 8:4 1 AM CDT Preoperative testing COMPREHENSIVE METABOLIC PANEL Routine 01/04/2025 8:41 AM CDT Preoperative testing CBC WITH AUTO DIFFERENTIAL Routine 01/04/2025 8:41 AM CDT Preoperative testing TYPE AND SCREEN 14 DAY Routine 01/04/2025 8:41 AM CDT Preoperative testing PROTIME-INR Routine 01/04/2025 8:41 AM CDT Preoperative testing CPAP APTT ALGORITHM Routine 01/04/2025 8 :41 AM CDT Preoperative testing MRI ABDOMEN LIVER W WO CONTRAST Schedule Routine, Read Routine (OP Routine) 01/03/2025 9:21 AM CDT Adenocarcinoma of ileum (HCC) Malignant 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) from Last 3 Months Results * eGFR (01/18/2025 5:38 AM CDT) eGFR 89 >=60 mL/min/1. 73 m2 Comment: Interpretive Data Reference Interval Normal >/= 90 mL/min/1.73m2 Mildly decreased* 60 - 89 mL/min/1.73m2 Mildly to moderately decreased 45 - 59 mL/min/1.73m2 Moderately to severely decreased 30 - 44 mL/min/1.73m2 Severely decreased 15 - 29 mL/min/1.73m2 Kidney Failure < 15 mL/min/1.73m2 *Relative to young adult level Estimated glomerular filtration rate is determined by the 2020 CKD-EPI equation recommended by the National Kidney Foundation (A Unifying Approach to GFR Estimation: Recommendations of the NKF-ASK Task Force on Reassessing the Inclusion of Race in Diagnosing Kidney Disease, JASN 2020). The CKD-EPI equation should not be used for patients with unstable renal function and has not been validated in children and those over 70. Current interpretive data was last reviewed 2021. Blood 01/18/2025 5:38 AM CDT 01/18/2025 5:54 AM CDT us Venkatesh Liu MD LAB BLOOD ORDERABLE S Final Result [facility] [place] [address] * Protime-INR (01/18/2025 5:38 AM CDT) PT 11.6 9.7 - 13.0 sec INR 1.07 0.90 - 1.20 [facility] Comment: Interpretive data Oral anticoagulant therapeutic ranges: Venous thromboembolism prophylaxis or treatment: 2.0-3.0 CARDIOLOGY Standard range: 2.0-3.0 High-intensity range: 2.5-3.5 Refer to indication-specific guidelines for appropriate target ranges for prosthetic heart valve replacement. Current interpretive data was last revised on 2019. Blood 01/18/2025 5:38 AM CDT 01/18/2025 5:57 AM CDT Venkatesh Liu MD LAB BLOOD ORDERABLE S Final Result Performing Organization Address [facility] de Phone Number [facility] [place] [address] * CBC without differential (01/18/2025 5:38 AM CDT) Pathologist [facility] WBC 7.76 3.80 - 9.90 K/cumm Hgb 14.6 13.0 - 17.5 g/dL [facility] Hct 42.4 38.9 - 50.3 % [facility] Plt 150 150 - 400 K/cumm [facility] MPV 10.4 9.1 - 12.3 fL [facility] RBC 4.58 4.30 - 5.80 M/cumm [facility] MCV 92.6 81.3 - 96.4 fL [facility] MCH 31.9 27.1 - 33.3 pg [facility] MCHC 34.4 32.3 - 35.7 g/dL [facility] RDW CV 14.4 11.1 - 14.9 % [facility] RDW SD 47.8 35.7 - 48.1 fL [facility] NRBC abs 0.00 0.00 - 0.01 K/cumm [facility] Blood 01/18/2025 5:38 AM CDT 01/18/2025 5:59 AM CDT Venkatesh Liu MD LAB BLOOD ORDERABLE S Final Result Performing Organization Address City/[facility] Co de Phone Number [facility] [place] [address] * (ABNORMAL) Phosphorus (01/18/2025 5:38 AM CDT) Pathologist [facility] Phosphorus, pl 4.7(H) 2.3 - 4.5 mg/dL Blood 01/18/2025 5:38 AM CDT 01/18/2025 5:54 AM CDT Venkatesh Liu MD LAB BLOOD ORDERABLE S Final Result [facility] [place] [address] * Magnesium (01/18/2025 5:38 AM CDT) Pathologist [facility] Magnesium 2.3 1.4 - 2.5 mg/dL Blood 01/18/2025 5:38 AM CDT 01/18/2025 5:54 AM CDT Venkatesh Liu MD LAB BLOOD ORDERABLE S Final Result Performing Organization Address [facility] Co de Phone Number [facility] [place] [address] * (ABNORMAL) Comprehensive metabolic panel (01/18/2025 5:38 AM CDT) [facility] Sodium 141 135 - 145 mmol/L Potassium, pl 4.3 3.3 - 4.9 mmol/L [facility] Chloride 105 97 - 110 mmol/L [facility] CO2 25 22 - 32 mmol/L [facility] Anion gap 11 2 - 15 mmol/L [facility] BUN 12 6 - 25 mg/dL [facility] Creatinine 1.03 0.80 - 1.30 mg/dL [facility] Glucose 132 70 - 199 mg/dL [facility] Comment: Interpretive Data Fasting glucose >/= 126 mg/dl is diagnostic for diabetes. Fasting is defined as no caloric intake for at least 8 hours. Fasting glucose between 100 mg/dl to 125 mg/dl is diagnostic of prediabetes. In a patient with classic symptoms of hyperglycemia or hyperglycemic crisis, a random glucose >/= 200 mg/dl is diagnostic for diabetes. In the absence of unequivocal hyperglycemia, results should be confirmed by repeat testing. The classification and Diagnosis of Diabetes Diabetes Care 202; 46: S19-S40. Current interpretive data was last revised 2022. Calcium 9.4 8.5 - 10.3 mg/dL [facility] Bilirubin, total 0.7 0.1 - 1.2 mg/dL [facility] Protein, pl 6.8 6.5 - 8.5 g/dL [facility] Albumin 4.1 3.5 - 5.0 g/dL [facility] Alk phos 61 40 - 130 Units/L [facility] ALT 78(H) 7 - 55 Units/L [facility] AST 67(H) 10 - 50 Units/L [facility] Blood 01/18/2025 5:38 AM CDT 01/18/2025 5:54 AM CDT us Venkatesh Liu MD LAB BLOOD ORDERABLE S Final Result [facility] [place] [address] * eGFR (01/17/2025 2:38 PM CDT) eGFR 77 >=60 mL/min/1. 73 m2 Comment: Interpretive Data Reference Interval Normal >/= 90 mL/min/1.73m2 Mildly decreased* 60 - 89 mL/min/1.73m2 Mildly to moderately decreased 45 - 59 mL/min/1.73m2 Moderately to severely decreased 30 - 44 mL/min/1.73m2 Severely decreased 15 - 29 mL/min/1.73m2 Kidney Failure < 15 mL/min/1.73m2 *Relative to young adult level Estimated glomerular filtration rate is determined by the 2020 CKD-EPI equation recommended by the National Kidney Foundation (A Unifying Approach to GFR Estimation: Recommendations of the NKF-ASK Task Force on Reassessing the Inclusion of Race in Diagnosing Kidney Disease, JASN 2020). The CKD-EPI equation should not be used for patients with unstable renal function and has not been validated in children and those over 70. Current interpretive data was last reviewed 2021. Blood 01/17/2025 2:38 PM CDT 01/17/2025 3:00 PM CDT Venkatesh Liu MD LAB BLOOD ORDERABLE S Final Result Performing Organization Address [facility] de Phone Number [facility] [place] [address] * Protime-INR (01/17/2025 2:38 PM CDT) [facility] PT 11.7 9.7 - 13.0 sec INR 1.08 0.90 - 1.20 [facility] Comment: Interpretive data Oral anticoagulant therapeutic ranges: Venous thromboembolism prophylaxis or treatment: 2.0-3.0 CARDIOLOGY Standard range: 2.0-3.0 High-intensity range: 2.5-3.5 Refer to indication-specific guidelines for appropriate target ranges for prosthetic heart valve replacement. Current interpretive data was last revised on 2019. Blood 01/17/2025 2:38 PM CDT 01/17/2025 2:47 PM CDT Venkatesh Liu MD LAB BLOOD ORDERABLE S Final Result Performing Organization Address [facility] de Phone Number [facility] Department [place] [address] * (ABNORMAL) CBC without differential (01/17/2025 2:38 PM CDT) [facility] WBC 3.71(L) 3.80 - 9.90 K/cumm Hgb 14.4 13.0 - 17.5 g/dL [facility] Hct 41.2 38.9 - 50.3 % [facility] Plt 148(L) 150 - 400 K/cumm [facility] MPV 9.7 9.1 - 12.3 fL [facility] RBC 4.53 4.30 - 5.80 M/cumm [facility] MCV 90.9 81.3 - 96.4 fL [facility] MCH 31.8 27.1 - 33.3 pg [facility] MCHC 35.0 32.3 - 35.7 g/dL [facility] RDW CV 14.4 11.1 - 14.9 % [facility] RDW SD 47.8 35.7 - 48.1 fL [facility] NRBC abs 0.00 0.00 - 0.01 K/cumm [facility] Blood 01/17/2025 2:38 PM CDT 01/17/2025 3:00 PM CDT Venkatesh Liu MD LAB BLOOD ORDERABLE S Final Result Performing Organization Address City/[facility]/ZIP Co de Phone Number [facility] [place] [address] * Phosphorus (01/17/2025 2:38 PM CDT) Pathologist [facility] Phosphorus, pl 4.5 2.3 - 4.5 mg/dL Blood 01/17/2025 2:38 PM CDT 01/17/2025 3:00 PM CDT Venkatesh Liu MD LAB BLOOD ORDERABLE S Final Result Performing Organization Address City/[facility] Co de Phone Number [facility] [place] [address] * (ABNORMAL) Magnesium (01/17/2025 2:38 PM CDT) [facility] Magnesium 2.7(H) 1.4 - 2.5 mg/dL Blood 01/17/2025 2:38 PM CDT 01/17/2025 3:00 PM CDT Venkatesh Liu MD LAB BLOOD ORDERABLE S Final Result Performing Organization Address City/[facility] Co de Phone Number [facility] [place] [address] * (ABNORMAL) Comprehensive metabolic panel (01/17/2025 2:38 PM CDT) Pathologist [facility] Sodium 142 135 - 145 mmol/L Potassium, pl 4.1 3.3 - 4.9 mmol/L [facility] Chloride 105 97 - 110 mmol/L [facility] CO2 25 22 - 32 mmol/L [facility] Anion gap 12 2 - 15 mmol/L [facility] BUN 20 6 - 25 mg/dL [facility] Creatinine 1.16 0.80 - 1.30 mg/dL [facility] Glucose 118 70 - 199 mg/dL [facility] Comment: Interpretive Data Fasting glucose >/= 126 mg/dl is diagnostic for diabetes. Fasting is defined as no caloric intake for at least 8 hours. Fasting glucose between 100 mg/dl to 125 mg/dl is diagnostic of prediabetes. In a patient with classic symptoms of hyperglycemia or hyperglycemic crisis, a random glucose >/= 200 mg/dl is diagnostic for diabetes. In the absence of unequivocal hyperglycemia, results should be confirmed by repeat testing. The classification and Diagnosis of Diabetes Diabetes Care 2021; 46: S19-S40. Current interpretive data was last revised 2022. Calcium 8.9 8.5 - 10.3 mg/dL [facility] Bilirubin, total 0.8 0.1 - 1.2 mg/dL [facility] Protein, pl 6.6 6.5 - 8.5 g/dL [facility] Albumin 3.9 3.5 - 5.0 g/dL [facility] Alk phos 65 40 - 130 Units/L [facility] ALT 63(H) 7 - 55 Units/L [facility] AST 60(H) 10 - 50 Units/L [facility] Blood 01/17/2025 2:38 PM CDT 01/17/2025 3:00 PM CDT us Venkatesh Liu MD LAB BLOOD ORDERABLE S Final Result [facility] [place] [address] * Surgical pathology (01/17/2025 2:01 PM CDT) Tissue (Liver, Partial Resection) 01/17/2025 2:01 PM CDT Narrative PATHOLOGY [facility] - 01/22/2025 11:46 AM CDT EPIC results best viewed via link to PDF [facility] [place] [address] Note to Patients: This report may contain a detailed description of human tissue sent by a health care provider to the laboratory for pathologic evaluation. The content of this report is essential for diagnosis and may provide important critical findings. This information may be unfamiliar to patients to review without a medical professional present. It is advised that the patient review this report in the presence of a health care provider who can answer questions and explain the details. SURGICAL PATHOLOGY REPORT FINAL Patient Name: MUSA CORTES Gender: M : 1975 (Age: 49) Address: [address] [place] [address] Hospital #: [id number] Taken:01/17/2025 Received:01/17/2025 Reported: 01/22/2025 Patient Type: [facility] Inpatient Service: Surgery Location: [place] [address] Physician(s): Miriam Keller MD Diagnosis: A. Liver, segment 2, resection - Metastatic adenocarcinoma morphologically compatible with the patient's colorectal primary. - Adenocarcinoma present at cauterized resection margin. - Perineural invasion identified. [facility]/01/22/2025 07:49 By this signature, I attest that the above diagnosis is based upon my personal examination of the slides(and/or other material indicated in the diagnosis). Feliz Pelletier M.D. Report Electronically Reviewed and Signed Out By Feliz Pelletier M.D. 01/22/2025 11:46:56 Diagnosis Comment Previous case ([id number]) was reviewed and is morphologically identical to current specimen. Michael [place]immer M.D. History: Patient is a 49-year-old man with a metastatic colon cancer to the liver. Operative Procedure: Liver resection, laparoscopic robotic assisted Specimen(s) Received: A: Segment 2 excision Gross Description: Received in formalin labeled with patient identifiers and segment 2 excision is a wedge shaped piece of liver parenchyma (1.5 x 1.4 x 1.2 cm). The resection margin is shaggy purple-black with extensive thermal artifact. There is an area of white pallor on the capsular surface measuring 0.7 cm in greatest dimension. The resection margin is inked black and the capsular surface is inked blue. Serial sections show a firm white nodule below the previously described area on the capsular surface measuring up to 1.0 x 1.0 x 0.8 cm. The lesion abuts the capsular surface and comes to within 0.1 cm of the closest resection margin. The specimen is submitted entirely in cassettes A1 and A 2. Jar 1 bao2/01/18/2025 10:44 PA(s): WILLIAMS Melendrez (ASCP)CM By this signature, I attest that the above diagnosis is based upon my personal examination of the slides(and/or other material). Addenda/Procedures The performance characteristics of some immunohistochemical stains, fluorescence in-situ hybridization tests and immunophenotyping by flow cytometry cited in this report (if any) were determined by the Surgical Pathology and Flow Cytometry Departments at [facility] as part of an ongoing quality compliance coordinator program and in compliance with federally mandated regulations drawn from the Clinical Laboratory Improvement Act of 1988 (CLIA '88). Some of these tests rely on the use of analyte specific reagents and are subject to specific labeling requirements by the US Food and Drug Administration. Such diagnostic tests may only be performed in a facility that is certified by the Department of Health and Human Services as a high complexity laboratory under CLIA '88. The FDA has determined that such clearance or approval is not necessary. This test is used for clinical purposes. It should not be regarded as investigational or for research. Nevertheless, federal rules concerning the medical use of analyte specific reagents require that the following disclaimer be attached to the report: This test was developed and its performance characteristics determined by the Surgical Pathology and Flow Cytometry Departments of [facility]. It has not been cleared or approved by the U. S. Food and Drug Administration. IMAGES AND SCANNED DOCUMENTS, IF INCLUDED, ONLY VIEWABLE IN PDF VERSION OF REPORT us Venkatesh Liu MD LAB PATHOLOGY ORDER ERENSTO Final Result PATHOLOGY [facility] 3rd Floor [place], [place] [phone] * Peripheral IV Catheter (01/17/2025 12:54 PM CDT) Narrative Justen Monahan DO - 01/17/2025 12:54 PM CDT Justen Monahan DO 01/17/2025 12:54 PM Peripheral IV Catheter Patient location: OR Staff: Placed by: Resident: Justen Monahan DO Preprocedure prep: Prep solution: chlorhexadine PPE: gloves and provider hat/mask PIV line: Laterality: left Site: wrist Catheter size: 18 g Technique: direct visualization Procedure details: good blood return Number of attempts: 1 Assessment: Events: patient tolerated procedure well with no complications Ivan Castro MD ANESTHESIA ORDERABLES Final Result * Arterial Line (01/17/2025 12:54 PM CDT) Justen Mccurdy DO - 01/17/2025 12:54 PM CDT Justen Monahan DO 01/17/2025 12:54 PM Arterial Line Patient location: OR Indication: continuous blood pressure monitoring and blood sampling needed Ultrasound assisted: yes Staff: Supervising provider: Ivan Castro MD Placed by: Resident: Justen Monahan DO Procedure prep: Prep solution: chlorhexadine/alcohol Prep: provider hat/mask and sterile gloves Arterial line: Catheter size: 20 gauge Catheter type: wire-guided catheter Laterality: left Site: radial artery Line secured: tape Results: good waveform and good blood return Number of attempts: 1 Assessment: Events: patient tolerated procedure well with no complications Ivan Castro MD ANESTHESIA ORDERABLES Final Result * Airway (01/17/2025 12:48 PM CDT) Justen Mccurdy DO - 01/17/2025 12:48 PM CDT Justen Monahan DO 01/17/2025 12:49 PM Airway Patient location: OR Indications for airway management: anesthesia and airway protection Difficult airway: no Staff: Placed by: Anesthesiologist: Ivan Castro MD Resident: Justen Monahan DO Emergent airway documentation: Risks and benefits discussed: yes Consent obtained: yes Consent given by: patient Airway prep: Preoxygenated: yes Patient position: sniffing Mask difficulty assessment: 1 - vent by mask Spontaneous ventilation during airway: absent Sedation level during airway: GA Final airway details: Final airway type: endotracheal airway Tube type: ETT ETT size: 8.0 mm Cuffed: yes Technique used for successful ETT placement: direct laryngoscopy Blade type: Aquilino Blade size: 4 Cormack-Lehane (direct): grade I - full view of glottis ETT to lips: 24 cm Placement verified by: auscultation and CO2 detection Airway secured with: silk tape Number of attempts: 1 us Ivan Castro MD ANESTHESIA ORDERABLES Final Result * Check Sample (01/17/2025 10:20 AM CDT) ABO Rh A Positive [facility] OTHER 01/17/2025 10:2 0 AM CDT 01/17/2025 10:31 AM CDT Venkatesh Liu MD LAB BLOOD ORDERABLE S Final Result Performing Organization Address [facility] Co de Phone Number [facility] [address] [place] [address] BJ * TYPE AND SCREEN 14 DAY (01/04/2025 8:41 AM CDT) Pathologist [facility] [place], indirect Negative ABO Rh A Positive [facility] Blood 01/04/2025 8:41 AM CDT 01/04/2025 9:31 AM CDT Narrative [facility] - 01/04/2025 10:36 AM CDT Is this test being ordered in advance for a procedure?->Yes Expected date of procedure:->01/18/25 Has the patient been transfused in the past 3 months?->No us Cindi Cardoso NP LAB BLOOD BANK TEST ORDER ERNESTO Final Result Performing Organization Address City/[facility] Co de Phone Number [facility] [place] [address] * eGFR (01/04/2025 8:41 AM CDT) Pathologist [facility] eGFR >90 >=60 mL/min/1. 73 m2 Comment: Interpretive Data Reference Interval Normal >/= 90 mL/min/1.73m2 Mildly decreased* 60 - 89 mL/min/1.73m2 Mildly to moderately decreased 45 - 59 mL/min/1.73m2 Moderately to severely decreased 30 - 44 mL/min/1.73m2 Severely decreased 15 - 29 mL/min/1.73m2 Kidney Failure < 15 mL/min/1.73m2 *Relative to young adult level Estimated glomerular filtration rate is determined by the 2020 CKD-EPI equation recommended by the National Kidney Foundation (A Unifying Approach to GFR Estimation: Recommendations of the NKF-ASK Task Force on Reassessing the Inclusion of Race in Diagnosing Kidney Disease, JASN 2020). The CKD-EPI equation should not be used for patients with unstable renal function and has not been validated in children and those over 70. Current interpretive data was last reviewed 2021. Blood 01/04/2025 8:41 AM CDT 01/04/2025 9:20 AM CDT us Cindi Cardoso NP LAB BLOOD ORDERABLES Adrianne galloway Result [facility] [place] [address] * Differential, auto (01/04/2025 8:41 AM CDT) Pathologist [facility] Neutrophil abs 1.55 1.50 - 6.50 K/cumm Imm gran abs 0.01 0.00 - 0.10 K/cumm [facility] Lymphocyte abs 1.56 0.80 - 3.30 K/cumm [facility] Monocyte abs 0.41 0.20 - 0.80 K/cumm [facility] Eosinophil abs 0.17 0.00 - 0.50 K/cumm [facility] Basophil abs 0.03 0.00 - 0.10 K/cumm [facility] Neutrophil pct 41.5 % [facility] Comment: Interpretive Data Percent cell count reference ranges are not reported, since discordance with absolute values may lead to misinterpretation of CBC data. Current Interpretive Data was last revised on 2017. Imm gran pct 0.3 % [facility] Comment: Interpretive Data Percent cell count reference ranges are not reported, since discordance with absolute values may lead to misinterpretation of CBC data. Current Interpretive Data was last revised on 2017. Lymphocyte pct 41.8 % [facility] Comment: Interpretive Data Percent cell count reference ranges are not reported, since discordance with absolute values may lead to misinterpretation of CBC data. Current Interpretive Data was last revised on 2017. Monocyte pct 11.0 % [facility] Comment: Interpretive Data Percent cell count reference ranges are not reported, since discordance with absolute values may lead to misinterpretation of CBC data. Current Interpretive Data was last revised on 2017. Eosinophil pct 4.6 % [facility] Comment: Interpretive Data Percent cell count reference ranges are not reported, since discordance with absolute values may lead to misinterpretation of CBC data. Current Interpretive Data was last revised on 2017. Basophil pct 0.8 % [facility] Comment: Interpretive Data Percent cell count reference ranges are not reported, since discordance with absolute values may lead to misinterpretation of CBC data. Current Interpretive Data was last revised on 2017. Blood 01/04/2025 8:41 AM CDT 01/04/2025 9:20 AM CDT Cindi Cardoso NP LAB BLOOD ORDERABLES Adrianne galloway Result [facility] [place] [address] * CPAP aPTT algorithm (01/04/2025 8:41 AM CDT) aPTT 29 28 - 38 sec Comment: Interpretive Data Heparin therapeutic range: 66.0 - 100.0 seconds. Range based on correlation with therapeutic heparin activity range of 0.3 - 0.7 Units/mL. Current interpretive data was last revised on 2023. Blood 01/04/2025 8:41 AM CDT 01/04/2025 9:19 AM CDT Cindi Cardoso SASH REPAIRER LAB BLOOD ORDERABLES Adrianne l Result Performing Organization Address [facility]/ZIP Co de Phone Number [facility] [place] [address] * (ABNORMAL) CBC with auto differential (01/04/2025 8:41 AM CDT) [facility] WBC 3.73(L) 3.80 - 9.90 K/cumm Hgb 15.6 13.0 - 17.5 g/dL [facility] Hct 44.3 38.9 - 50.3 % [facility] Plt 138(L) 150 - 400 K/cumm [facility] MPV 10.1 9.1 - 12.3 fL [facility] RBC 4.92 4.30 - 5.80 M/cumm [facility] MCV 90.0 81.3 - 96.4 fL [facility] MCH 31.7 27.1 - 33.3 pg [facility] MCHC 35.2 32.3 - 35.7 g/dL [facility] RDW CV 14.5 11.1 - 14.9 % [facility] RDW SD 46.6 35.7 - 48.1 fL [facility] NRBC abs 0.00 0.00 - 0.01 K/cumm [facility] Blood 01/04/2025 8:41 AM CDT 01/04/2025 9:20 AM CDT Cindi Cardoso SASH REPAIRER LAB BLOOD ORDERABLES Adrianne l Result [facility] [address] [place] [address] * Protime-INR (01/04/2025 8:41 AM CDT) Pathologist [facility] PT 10.7 9.7 - 13.0 sec INR 0.99 0.90 - 1.20 [facility] Comment: Interpretive data Oral anticoagulant therapeutic ranges: Venous thromboembolism prophylaxis or treatment: 2.0-3.0 CARDIOLOGY Standard range: 2.0-3.0 High-intensity range: 2.5-3.5 Refer to indication-specific guidelines for appropriate target ranges for prosthetic heart valve replacement. Current interpretive data was last revised on 2019. Blood 01/04/2025 8:41 AM CDT 01/04/2025 9:19 AM CDT Cindi Cardoso NP LAB BLOOD ORDERABLES Adrianne l Result [facility] [place] [address] * Comprehensive metabolic panel (01/04/2025 8:41 AM CDT) Sodium 140 135 - 145 mmol/L Potassium, pl 4.2 3.3 - 4.9 mmol/L [facility] Chloride 101 97 - 110 mmol/L [facility] CO2 25 22 - 32 mmol/L [facility] Anion gap 14 2 - 15 mmol/L [facility] BUN 19 6 - 25 mg/dL [facility] Creatinine 1.00 0.80 - 1.30 mg/dL [facility] Glucose 99 70 - 199 mg/dL [facility] Comment: Interpretive Data Fasting glucose >/= 126 mg/dl is diagnostic for diabetes. Fasting is defined as no caloric intake for at least 8 hours. Fasting glucose between 100 mg/dl to 125 mg/dl is diagnostic of prediabetes. In a patient with classic symptoms of hyperglycemia or hyperglycemic crisis, a random glucose >/= 200 mg/dl is diagnostic for diabetes. In the absence of unequivocal hyperglycemia, results should be confirmed by repeat testing. The classification and Diagnosis of Diabetes Diabetes Care 202; 46: S19-S40. Current interpretive data was last revised 2022. Calcium 9.8 8.5 - 10.3 mg/dL [facility] Bilirubin, total 0.5 0.1 - 1.2 mg/dL [facility] Protein, pl 7.5 6.5 - 8.5 g/dL [facility] Albumin 4.6 3.5 - 5.0 g/dL [facility] Alk phos 63 40 - 130 Units/L [facility] ALT 35 7 - 55 Units/L [facility] AST 34 10 - 50 Units/L [facility] Blood 01/04/2025 8:41 AM CDT 01/04/2025 9:20 AM CDT us Cindi Cardoso NP LAB BLOOD ORDERABLES Adrianne l Result [facility] [place] [address] * MRI Abdomen Liver W WO Contrast (01/03/2025 9:21 AM CDT) Anatomical Region Laterality Modality Body N/A Magnetic Resonan ce 01/03/2025 11:1 3 AM CDT Impressions 01/04/2025 11:08 AM CDT 1. Unchanged hepatic segment 2 lesion consistent with continued treatment response. No evidence of progressive or new metastatic disease in the abdomen. 2. Near complete resolution of the wedge shaped lesion in hepatic segment 8, which was previously thought to represent focal hepatic toxicity related to oxaliplatin. Dictated by: Jaspal Barraza M.D. The radiology attending physician has personally reviewed this study, and had reviewed and/or edited this written report and agrees with it. Electronically signed by: Dillon Ambriz M.D. 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 Follow-up imaging. TECHNIQUE: Magnetic resonance imaging of the abdomen was performed prior to and following the uneventful administration of intravenous Gadolinium contrast. Protocol: Liver Contrast: Eovist 20 mL COMPARISON: 08/04/2024 FINDINGS: Liver: Normal liver morphology. No significant hepatic steatosis or iron deposition. - Bile ducts: No biliary ductal dilatation. - Focal liver lesions: Unchanged hepatic segment 2 lesion measuring up to 7 mm, likely representing treated metastatic disease (series 26 image 22), previously 2.3 cm on 04/25/2024. The reported cortical irregularity within hepatic segment 7 seen on prior study is not seen on today's exam. Interval near complete resolution of the ill-defined wedge-shaped hypoenhancement hepatic segment 8. - Vasculature: Patent hepatic and portal veins. Conventional hepatic arterial anatomy. Gallbladder: Normal Pancreas: Normal Spleen: Normal Adrenals: Normal Kidneys: Normal Other Findings: The imaged lung bases are clear. No abdominal lymphadenopathy. No suspicious osseous lesion. 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 Follow-up imaging. TECHNIQUE: Magnetic resonance imaging of the abdomen was performed prior to and following the uneventful administration of intravenous Gadolinium contrast. Protocol: Liver Contrast: Eovist 20 mL COMPARISON: 08/04/2024 FINDINGS: Liver: Normal liver morphology. No significant hepatic steatosis or iron deposition. - Bile ducts: No biliary ductal dilatation. - Focal liver lesions: Unchanged hepatic segment 2 lesion measuring up to 7 mm, likely representing treated metastatic disease (series 26 image 22), previously 2.3 cm on 04/25/2024. The reported cortical irregularity within hepatic segment 7 seen on prior study is not seen on today's exam. Interval near complete resolution of the ill-defined wedge-shaped hypoenhancement hepatic segment 8. - Vasculature: Patent hepatic and portal veins. Conventional hepatic arterial anatomy. Gallbladder: Normal Pancreas: Normal Spleen: Normal Adrenals: Normal Kidneys: Normal Other Findings: The imaged lung bases are clear. No abdominal lymphadenopathy. No suspicious osseous lesion. IMPRESSION: 1. Unchanged hepatic segment 2 lesion consistent with continued treatment response. No evidence of progressive or new metastatic disease in the abdomen. 2. Near complete resolution of the wedge shaped lesion in hepatic segment 8, which was previously thought to represent focal hepatic toxicity related to oxaliplatin. Dictated by: Jaspal Barraza M.D. The radiology attending physician has personally reviewed this study, and had reviewed and/or edited this written report and agrees with it. Electronically signed by: Dillon Ambriz M.D. us Venkatesh Liu MD IMG MRI PROCEDURES Final Result from Last 3 Months Insurance Advance Directives For more information, please contact: [phone] * Full Code (Latest Code Status on File) Date Activated Date Inactivated Comments 01/17/2025 3:32 PM 01/18/2025 1:19 PM Care Teams Senior Teradata Developer Relationship Specialty Start Date End Date Charo Reaves NP [address] [facility] B [facility] [address] [place] [address] PCP - General Nurse Practitioner 01/18/25 Behzad Johnson MD [address] [facility] [address] [place] [phone] Referring Physician Hematology 04/06/24 Russell Goins MD [address] [facility] [address] [place] [address] Medical Oncologist/Hematologis t Medical Oncology 05/23/24 Russell Goins MD [address] [facility] [address] [place] [address] Medical Oncologist/Hematologis t Medical Oncology 07/20/24 Venkatesh Liu MD 1 [facility] [address] [place] [address] Consulting Physician Transplant Surgery 07/20/24 Venkatesh Liu Jr., MD [address] [facility] [phone] [place] [address] Consulting Physician Colon and Rectal Surgery 07/23/24
--- OUTSIDE RECORDS SUMMARY | 2025-01-30 09:59 | XMS_ITS | Encounter Summary ---
Author Organization [facility] [employer] [facility] Address [address] [place] [address] Care Team Providers Care Nurse Practitioner Home Assessments Name Role Phone Jesus White MD Primary Care Provider [phone] Encounter Details Date Type Department Care Team (Late st Contact Info) Description 12/30/2021 E-Visit [facility] Oncology and Hematology [place] [address] [place] [address] Jesus White MD [address] [place] [address] Social History Tobacco Use Types Packs/Day Years Used Date Smoking Tobacco: Never Sex and Gender Information Value Date Recorded Sex Assigned at Not on file Legal Sex Male 2:24 PM [employer] WORK[employer] Gender Identity Not on file Sexual Orientation Not on file COVID-19 Exposure Response Date Recorded In the last 10 days, have yo u been in contact with someone who was confirmed or suspected to have Coronavirus/COVID-19? No / Unsure 12/31/2021 8:30 AM CDT documented as of this encounter Plan of Treatment Upcoming Encounters Date Type Department Care Team (Late st Contact Info) Description 02/05/2025 9:30 AM CDT Office Visit [facility] Oncology and Hematology - [place] [address] [place] [address] Behzad Johnson MD [address] [facility] [address] [place] [address] documented as of this encounter Visit Diagnoses Not on filedocumented in this encounter Care Teams Nurse Practitioner Home Assessments Relationship Specialty Start Date End Date Jesus White MD [address] [address] PCP - General Internal Medicine 08/15/21 documented as of this encounter
--- OUTSIDE RECORDS SUMMARY | 2025-01-30 09:59 | XMS_ITS | Clinical Summary ---
Author Organization [facility] Henok efrem [facility] Address [address] [place] [address] Care Team Providers Care Director Of Collections And Archives Name Role Phone Jesus White MD Primary Care Provider [phone] Allergies No known active allergies Medications loperamide (IMODIUM) 2 mg Tablet 12/26/19 22 Active levothyroxine 88 mcg tablet Take [...] OR VOMITING 30 Tablet 08/22/20 24 Active pegfilgrastim (Neulasta) 6 mg/0.6mL Syringe Inject 0.6 mL (6 mg) by subcutaneous injection 24 hours after every chemotherapy treatment. 0.6 mL 6 10/20/19 25 Active LORazepam (ATIVAN) 0.5 mg tabletIndicati ons:Malignant neoplasm of colon, unspecified part of colon (CMS/HCC) TAKE 1 TABLET BY MOUTH EVERY 8 HOURS NEEDED . DO NOT EXCEED 3 PER 24 HOURS 30 Tablet 01/02/20 25 Active zolpidem (AMBIEN) 5 mg tabletIndicati ons:Insomnia, unspecified type TAKE 1 TABLET BY MOUTH NIGHTLY NEEDED FOR INSOMNIA 30 Tablet 01/16/20 25 Active LORazepam (ATIVAN) 0.5 mg tabletIndicati ons:Malignant neoplasm of colon, unspecified part of colon (CMS/HCC) TAKE 1 TABLET BY MOUTH EVERY 8 HOURS NEEDED . DO NOT EXCEED 3 PER 24 HOURS 30 Tablet 11/28/19 25 025 Discontinued zolpidem (AMBIEN) 5 mg tabletIndicati ons:Insomnia, unspecified type TAKE 1 TABLET BY MOUTH NIGHTLY NEEDED FOR INSOMNIA 30 Tablet 11/28/19 25 025 Discontinued Active Problems Problem Noted Date Diagnosed Date Malignant neoplasm of sigmoid colon 09/26/2021 Resolved Problems Problem Noted Date Diagnosed Date Resolved Date Colonic mass 08/15/2021 09/26/2021 Encounters Date Type Department Care Team Description 01/29/2025 Orders Only [facility] Oncology and Hematology [facility] [address] [place] [address] Behzad Johnson MD Malignant neoplasm of sigmoid colon ([facility]) 01/25/2025 External Device Data STL ABSTRACTION Provider, Abstract 01/25/2025 External Device Data [facility] ABSTRACTION Provider, Abstract 01/25/2025 External Device Data [facility] ABSTRACTION Provider, Abstract 01/24/2025 External Device Data [facility] ABSTRACTION Provider, Abstract 01/24/2025 External Device Data [facility] ABSTRACTION Provider, Abstract 01/23/2025 External Device Data [facility] ABSTRACTION Provider, Abstract 01/22/2025 Orders Only [facility] Oncology and Hematology - [place] [address] [place] [address] Behzad Johnson MD Malignant neoplasm of sigmoid colon ([facility]/HCC) 01/15/2025 Refill [facility] Oncology and Hematology - [place] [address] [place] [phone] Behzad Johnson MD Insomnia, unspecified type 01/15/2025 Orders Only [facility] Oncology and Hematology - [place] [address] [place] [address] Behzad Johnson MD Malignant neoplasm of sigmoid colon (CMS/HCC) 01/09/2025 Orders Only [facility] Oncology and Hematology - [place] [address] [place] [address] Behzad Johnson MD Chronic migraine without aura without status migrainosus, not intractable (Primary Dx) 01/08/2025 Orders Only [facility] Oncology and Hematology - [place] [address] [place] [address] Behzad Johnson MD Malignant neoplasm of sigmoid colon (CMS/HCC) 01/01/2025 Orders Only [facility] Oncology and Hematology - [place] [address] [place] [address] Behzad Johnson MD Malignant neoplasm of sigmoid colon (CMS/HCC) 12/29/2024 Refill [facility] Oncology and Hematology - [place] [address] [place] [address] Behzad Johnson MD Malignant neoplasm of colon, unspecified part of colon (CMS/HCC) 12/25/2024 Orders Only [facility] Oncology and Hematology - [place] [address] [place] [address] Behzad Johnson MD Malignant neoplasm of sigmoid colon (CMS/HCC) 12/20/2024 9:00 AM CDT Office Visit [facility] Oncology and Hematology - [place] [address] [place] [address] Behzad Johnson MD Malignant neoplasm of sigmoid colon (CMS/HCC) (Primary Dx) 12/20/2024 Orders Only [facility] Oncology and Hematology - [place] [address] [place] [address] Behzad Johnson MD 12/18/2024 Orders Only [facility] Oncology and Hematology - [place] [address] [place] [id number] Behzad Johnson MD Malignant neoplasm of sigmoid colon (CMS/HCC) 12/11/2024 Orders Only [facility] Oncology and Hematology - [place] [address] [place] [id number] Behzad Johnson MD Malignant neoplasm of sigmoid colon (CMS/HCC) 12/04/2024 Orders Only [facility] Oncology and Hematology [facility] [address] [place] [phone] Behzad Johnson MD Malignant neoplasm of sigmoid colon (CMS/HCC) 11/29/2024 Orders Only [facility] Oncology and Hematology [facility] [address] [place] [id number] Behzad Johnson MD 11/27/2024 Orders Only [facility] Oncology and Hematology [facility] [address] [place] [id number] Behzad Johnson MD Malignant neoplasm of sigmoid colon (CMS/HCC) 11/24/2024 Refill [facility] Oncology and Hematology [facility] [address] [place] [address] Behzad Johnson MD Malignant neoplasm of colon, unspecified part of colon (CMS/HCC); Insomnia, unspecified type 11/23/2024 4:15 PM CDT Telephone Check Up [facility] Oncology and Hematology [facility] [address] [place] [phone] Behzad Johnson MD 11/22/2024 External Device Data STL ABSTRACTION Provider, Abstract 11/20/2024 Orders Only [facility] Oncology and Hematology [facility] [address] [place] [address] Behzad Johnson MD Malignant neoplasm of sigmoid colon (CMS/HCC) 11/17/2024 Orders Only [facility] Oncology and Hematology [facility] [address] Behzad Johnson MD 11/16/2024 Telephone [facility] Oncology [facility] Hematology [facility] [address] Behzad Johnson MD insurance authorization for STAT procedure 11/15/2024 8:30 AM CDT Office Visit [facility] Oncology and Hematology [facility] [address] Behzad Johnson MD Malignant neoplasm of sigmoid colon (CMS/HCC) (Primary Dx) 11/15/2024 Orders Only [facility] Oncology and Hematology [facility] [address] [place] [address] Behzad Johnson MD 11/13/2024 Orders Only [facility] Oncology and Hematology [facility] [address] Behzad Johnson MD Malignant neoplasm of sigmoid colon (CMS/HCC) 11/11/2024 External Device Data STL ABSTRACTION Provider, Abstract 11/10/2024 External Device Data STL ABSTRACTION Provider, Abstract 11/10/2024 Telephone [facility] Oncology [facility] Hematology [facility] [address] Behzad Johnson MD Neupogen Injection 11/07/2024 External Device Data STL ABSTRACTION Provider, Abstract 11/07/2024 Orders Only [facility] Oncology and Hematology [facility] [address] [place] [phone] Behzad Johnson MD 11/06/2024 Orders Only [facility] Oncology and Hematology [facility] [address] [place] [phone] Behzad Johnson MD Malignant neoplasm of sigmoid colon (CMS/HCC) from Last 3 Months Social History Tobacco Use Types Packs/Day Years Used Date Smoking Tobacco: Never Tobacco Cessation:Counseling Given: Not Answered Sex and Gender Information Value Date Recorded Sex Assigned at Not on file 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 Gender Identity Not on file Sexual Orientation Not on file Last Filed Vital Signs Vital Sign Reading Time Taken Comments Blood Pressure 113/79 12/20/2024 9:05 AM CDT Pulse 76 12/20/2024 9:05 AM CDT Temperature 36.3 C (97.3 F) 12/20/2024 9:05 AM CDT Respiratory Rate 14 12/20/2024 9:05 AM CDT Oxygen Saturation 98% 12/20/2024 9:05 AM CDT Inhaled Oxygen Concentration - - Weight 96.8 kg (213 lb 6.4 oz) 12/20/2024 9:05 A M CDT Height 185.4 cm (6' 1 ) 06/03/2022 10:41 AM CDT Body Mass Index 28.15 06/03/2022 10:41 AM CDT Plan of Treatment Upcoming Encounters Date Type Department Care Team (Late st Contact Info) Description 02/05/2025 9:30 AM CDT Office Visit [facility] Oncology and Hematology - [place] [address] [facility] [address] [place] [address] Behzad Johnson MD [address] [facility] [address] [place] [address] Health Maintenance Due Date Last Done Comments Pre-Diabetes and Diabetes Screening 1975 HEPATITIS B VACCINES (1 of 3 - 19+ 3-dose series) 1994 INFLUENZA VACCINE (#1) 2024 , 07/28/2022, 06/02/2021, Additional history exists DTAP/TDAP/TD VACCINES (2 - T d or Tdap) 03/30/2033 03/30/2023 Procedures Procedure Name Priority Date/Time Associated Diagnosis Comments BASIC METABOLIC PANEL Routine 12/20/2024 11:40 AM CDT COMPREHENSIVE METABOLIC PANEL Routine 11/29/2024 2:31 PM CDT BASIC METABOLIC PANEL Routine 11/29/2024 2:[address] CHEST ABDOMEN PELVIS W CONT Routine 11/16/2024 1:02 PM CDT BASIC METABOLIC PANEL Routine 11/15/2024 11:25 AM CDT COMPREHENSIVE METABOLIC PANEL Routine 11/07/2024 4:14 PM AUDIT DIRECTOR from Last 3 Months Results * BASIC METABOLIC PANEL (12/20/2024 11:40 AM CDT) Only the most recent of3 resultswithin the time period is included. Blood us Behzad Johnson MD CHEMISTRY ORDERABLES Final Resu lt * COMPREHENSIVE METABOLIC PANEL (11/29/2024 2:31 PM CDT) Only the most recent of2 resultswithin the time period is included. Blood us Behzad Johnson MD CHEMISTRY ORDERABLES Final Resu lt * CT CHEST ABDOMEN PELVIS W CONT (11/16/2024 1:02 PM CDT) Anatomical Region Laterality Modality Chest Computed Tomogra phy us Behzad Johnson MD CT ORDERABLES Final Result from Last 3 Months Insurance [employer] [place] Care Teams Director Of Collections And Archives Relationship Specialty Start Date End Date Jesus White MD [address] [place] [address] PCP - General Internal Medicine 08/15/21
--- OUTSIDE RECORDS SUMMARY | 2025-01-30 09:59 | XMS_ITS | Encounter Summary ---
Author Organization [facility] Address [address] [place] [address] Care Team Providers Care Labor Gang Supervisor Name Role Phone Jesus White MD Primary Care Provider [phone] Encounter Details Date Type Department Care Team (Late Contact Info) Description 01/29/2025 Orders Only [facility] Oncology and Hematology - [place] [address] [place] [address] Behzad Johnson MD [address] [place] [address] [employer] [address] [place] [address] Malignant neoplasm of sigmoid colon (CMS/HCC) Social History Tobacco Use Types Packs/Day Years Used Date Smoking Tobacco: Never Sex and Gender Information Value Date Recorded Sex Assigned at Not on file 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 Gender Identity Not on file Sexual Orientation Not on file documented as of this encounter Plan of Treatment Upcoming Encounters Date Type Department Care Team (Late Contact Info) Description 02/05/2025 9:30 AM CDT Office Visit [facility] Oncology and Hematology [place] [address] [place] [address] Behzad Johnson MD [facility] [employer] [address] [place] [address] documented as of this encounter Visit Diagnoses Diagnosis Malignant neoplasm of sigmoid colon (CMS/HCC) Malignant neoplasm of sigmoid colon documented in this encounter Care Teams Labor Gang Supervisor Relationship Specialty Start Date End Date Jesus White MD [address] [place] [address] PCP - General Internal Medicine 08/15/21 documented as of this encounter
--- OUTSIDE RECORDS SUMMARY | 2025-01-30 09:59 | XMS_ITS | Clinical Summary ---
Author Organization [facility] Building B Address [address] [place] [address] Care Team Providers Care Sales Assistants And Salespersons Name Role Phone Behzad Johnson MD Unavailable [phone] Russell Goins MD Unavailable [phone] Russell Goins MD Unavailable [phone] Venkatesh Liu MD Unavailable [phone] Alexa Alaniz MD, William C. Unavailable Charo Reaves NP Primary Care Provider Allergies No known active allergies Medications omega-3 fatty acids-fish oil 300-1,000 mg capsuleIndica tions:supplem ent Take 2 capsules (2 g total) by mouth daily with dinner Active cyanocobalami n (Vitamin B-12) 100 mcg tabletIndicat ions:Preventi on of Vitamin B12 Deficiency Take 1 tablet (100 mcg total) by mouth glass maker before breakfast Active iron bisgly,ps-FA- B-C#12-succ 65 mg-65 mg -1,000 mcg (24) [...] 1 tablet (112 mcg total) by mouth glass maker before breakfast 025 Active fluticasone propionate (FLONASE) [...] ileum 04/28/2024 Malignant neoplasm metastatic to liver Encounters Date Type Department Care Team Description 01/17/2025 12:25 PM CDT - 01/17/2025 4:45 PM CDT Surgery Operating Room 1 [place] [address] Venkatesh Liu MD XI LIVER RESECTION - LAPAROSCOPIC ROBOTIC ASSISTED, TAP Block 01/17/2025 12:21 PM CDT Anesthesia Event Operating Room 1 [place] [address] Ivan Castro MD Lewis, Bradley Mitchell, DO 01/17/2025 9:47 AM CDT - 01/18/2025 9:18 AM CDT Hospital Encounter [address] [address] Venkatesh Liu MD Metastatic colon cancer to liver (HCC) Discharge Disposition: Discharge to home or self care 01/04/2025 7:30 AM CDT Pre-Admission Testing [facility] [address] [place] [id number] Preoperative testing (Primary Dx) 01/03/2025 9:30 AM CDT Office Visit [facility] Surgery [address] [place] [address] Advanced Medicine 12th [place] [address] [place] [address] Venkatesh Liu MD Malignant 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) (Primary Dx) 01/03/2025 8:04 AM CDT - 01/03/2025 11:59 PM CDT Hospital Encounter [facility] ([facility]) [address] [place] [address] Venkatesh Liu MD Adenocarcinoma of ileum (HCC); Malignant 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) Discharge Disposition: Discharge to home or self care from Last 3 Months Immunizations Immunization Administration Dates Next Due Influenza, Quadrivalent, Split, Intramuscular Influenza, Quadrivalent, Spl it, Preservative Free, Intramuscular 05/17/2023,07/28/2022 Influenza, Unspecified 05/17/2023,08/10/2022 Moderna SARS-CoV-2 Monovalent Vaccination (12+ Y RS) 06/30/2023 Pfizer SARS-CoV-2 Monovalent Vaccination (12+ Yrs) PURPLE 02/09/2022 Tdap 03/30/2023 Surgical History Surgery Date Site/Laterality Comments COLON SURGERY 09/04/2021 SMALL BOWEL RESECTION 03/06/2024 THYROIDECTOMY, PARTIAL 09/06/2021 - 09/05/2022 Right Medical History Medical History Date Comments Cancer (HCC) Peripheral neuropathy Anemia Thyroid disease Sleep apnea Family History Medical History Relation Name Comments [...] on file Legal Sex Male 5:36 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 Gender Identity Not on file Sexual Orientation [...] 01/17/2025 3:30 PM CDT Plan of Treatment Health Maintenance Due Date Last Done Comments Colon Cancer Screening-Colonoscopy 1975 Depression Screening 1975 Hepatitis C Screening 1975 Prostate Cancer Screening-PSA 1975 Hepatitis B Screening 1993 Regular Well Visit/Exam 18-64 1993 Pneumococcal vaccine <65 (1 of 2 - PCV) 1994 Zoster Vaccine (1 of 2) 1994 Covid-19 Vaccine ( - 2023-2 5 season) 2024 06/30/2023, 02/09/2022, 08/05/2021, Additional history exists Influenza Vaccine (Season Ended) 2025 05/17/2023, 05/17/2023, 08/10/2022, Additional history exists DTaP/Tdap/Td Vaccine (2 - Td or Tdap) 03/30/2033 03/30/2023 Medical Devices Implanted Type Area Potato Peeling Machine Operator Device Identifier Shelf Expiration Date Model / [...] already scheduled for dos and time requested- DMF B CHECK SAMPLE STAT 01/17/2025 10:20 AM [...] ORDERABLE S Final Result Performing Organization Address [facility] de Phone Number [facility] [place] [address] * Protime-INR (01/18/2025 5:38 AM CDT) Pathologist [facility] PT 11.6 9.7 - 13.0 sec INR 1.07 0.90 - 1.20 [facility] Comment: Interpretive data Oral anticoagulant therapeutic ranges: Venous thromboembolism prophylaxis or treatment: 2.0-3.0 CARDIOLOGY Standard range: 2.0-3.0 High-intensity range: 2.5-3.5 Refer to indication-specific guidelines for appropriate target ranges for prosthetic heart valve replacement. Current interpretive data was last revised on 2019. Blood 01/18/2025 5:38 AM CDT 01/18/2025 5:57 AM CDT Venkatesh Liu MD LAB BLOOD ORDERABLE S Final Result Performing Organization Address [facility] de Phone Number [facility] [place] [address] * CBC without differential (01/18/2025 5:38 AM CDT) Pathologist [facility] WBC 7.76 3.80 - 9.90 K/cumm Hgb 14.6 13.0 - 17.5 g/dL [facility] Hct 42.4 38.9 - 50.3 % [facility] Plt 150 150 - 400 K/cumm [facility] MPV 10.4 9.1 - 12.3 fL [facility] RBC 4.58 4.30 - 5.80 M/cumm [facility] MCV 92.6 81.3 - 96.4 fL [facility] MCH 31.9 27.1 - 33.3 pg [facility] MCHC 34.4 32.3 - 35.7 g/dL [facility] RDW CV 14.4 11.1 - 14.9 % [facility] RDW SD 47.8 35.7 - 48.1 fL [facility] NRBC abs 0.00 0.00 - 0.01 K/cumm [facility] Blood 01/18/2025 5:38 AM CDT 01/18/2025 5:59 AM CDT Venkatesh Liu MD LAB BLOOD ORDERABLE S Final Result [facility] [place] [address] * (ABNORMAL) Phosphorus (01/18/2025 5:38 AM CDT) Phosphorus, pl 4.7(H) 2.3 - 4.5 mg/dL Blood 01/18/2025 5:38 AM CDT 01/18/2025 5:54 AM CDT Venkatesh Liu MD LAB BLOOD ORDERABLE S Final Result Performing Organization Address City/[facility] Co de Phone Number [facility] [place] [address] * Magnesium (01/18/2025 5:38 AM CDT) Magnesium 2.3 1.4 - 2.5 mg/dL Blood 01/18/2025 5:38 AM CDT 01/18/2025 5:54 AM CDT Venkatesh Liu MD LAB BLOOD ORDERABLE S Final Result [facility] [place] [address] * (ABNORMAL) Comprehensive metabolic panel (01/18/2025 5:38 AM CDT) Pathologist [facility] Sodium 141 135 - 145 mmol/L Potassium, pl 4.3 3.3 - 4.9 mmol/L [facility] Chloride 105 97 - 110 mmol/L [facility] CO2 25 22 - 32 mmol/L [facility] Anion gap 11 2 - 15 mmol/L [facility] BUN 12 6 - 25 mg/dL [facility] Creatinine 1.03 0.80 - 1.30 mg/dL [facility] Glucose 132 70 - 199 mg/dL [facility] Comment: Interpretive Data Fasting glucose >/= 126 [...] 2022. Calcium 9.4 8.5 - 10.3 mg/dL [facility] Bilirubin, total 0.7 0.1 - 1.2 mg/dL [facility] Protein, pl 6.8 6.5 - 8.5 g/dL [facility] Albumin 4.1 3.5 - 5.0 g/dL [facility] Alk phos 61 40 - 130 Units/L [facility] ALT 78(H) 7 - 55 Units/L [facility] AST 67(H) 10 - 50 Units/L [facility] Blood 01/18/2025 5:38 AM CDT 01/18/2025 5:54 AM CDT us Venkatesh Liu MD LAB BLOOD ORDERABLE S Final Result [facility] Department [place] [address] * eGFR (01/17/2025 2:38 PM CDT) eGFR [...] MD LAB BLOOD ORDERABLE S Final Result [facility] Department [place] [address] * Protime-INR (01/17/2025 2:38 PM CDT) PT 11.7 9.7 - 13.0 sec INR 1.08 0.90 - 1.20 [facility] Comment: Interpretive data Oral anticoagulant therapeutic ranges: Venous thromboembolism prophylaxis or treatment: 2.0-3.0 CARDIOLOGY Standard range: 2.0-3.0 High-intensity range: 2.5-3.5 Refer to indication-specific guidelines for appropriate target ranges for prosthetic heart valve replacement. Current interpretive data was last revised on 2019. Blood 01/17/2025 2:38 PM CDT 01/17/2025 2:47 PM CDT Venkatesh Liu MD LAB BLOOD ORDERABLE S Final Result Performing Organization Address [facility] Co de Phone Number [facility] [place] [address] * (ABNORMAL) CBC without differential (01/17/2025 2:38 PM CDT) Pathologist [facility] WBC 3.71(L) 3.80 - 9.90 K/cumm Hgb 14.4 13.0 - 17.5 g/dL [facility] Hct 41.2 38.9 - 50.3 % [facility] Plt 148(L) 150 - 400 K/cumm [facility] MPV 9.7 9.1 - 12.3 fL [facility] RBC 4.53 4.30 - 5.80 M/cumm [facility] MCV 90.9 81.3 - 96.4 fL [facility] MCH 31.8 27.1 - 33.3 pg [facility] MCHC 35.0 32.3 - 35.7 g/dL [facility] RDW CV 14.4 11.1 - 14.9 % [facility] RDW SD 47.8 35.7 - 48.1 fL [facility] NRBC abs 0.00 0.00 - 0.01 K/cumm [facility] Blood 01/17/2025 2:38 PM CDT 01/17/2025 3:00 PM CDT Venkatesh Liu MD LAB BLOOD ORDERABLE S Final Result [facility] Department [place] [address] * Phosphorus (01/17/2025 2:38 PM CDT) Pathologist [facility] Phosphorus, pl 4.5 2.3 - 4.5 mg/dL Blood 01/17/2025 2:38 PM CDT 01/17/2025 3:00 PM CDT Venkatesh Liu MD LAB BLOOD ORDERABLE S Final Result Performing Organization Address City/[facility]/ZIP Co de Phone Number [facility] [place] [address] * (ABNORMAL) Magnesium (01/17/2025 2:38 PM CDT) [facility] Magnesium 2.7(H) 1.4 - 2.5 mg/dL Blood 01/17/2025 2:38 PM CDT 01/17/2025 3:00 PM CDT Venkatesh Liu MD LAB BLOOD ORDERABLE S Final Result Performing Organization Address [facility] Co de Phone Number [facility] [place] [address] * (ABNORMAL) Comprehensive metabolic panel (01/17/2025 2:38 PM CDT) [facility] Sodium 142 135 - 145 mmol/L Potassium, pl 4.1 3.3 - 4.9 mmol/L [facility] Chloride 105 97 - 110 mmol/L [facility] CO2 25 22 - 32 mmol/L [facility] Anion gap 12 2 - 15 mmol/L [facility] BUN 20 6 - 25 mg/dL [facility] Creatinine 1.16 0.80 - 1.30 mg/dL [facility] Glucose 118 70 - 199 mg/dL [facility] Comment: Interpretive Data Fasting glucose >/= 126 [...] 2022. Calcium 8.9 8.5 - 10.3 mg/dL [facility] Bilirubin, total 0.8 0.1 - 1.2 mg/dL [facility] Protein, pl 6.6 6.5 - 8.5 g/dL [facility] Albumin 3.9 3.5 - 5.0 g/dL [facility] Alk phos 65 40 - 130 Units/L [facility] ALT 63(H) 7 - 55 Units/L [facility] AST 60(H) 10 - 50 Units/L [facility] Blood 01/17/2025 2:38 PM CDT 01/17/2025 3:00 PM CDT us Venkatesh Liu MD LAB BLOOD ORDERABLE S Final Result [facility] Department [place] [address] * Surgical pathology (01/17/2025 2:01 PM CDT) Tissue (Liver, Partial Resection) 01/17/2025 2:01 PM CDT Narrative PATHOLOGY [facility] - 01/22/2025 11:46 AM CDT EPIC results best viewed via link to PDF [facility] Lizzy De Oliveira Laboratory [place] [address] Note to Patients: This report may contain [...] Gender: M : 1975 (Age: 49) Address: [address] [place], [place] [id number] Hospital #: [id number] Taken:01/17/2025 Received:01/17/2025 Reported: 01/22/2025 Patient Type: [facility] Inpatient Service: Surgery Location: [facility] 0164 Physician(s): Venkatesh Liu M.D. Jesus White MD Diagnosis: A. Liver, segment 2, resection - Metastatic adenocarcinoma morphologically compatible with the patient's colorectal primary. - Adenocarcinoma present at cauterized resection margin. - Perineural invasion identified. [facility]/01/22/2025 07:49 By this signature, I attest that the above diagnosis is based upon my personal examination of the slides(and/or other material indicated in the diagnosis). Feliz Pelletier M.D. Report Electronically Reviewed and Signed Out By Feliz Pelletier M.D. 01/22/2025 11:46:56 Diagnosis Comment Previous case ([id number]) was reviewed and is morphologically identical to [...] Jar 1 bao2/01/18/2025 10:44 PA(s): WILLIAMS Melendrez ([facility])CM By this signature, I attest that the above diagnosis is based upon my personal examination of the slides(and/or other material). Addenda/Procedures The performance characteristics of some immunohistochemical stains, fluorescence in-situ hybridization tests and immunophenotyping by flow cytometry cited in this report (if any) were determined by the Surgical Pathology and Flow Cytometry Departments at as part of an ongoing training and quality manager program and in compliance with federally mandated [...] Surgical Pathology and Flow Cytometry Departments of . It has not been cleared or approved by the U. S. Food and Drug Administration. IMAGES AND SCANNED DOCUMENTS, IF INCLUDED, ONLY VIEWABLE IN PDF VERSION OF REPORT Venkatesh Liu MD LAB PATHOLOGY ORDER ERNESTO Final Result PATHOLOGY [facility] 3rd Floor [place], [place] [phone] * Peripheral IV Catheter (01/17/2025 12:54 PM CDT) Justen Mccurdy DO [...] Result * Airway (01/17/2025 12:48 PM CDT) Narrative Justen Monahan DO - 01/17/2025 12:48 PM CDT Justen [...] 10:20 AM CDT) ABO Rh A Positive [facility] OTHER 01/17/2025 10:2 0 AM CDT 01/17/2025 10:31 AM CDT Venkatesh Liu MD LAB BLOOD ORDERABLE S Final Result [facility] Department [place] [address] [facility] * TYPE AND SCREEN 14 DAY (01/04/2025 8:41 AM CDT) Dunia, indirect Negative ABO Rh A Positive [facility] Blood 01/04/2025 8:41 AM CDT 01/04/2025 9:31 AM CDT Narrative [facility] - 01/04/2025 10:36 AM CDT Is this test being ordered in advance for a procedure?->Yes Expected date of procedure:->01/18/25 Has the patient been transfused in the past 3 months?->No Cindi Cardoso NP LAB BLOOD BANK TEST ORDER ERNESTO Final Result [facility] [place] [address] * eGFR (01/04/2025 8:41 AM CDT) eGFR >90 >=60 mL/min/1. 73 m2 Comment: [...] NP LAB BLOOD ORDERABLES Adrianne galloway Result [facility] Department [place] [address] * Differential, auto (01/04/2025 8:41 AM CDT) Neutrophil abs 1.55 1.50 - 6.50 K/cumm Imm gran abs 0.01 0.00 - 0.10 K/cumm [facility] Lymphocyte abs 1.56 0.80 - 3.30 K/cumm [facility] Monocyte abs 0.41 0.20 - 0.80 K/cumm [facility] Eosinophil abs 0.17 0.00 - 0.50 K/cumm [facility] Basophil abs 0.03 0.00 - 0.10 K/cumm [facility] Neutrophil pct 41.5 % [facility] Comment: Interpretive Data Percent cell count reference ranges are not reported, since discordance with absolute values may lead to misinterpretation of CBC data. Current Interpretive Data was last revised on 2017. Imm gran pct 0.3 % [facility] Comment: Interpretive Data Percent cell count reference ranges are not reported, since discordance with absolute values may lead to misinterpretation of CBC data. Current Interpretive Data was last revised on 2017. Lymphocyte pct 41.8 % [facility] Comment: Interpretive Data Percent cell count reference ranges are not reported, since discordance with absolute values may lead to misinterpretation of CBC data. Current Interpretive Data was last revised on 2017. Monocyte pct 11.0 % [facility] Comment: Interpretive Data Percent cell count reference ranges are not reported, since discordance with absolute values may lead to misinterpretation of CBC data. Current Interpretive Data was last revised on 2017. Eosinophil pct 4.6 % [facility] Comment: Interpretive Data Percent cell count reference ranges are not reported, since discordance with absolute values may lead to misinterpretation of CBC data. Current Interpretive Data was last revised on 2017. Basophil pct 0.8 % [facility] Comment: Interpretive Data Percent cell count reference ranges are not reported, since discordance with absolute values may lead to misinterpretation of CBC data. Current Interpretive Data was last revised on 2017. Blood 01/04/2025 8:41 AM CDT 01/04/2025 9:20 AM CDT Cindi Cardoso AQUATICS DIRECTOR LAB BLOOD ORDERABLES Adrianne l Result Performing Organization Address [facility] de Phone Number [facility] [place] [address] * CPAP aPTT algorithm (01/04/2025 8:41 AM CDT) Pathologist [facility] aPTT 29 28 - 38 sec Comment: Interpretive Data Heparin therapeutic range: 66.0 - 100.0 seconds. Range based on correlation with therapeutic heparin activity range of 0.3 - 0.7 Units/mL. Current interpretive data was last revised on 2023. Blood 01/04/2025 8:41 AM CDT 01/04/2025 9:19 AM CDT Cindi Cardoso AQUATICS DIRECTOR LAB BLOOD ORDERABLES Adrianne l Result Performing Organization Address [facility] de Phone Number [facility] [place] [address] * (ABNORMAL) CBC with auto differential (01/04/2025 8:41 AM CDT) [facility] WBC 3.73(L) 3.80 - 9.90 K/cumm Hgb 15.6 13.0 - 17.5 g/dL [facility] Hct 44.3 38.9 - 50.3 % [facility] Plt 138(L) 150 - 400 K/cumm [facility] MPV 10.1 9.1 - 12.3 fL [facility] RBC 4.92 4.30 - 5.80 M/cumm [facility] MCV 90.0 81.3 - 96.4 fL [facility] MCH 31.7 27.1 - 33.3 pg [facility] MCHC 35.2 32.3 - 35.7 g/dL [facility] RDW CV 14.5 11.1 - 14.9 % [facility] RDW SD 46.6 35.7 - 48.1 fL [facility] NRBC abs 0.00 0.00 - 0.01 K/cumm [facility] Blood 01/04/2025 8:41 AM CDT 01/04/2025 9:20 AM CDT Cindi Cardoso NP LAB BLOOD ORDERABLES Adrianne l Result Performing Organization Address [facility] de Phone Number [facility] [employer] [place] [address] * Protime-INR (01/04/2025 8:41 AM CDT) PT 10.7 9.7 - 13.0 sec INR 0.99 0.90 - 1.20 [facility] Comment: Interpretive data Oral anticoagulant therapeutic ranges: Venous thromboembolism prophylaxis or treatment: 2.0-3.0 CARDIOLOGY Standard range: 2.0-3.0 High-intensity range: 2.5-3.5 Refer to indication-specific guidelines for appropriate target ranges for prosthetic heart valve replacement. Current interpretive data was last revised on 2019. Blood 01/04/2025 8:41 AM CDT 01/04/2025 9:19 AM CDT Cindi Cardoso NP LAB BLOOD ORDERABLES Adrianne l Result Performing Organization Address [facility] Co de Phone Number [facility] Department [place] [address] * Comprehensive metabolic panel (01/04/2025 8:41 AM CDT) Sodium 140 135 - 145 mmol/L Potassium, pl 4.2 3.3 - 4.9 mmol/L [facility] Chloride 101 97 - 110 mmol/L [facility] CO2 25 22 - 32 mmol/L [facility] Anion gap 14 2 - 15 mmol/L [facility] BUN 19 6 - 25 mg/dL [facility] Creatinine 1.00 0.80 - 1.30 mg/dL [facility] Glucose 99 70 - 199 mg/dL [facility] Comment: Interpretive Data Fasting glucose >/= 126 [...] 2022. Calcium 9.8 8.5 - 10.3 mg/dL [facility] Bilirubin, total 0.5 0.1 - 1.2 mg/dL [facility] Protein, pl 7.5 6.5 - 8.5 g/dL [facility] Albumin 4.6 3.5 - 5.0 g/dL [facility] Alk phos 63 40 - 130 Units/L [facility] ALT 35 7 - 55 Units/L [facility] AST 34 10 - 50 Units/L [facility] Blood 01/04/2025 8:41 AM CDT 01/04/2025 9:20 AM CDT us Cindi Cardoso NP LAB BLOOD ORDERABLES Adrianne l Result [facility] [place] [address] * MRI Abdomen Liver W WO Contrast [...] it. Electronically signed by: Dillon Ambriz M.D. Venkatesh Liu MD IM MRI PROCEDURES Final Result from Last 3 Months Insurance [facility] Advance Directives For more information, please contact: [phone] * Full Code (Latest Code Status on File) Date Activated Date Inactivated Comments 01/17/2025 3:32 PM 01/18/2025 1:19 PM Care Teams Sales Assistants And Salespersons Relationship Specialty Start Date End Date Charo Reaves NP [address] [place] [address] [address] Esteban [facility] [address] [place] [address] PCP - General Nurse Practitioner 01/18/25 Behzad Johnson MD [address] [place] [address] Referring Physician Hematology 04/06/24 Russell Goins MD [address] [facility] [address] [place] [address] Medical Oncologist/Hematologis t Medical Oncology 05/23/24 Russell Goins MD [address] [facility] [address] [place] [address] Medical Oncologist/Hematologis t Medical Oncology 07/20/24 Venkatesh Liu MD [facility] [address] [facility] [place] [address] Consulting Physician Transplant Surgery 07/20/24 Venkatesh Liu Jr., MD [address] [phone] [place] [address] Consulting Physician Colon and Rectal Surgery 07/23/24
--- OUTSIDE RECORDS SUMMARY | 2025-01-30 09:59 | XMS_ITS | Encounter Summary ---
Author Organization [facility] [employer] [facility] Address [address] [place] [address] Care Team Providers Care Fermentation Scientist Name Role Phone Jesus White MD Primary Care Provider [phone] Encounter Details Date Type Department Care Team (Late Contact Info) Description 12/31/2021 [facility] - [place] [address] [place] [address] Jesus White MD [address] [place] [address] Social History Tobacco Use Types Packs/Day Years Used Date Smoking Tobacco: Never Sex and Gender Information Value Date Recorded Sex Assigned at Not on file 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 - [place] [address] [place] [address] Behzad Johnson MD [address] [place] [address] documented as of this encounter Visit Diagnoses Not on filedocumented in this encounter Care Teams Fermentation Scientist Relationship Specialty Start Date End Date Jesus White MD [address] [address] PCP - General Internal Medicine 08/15/21 documented as of this encounter
--- OUTSIDE RECORDS SUMMARY | 2025-01-30 09:59 | XMS_ITS | Clinical Summary ---
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 Active Pyridoxine HCl (VITAMIN B-6 PO) Take by mouth. Active Multiple Vitamin (MULTIVITAMIN PO) Take by mouth. Active Probiotic Product (PROBIOTIC DAILY PO) Take by mouth. Active docusate sodium (COLACE) 100 MG Capsule Take 100 mg by mouth daily. Active levothyroxine (SYNTHROID) 112 MCG Tablet Take 1 tablet by mouth once daily 90 Tablet 11/29/2024 Active Active Problems Problem Noted Date Diagnosed Date DILAN (obstructive sleep apnea) 05/17/2023 Acquired hypothyroidism 05/17/2023 Malignant neoplasm of descending colon 2 Iron deficiency anemia 08/26/2021 Encounters Date Type Department Care Team Description 01/12/2025 Telephone [facility] - [place] [address] [place] [address] Nunu Mejía MD Results 12/07/2024 10:00 AM CDT Office Visit [facility] [address] [place] [address] Nunu Mejía MD Postoperative hypothyroidism (Primary Dx) Discharge Disposition: Discharged to home or Selfcare 12/07/2024 Results Follow-Up [facility] [address] [place] [address] Nunu Mejía MD THYROID STIMULATING HORMONE (TSH), THYROXINE (T4) FREE 12/07/2024 Travel 11/28/2024 Refill [facility] [address] [place] [address] Nunu Mejía MD Medication Refill from Last 3 Months Immunizations Immunization Administration Dates Next Due Influenza [...] Sign Reading Time Taken Comments Blood Pressure 114/68 12/07/2024 9:54 AM CDT Pulse 72 12/07/2024 9:54 AM CDT Temperature 36.6 C (97.9 F) 12/07/2024 9:54 AM CDT Respiratory Rate 22 12/07/2024 9:54 AM CDT Oxygen Saturation 97% 12/07/2024 9:54 AM CDT Inhaled Oxygen Concentration - - Weight 95.4 kg (210 lb 6.4 oz) 12/07/2024 9:54 A M CDT Height 185.4 cm (6' 1 ) 08/17/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 Body Mass Index 27.76 08/17/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 Plan of Treatment Upcoming Encounters Date Type Department Care Team (Late st Contact Info) Description 06/08/2025 1:15 PM CDT Office Visit [facility] - [place] [address] [place] [phone] Nunu Mejía MD [address] [place] [address] [phone] Health Maintenance Due Date Last Done Comments Hepatitis C Virus (HCV) Screening 1975 Hepatitis B Immunization (1 of 3 - 19+ 3-dose series) 1994 Pneumococcal Immunization Combined (1 of 2 - PCV) 1994 SARS-COV-2 Immunization ( season) 2024 06/30/2023, 06/30/2023, 07/28/2022, Additional history exists Cologuard 2025 Immunochemical Fecal Occult Blood 2025 07/11/2021 Influenza Immunization (Season Ended) 2025 05/18/2023, 05/17/2023, 08/10/2022, Additional history exists Td Immunization Every 10 Years (Adults With 1 Tdap) 03/30/2033 03/30/2023 Colonoscopy 02/01/2034 02/02/2024, 08/06, 08/16/2021 Colorectal Cancer Screening 02/01/2034 Respiratory Syncytial Virus (RSV) Immunization (Adult) (1 - 1-dose 75+ series) 2050 02/02/2024, 08/06, 08/16/2021 DTaP/Tdap/Td Immunization Discontinued 03/30/2023 Human Papillomavirus (HPV) Immunization Aged Out No longer eligible based on patient's age to complete this topic Meningococcal Immunization (ACWY) Aged Out No longer eligible based on patient's age to complete this topic Rotavirus Immunization Aged Out No lo nger eligible based on patient's age to complete this topic Procedures Procedure Name Priority Date/Time Associated Diagnosis Comments THYROXINE (T4) FREE Routine 12/07/2024 1 0:20 AM CDT Postoperative hypothyroidism THYROID STIMULATING HORMONE (TSH) Routine 12/07/2024 10:20 AM CDT Postoperative hypothyroidism STOOL, OCCULT BLOOD, SCREEN 07/11/2021 12:00 AM CDT from Last 3 Months or Most Recently Relevant to Health Maintenance Results * THYROXINE (T4) FREE (12/07/2024 10:20 AM CDT) T4 FREE 1.2 0.7 - 1.9 ng/dL 12/07/2024 11:48 AM CDT [facility] Blood Venipuncture / Unknown 12/07/2024 10:20 AM CDT 12/07/2024 11:08 AM CDT us Nunu Mejía MD CHEMISTRY ORDERABLES Final Resul t Performing Organization Address City/[facility]/ZIP Co de Phone Number [facility] [address] [place] [address] * THYROID STIMULATING HORMONE (TSH) (12/07/2024 10:20 AM CDT) TSH 3.376 0.300 - 5.000 mIU/L 12/07/2024 11:48 AM CDT [facility] Blood Venipuncture / Unknown 12/07/2024 10:20 AM CDT 12/07/2024 11:08 AM CDT us Nunu Mejía MD CHEMISTRY ORDERABLES Final Resul t [facility] [address] [place] [address] * STOOL, OCCULT BLOOD, SCREEN FOR CA (07/11/2021 12:00 AM CDT) 07/11/2021 us Not On File Provider URINE ORDERABLES Final Resu lt SCAN from Last 3 Months or Most Recently Relevant to Health Maintenance Insurance [place]ICAID [place] Care Teams 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
== END 2025-01-30 09:54 | disposition home or self-care (01) ==
LOC: ANHIMG 09:55
PROVIDERS: Visit Provider Internal Medicine Hematology & Oncology
DX: G43.709 Chronic migraine without aura, not intractable, without status migrainosus (principal)
CPT/HCPCS: 70553; A9579